=== PATIENT | female | born 1940 | race Caucasian/White ===

== ENCOUNTER → 2019-08-30 | Outpatient (CLI) | payer MEDICARE ==
--- NOTE | 2019-08-30 17:57 | US ---
EXAMINATION TYPE: US venous doppler duplex LE LT DATE OF EXAM: 08/30/2019 5:47 PM COMPARISON: NONE CLINICAL HISTORY: R609 Edema, unspecified, [id number] Pain in left lower leg. Left lower extremity pain a nd swelling since 08/05/2019. No hx of DVT. Patient does not take blood thinners. SIDE PERFORMED: Left TECHNIQUE: The lower extremity deep venous system is examined utilizing real time linear array sonog ethel with graded compression, doppler sonography and color-flow sonography. VESSELS IMAGED: Common Femoral Vein Deep Femoral Vein Greater Saphenous Vein * Femoral Vein Popliteal Vein Small Saphenous Vein * Proximal Calf Veins (* superficial vessels) Left Leg: EIV not visualized. No evidence of DVT in veins imaged at this time from prox calf veins t o CFV/GSV. IMPRESSION: 1. Limited exam as the external iliac vein was not visualized. The remaining deep venous structures v isualized demonstrate no diagnostic evidence of DVT.
== END | disposition home or self-care (01) ==
LOC: RADUSMAIN 17:16
PROVIDERS: ATTEND Physician Assistant Medical
DX: R22.42 Localized swelling, mass and lump, left lower limb (principal)

== ENCOUNTER → 2019-11-08 | Outpatient (CLI) | payer MEDICARE ==
--- NOTE | 2019-11-08 11:27 | BD ---
EXAMINATION TYPE: Axial Bone Density DATE OF EXAM: 11/08/2019 COMPARISON: Prior DEXA bone scan 2011. CLINICAL HISTORY: Nuclear Medicine Study in the last 2 weeks: NO Barium Study in the last week: NO : NO Height: 5 FT 4IN Weight: 210 FRAX RISK QUESTIONS: Alcohol (3 or more units per day): NO Family History (Parent hip fracture): NO Glucocorticoids (More than 3mos): NO (Ex: prednisone, prednisolone, methylprednisolone, dexamethasone, and hydrocortisone). History of Fracture in Adulthood: NO Secondary Osteoporosis: 1. Type 1 Diabetes: NO 2. Hyperthyroidism: NO 3. Menopause before 45: NO 4. Malnutrition: NO 5. Chronic liver disease: NO Rheumatoid Arthritis: NO Current Tobacco Use: NO RISK FACTORS HISTORY OF: Active: YES Postmenopausal woman: PART HYST AGE 41 SYMPTOMS OF MENOPAUSE AROUND 51 Take estrogen and/or progesterone medications: TOOK PREMARIN 50-65 MEDICATIONS: Thyroid Medications: YES Which medication: SYNTHROID How Lon YEARS Additional Medications: ATENOLOL, ZESTRIL, TRICOR, DETROL, SYNTHROID, Additional History: EXAM MEASUREMENTS: Bone mineral densitometry was performed using the [employer] System. Bone mineral density as measured about the Lumbar spine is: ----- L1-L4(G/cm2): 1.539 T Score Values are as follows: ----- L2: 3.8 ----- L3: 3.0 ----- L4: 3.4 ----- L1-L4: 3.0 Bone mineral density has: INCREASED 9.9% since study of: 2011 Bone mineral density about the R hip (g/cm2): 1.039 Bone mineral density about the L hip (g/cm2): 0.942 T Score values are as follows: -----R Neck: 0.0 -----L Neck: -0.7 -----R Total: 0.2 -----L Total: 0.4 Bone mineral density has: INCREASED 6.6 % since study of: 2011 IMPRESSION: Normal (Values between +1 and -1 indicate normal bone mass) range remains present. Consider repeatin g this study in 5 years or sooner if there is some new clinical indication. NOTE: T-SCORE=SD OF THE YOUNG ADULT MEAN.
== END | disposition home or self-care (01) ==
LOC: RADBDWWP 08:53
PROVIDERS: ATTEND Family Medicine
DX: M85.80 Other specified disorders of bone density and structure, unspecified site (principal)
CPT/HCPCS: 77080

== ENCOUNTER 2020-10-20 14:04 | Emergency (ER) | payer MEDICARE ==
[2020-10-20 15:16] VITALS: TEMP 98
--- NOTE | 2020-10-20 15:49 | ED ---
General Adult HPI - General Chief complaint: Shortness of Breath Stated complaint: SOB Time Seen by Provider: 10/20/20 15:30 Source: patient, RN notes reviewed Mode of arrival: ambulatory Limitations: no limitations - History of Present Illness Initial comments: Patient is a pleasant 80-year-old female presenting to the emergency Department with complaints of difficulty in breathing. Symptoms have worsened over the past couple months. Patient does have history of asthma. Patient is coughing with productive green sputum. No fever. Symptoms do worsen somewhat with exertion. No leg pain or leg swelling. No chest pain. - Related Data Home Medications Medication Instructions Recorded Confirmed Albuterol Nebulized [Ventolin 2.5 mg INHALATION RT-BID 10/20/20 10/20/20 Nebulized] Atenolol [Tenormin] 50 mg PO BID 10/20/20 10/20/20 Divalproex Sodium [Depakote] 500 mg PO BID 10/20/20 10/20/20 Fenofibrate,Micronized 134 mg PO DAILY 10/20/20 10/20/20 [Fenofibrate] Levothyroxine Sodium [Synthroid] 50 mcg PO DAILY 10/20/20 10/20/20 Omeprazole 20 mg PO DAILY 10/20/20 10/20/20 Tolterodine ER [Detrol LA] 4 mg PO DAILY 10/20/20 10/20/20 hydrALAZINE HCL [Apresoline] 50 mg PO TID 10/20/20 10/20/20 lisinopriL [Zestril] 20 mg PO DAILY 10/20/20 10/20/20 Previous Rx's Medication Instructions Recorded Azithromycin [Zithromax Z-pack (6 250 mg PO DIRECTED #6 tab 10/20/20 tabs)] Allergies Allergy/AdvReac Type Severity Reaction Status Date / Time Latex, Natural Rubber Allergy Rash/Hives Verified 10/20/20 16:51 Review of Systems ROS Statement: Those systems with pertinent positive or pertinent negative responses have been documented in the HPI. ROS Other: All systems not noted in ROS Statement are negative. Constitutional: Denies: fever Eyes: Denies: eye pain ENT: Denies: ear pain Respiratory: Reports: cough, dyspnea Cardiovascular: Denies: chest pain Endocrine: Reports: fatigue Gastrointestinal: Denies: abdominal pain Genitourinary: Denies: dysuria Musculoskeletal: Denies: back pain Skin: Denies: rash Neurological: Denies: weakness Past Medical History Past Medical History: GERD/Reflux, Hyperlipidemia, Hypertension, Thyroid Disorder History of Any Multi-Drug Resistant Organisms: None Reported Past Surgical History: Hysterectomy Past Psychological History: Anxiety, Depression Smoking Status: Never smoker Past Alcohol Use History: None Reported Past Drug Use History: None Reported General Exam Limitations: no limitations General appearance: alert, in no apparent distress Head exam: Present: normocephalic Eye exam: Present: normal appearance Respiratory exam: Present: wheezes Cardiovascular Exam: Present: regular rate, normal rhythm GI/Abdominal exam: Present: soft. Absent: tenderness Extremities exam: Present: normal inspection. Absent: pedal edema, calf tenderness Neurological exam: Present: alert Psychiatric exam: Present: normal affect, normal mood Skin exam: Present: normal color Course Vital Signs 10/20/20 10/20/20 15:11 15:33 Temperature 98.0 F Pulse Rate 72 75 Respiratory 24 20 Rate Blood Pressure 149/70 164/73 O2 Sat by Pulse 90 L 93 L Oximetry EKG Findings - EKG Comments: EKG Findings:: Sinus rhythm with a rate of 75. First 3 AV block GA of 218. QRS 150. QT 462. QTC 513. Right axis. Right bundle branch block. Lateral T wave inversion. Inferior T wave inversion. Medical Decision Making - Medical Decision Making Patient reevaluated and resting comfortably in bed. Patient feeling better. Pulse ox 97%. Lungs with minimal expiratory wheeze. Patient and family updated on results. Patient comfortable with discharge home. Patient and family states she does not do well with steroids would like to hold steroids at this time. - Lab Data Result diagrams: 10/20/20 15:55 10/20/20 15:55 Lab Results 10/20/20 10/20/20 10/20/20 Range/Units 15:55 15:55 15:55 WBC 9.5 (3.8-10.6) k/uL RBC 4.82 (3.80-5.40) m/uL Hgb 13.3 (11.4-16.0) gm/dL Hct 40.4 (34.0-46.0) % MCV 83.9 (80.0-100.0) fL MCH 27.6 (25.0-35.0) pg MCHC 32.9 (31.0-37.0) g/dL RDW 14.4 (11.5-15.5) % Plt Count 268 (150-450) k/uL MPV 6.7 Neutrophils % 69 % Lymphocytes % 22 % Monocytes % 5 % Eosinophils % 3 % Basophils % 1 % Neutrophils # 6.6 (1.3-7.7) k/uL Lymphocytes # 2.1 (1.0-4.8) k/uL Monocytes # 0.5 (0-1.0) k/uL Eosinophils # 0.3 (0-0.7) k/uL Basophils # 0.1 (0-0.2) k/uL PT 10.5 (9.0-12.0) sec INR 1.0 (<1.2) APTT 23.3 (22.0-30.0) sec D-Dimer 0.29 (<0.60) mg/L FEU Sodium 134 L (137-145) mmol/L Potassium 4.2 (3.5-5.1) mmol/L Chloride 102 (98-107) mmol/L Carbon Dioxide 24 (22-30) mmol/L Anion Gap 8 mmol/L BUN 21 H (7-17) mg/dL Creatinine 0.62 (0.52-1.04) mg/dL Est GFR (CKD-EPI)AfAm >90 (>60 ml/min/1.73 sqM) Est GFR (CKD-EPI)NonAf 87 (>60 ml/min/1.73 sqM) Glucose 112 H (74-99) mg/dL Plasma Lactic Acid [place] (0.7-2.0) mmol/L Calcium 9.5 (8.4-10.2) mg/dL Total Bilirubin 0.3 (0.2-1.3) mg/dL AST 24 (14-36) U/L ALT 14 (4-34) U/L Alkaline Phosphatase 52 (38-126) U/L Troponin I (0.000-0.034) ng/mL NT-Pro-B Natriuret Pep pg/mL Total Protein 6.6 (6.3-8.2) g/dL Albumin 4.0 (3.5-5.0) g/dL Coronavirus (PCR) (Not Detectd) 06/04/21 06/04/21 06/04/21 Range/Units 15:55 15:55 15:55 WBC (3.8-10.6) k/uL RBC (3.80-5.40) m/uL Hgb (11.4-16.0) gm/dL Hct (34.0-46.0) % MCV (80.0-100.0) fL MCH (25.0-35.0) pg MCHC (31.0-37.0) g/dL RDW (11.5-15.5) % Plt Count (150-450) k/uL MPV Neutrophils % % Lymphocytes % % Monocytes % % Eosinophils % % Basophils % % Neutrophils # (1.3-7.7) k/uL Lymphocytes # (1.0-4.8) k/uL Monocytes # (0-1.0) k/uL Eosinophils # (0-0.7) k/uL Basophils # (0-0.2) k/uL PT (9.0-12.0) sec INR (<1.2) APTT (22.0-30.0) sec D-Dimer (<0.60) mg/L FEU Sodium (137-145) mmol/L Potassium (3.5-5.1) mmol/L Chloride (98-107) mmol/L Carbon Dioxide (22-30) mmol/L Anion Gap mmol/L BUN (7-17) mg/dL Creatinine (0.52-1.04) mg/dL Est GFR (CKD-EPI)AfAm (>60 ml/min/1.73 sqM) Est GFR (CKD-EPI)NonAf (>60 ml/min/1.73 sqM) Glucose (74-99) mg/dL Plasma Lactic Acid [place] 0.9 (0.7-2.0) mmol/L Calcium (8.4-10.2) mg/dL Total Bilirubin (0.2-1.3) mg/dL AST (14-36) U/L ALT (4-34) U/L Alkaline Phosphatase (38-126) U/L Troponin I <0.012 (0.000-0.034) ng/mL NT-Pro-B Natriuret Pep 377 pg/mL Total Protein (6.3-8.2) g/dL Albumin (3.5-5.0) g/dL Coronavirus (PCR) (Not Detectd) 10/20/20 Range/Units 15:55 WBC (3.8-10.6) k/uL RBC (3.80-5.40) m/uL Hgb (11.4-16.0) gm/dL Hct (34.0-46.0) % MCV (80.0-100.0) fL MCH (25.0-35.0) pg MCHC (31.0-37.0) g/dL RDW (11.5-15.5) % Plt Count (150-450) k/uL MPV Neutrophils % % Lymphocytes % % Monocytes % % Eosinophils % % Basophils % % Neutrophils # (1.3-7.7) k/uL Lymphocytes # (1.0-4.8) k/uL Monocytes # (0-1.0) k/uL Eosinophils # (0-0.7) k/uL Basophils # (0-0.2) k/uL PT (9.0-12.0) sec INR (<1.2) APTT (22.0-30.0) sec D-Dimer (<0.60) mg/L FEU Sodium (137-145) mmol/L Potassium (3.5-5.1) mmol/L Chloride (98-107) mmol/L Carbon Dioxide (22-30) mmol/L Anion Gap mmol/L BUN (7-17) mg/dL Creatinine (0.52-1.04) mg/dL Est GFR (CKD-EPI)AfAm (>60 ml/min/1.73 sqM) Est GFR (CKD-EPI)NonAf (>60 ml/min/1.73 sqM) Glucose (74-99) mg/dL Plasma Lactic Acid [place] (0.7-2.0) mmol/L Calcium (8.4-10.2) mg/dL Total Bilirubin (0.2-1.3) mg/dL AST (14-36) U/L ALT (4-34) U/L Alkaline Phosphatase (38-126) U/L Troponin I (0.000-0.034) ng/mL NT-Pro-B Natriuret Pep pg/mL Total Protein (6.3-8.2) g/dL Albumin (3.5-5.0) g/dL Coronavirus (PCR) Not Detected (Not Detectd) - Radiology Data Radiology results: image reviewed (x-ray shows no acute) Disposition Clinical Impression: Bronchospasm Disposition: HOME SELF-CARE Condition: Stable Instructions (If sedation given, give patient instructions): Bronchospasm (ED), Acute Bronchitis (ED) Additional Instructions: Continue nebulizer. Prescription for antibiotics has been sent to pharmacy. Return for difficulty in breathing, pain, fevers, worsening symptoms or other concerns. Prescriptions: Azithromycin [Zithromax Z-pack (6 tabs)] 250 mg PO DIRECTED #6 tab Is patient prescribed a controlled substance at d/c from ED?: No Referrals: Bennett Saxena DO [Primary Care Provider] - 1-2 days Cindy Dash MD [STAFF PHYSICIAN] - 1-2 days Time of Disposition: 17:29
[2020-10-20 16:17] LABS: Basophils # (A) 0.1 k/uL (0-0.2); Basophils % (A) 1 %; Eosinophils # (A) 0.3 k/uL (0-0.7); Eosinophils % (A) 3 %; HCT 40.4 % (34.0-46.0); HGB 13.3 gm/dL (11.4-16.0); Lymphocytes # (A) 2.1 k/uL (1.0-4.8); Lymphocytes % (A) 22 %; MCH 27.6 pg (25.0-35.0); MCHC 32.9 g/dL (31.0-37.0); MCV 83.9 fL (80.0-100.0); Mean Platelet Volume 6.7; Monocytes # (A) 0.5 k/uL (0-1.0); Monocytes % (A) 5 %; Neutrophils # (A) 6.6 k/uL (1.3-7.7); Neutrophils % (A) 69 %; Platelet Count 268 k/uL (150-450); RBC 4.82 m/uL (3.80-5.40); RDW 14.4 % (11.5-15.5); WBC 9.5 k/uL (3.8-10.6)
[2020-10-20 16:24] LABS: ALT 14 U/L (4-34); AST 24 U/L (14-36); African American GFR (CKD) >90 (>60 ml/min/1.73 sqM); Alkaline Phosphatase 52 U/L (38-126); Anion Gap 8 mmol/L; Blood Urea Nitrogen 21 mg/dL (7-17); Calcium 9.5 mg/dL (8.4-10.2); Carbon Dioxide 24 mmol/L (22-30); Chloride 102 mmol/L (98-107); Glucose 112 mg/dL (74-99); Non-African American GFR(CKD) 87 (>60 ml/min/1.73 sqM); Potassium 4.2 mmol/L (3.5-5.1); Sodium 134 mmol/L (137-145); Total Bilirubin 0.3 mg/dL (0.2-1.3); Total Protein 6.6 g/dL (6.3-8.2)
[2020-10-20 16:30] LABS: D-Dimer 0.29 mg/L FEU (<0.60); Partial Thromboplastin Time 23.3 sec (22.0-30.0); Prothrombin Time 10.5 sec (9.0-12.0)
--- NOTE | 2020-10-20 16:49 | XR ---
EXAMINATION TYPE: XR chest 2V DATE OF EXAM: 10/20/2020 COMPARISON: NONE HISTORY: Difficulty breathing TECHNIQUE: 2 views FINDINGS: There is no heart failure nor confluent pneumonic infiltrate. Heart appears enlarged. Costo phrenic angles are clear. There are no hilar masses. IMPRESSION: Cardiomegaly. No acute lung disease. No heart failure.
[2020-10-20 17:39] VITALS: BP 159/79; PULSE 86; RESP 16
== END 2020-10-20 17:38 | disposition home or self-care (01) ==
LOC: EC 14:04
DX: J98.01 Acute bronchospasm (principal); E78.5 Hyperlipidemia, unspecified; I10 Essential (primary) hypertension; E07.9 Disorder of thyroid, unspecified; K21.9 Gastro-esophageal reflux disease without esophagitis
CPT/HCPCS: 36415; 71046; 80053; 83605; 83880; 84484; 85025; 85379; 85610; 85730; 87635; 93005; 99284

== ENCOUNTER → 2020-10-20 | Outpatient (CLI) | payer MEDICARE ==
--- NOTE | 2020-10-20 18:57 | ECHOF ---
Referral Reason:R011 murmur MEASUREMENTS -------- HEIGHT: 162.6 cm WEIGHT: 98.0 kg BP: RVIDd: 2.9 cm (< 3.3) IVSd: 1.2 cm (0.6 - 1.1) LVIDd: 4.8 cm (3.9 - 5.3) LVPWd: 1.3 cm (0.6 - 1.1) IVSs: 1.5 cm LVIDs: 3.4 cm LVPWs: 1.5 cm LA Diam: 3.5 cm (2.7 - 3.8) Ao Diam: 3.0 cm (2.0 - 3.7) AV Cusp: 1.9 cm (1.5 - 2.6) MV EXCURSION: 15.965 mm (> 18.000) MV EF SLOPE: 47 mm/s (70 - 150) EPSS: 0.8 cm MV E Zan: 0.58 m/s MV DecT: 166 ms MV A Zan: 0.57 m/s MV E/A Ratio: 1.02 RAP: 5.00 mmHg RVSP: 24.18 mmHg FINDINGS -------- This was a technically adequate study. The left ventricular size is normal. There is mild concentric left ventricular hypertrophy. Overa ll left ventricular systolic function is low-normal with, an EF between 50 - 55 %. The right ventricle is normal in size. The left atrial size is normal. The right atrial size is normal. There is mild aortic valve sclerosis. There is no evidence of aortic regurgitation. The mitral valve leaflets are mildly thickened. Mild mitral regurgitation is present. The tricuspid valve appears structurally normal. Mild tricuspid regurgitation present. Right vent ricular systolic pressure is normal at < 35 mmHg. The pulmonic valve was not well visualized. The aortic root size is normal. Echo free space represents a pericardial fat pad. CONCLUSIONS -------- 1. There is mild concentric left ventricular hypertrophy. 2. Overall left ventricular systolic function is low-normal with, an EF between 50 - 55 %. 3. The left atrial size is normal. 4. There is mild aortic valve sclerosis. 5. The mitral valve leaflets are mildly thickened. 6. Mild mitral regurgitation is present. 7. Mild tricuspid regurgitation present. 8. Echo free space represents a pericardial fat pad. [employer] HAR[employer]STER: Kaylee Miller RDCS
== END | disposition home or self-care (01) ==
LOC: RADECHMAIN 13:19
PROVIDERS: ATTEND Family Medicine
DX: I08.1 Rheumatic disorders of both mitral and tricuspid valves (principal)
CPT/HCPCS: 93306

== ENCOUNTER 2020-10-23 11:35 | Inpatient (IN) | payer MEDICARE ==
[2020-10-23] MEDS ORDERED: dexAMETHasone 4 MG TAB PO STA (13:06)
--- NOTE | 2020-10-23 13:11 | ED ---
General Adult HPI - General Chief complaint: Shortness of Breath Stated complaint: Sob/low o2 Time Seen by Provider: 10/23/20 12:56 Source: patient Mode of arrival: wheelchair Limitations: physical limitation - History of Present Illness Initial comments: Dictation was produced using [employer] dictation software. please excuse any grammatical, word or spelling errors. Chief Complaint: 80-year-old female presents to the emergency department for cough, shortness of breath and wheezing History of Present Illness: Patient is a 80-year-old female. Her story begins 3 days ago. She was getting an echocardiogram performed. She was told that she was hypoxic. She is told to come to the emergency department. 3 days ago patient was seen in the emergency department by Dr. Worthington. She was evaluated and discharged with shortness of breath secondary to bronchospastic disease. She had normal labs that day and also normal x-ray. Patient refused steroid administration at that time. Patient has been at home trying to recover. She states that her shortness of breath seemingly is getting worse. She has been using her 's breathing machine with no significant improvement. Patient has been having coughing with green sputum. Denies any constitutional symptoms. The ROS documented in this emergency department record has been reviewed and confirmed by me. Those systems with pertinent positive or negative responses have been documented in the HPI. All other systems are other negative and/or noncontributory. PHYSICAL EXAM: General Impression: Alert and oriented x3, not in acute distress HEENT: Normocephalic atraumatic, extra-ocular movements intact, pupils equal and reactive to light bilaterally, mucous membranes moist. Cardiovascular: Heart regular rate and rhythm Chest: Able to complete full sentences, diffuse wheezing to the bilateral lung bases Abdomen: abdomen soft, non-tender, non-distended, no organomegaly Musculoskeletal: Pulses present and equal in all extremities, no peripheral edema Motor: no focal deficits noted Neurological: CN II-XII grossly intact, no focal motor or sensory deficits noted Skin: Intact with no visualized rashes Psych: Normal affect and mood ED course: 80-year-old female presents with chief complaint of dyspnea, cough vital signs upon arrival are within acceptable limits. Laboratory evaluation obtained. CBC unremarkable. Metabolic panel is negative. 4 virus panel shows positive coronavirus. Patient given steroids. Patient be admitted for hypoxic respiratory failure secondary to COVID-19. Patient agreeable with plan. Patient be admitted to [facility] hospitalist group. EKG interpretation: Ventricular rate 61, sinus rhythm, right bundle branch block, WI interval 232, QRS 150, QTc 487. No WI prolongation, no QTC prolongation, no ST or T-wave changes noted. EKG compared to 10/20/2020 showing no changes. Overall, this EKG is unremarkable - Related Data Home Medications Medication Instructions Recorded Confirmed Albuterol Nebulized [Ventolin 2.5 mg INHALATION RT-BID 10/20/20 10/20/20 Nebulized] Atenolol [Tenormin] 50 mg PO BID 10/20/20 10/20/20 Divalproex Sodium [Depakote] 500 mg PO BID 10/20/20 10/20/20 Fenofibrate,Micronized 134 mg PO DAILY 10/20/20 10/20/20 [Fenofibrate] Levothyroxine Sodium [Synthroid] 50 mcg PO DAILY 10/20/20 10/20/20 Omeprazole 20 mg PO DAILY 10/20/20 10/20/20 Tolterodine ER [Detrol LA] 4 mg PO DAILY 10/20/20 10/20/20 hydrALAZINE HCL [Apresoline] 50 mg PO TID 10/20/20 10/20/20 lisinopriL [Zestril] 20 mg PO DAILY 10/20/20 10/20/20 Previous Rx's Medication Instructions Recorded Azithromycin [Zithromax Z-pack (6 250 mg PO DIRECTED #6 tab 10/20/20 tabs)] Allergies Allergy/AdvReac Type Severity Reaction Status Date / Time Latex, Natural Rubber Allergy Rash/Hives Verified 10/23/20 11:48 Review of Systems ROS Statement: Those systems with pertinent positive or pertinent negative responses have been documented in the HPI. ROS Other: All systems not noted in ROS Statement are negative. Past Medical History Past Medical History: COPD, GERD/Reflux, Hyperlipidemia, Hypertension, Thyroid Disorder History of Any Multi-Drug Resistant Organisms: None Reported Past Surgical History: Hysterectomy Past Psychological History: Anxiety, Depression Smoking Status: Never smoker Past Alcohol Use History: None Reported Past Drug Use History: None Reported General Exam Limitations: physical limitation Course Vital Signs 10/23/20 10/23/20 10/23/20 11:44 13:48 14:00 Temperature 97.8 F Pulse Rate 69 Respiratory 18 18 18 Rate Blood Pressure 144/68 O2 Sat by Pulse 95 Oximetry 10/23/20 15:10 Temperature Pulse Rate Respiratory 18 Rate Blood Pressure O2 Sat by Pulse Oximetry Medical Decision Making - Lab Data Result diagrams: 10/23/20 13:47 10/23/20 13:47 Lab Results 10/23/20 10/23/20 10/23/20 Range/Units 13:47 13:47 13:47 WBC 7.9 (3.8-10.6) k/uL RBC 4.65 (3.80-5.40) m/uL Hgb 13.2 (11.4-16.0) gm/dL Hct 39.1 (34.0-46.0) % MCV 84.1 (80.0-100.0) fL MCH 28.3 (25.0-35.0) pg MCHC 33.7 (31.0-37.0) g/dL RDW 13.9 (11.5-15.5) % Plt Count 272 (150-450) k/uL MPV 6.8 Neutrophils % 61 % Lymphocytes % 29 % Monocytes % 5 % Eosinophils % 3 % Basophils % 1 % Neutrophils # 4.8 (1.3-7.7) k/uL Lymphocytes # 2.3 (1.0-4.8) k/uL Monocytes # 0.4 (0-1.0) k/uL Eosinophils # 0.2 (0-0.7) k/uL Basophils # 0.0 (0-0.2) k/uL Sodium 138 (137-145) mmol/L Potassium 4.2 (3.5-5.1) mmol/L Chloride 103 (98-107) mmol/L Carbon Dioxide 26 (22-30) mmol/L Anion Gap 9 mmol/L BUN 20 H (7-17) mg/dL Creatinine 0.63 (0.52-1.04) mg/dL Est GFR (CKD-EPI)AfAm >90 (>60 ml/min/1.73 sqM) Est GFR (CKD-EPI)NonAf 86 (>60 ml/min/1.73 sqM) Glucose 90 (74-99) mg/dL Calcium 9.5 (8.4-10.2) mg/dL Influenza Type A (PCR) Not Detected (Not Detectd) Influenza Type B (PCR) Not Detected (Not Detectd) RSV (PCR) Not Detected (Not Detectd) SARS-CoV-2 (PCR) Detected A (Not Detectd) Disposition Clinical Impression: COVID-19 Disposition: ADMITTED IP TO THIS HOSP Condition: Fair Referrals: Bennett Saxena DO [Primary Care Provider] - 1-2 days
[2020-10-23 14:11] LABS: Basophils % (A) 1 %; Eosinophils # (A) 0.2 k/uL (0-0.7); Eosinophils % (A) 3 %; HCT 39.1 % (34.0-46.0); HGB 13.2 gm/dL (11.4-16.0); Lymphocytes # (A) 2.3 k/uL (1.0-4.8); Lymphocytes % (A) 29 %; MCH 28.3 pg (25.0-35.0); MCHC 33.7 g/dL (31.0-37.0); MCV 84.1 fL (80.0-100.0); Mean Platelet Volume 6.8; Monocytes # (A) 0.4 k/uL (0-1.0); Monocytes % (A) 5 %; Neutrophils # (A) 4.8 k/uL (1.3-7.7); Neutrophils % (A) 61 %; Platelet Count 272 k/uL (150-450); RBC 4.65 m/uL (3.80-5.40); RDW 13.9 % (11.5-15.5); WBC 7.9 k/uL (3.8-10.6)
--- NOTE | 2020-10-23 14:14 | XR ---
EXAMINATION TYPE: XR chest 2V DATE OF EXAM: 10/23/2020 COMPARISON: Chest x-ray 3 oh. HISTORY: Cough. TECHNIQUE: Frontal and lateral views of the chest are obtained. FINDINGS: There is some chronic parenchymal change bilaterally without suspicious new focal air spac e opacity, pleural effusion, or pneumothorax seen. The cardiac silhouette size remains enlarged. T he osseous structures are intact. IMPRESSION: Cardiomegaly without acute pulmonary process.
[2020-10-23 14:18] LABS: African American GFR (CKD) >90 (>60 ml/min/1.73 sqM); Anion Gap 9 mmol/L; Blood Urea Nitrogen 20 mg/dL (7-17); Calcium 9.5 mg/dL (8.4-10.2); Carbon Dioxide 26 mmol/L (22-30); Chloride 103 mmol/L (98-107); Glucose 90 mg/dL (74-99); Non-African American GFR(CKD) 86 (>60 ml/min/1.73 sqM); Potassium 4.2 mmol/L (3.5-5.1); Sodium 138 mmol/L (137-145)
[2020-10-23] MEDS ORDERED: AZITHROMYCIN 500 MG in SODIUM CHLORIDE 0.9% 250 ML IVPB STA (15:11)
[2020-10-23] MEDS ORDERED: cefTRIAXone IN SWFI 1,000 MG/10 ML SYRINGE IVP STA (15:11)
[2020-10-23] MEDS ORDERED: NALOXONE 0.4 MG/ML 1 ML VIAL IV PRN (15:25)
[2020-10-23] MEDS ORDERED: ALBUTEROL NEBULIZED 2.5 MG/3 ML INHALATION SCH (20:00)
[2020-10-23] MEDS ORDERED: IPRATROPIUM-ALBUTEROL 3 ML NEB INHALATION PRN (20:17)
[2020-10-23] MEDS: ZINC SULFATE 220 MG CAP PO SCH (20:49)
[2020-10-23] MEDS: ENOXAPARIN 40 MG/0.4 ML SYRINGE SQ SCH (20:49)
[2020-10-23] MEDS: CHOLECALCIFEROL 25 MCG (1000 IU) TABLET PO SCH (20:50)
[2020-10-23] MEDS: atenoloL 50 MG TAB PO SCH (20:50)
[2020-10-23] MEDS: ASCORBIC ACID 500 MG TAB PO SCH (20:50)
[2020-10-23] MEDS: DIVALPROEX 500 MG TABLET.DR PO SCH (20:50)
[2020-10-23] MEDS: hydrALAZINE HCL 50 MG TAB PO SCH (20:51)
[2020-10-23 21:49] LABS: ALT 14 U/L (4-34); AST 24 U/L (14-36); African American GFR (CKD) >90 (>60 ml/min/1.73 sqM); Albumin 3.9 g/dL (3.5-5.0); Albumin/Globulin Ratio 1.6; Alkaline Phosphatase 48 U/L (38-126); Anion Gap 12 mmol/L; Blood Urea Nitrogen 19 mg/dL (7-17); C Reactive Protein 3.5 mg/dL (<1.0); Calcium 9.2 mg/dL (8.4-10.2); Carbon Dioxide 23 mmol/L (22-30); Chloride 100 mmol/L (98-107); Globulin 2.5 g/dL; Glucose 253 mg/dL (74-99); LDH 374 U/L (313-618); Non-African American GFR(CKD) 86 (>60 ml/min/1.73 sqM); Potassium 4.4 mmol/L (3.5-5.1); Sodium 135 mmol/L (137-145); Total Bilirubin 0.2 mg/dL (0.2-1.3); Total Protein 6.4 g/dL (6.3-8.2)
--- NOTE | 2020-10-23 21:53 | HP ---
HISTORY AND PHYSICAL DATE OF SERVICE: 10/23/2020. CHIEF COMPLAINT: Shortness of breath. HISTORY OF PRESENT ILLNESS: This 80-year-old woman with a past medical history of multiple medical problems, COPD, GERD, hypertension, hyperlipidemia, hypothyroidism, history of anxiety, depression, being followed by Dr. Saxena in the outpatient setting complaining of shortness of breath over the past several weeks on and off. The shortness of breath worsened. About 3 days ago, patient came to emergency room and was evaluated but subsequently patient came back again and Covid is positive. Patient admitted to the hospital for further evaluation and treatment. The patient apparently completed Covid 19 vaccine Pfizer shots on June and July. There is no history of contact with Covid 19. There is no history of fever, rigors or chills. No history of headache, loss of consciousness or seizures. Inflammatory markers are not available at this time. The patient also has been extensively evaluated for cardiac also shortness of breath the last year by Dr. Zelaya's office apparently. PAST MEDICAL HISTORY: COPD, GERD, hypertension, hyperlipidemia, hypothyroidism, history of anxiety/depression. MEDICATIONS: Zestril, Detrol, omeprazole, Z-Diego, Apresoline, Synthroid, fenofibrate, Depakote, Tenormin. ALLERGIES: LATEX. FAMILY HISTORY: No history of heart disease or strokes in the family. SOCIAL HISTORY: No history of smoking. No history of alcohol. REVIEW OF SYSTEMS: ENT: No diminished hearing. No diminished vision. CARDIOVASCULAR system as mentioned earlier. RESPIRATION: As mentioned earlier. GI: No nausea or vomiting. : No dysuria. Nervous system: No numbness, weakness. ALLERGY/IMMUNOLOGY: No asthma or hayfever. MUSCULOSKELETAL: As mentioned earlier. HEMATOLOGY/ONCOLOGY: No history of anemia. ENDOCRINE: No history of diabetes or hypothyroidism. CONSTITUTIONAL: As mentioned earlier. DERMATOLOGY: Negative. RHEUMATOLOGY: Negative. PSYCHIATRIC: As mentioned earlier. PHYSICAL EXAMINATION: The patient is alert and oriented times three. Pulse 73, blood pressure 153/77, respiration 18, temperature 97.8, pulse ox 96% on room air. HEENT: Conjunctivae normal. NECK: No JVD. CARDIOVASCULAR: S1, S2 muffled. RESPIRATORY SYSTEM: Breath sounds diminished at the bases. A few scattered rhonchi and crackles. ABDOMEN: Soft, nontender. LEGS: Legs no edema. No swelling. NERVOUS SYSTEM: Higher functions as mentioned earlier. Moves all four extremities. No focal motor or sensory deficits. LYMPHATICS: No lymph nodes palpable in the neck, axillae or groin. SKIN: No ulcers, rashes or bleeding. JOINTS: No active deforming arthropathy. ASSESSMENT: 1. Possible chronic obstructive pulmonary disease, bronchial asthma, acute exacerbation with acute purulent tracheobronchitis. 2. Acute COVID-19 infection. 3. Hypertension. 4. Gastroesophageal reflux disease. 5. Chronic obstructive pulmonary disease. 6. Hyperlipidemia. 7. History of hypothyroidism. 8. History of anxiety/depression. 9. Obesity with body mass of 37.1. 10.FULL CODE. RECOMMENDATIONS AND DISCUSSION: In this 80-year-old woman who presented with multiple complex medical issues, we will monitor the patient closely, continue the current medications, management and symptomatic treatment. We will initiate broad-spectrum IV antibiotic empirically and also recommend bronchodilators. Also recommend Lovenox and other medications for Covid 19. Inflammatory markers will be checked and Dr. Buckley will be consulted. Prognosis guarded because of multiple complex medical conditions. Further recommendations to follow. I would also recommend dexamethasone also. Monitor blood sugars closely. Prognosis guarded. Further recommendations to follow. MMODL / IJN: [id number] / [id number]
[2020-10-24 02:49] LABS: Appearance,Urine Clear (Clear); Bilirubin,Urine Negative (Negative); Blood,Urine Negative (Negative); Color,Urine Yellow; Glucose,Urine (UA) 3+ (Negative); Ketones,Urine Trace (Negative); Leukocyte Esterase,Urine Small (Negative); Mucus,Urine Rare /hpf; Nitrite,Urine Negative (Negative); Protein,Urine Negative (Negative); RBC,Urine <1 /hpf (0-5); Specific Gravity,Urine 1.016 (1.001-1.035); Squamous Epithelial Cell,Urine <1 /hpf (0-4); Urobilinogen,Urine <2.0 mg/dL (<2.0); WBC,Urine 15 /hpf (0-5)
[2020-10-24] MEDS: guaiFENesin-Coden 100-10MG/5ML 10 ML CUP PO PRN ×2 (03:20→12:40)
[2020-10-24] MEDS ORDERED: ALBUTEROL HFA INHALER INHALATION PRN (07:44)
[2020-10-24] MEDS: ALBUTEROL HFA INHALER INHALATION SCH ×4 (07:47→21:38)
[2020-10-24] MEDS ORDERED: IPRATROPIUM-ALBUTEROL 3 ML NEB INHALATION SCH (08:00)
[2020-10-24] MEDS ORDERED: TIOTROPIUM 2.5 MCG INHALER INHALATION SCH (08:00)
[2020-10-24] MEDS: OXYBUTYNIN 10 MG TAB.ER.24 PO SCH (08:01)
[2020-10-24] MEDS: CHOLECALCIFEROL 25 MCG (1000 IU) TABLET PO SCH (08:01)
[2020-10-24] MEDS: ENOXAPARIN 40 MG/0.4 ML SYRINGE SQ SCH (08:01)
[2020-10-24] MEDS: lisinopriL 20 MG TAB PO SCH (08:02)
[2020-10-24] MEDS: ASCORBIC ACID 500 MG TAB PO SCH (08:02)
[2020-10-24] MEDS: FENOFIBRATE 160 MG TAB PO SCH (08:02)
[2020-10-24] MEDS: dexAMETHasone 2 MG TAB PO SCH (08:02)
[2020-10-24] MEDS: PANTOPRAZOLE 40 MG TABLET PO SCH (08:02)
[2020-10-24] MEDS: hydrALAZINE HCL 50 MG TAB PO SCH ×3 (08:02→16:42)
[2020-10-24] MEDS: ZINC SULFATE 220 MG CAP PO SCH (08:02)
[2020-10-24] MEDS: LEVOTHYROXINE 50 MCG TAB PO SCH (08:02)
[2020-10-24] MEDS: atenoloL 50 MG TAB PO SCH ×2 (10:00→16:42)
[2020-10-24] MEDS ORDERED: hydrALAZINE HCL 50 MG TAB PO SCH (10:00)
[2020-10-24] MEDS ORDERED: atenoloL 50 MG TAB PO SCH (10:00)
--- NOTE | 2020-10-24 10:02 | P.CNPUL ---
History of Present Illness Consult date: 10/24/20 Requesting physician: America Mandujano Reason for consult: dyspnea, cough, hypoxemia, pneumonia, abnormal CXR/CT Chief complaint: Cough and shortness of breath History of present illness: Pulmonary consult dated 10/24/2020. 80-year-old female who initially was seen in the emergency department late last week. At that time, she did test negative for coronavirus. She apparently was thought to have it anyway, and was given a prescription for a Z-Diego, and steroids, although she refuses steroids. At that time, her complaints included shortness of breath and cough, low saturations. She returned to the emergency department on October 23. She was again evaluated and found to have low saturations, quite short of breath, with cough and green phlegm production. Her symptoms actually had progressed and gotten worse. She did test positive on the second admission for coronavirus. She has a history of COPD, GERD, hyperlipidemia, hypertension, and hypothyroidism. She is a lifelong nonsmoker. Lab data includes a normal CBC, a d-dimer which is 0.38, and a sodium of 135, potassium 4.4, chlorides 100, CO2 23, anion gap 12, UN 19, creatinine 0.63. Chest x-ray was not too impressive but did show cardiomegaly and some chronic parenchymal changes. Review of Systems REVIEW OF SYSTEMS: CONSTITUTIONAL: [Negative.] NEUROLOGIC: [ Negative.] HEENT: [ Negative.] CARDIAC: [Negative.] PULMONARY: Cough, with green phlegm production, shortness of breath. GI: [Negative.] : [Negative.] RHEUMATOLOGIC: [ Negative.] IMMUNOLOGIC: [ Negative.] ENDOCRINE: [Negative. ] DERMATOLOGIC: [Negative.] Past Medical History Past Medical History: COPD, GERD/Reflux, Hyperlipidemia, Hypertension, Thyroid Disorder History of Any Multi-Drug Resistant Organisms: None Reported Past Surgical History: Hysterectomy Past Psychological History: Anxiety, Depression Smoking Status: Never smoker Past Alcohol Use History: None Reported Past Drug Use History: None Reported Medications and Allergies Home Medications Medication Instructions Recorded Confirmed Type Albuterol Nebulized [Ventolin 2.5 mg INHALATION RT-BID 10/20/20 10/23/20 History Nebulized] Atenolol [Tenormin] 50 mg PO BID@1000,1800 10/20/20 10/23/20 History Divalproex Sodium [Depakote] 1,000 mg PO HS@1800 10/20/20 10/23/20 History Fenofibrate,Micronized 134 mg PO DAILY@1000 10/20/20 10/23/20 History [Fenofibrate] Levothyroxine Sodium [Synthroid] 50 mcg PO DAILY@0800 10/20/20 10/23/20 History Omeprazole 20 mg PO DAILY@0800 10/20/20 10/23/20 History Tolterodine ER [Detrol LA] 4 mg PO DAILY@0800 10/20/20 10/23/20 History hydrALAZINE HCL [Apresoline] 50 mg PO TID@1000,1300,1800 10/20/20 10/23/20 History lisinopriL [Zestril] 20 mg PO DAILY@1000 10/20/20 10/23/20 History Azithromycin [Zithromax Z-pack (6 See Taper PO DIRECTED 10/23/20 10/23/20 History tabs)] Allergies Allergy/AdvReac Type Severity Reaction Status Date / Time Latex, Natural Rubber Allergy Rash/Hives Verified 10/23/20 16:24 Physical Exam Osteopathic Statement: *. No significant issues noted on an osteopathic structural exam other than those noted in the History and Physical/Consult. Vitals: Vital Signs Temp Pulse Pulse Resp BP BP Pulse Ox 10/24/20 08:00 16 10/24/20 06:28 98.4 F 71 18 125/62 96 10/24/20 02:07 97.8 F 74 18 122/64 93 L 10/23/20 20:50 98.3 F 78 17 91 L 10/23/20 20:24 70 18 10/23/20 20:19 68 20 10/23/20 18:21 97.8 F 73 18 153/77 96 10/23/20 18:00 70 18 96 10/23/20 17:00 18 96 10/23/20 16:00 73 18 153/77 96 10/23/20 15:10 18 10/23/20 14:00 18 10/23/20 13:48 18 10/23/20 11:44 97.8 F 69 18 144/68 95 Intake and Output 10/23/20 10/24/20 10/24/20 22:59 06:59 14:59 Intake Total 240 Balance 240 Intake: Oral 240 Other: Voiding Method Toilet Incontinent # Voids 2 Weight 97.976 kg No acute distress, oriented 3. No audible wheezing, or use of accessory muscles. HEENT examination is grossly unremarkable. Neck supple. Full range of motion. No adenopathy thyromegaly or neck vein distention. Cardiovascular examination reveals regular rhythm rate. S1-S2 normal. No S3 or S4. No discernible murmur noted. Heart sounds are distant. Heart rate 71 bpm. Lungs reveal mild scattered rhonchi. No wheezes or crackles. Breath sounds are equal bilaterally. Abdomen soft bowel sounds are heard. No masses or tenderness. Extremities are intact. No cyanosis clubbing or edema. Skin is without rash or lesion. Neurologic examination is brief but nonfocal. Results - Laboratory Findings CBC and BMP: 10/23/20 13:47 10/23/20 20:57 PT/INR, D-dimer D-Dimer 0.38 mg/L FEU (<0.60) 10/23/20 20:57 Abnormal lab findings: Abnormal Labs 10/23/20 10/23/20 10/23/20 13:47 13:47 20:57 Sodium 135 L BUN 20 H 19 H Glucose 253 H C-Reactive Protein 3.5 H Urine Glucose (UA) Urine Ketones Ur Leukocyte Esterase Urine WBC Urine Mucus SARS-CoV-2 (PCR) Detected A 10/24/20 02:20 Sodium BUN Glucose C-Reactive Protein Urine Glucose (UA) 3+ H Urine Ketones Trace H Ur Leukocyte Esterase Small H Urine WBC 15 H Urine Mucus Rare H SARS-CoV-2 (PCR) - Diagnostic Findings Chest x-ray: image reviewed Assessment and Plan Assessment: Mild/moderate hypoxemic respiratory failure secondary to COVID 19 infection/pneumonia. Questionable history of COPD although the patient's a lifelong nontobacco user. History of gastroesophageal reflux disease. History of hyperlipidemia. History of hypertension. History of hypothyroidism. History of anxiety/depression. Plan: Plan dated 10/24/2020. The patient will get a vitamin cocktail vitamin C, vitamin D3, and zinc. She, we recommend Lovenox and Decadron. The patient has been sick for some time, and is not a candidate for REM. She is not sick enough to receive TOCI. Additional recommendations and suggestions are forthcoming. Hopefully, the patient will be able to be discharged in the near future. No additional recommendations are made. Time with Patient: Greater than 30
[2020-10-24 11:06] LABS: Basophils # (A) 0.02 X 10*3/uL (0.00-0.10); Basophils % (A) 0.3 %; Eosinophils # (A) 0 X 10*3/uL (0.04-0.35); Eosinophils % (A) 0 %; HCT 38.5 % (37.2-46.3); HGB 12.4 g/dL (12.0-15.0); Lymphocytes # (A) 1.26 X 10*3/uL (0.90-5.00); Lymphocytes % (A) 18.2 %; MCH 27.7 pg (27.0-32.0); MCHC 32.2 g/dL (32.0-37.0); MCV 86.1 fL (80.0-97.0); Mean Platelet Volume 9.8 fL (9.5-12.2); Monocytes # (A) 0.19 X 10*3/uL (0.20-1.00); Monocytes % (A) 2.7 %; Neutrophils # (A) 5.39 X 10*3/uL (1.80-7.70); Neutrophils % (A) 78.1 %; Platelet Count 280 X 10*3/uL (140-440); RBC 4.47 X 10*6/uL (4.10-5.20); RDW 13.5 % (11.5-14.5); WBC 6.91 X 10*3/uL (4.50-10.00)
[2020-10-24 13:13] LABS: African American GFR (CKD) 96.2 (60.0-200.0); Anion Gap 11.6 mmol/L (4.00-12.00); BUN/Creat Ratio 31.43 Ratio (12.00-20.00); Calcium 9.2 mg/dL (8.7-10.3); Carbon Dioxide 23.4 mmol/L (21.6-31.8); Potassium 4.7 mmol/L (3.5-5.5)
[2020-10-24] MEDS: DIVALPROEX 500 MG TABLET.DR PO SCH (14:55)
[2020-10-24] MEDS ORDERED: DIVALPROEX 500 MG TABLET.DR PO SCH (18:00)
--- NOTE | 2020-10-24 19:04 | PN ---
PROGRESS NOTE DATE OF SERVICE: 10/24/2020 This 80-year-old woman was admitted with shortness of breath, had possible chronic obstructive pulmonary disease and bronchial asthma, acute exacerbation. The patient also had COVID-19 positive. The D-dimer was normal and the inflammatory markers also minimally elevated. CRP is only 3.5. The procalcitonin is normal. The patient had some abnormal urine. No chest pain. No palpitations. Cultures are pending. PHYSICAL EXAMINATION: Alert and oriented x3. Pulse 73. Blood pressure 130/74, respiration 19, temperature 97.8, pulse ox 94% on 2 L. HEENT: Conjunctivae normal. NECK: No JVD. CARDIOVASCULAR: S1, S2 muffled. RESPIRATORY SYSTEM: Breath sounds diminished at the bases. A few rhonchi. No crackles. ABDOMEN: Soft, nontender. No mass palpable. LEGS: No edema. No swelling. NERVOUS SYSTEM: Higher functions as mentioned earlier. Moves all four extremities. No focal deficits. LYMPHATICS: No lymph nodes palpable in the neck, axillae or groin. SKIN: No ulcer, rash or bleeding. JOINTS: No active deforming arthropathy. LABS: CBC noted. ASSESSMENT: 1. Possible chronic obstructive pulmonary disease bronchial asthma, acute exacerbation, acute purulent tracheobronchitis. 2. Acute COVID-19 infection. 3. Elevated CRP. 4. Hypertension. 5. Gastroesophageal reflux disease. 6. Chronic obstructive pulmonary disease history. 7. Hyperlipidemia. 8. History of hypothyroidism. 9. History of anxiety, depression. 10.Obesity with body mass of 37.1. 11.FULL CODE. RECOMMENDATIONS AND DISCUSSION: Recommend to continue current medications, symptomatic treatment. Otherwise, at this time, I recommend continue with steroids. Continue the rest of medications. Empiric antibiotics. Closely follow. Guarded prognosis. Further recommendations to follow. Continue with the usual medications of Covid 19 also. MMODL / IJN: [id number] / MTDD
[2020-10-24] MEDS: SYMBICORT 160-4.5 MCG INHALER INHALATION SCH (21:39)
[2020-10-25] MEDS: OXYBUTYNIN 10 MG TAB.ER.24 PO SCH (08:07)
[2020-10-25] MEDS: dexAMETHasone 2 MG TAB PO SCH (08:07)
[2020-10-25] MEDS: ASCORBIC ACID 500 MG TAB PO SCH (08:07)
[2020-10-25] MEDS: CHOLECALCIFEROL 25 MCG (1000 IU) TABLET PO SCH (08:07)
[2020-10-25] MEDS: LEVOTHYROXINE 50 MCG TAB PO SCH (08:07)
[2020-10-25] MEDS: PANTOPRAZOLE 40 MG TABLET PO SCH (08:07)
[2020-10-25] MEDS: ENOXAPARIN 40 MG/0.4 ML SYRINGE SQ SCH (08:08)
[2020-10-25] MEDS: ZINC SULFATE 220 MG CAP PO SCH (08:08)
[2020-10-25] MEDS: guaiFENesin-Coden 100-10MG/5ML 10 ML CUP PO PRN (08:17)
[2020-10-25] MEDS: SYMBICORT 160-4.5 MCG INHALER INHALATION SCH (09:52)
[2020-10-25] MEDS: ALBUTEROL HFA INHALER INHALATION SCH ×3 (09:52→17:13)
[2020-10-25] MEDS: atenoloL 50 MG TAB PO SCH (11:21)
[2020-10-25] MEDS: FENOFIBRATE 160 MG TAB PO SCH (11:21)
[2020-10-25] MEDS: hydrALAZINE HCL 50 MG TAB PO SCH ×2 (11:21→14:25)
[2020-10-25] MEDS: lisinopriL 20 MG TAB PO SCH (11:22)
--- NOTE | 2020-10-25 11:32 | P.PN ---
Subjective Progress Note Date: 10/25/20 Principal diagnosis: Shortness of breath 80-year-old female who initially was seen in the emergency department late last week. At that time, she did test negative for coronavirus. She apparently was thought to have it anyway, and was given a prescription for a Z-Diego, and stero ids, although she refuses steroids. At that time, her complaints included shortness of breath and cough, low saturations. She returned to the emergency department on October 23. She was again evaluated and found to have low saturations, quite short of breath, with cough and green phlegm production. Her symptoms actually had progressed and gotten worse. She did test positive on the second admission for coronavirus. She has a history of COPD, GERD, hyperlipidemia, hypertension, and hypothyroidism. She is a lifelong nonsmoker. Lab data includes a normal CBC, a d-dimer which is 0.38, and a sodium of 135, potassium 4.4, chlorides 100, CO2 23, anion gap 12, UN 19, creatinine 0.63. Chest x-ray was not too impressive but did show cardiomegaly and some chronic parenchymal changes. On 10/25/2020 patient seen in follow-up on medical surgical floor, she sits in the chair, in no acute distress, on 2 L of oxygen pulse ox of 97%, breathing comfortably, sounding better on physical exam, less wheezing, less dyspneic. Occasional cough. No fever or chills, vitals have been stable. Patient remains on Decadron 6 migraine daily, on Symbicort and Ventolin, and prophylactic dose of Lovenox, she is on Robitussin-AC cough syrup. Labs have been reviewed. Pro- calcitonin level was negative at 0.06, d-dimer was 0.38 Objective - Vital Signs Vital signs: Vital Signs Temp 98.2 F 10/25/20 07:39 Pulse 66 10/25/20 07:39 Resp 18 10/25/20 07:39 BP 154/71 10/25/20 07:39 Pulse Ox 95 10/25/20 10:08 Intake & Output 10/24/20 10/25/20 10/25/20 18:59 06:59 18:59 Intake Total 940 Balance 940 Intake: Intake, IV Titration 100 Amount cefTRIAXone 1 gm In 100 Sodium Chloride 0.9% 50 ml @ 100 mls/hr IVPB Q24H [facility] Rx#:[id number] Oral 840 Other: Voiding Method Incontinent # Voids 3 2 # Bowel Movements 1 - Exam GENERAL EXAM: Alert, very pleasant, 80-year-old white female, on 2 L of oxygen and a pulse ox of 97% comfortable in no apparent distress. HEAD: Normocephalic/atraumatic. EYES: Normal reaction of pupils, equal size. Conjunctiva pink, sclera white. NOSE: Clear with pink turbinates. THROAT: No erythema or exudates. NECK: No masses, no JVD, no thyroid enlargement, no adenopathy. CHEST: No chest wall deformity. Symmetrical expansion. LUNGS: Equal air entry with no crackles CVS: Regular rate and rhythm, normal S1 and S2, no gallops, no murmurs, no rubs ABDOMEN: Soft, nontender. No hepatosplenomegaly, normal bowel sounds, no guarding or rigidity. EXTREMITIES: No clubbing, no edema, no cyanosis, 2+ pulses and upper and lower extremities. MUSCULOSKELETAL: Muscle strength and tone normal. SPINE: No scoliosis or deformity SKIN: No rashes CENTRAL NERVOUS SYSTEM: Alert and oriented -3. No focal deficits, tone is normal in all 4 extremities. PSYCHIATRIC: Alert and oriented -3. Appropriate affect. Intact judgment and insight. - Labs CBC & Chem 7: 10/24/20 07:32 10/24/20 07:32 Labs: Abnormal Lab Results - Last 24 Hours (Table) 10/24/20 Range/Units 07:32 BUN/Creatinine Ratio 31.43 H (12.00-20.00) Ratio Glucose 149 H (70-110) mg/dL Microbiology - Last 24 Hours (Table) 10/24/20 19:45 Urine Culture - Preliminary Urine,Voided Assessment and Plan Plan: Assessment: #1. Mild/moderate hypoxic respiratory failure second to COVID-19 infection/pneumonia #2. Questionable history of COPD, patient is a lifelong nontobacco user #3. History of GERD/reflux #4. Possible history of asthma #5. History of hypertension #6. Hyperlipidemia #7. Anxiety/depression #8. Hypothyroidism Plan: We will obtain oxygen assessment No worsening dyspnea or hypoxia Continue Decadron for 8 more days Patient states her nebulizer machine is broken at home Consult discharge planning to replace patient's nebulizer machine Decadron 6 mg daily for 8 more days at home after discharge Outpatient follow-up with Dr. Buckley in 2 weeks Stable for discharge home today I performed a history & physical examination of the patient and discussed their management with my nurse practitioner, Pratima Pena. I reviewed the nurse practitioner's note and agree with the documented findings and plan of care. Lung sounds are positive for diminished breath sounds. The findings and the impression was discussed with the patient. I attest to the documentation by the nurse practitioner. Time with Patient: Less than 30
[2020-10-25 14:57] VITALS: BP 115/62; PULSE 70; RESP 16; TEMP 98
--- NOTE | 2020-11-04 17:20 | P.DS ---
Providers Date of admission: 10/23/20 15:25 Expected date of discharge: 10/25/20 Attending physician: America Mandujano Consults: 10/23/20 15:17 Consult Physician Routine Consulting Provider: Arya Buckley Consult Reason/Comments: hypoxic respiratory failure Do you want consulting provider notified?: Yes Primary care physician: Bennett Saxena [facility] Course: Final diagnosis Possible chronic obstructive pulmonary disease bronchial asthma, acute exacerbation, acute purulent tracheobronchitis Acute Covid 19 infection Elevated CRP Hypertension Hyperlipidemia GERD COPD history HIstory of hypothyroidism History of anxiety, depression Obesity with a BMI of 37.1 Full code Discharge disposition Patient is being discharged in a stable condition with guarded prognosis to home. Patient will follow-up with Dr. Saxena in the outpatient setting upon discharge. Patient is to also follow up with pulmonary Dr. Buckley as scheduled. Total time taken is greater than 35 minutes. Hospital course This is a 80 year old female who was recently admitted with shortness of breath with possible COPD and bronchial asthma, acute exacerbation and was being closely monitored. Patient was also found to be Covid 19 positive. Patient had abnormal urine and was started on antibiotic therapy and will continue with Ceftin 500mg twice daily for 5 days to complete the course. Patient will continue with duoneb treatments along with dexamethasone 6mg daily for 8 days and vitamin and zinc supplements. Patient to follow up with pulmonary outpatient as scheduled. Currently no reports of chest pain, shortness of breath, or palpitations. Patient is afebrile. No reports of nausea or vomiting and patient is tolerating diet. Patient will be discharged to home today. On exam vital signs are stable. Cardio S1, S2 are muffled. Respiratory system shows diminished breath sounds at the bases with no wheezing or rhonchi noted. Abdomen is soft and nontender. Nervous system shows no focal deficits. Please refer to medication reconciliation sheet for a list of medications. Patient Condition at Discharge: Fair Plan - Discharge Summary Discharge Rx Participant: Yes New Discharge Prescriptions: New guaiFENesin-Coden 100-10MG/5ML [Robitussin AC] 10 ml PO Q6H PRN #100 ml PRN Reason: Cough Albuterol Inhaler [Ventolin Hfa Inhaler] 2 puff INHALATION RT-QID 30 Days #1 puff Albuterol Inhaler [Ventolin Hfa Inhaler] 2 puff INHALATION RT-QID PRN puff PRN Reason: Shortness Of Breath Or Wheezing Ascorbic Acid [Vitamin C] 500 mg PO DAILY 30 Days #30 tab Cefuroxime Axetil [Ceftin] 500 mg PO BID 5 Days #10 tab Fluticasone/Salmeterol [Fluticasone-Salmeterol 232-14] 1 puff INHALATION BID 30 Days #1 device Dexamethasone [Decadron] 6 mg PO DAILY 8 Days #8 tablet Zinc Sulfate [Orazinc] 220 mg PO DAILY 30 Days #30 cap Cholecalciferol [Vitamin D3 (25 Mcg = 1000 Iu)] 25 mcg PO DAILY 30 Days #30 tablet Continue Albuterol Nebulized [Ventolin Nebulized] 2.5 mg INHALATION RT-BID lisinopriL [Zestril] 20 mg PO DAILY@1000 hydrALAZINE HCL [Apresoline] 50 mg PO TID@1000,1300,1800 Levothyroxine Sodium [Synthroid] 50 mcg PO DAILY@0800 Fenofibrate,Micronized [Fenofibrate] 134 mg PO DAILY@1000 Divalproex Sodium [Depakote] 1,000 mg PO HS@1800 Atenolol [Tenormin] 50 mg PO BID@1000,1800 Tolterodine ER [Detrol LA] 4 mg PO DAILY@0800 Omeprazole 20 mg PO DAILY@0800 Discontinued Azithromycin [Zithromax Z-pack (6 tabs)] See Taper PO DIRECTED Discharge Medication List Albuterol Nebulized [Ventolin Nebulized] 2.5 mg INHALATION RT-BID 10/20/20 [History] Atenolol [Tenormin] 50 mg PO BID@1000,1800 10/20/20 [History] Divalproex Sodium [Depakote] 1,000 mg PO HS@1800 10/20/20 [History] Fenofibrate,Micronized [Fenofibrate] 134 mg PO DAILY@1000 10/20/20 [History] Levothyroxine Sodium [Synthroid] 50 mcg PO DAILY@0800 10/20/20 [History] Omeprazole 20 mg PO DAILY@0800 10/20/20 [History] Tolterodine ER [Detrol LA] 4 mg PO DAILY@0800 10/20/20 [History] hydrALAZINE HCL [Apresoline] 50 mg PO TID@1000,1300,1800 10/20/20 [History] lisinopriL [Zestril] 20 mg PO DAILY@1000 10/20/20 [History] Albuterol Inhaler [Ventolin Hfa Inhaler] 2 puff INHALATION RT-QID 30 Days #1 pu ff 10/25/20 [Rx] Albuterol Inhaler [Ventolin Hfa Inhaler] 2 puff INHALATION RT-QID PRN puff 10/25/20 [Rx] Ascorbic Acid [Vitamin C] 500 mg PO DAILY 30 Days #30 tab 10/25/20 [Rx] Cefuroxime Axetil [Ceftin] 500 mg PO BID 5 Days #10 tab 10/25/20 [Rx] Cholecalciferol [Vitamin D3 (25 Mcg = 1000 Iu)] 25 mcg PO DAILY 30 Days #30 tablet 10/25/20 [Rx] Dexamethasone [Decadron] 6 mg PO DAILY 8 Days #8 tablet 10/25/20 [Rx] Fluticasone/Salmeterol [Fluticasone-Salmeterol 232-14] 1 puff INHALATION BID 30 Days #1 device 10/25/20 [Rx] Zinc Sulfate [Orazinc] 220 mg PO DAILY 30 Days #30 cap 10/25/20 [Rx] guaiFENesin-Coden 100-10MG/5ML [Robitussin AC] 10 ml PO Q6H PRN #100 ml 10/25/20 [Rx] Follow up Appointment(s)/Referral(s): [facility] [NON-STAFF] - As Needed (nebulizer) Arya Buckley DO [Doctor of Osteopathic Medicine] - 11/30/20 2:30 pm (November APPOINTMENT CANCELED ) Bennett Saxena DO [Primary Care Provider] - 10/30/20 1:20 pm (VIRTUAL APPOINTMENT: if deangelo does not have a smart phone it will be a telephone encounter office will call patient ) Patient Instructions/Handouts: Coronavirus Disease 2019 (COVID-19) Activity/Diet/Wound Care/Special Instructions: Activity Limited until follow-up Follow-up with primary care provider upon discharge Follow-up pulmonary outpatient in 2 weeks Continue with antibiotics until finished Continue medications as prescribed Continue using incentive spirometer at least 10 times every hour while awake Encourage fluids and rest Monitor for fever and treat with Tylenol as needed Continue current diet Discharge Disposition: HOME SELF-CARE
== END 2020-10-25 16:50 | disposition home or self-care (01) | DRG 177 ==
LOC: EC 11:35 → 4SSUR 15:25
PROVIDERS: ADMIT Hospitalist; ATTEND Hospitalist
DX: U07.1 COVID-19 (principal); J12.82 Pneumonia due to coronavirus disease 2019; J96.01 Acute respiratory failure with hypoxia; J44.0 Chronic obstructive pulmonary disease with (acute) lower respiratory infection; J44.1 Chronic obstructive pulmonary disease with (acute) exacerbation; I11.9 Hypertensive heart disease without heart failure; J20.9 Acute bronchitis, unspecified; E78.5 Hyperlipidemia, unspecified; E03.9 Hypothyroidism, unspecified; K21.9 Gastro-esophageal reflux disease without esophagitis; I45.10 Unspecified right bundle-branch block; E66.9 Obesity, unspecified; Z68.37 Body mass index [BMI] 37.0-37.9, adult; Z79.890 Hormone replacement therapy; Z79.899 Other long term (current) drug therapy; Z90.710 Acquired absence of both cervix and uterus; Z87.42 Personal history of other diseases of the female genital tract; Z86.59 Personal history of other mental and behavioral disorders; Z98.890 Other specified postprocedural states; Z91.040 Latex allergy status
CPT/HCPCS: 36415; 71046; 80048; 80053; 81001; 82728; 83615; 84145; 85025; 85379; 85652; 86140; 87086; 87636; 93005; 94640; 94760; 99285

== ENCOUNTER 2021-10-26 10:43 | Observation (INO) | payer MEDICARE ==
--- NOTE | 2021-10-26 11:26 | ED ---
General Adult HPI - General Chief complaint: Shortness of Breath Stated complaint: SOB Time Seen by Provider: 10/26/21 11:10 Source: patient, RN notes reviewed, old records reviewed Mode of arrival: wheelchair Limitations: no limitations - History of Present Illness Initial comments: This is a pleasant 81-year-old female that presents to the emergency room with complaints of 2 weeks of shortness of breath with exertion. She states it's been progressively getting worse. She states yesterday she took the trash out to the road and became very dyspneic. She has no dyspnea at rest, denies any chest pain, no nausea, vomiting, diarrhea or fevers. She has been going to many events and is concerned about coronavirus. She states that she did have similar symptoms when she had coronavirus last year. She states that she did see Dr. Zelaya with cardiology last year and had a stress test and echo that were normal. -: week(s) (2) Severity scale (1-10): 0 Associated Symptoms: shortness of breath Treatments Prior to Arrival: none - Related Data Home Medications Medication Instructions Recorded Confirmed Atenolol [Tenormin] 50 mg PO BID 10/20/20 10/26/21 Divalproex Sodium [Depakote] 1,000 mg PO HS 10/20/20 10/26/21 Fenofibrate,Micronized 134 mg PO DAILY 10/20/20 10/26/21 [Fenofibrate] Levothyroxine Sodium [Synthroid] 50 mcg PO DAILY 10/20/20 10/26/21 Omeprazole 20 mg PO DAILY 10/20/20 10/26/21 Tolterodine ER [Detrol LA] 4 mg PO DAILY 10/20/20 10/26/21 hydrALAZINE HCL [Apresoline] 50 mg PO TID 10/20/20 10/26/21 lisinopriL [Zestril] 20 mg PO DAILY 10/20/20 10/26/21 Escitalopram [Lexapro] 10 mg PO DAILY 10/26/21 10/26/21 Fluticasone Propionate [Flovent 2 puff INHALATION RT-BID 10/26/21 10/26/21 Hfa 220 mcg] Loratadine [Claritin] 10 mg PO DAILY PRN 10/26/21 10/26/21 Naproxen Sodium [Aleve] 220 mg PO Q12HR PRN 10/26/21 10/26/21 Allergies Allergy/AdvReac Type Severity Reaction Status Date / Time Latex, Natural Rubber Allergy Rash/Hives Verified 10/26/21 13:33 Review of Systems ROS Statement: Those systems with pertinent positive or pertinent negative responses have been documented in the HPI. ROS Other: All systems not noted in ROS Statement are negative. Past Medical History Past Medical History: COPD, GERD/Reflux, Hyperlipidemia, Hypertension, Thyroid Disorder History of Any Multi-Drug Resistant Organisms: None Reported Past Surgical History: Hysterectomy Past Psychological History: Anxiety, Depression Smoking Status: Never smoker Past Alcohol Use History: None Reported Past Drug Use History: None Reported General Exam Limitations: no limitations General appearance: alert, in no apparent distress Head exam: Present: atraumatic, normocephalic Eye exam: Present: normal appearance, EOMI. Absent: scleral icterus, conjunctival injection, periorbital swelling ENT exam: Present: normal oropharynx, mucous membranes moist Neck exam: Present: full ROM. Absent: tenderness, meningismus Respiratory exam: Present: normal lung sounds bilaterally, rales. Absent: respiratory distress, wheezes, rhonchi, stridor, chest wall tenderness, accessory muscle use, decreased breath sounds Cardiovascular Exam: Present: regular rate, normal rhythm GI/Abdominal exam: Present: soft. Absent: distended, tenderness Extremities exam: Present: normal capillary refill. Absent: tenderness, pedal edema, calf tenderness Back exam: Present: normal inspection, full ROM. Absent: tenderness, CVA tenderness (R), CVA tenderness (L), rash noted Neurological exam: Present: alert, oriented X3 Psychiatric exam: Present: normal affect, normal mood Skin exam: Present: warm, dry, normal color. Absent: cyanosis, diaphoretic, petechiae, pallor Course Vital Signs 10/26/21 10/26/21 10/26/21 10:57 12:05 12:17 Temperature 98.1 F Pulse Rate 66 76 60 Respiratory 16 18 Rate Blood Pressure 145/64 144/67 O2 Sat by Pulse 93 L 97 Oximetry 10/26/21 10/26/21 12:28 13:23 Temperature Pulse Rate 60 62 Respiratory 18 Rate Blood Pressure 164/80 O2 Sat by Pulse 96 Oximetry EKG Findings - EKG Results: EKG: sinus rhythm (Ventricular rate 64, PA interval 0.206, QRS 0.160, QTC 0.480) Medical Decision Making - Medical Decision Making Chest x-ray shows COPD with interstitial pneumonitis versus venous congestion. BNP is 3200, troponin is elevated 0.046. EKG shows no ST elevation with no significant change from old. Patient denies any chest pain, states shortness of breath is only with exertion however she does appear dyspneic with conversation. Pulse ox upon arrival was 93%. Dyspnea improved after DuoNeb treatment and steroids. Coronavirus is negative. Patient will be admitted for elevated troponin and CHF. Case discussed with Dr. Guadarrama, patient will be admitted to the hospital to trend troponins with cardiology consult. She was started on heparin for troponin elevation. Patient is agreeable to this plan. - Lab Data Result diagrams: 10/26/21 11:35 10/26/21 11:35 Lab Results 10/26/21 10/26/21 10/26/21 Range/Units 11:35 11:35 11:35 WBC 7.3 (3.8-10.6) k/uL RBC 3.97 (3.80-5.40) m/uL Hgb 10.9 L (11.4-16.0) gm/dL Hct 33.5 L (34.0-46.0) % MCV 84.4 (80.0-100.0) fL MCH 27.3 (25.0-35.0) pg MCHC 32.4 (31.0-37.0) g/dL RDW 16.3 H (11.5-15.5) % Plt Count 318 (150-450) k/uL MPV 7.3 Neutrophils % 70 % Lymphocytes % 22 % Monocytes % 5 % Eosinophils % 1 % Basophils % 1 % Neutrophils # 5.1 (1.3-7.7) k/uL Lymphocytes # 1.6 (1.0-4.8) k/uL Monocytes # 0.4 (0-1.0) k/uL Eosinophils # 0.1 (0-0.7) k/uL Basophils # 0.0 (0-0.2) k/uL Hypochromasia Slight Anisocytosis Slight PT 11.1 (9.0-12.0) sec INR 1.0 (<1.2) APTT 21.9 L (22.0-30.0) sec Sodium (137-145) mmol/L Potassium (3.5-5.1) mmol/L Chloride (98-107) mmol/L Carbon Dioxide (22-30) mmol/L Anion Gap mmol/L BUN (7-17) mg/dL Creatinine (0.52-1.04) mg/dL Est GFR (CKD-EPI)AfAm (>60 ml/min/1.73 sqM) Est GFR (CKD-EPI)NonAf (>60 ml/min/1.73 sqM) Glucose (74-99) mg/dL Calcium (8.4-10.2) mg/dL Magnesium (1.6-2.3) mg/dL Total Bilirubin (0.2-1.3) mg/dL AST (14-36) U/L ALT (4-34) U/L Alkaline Phosphatase (38-126) U/L Troponin I (0.000-0.034) ng/mL NT-Pro-B Natriuret Pep pg/mL Total Protein (6.3-8.2) g/dL Albumin (3.5-5.0) g/dL Urine Color Yellow Urine Appearance Clear (Clear) Urine pH 6.5 (5.0-8.0) Ur Specific [place] 1.024 (1.001-1.035) Urine Protein 1+ H (Negative) Urine Glucose (UA) Negative (Negative) Urine Ketones Negative (Negative) Urine Blood Negative (Negative) Urine Nitrite Negative (Negative) Urine Bilirubin Negative (Negative) Urine Urobilinogen <2.0 (<2.0) mg/dL Ur Leukocyte Esterase Moderate H (Negative) Urine RBC 3 (0-5) /hpf Urine WBC 3 (0-5) /hpf Ur Squamous Epith Cells 6 H (0-4) /hpf Hyaline Casts 5 H (0-2) /lpf Urine Mucus Occasional H (None) /hpf Coronavirus (PCR) (Not Detectd) 10/26/21 10/26/21 10/26/21 Range/Units 11:35 11:35 11:35 WBC (3.8-10.6) k/uL RBC (3.80-5.40) m/uL Hgb (11.4-16.0) gm/dL Hct (34.0-46.0) % MCV (80.0-100.0) fL MCH (25.0-35.0) pg MCHC (31.0-37.0) g/dL RDW (11.5-15.5) % Plt Count (150-450) k/uL MPV Neutrophils % % Lymphocytes % % Monocytes % % Eosinophils % % Basophils % % Neutrophils # (1.3-7.7) k/uL Lymphocytes # (1.0-4.8) k/uL Monocytes # (0-1.0) k/uL Eosinophils # (0-0.7) k/uL Basophils # (0-0.2) k/uL Hypochromasia Anisocytosis PT (9.0-12.0) sec INR (<1.2) APTT (22.0-30.0) sec Sodium 135 L (137-145) mmol/L Potassium 4.9 (3.5-5.1) mmol/L Chloride 105 (98-107) mmol/L Carbon Dioxide 23 (22-30) mmol/L Anion Gap 7 mmol/L BUN 36 H (7-17) mg/dL Creatinine 0.81 (0.52-1.04) mg/dL Est GFR (CKD-EPI)AfAm 80 (>60 ml/min/1.73 sqM) Est GFR (CKD-EPI)NonAf 70 (>60 ml/min/1.73 sqM) Glucose 146 H (74-99) mg/dL Calcium 9.1 (8.4-10.2) mg/dL Magnesium 1.7 (1.6-2.3) mg/dL Total Bilirubin 0.7 (0.2-1.3) mg/dL AST 53 H (14-36) U/L ALT 31 (4-34) U/L Alkaline Phosphatase 38 (38-126) U/L Troponin I 0.046 H* (0.000-0.034) ng/mL NT-Pro-B Natriuret Pep 3200 pg/mL Total Protein 6.3 (6.3-8.2) g/dL Albumin 3.6 (3.5-5.0) g/dL Urine Color Urine Appearance (Clear) Urine pH (5.0-8.0) Ur Specific [place] (1.001-1.035) Urine Protein (Negative) Urine Glucose (UA) (Negative) Urine Ketones (Negative) Urine Blood (Negative) Urine Nitrite (Negative) Urine Bilirubin (Negative) Urine Urobilinogen (<2.0) mg/dL Ur Leukocyte Esterase (Negative) Urine RBC (0-5) /hpf Urine WBC (0-5) /hpf Ur Squamous Epith Cells (0-4) /hpf Hyaline Casts (0-2) /lpf Urine Mucus (None) /hpf Coronavirus (PCR) (Not Detectd) 10/26/21 Range/Units 11:35 WBC (3.8-10.6) k/uL RBC (3.80-5.40) m/uL Hgb (11.4-16.0) gm/dL Hct (34.0-46.0) % MCV (80.0-100.0) fL MCH (25.0-35.0) pg MCHC (31.0-37.0) g/dL RDW (11.5-15.5) % Plt Count (150-450) k/uL MPV Neutrophils % % Lymphocytes % % Monocytes % % Eosinophils % % Basophils % % Neutrophils # (1.3-7.7) k/uL Lymphocytes # (1.0-4.8) k/uL Monocytes # (0-1.0) k/uL Eosinophils # (0-0.7) k/uL Basophils # (0-0.2) k/uL Hypochromasia Anisocytosis PT (9.0-12.0) sec INR (<1.2) APTT (22.0-30.0) sec Sodium (137-145) mmol/L Potassium (3.5-5.1) mmol/L Chloride (98-107) mmol/L Carbon Dioxide (22-30) mmol/L Anion Gap mmol/L BUN (7-17) mg/dL Creatinine (0.52-1.04) mg/dL Est GFR (CKD-EPI)AfAm (>60 ml/min/1.73 sqM) Est GFR (CKD-EPI)NonAf (>60 ml/min/1.73 sqM) Glucose (74-99) mg/dL Calcium (8.4-10.2) mg/dL Magnesium (1.6-2.3) mg/dL Total Bilirubin (0.2-1.3) mg/dL AST (14-36) U/L ALT (4-34) U/L Alkaline Phosphatase (38-126) U/L Troponin I (0.000-0.034) ng/mL NT-Pro-B Natriuret Pep pg/mL Total Protein (6.3-8.2) g/dL Albumin (3.5-5.0) g/dL Urine Color Urine Appearance (Clear) Urine pH (5.0-8.0) Ur Specific [place] (1.001-1.035) Urine Protein (Negative) Urine Glucose (UA) (Negative) Urine Ketones (Negative) Urine Blood (Negative) Urine Nitrite (Negative) Urine Bilirubin (Negative) Urine Urobilinogen (<2.0) mg/dL Ur Leukocyte Esterase (Negative) Urine RBC (0-5) /hpf Urine WBC (0-5) /hpf Ur Squamous Epith Cells (0-4) /hpf Hyaline Casts (0-2) /lpf Urine Mucus (None) /hpf Coronavirus (PCR) Not Detected (Not Detectd) Disposition Clinical Impression: Elevated troponin, CHF (congestive heart failure), Shortness of breath on exertion Disposition: ADMITTED IP TO THIS [facility] Condition: Good Decision Date: 10/26/21 Decision Time: 13:26
[2021-10-26 11:56] LABS: Anisocytosis Slight; Basophils % (A) 1 %; Eosinophils # (A) 0.1 k/uL (0-0.7); Eosinophils % (A) 1 %; HCT 33.5 % (34.0-46.0); HGB 10.9 gm/dL (11.4-16.0); Hypochromasia Slight; Lymphocytes # (A) 1.6 k/uL (1.0-4.8); Lymphocytes % (A) 22 %; MCH 27.3 pg (25.0-35.0); MCHC 32.4 g/dL (31.0-37.0); MCV 84.4 fL (80.0-100.0); Mean Platelet Volume 7.3; Monocytes # (A) 0.4 k/uL (0-1.0); Monocytes % (A) 5 %; Neutrophils # (A) 5.1 k/uL (1.3-7.7); Neutrophils % (A) 70 %; Platelet Count 318 k/uL (150-450); RBC 3.97 m/uL (3.80-5.40); RDW 16.3 % (11.5-15.5); WBC 7.3 k/uL (3.8-10.6)
--- NOTE | 2021-10-26 12:03 | XR ---
EXAMINATION TYPE: XR chest 2V DATE OF EXAM: 10/26/2021 COMPARISON: 10/23/2020 TECHNIQUE: PA and lateral views submitted. HISTORY: Shortness of breath FINDINGS: Heart is enlarged there is a diffuse interstitial pattern. No pneumothorax. Biapical pleural thickeni ng. Hypertrophic and degenerative changes spine. Small bilateral pleural effusions. IMPRESSION: 1. COPD correlate for interstitial pneumonitis versus venous congestion. Findings mildly progressed f rom prior exam.
[2021-10-26 12:06] LABS: Appearance,Urine Clear (Clear); Bilirubin,Urine Negative (Negative); Blood,Urine Negative (Negative); Color,Urine Yellow; Glucose,Urine (UA) Negative (Negative); Hyaline Casts,Urine 5 /lpf (0-2); Ketones,Urine Negative (Negative); Leukocyte Esterase,Urine Moderate (Negative); Mucus,Urine Occasional /hpf; Nitrite,Urine Negative (Negative); PH, Urine 6.5 (5.0-8.0); Protein,Urine 1+ (Negative); RBC,Urine 3 /hpf (0-5); Specific Gravity,Urine 1.024 (1.001-1.035); Squamous Epithelial Cell,Urine 6 /hpf (0-4); Urobilinogen,Urine <2.0 mg/dL (<2.0); WBC,Urine 3 /hpf (0-5)
[2021-10-26 12:07] LABS: Prothrombin Time 11.1 sec (9.0-12.0)
[2021-10-26] MEDS ORDERED: DEXAMETHASONE SOD PHOSPHATE 10 MG/ML 1 ML VIAL IVP STA (12:07)
[2021-10-26] MEDS ORDERED: IPRATROPIUM-ALBUTEROL 3 ML NEB INHALATION STA (12:07)
[2021-10-26 12:20] LABS: Partial Thromboplastin Time 21.9 sec (22.0-30.0)
[2021-10-26 12:31] LABS: Albumin 3.6 g/dL (3.5-5.0); Calcium 9.1 mg/dL (8.4-10.2); Total Bilirubin 0.7 mg/dL (0.2-1.3); Total Protein 6.3 g/dL (6.3-8.2)
[2021-10-26 12:33] LABS: Magnesium 1.7 mg/dL (1.6-2.3); Potassium 4.9 mmol/L (3.5-5.1)
[2021-10-26] MEDS ORDERED: ASPIRIN 81 MG PO STA (12:57)
[2021-10-26] MEDS ORDERED: HEPARIN SODIUM 1,000 UN/ML (10ML VL) IV ONE (13:04)
[2021-10-26] MEDS ORDERED: HEPARIN SODIUM 1,000 UN/ML (10ML VL) IV PRN (13:04)
[2021-10-26] MEDS ORDERED: FUROSEMIDE 10 MG/ML 2 ML VIAL IV ONE (13:05)
[2021-10-26] MEDS ORDERED: ACETAMINOPHEN TAB 325 MG TAB PO PRN (13:13)
[2021-10-26] MEDS ORDERED: NALOXONE 0.4 MG/ML 1 ML VIAL IV PRN (13:13)
[2021-10-26] MEDS: HEPARIN SOD,PORK IN 0.45% NACL 25,000 UNIT in 0.45% NACL 1 250ML.BAG IV SCH (13:25)
[2021-10-26] MEDS: hydrALAZINE HCL 50 MG TAB PO SCH ×2 (15:57→20:19)
--- NOTE | 2021-10-26 16:00 | P.HPIM ---
History of Present Illness H&P Date: 10/26/21 History of Presenting Illness: Patient is a very pleasant 81-year-old female with a past medical history of hypertension, hyperlipidemia, hypothyroidism and reports of COVID infection 1 year ago resulting in chronic obstructive lung disease requiring inhalers daily. Patient states since this infection she has had some difficulties with breathing and has been taking Flovent inhaler twice daily. She states that she came to the emergency department today because her breathing just seems to have worsened. Patient reports progressively worsening shortness of breath 2-3 week s. Patient presented to the emergency department with progressively worsening shortness of breath 2-3 weeks. Patient states despite this shortness of breath she has been feeling actually quite well otherwise with the exception of having increased stress in her life secondary to her son-in-law recently being diagnosed with stage IV cancer. Patient denies having any recent fevers, chills, diaphoresis, chest pain or palpitations, nausea, vomiting, abdominal pain, back pain, neck pain, or experiencing any numbness/tingling/weakness/swelling in her extremities. She underwent full evaluation in the emergency department. X-ray revealing COPD with small bilateral pleural effusions consistent with interstitial pneumonitis versus venous congestion. ProBNP elevated 3200. Initial troponin less than 0.012 and repeat troponin elevated at 0.046. EKG revealing sinus mechanism at 64 bpm with right bundle branch block and T-wave inversion in inferior leads II, III, and aVF along with anterior leads V3 and V4 and lastly lateral leads V5 and V6. With the exception of new T-wave inversion in lead II , this EKG is unchanged from previous EKG completed 11/22/20. Patient given Lasix 40 mg IVP 1 dose and started on heparin infusion. She was admitted under our services for NSTEMI and CHF exacerbation with consultation to cardiology. Review of systems: Pertinent positives and negatives as discussed in HPI, a complete review of systems was performed and all other systems are negative. Physical exam: Vital signs reviewed and stable. General: Nontoxic, no distress and appears stated age. Derm: Skin warm and dry, normal coloration for ethnicity. Head: Atraumatic, normocephalic and symmetric. Eyes: EOMs intact, no lid lag, and anicteric sclera Mouth: no lip lesions, mucus membranes moist Cardiovascular: regular rate and rhythm with normal S1S2, no murmur, positive posterior tibial pulses bilaterally, and cap refill < 2 seconds. Scant lower extremity edema. Lungs: Respirations even, regular, and unlabored on room air. Lungs bibasilar crackles. No rhonchi, rales, or wheezing. No accessory muscle usage. Abdominal: soft, nontender to palpation, no guarding, no appreciable orga nomegaly Ext: ROM intact. No gross muscle atrophy, scant lower extremity edema, no contractures Neuro: Speech clear, face symmetrical and CN II-XII grossly intact with no noted focal neuro deficits Psych: Alert and oriented to person, place, time, and situation. Appropriate and pleasant affect. Assessment and Plan of Care: NSTEMI CHF exacerbation of unknown type, pending echo results Exertional dyspnea likely secondary to above -Cardiology consult, appreciate further recommendations -Continue heparin infusion per ACS protocol -Telemetry monitoring -Trend troponins -Cardiac diet, NPO at midnight -Aspirin, atorvastatin, and atenolol -Lipid profile with a.m. labs. -Echocardiogram -Lasix 40 mg IVP daily -I's and O's -Daily weights Hypertension Hypertensive urgency with blood pressure 185/81 -Monitor vital signs and Continue daily medication regimen with atenolol, hydralazine and lisinopril. Hyperlipidemia -Continue daily medication regimen with fenofibrate, add atorvastatin. -Lipid profile with a.m. labs Hypothyroidism -Continue daily medication regimen with levothyroxine. Depression and anxiety -Continue daily medication regimen with Lexapro COPD status post infection with Covid 19 virus -Provide patient with oxygen supplementation as needed to maintain SpO2 equal to or greater than 92%. -Continue Flovent 2 puffs twice daily. -DuoNeb as needed for shortness of breath and/or wheezing. The patient is admitted with an anticipated greater than 2 midnight stay for evaluation of NSTEMI and CHF exacerbation CODE STATUS: Full code DVT prophylaxis: Heparin Discussed with: Patient Anticipated discharge date: Clinical course to determine Anticipated discharge place: Home A total of 45 minutes was spent on the care of this complex patient more than 50% of the time was spent in counseling and care coordination. I reviewed the documentation as provided by the KATHI above, who is the original author of this note. I agree with the documented assessment and plan, with the following changes: none Past Medical History Past Medical History: COPD, GERD/Reflux, Hyperlipidemia, Hypertension, Thyroid Disorder History of Any Multi-Drug Resistant Organisms: None Reported Past Surgical History: Hysterectomy Past Psychological History: Anxiety, Depression Smoking Status: Never smoker Past Alcohol Use History: None Reported Past Drug Use History: None Reported Medications and Allergies Home Medications Medication Instructions Recorded Confirmed Type Atenolol [Tenormin] 50 mg PO BID 10/20/20 10/26/21 History Divalproex Sodium [Depakote] 1,000 mg PO HS 10/20/20 10/26/21 History Fenofibrate,Micronized 134 mg PO DAILY 10/20/20 10/26/21 History [Fenofibrate] Levothyroxine Sodium [Synthroid] 50 mcg PO DAILY 10/20/20 10/26/21 History Omeprazole 20 mg PO DAILY 10/20/20 10/26/21 History Tolterodine ER [Detrol LA] 4 mg PO DAILY 10/20/20 10/26/21 History hydrALAZINE HCL [Apresoline] 50 mg PO TID 10/20/20 10/26/21 History lisinopriL [Zestril] 20 mg PO DAILY 10/20/20 10/26/21 History Escitalopram [Lexapro] 10 mg PO DAILY 10/26/21 10/26/21 History Fluticasone Propionate [Flovent 2 puff INHALATION RT-BID 10/26/21 10/26/21 History Hfa 220 mcg] Loratadine [Claritin] 10 mg PO DAILY PRN 10/26/21 10/26/21 History Naproxen Sodium [Aleve] 220 mg PO Q12HR PRN 10/26/21 10/26/21 History Allergies Allergy/AdvReac Type Severity Reaction Status Date / Time Latex, Natural Rubber Allergy Rash/Hives Verified 10/26/21 13:33 Physical Exam Osteopathic Statement: *. No significant issues noted on an osteopathic structural exam other than those noted in the History and Physical/Consult. Vitals: Vital Signs Temp Pulse Resp BP Pulse Ox 10/26/21 13:23 62 18 164/80 96 10/26/21 12:28 60 10/26/21 12:17 60 10/26/21 12:05 76 18 144/67 97 10/26/21 10:57 98.1 F 66 16 145/64 93 L Intake and Output 10/26/21 10/26/21 10/26/21 06:59 14:59 22:59 Other: Weight 95.708 kg Results CBC & Chem 7: 10/26/21 11:35 10/26/21 11:35 Labs: Abnormal Lab Results - Last 24 Hours (Table) 10/26/21 10/26/21 10/26/21 Range/Units 11:35 11:35 11:35 Hgb 10.9 L (11.4-16.0) gm/dL Hct 33.5 L (34.0-46.0) % RDW 16.3 H (11.5-15.5) % APTT 21.9 L (22.0-30.0) sec Sodium (137-145) mmol/L BUN (7-17) mg/dL Glucose (74-99) mg/dL AST (14-36) U/L Troponin I (0.000-0.034) ng/mL Urine Protein 1+ H (Negative) Ur Leukocyte Esterase Moderate H (Negative) Ur Squamous Epith Cells 6 H (0-4) /hpf Hyaline Casts 5 H (0-2) /lpf Urine Mucus Occasional H (None) /hpf 10/26/21 10/26/21 Range/Units 11:35 11:35 Hgb (11.4-16.0) gm/dL Hct (34.0-46.0) % RDW (11.5-15.5) % APTT (22.0-30.0) sec Sodium 135 L (137-145) mmol/L BUN 36 H (7-17) mg/dL Glucose 146 H (74-99) mg/dL AST 53 H (14-36) U/L Troponin I 0.046 H* (0.000-0.034) ng/mL Urine Protein (Negative) Ur Leukocyte Esterase (Negative) Ur Squamous Epith Cells (0-4) /hpf Hyaline Casts (0-2) /lpf Urine Mucus (None) /hpf
[2021-10-26 18:18] LABS: Glucose,Whole Blood 256 mg/dL (75-99)
[2021-10-26] MEDS: atenoloL 50 MG TAB PO SCH (20:19)
[2021-10-26] MEDS: DIVALPROEX 500 MG TABLET.DR PO SCH (20:19)
[2021-10-26] MEDS: ATORVASTATIN 40 MG TAB PO SCH (20:19)
[2021-10-26] MEDS: IPRATROPIUM-ALBUTEROL 3 ML NEB INHALATION PRN (20:32)
[2021-10-26] MEDS: FLUTICASONE 110 MCG INHALER INHALATION SCH (20:32)
[2021-10-26 21:01] LABS: Glucose,Whole Blood 183 mg/dL (75-99)
[2021-10-27 04:02] LABS: Basophils % (A) 0 %; Eosinophils % (A) 0 %; HCT 35.5 % (34.0-46.0); HGB 10.7 gm/dL (11.4-16.0); Hypochromasia Slight; Lymphocytes # (A) 1.7 k/uL (1.0-4.8); Lymphocytes % (A) 18 %; MCH 25.7 pg (25.0-35.0); MCHC 30.2 g/dL (31.0-37.0); Mean Platelet Volume 7.3; Monocytes # (A) 0.5 k/uL (0-1.0); Monocytes % (A) 5 %; Neutrophils # (A) 6.9 k/uL (1.3-7.7); Neutrophils % (A) 76 %; Platelet Count 323 k/uL (150-450); RBC 4.18 m/uL (3.80-5.40); RDW 15.8 % (11.5-15.5); WBC 9.1 k/uL (3.8-10.6)
[2021-10-27 04:28] LABS: INR 1.1 (<1.2); Partial Thromboplastin Time 64.1 sec (22.0-30.0); Prothrombin Time 11.8 sec (9.0-12.0)
[2021-10-27] MEDS: LEVOTHYROXINE 50 MCG TAB PO SCH (06:01)
[2021-10-27] MEDS: PANTOPRAZOLE 40 MG TABLET PO SCH (06:01)
[2021-10-27 06:25] LABS: ALT 27 U/L (4-34); AST 25 U/L (14-36); African American GFR (CKD) 81 (>60 ml/min/1.73 sqM); Albumin 3.8 g/dL (3.5-5.0); Alkaline Phosphatase 50 U/L (38-126); Anion Gap 10 mmol/L; Blood Urea Nitrogen 32 mg/dL (7-17); Carbon Dioxide 23 mmol/L (22-30); Chloride 103 mmol/L (98-107); Glucose 125 mg/dL (74-99); Magnesium 1.8 mg/dL (1.6-2.3); Non-African American GFR(CKD) 71 (>60 ml/min/1.73 sqM); Potassium 4.3 mmol/L (3.5-5.1); Sodium 136 mmol/L (137-145); Total Bilirubin 0.4 mg/dL (0.2-1.3); Total Protein 6.4 g/dL (6.3-8.2)
--- NOTE | 2021-10-27 07:55 | P.PN ---
Subjective Progress Note Date: 10/27/21 Hospital course: Patient is a very pleasant 81-year-old female with a past medical history of hypertension, hyperlipidemia, hypothyroidism and reports of COVID infection 1 year ago resulting in chronic obstructive lung disease requiring inhalers daily. Patient states since this infection she has had some difficulties with breathing and has been taking Flovent inhaler twice daily. She states that she came to the emergency department today because her breathing just seems to have worsened. Patient reports progressively worsening shortness of breath 2-3 w eeks. Patient presented to the emergency department with progressively worsening shortness of breath 2-3 weeks. Patient stated despite this shortness of breath she has been feeling actually quite well otherwise with the exception of having increased stress in her life secondary to her son-in-law recently being diagnosed with stage IV cancer. Patient denied having any recent fevers, chills, diaphoresis, chest pain or palpitations, nausea, vomiting, abdominal pain, back pain, neck pain, or experiencing any numbness/tingling/weakness/swelling in her extremities. She underwent full evaluation in the emergency department. X-ray revealing COPD with small bilateral pleural effusions consistent with interstitial pneumonitis versus venous congestion. ProBNP elevated 3200. Troponin elevated at 0.046. EKG revealing sinus mechanism at 64 bpm with right bundle branch block and T-wave inversion in inferior leads II, III, and aVF along with anterior leads V3 and V4 and lastly lateral leads V5 and V6. With the exception of new T-wave inversion in lead II , this EKG is unchanged from previous EKG completed 11/22/20. Vital signs upon arrival to the emergency department were within normal limits with temp 98.1F blood pressure of 145/64, heart rate 66, respiratory rate 16, SpO2 of 93% on room air. Patient given Lasix 40 mg IVP 1 dose and started on heparin infusion. She was admitted under our services for elevated troponin and CHF exacerbation with consultation to cardiology. Troponins trended throughout the night and downtrending from 0.046 to 0.040 and lastly 0.032. Patient's blo od pressure fluctuating throughout the night and she did have some elevated pressures noted including pressure of 185/81 yesterday afternoon and elevated pressure of 178/76 this morning. Physical exam: Patient was seen and fully evaluated at bedside this morning. Patient reports she is feeling great this morning, continues to deny any headache, lighthea dedness, dizziness, chest pain, palpitations, nausea, vomiting, diaphoresis, or experiencing any numbness/tingling/weakness in her extremities. She denies having any complaints at rest but does continue to report exertional shortness of breath. Discussed case with cardiology. Acute coronary event has been ruled out. Patient being started on valsartan as she had episodes of elevated pressures yesterday afternoon, throughout the night and this morning. Echocardiogram has been completed and currently awaiting results. Vital signs reviewed and stable. General: Nontoxic, no distress and appears stated age. Derm: Skin warm and dry, normal coloration for ethnicity. Head: Atraumatic, normocephalic and symmetric. Eyes: EOMs intact, no lid lag, and anicteric sclera Mouth: no lip lesions, mucus membranes moist Cardiovascular: regular rate and rhythm with normal S1S2, no murmur, positive posterior tibial pulses bilaterally, and cap refill < 2 seconds. Scant lower extremity edema. Lungs: Respirations even, regular, and unlabored on room air. Lungs bibasilar crackles. No rhonchi, rales, or wheezing. No accessory muscle usage. Abdominal: soft, nontender to palpation, no guarding, no appreciable organomegaly Ext: ROM intact. No gross muscle atrophy, scant lower extremity edema, no contractures Neuro: Speech clear, face symmetrical and CN II-XII grossly intact with no noted focal neuro deficits Psych: Alert and oriented to person, place, time, and situation. Appropriate and pleasant affect. Assessment and Plan of Care: Elevated troponin, acute coronary event was ruled out by cardiology. CHF exacerbation of unknown type, pending echo results Hypertension Hypertensive urgency with blood pressure 185/81 Hyperlipidemia Exertional dyspnea likely secondary to above -Cardiology following, started patient on valsartan secondary to elevated pressures -Telemetry monitoring -Troponins trended throughout the night and downtrending from 0.046 to 0.040 and lastly 0.032. -Cardiac diet -Aspirin, atorvastatin, fenofibrate, hydralazine and atenolol -Lipid profile unremarkable. -Echocardiogram pending results -Lasix 40 mg IVP daily -I's and O's -Daily weights Hypothyroidism -Continue daily medication regimen with levothyroxine. Depression and anxiety -Continue daily medication regimen with Lexapro COPD status post infection with Covid 19 virus -Provide patient with oxygen supplementation as needed to maintain SpO2 equal to or greater than 92%. -Continue Flovent 2 puffs twice daily. -DuoNeb as needed for shortness of breath and/or wheezing. CODE STATUS: Full code DVT prophylaxis: Heparin Discussed with: Patient, patient's daughter, RN, and cardiology Anticipated discharge date: Clinical course to determine Anticipated discharge place: Home A total of 35 minutes was spent on the care of this complex patient more than 50% of the time was spent in counseling and care coordination. I reviewed the documentation as provided by the KATHI above, who is the original author of this note. I agree with the documented assessment and plan, with the following changes: None Objective - Vital Signs Vital signs: Vital Signs Temp 97.6 F 10/27/21 03:05 Pulse 61 10/27/21 03:05 Resp 18 10/27/21 03:05 BP 175/70 10/27/21 03:05 Pulse Ox 93 L 10/27/21 03:05 FiO2 Intake & Output 10/26/21 10/27/21 10/27/21 18:59 06:59 18:59 Intake Total 167.147 Balance 167.147 Weight 95.708 kg Intake: Intake, IV Titration 167.147 Amount Heparin Sod,Pork in 0.45% 167.147 NaCl 25,000 unit In 0.45 % NaCl 1 250ml.bag @ 10. 45 UNITS/KG/HR 10.001 mls /hr IV .Q24H [facility] Rx#: [id number] - Labs CBC & Chem 7: 10/27/21 03:34 10/27/21 03:34 Labs: Abnormal Lab Results - Last 24 Hours (Table) 10/26/21 10/26/21 10/26/21 Range/Units 11:35 11:35 11:35 Hgb 10.9 L (11.4-16.0) gm/dL Hct 33.5 L (34.0-46.0) % MCHC (31.0-37.0) g/dL RDW 16.3 H (11.5-15.5) % APTT 21.9 L (22.0-30.0) sec Sodium (137-145) mmol/L BUN (7-17) mg/dL Glucose (74-99) mg/dL POC Glucose (mg/dL) (75-99) mg/dL AST (14-36) U/L Troponin I (0.000-0.034) ng/mL Urine Protein 1+ H (Negative) Ur Leukocyte Esterase Moderate H (Negative) Ur Squamous Epith Cells 6 H (0-4) /hpf Hyaline Casts 5 H (0-2) /lpf Urine Mucus Occasional H (None) /hpf 10/26/21 10/26/21 10/26/21 Range/Units 11:35 11:35 16:04 Hgb (11.4-16.0) gm/dL Hct (34.0-46.0) % MCHC (31.0-37.0) g/dL RDW (11.5-15.5) % APTT (22.0-30.0) sec Sodium 135 L (137-145) mmol/L BUN 36 H (7-17) mg/dL Glucose 146 H (74-99) mg/dL POC Glucose (mg/dL) (75-99) mg/dL AST 53 H (14-36) U/L Troponin I 0.046 H* 0.040 H* (0.000-0.034) ng/mL Urine Protein (Negative) Ur Leukocyte Esterase (Negative) Ur Squamous Epith Cells (0-4) /hpf Hyaline Casts (0-2) /lpf Urine Mucus (None) /hpf 10/26/21 10/26/21 10/26/21 Range/Units 18:11 18:40 21:00 Hgb (11.4-16.0) gm/dL Hct (34.0-46.0) % MCHC (31.0-37.0) g/dL RDW (11.5-15.5) % APTT 36.4 H (22.0-30.0) sec Sodium (137-145) mmol/L BUN (7-17) mg/dL Glucose (74-99) mg/dL POC Glucose (mg/dL) 256 H 183 H (75-99) mg/dL AST (14-36) U/L Troponin I (0.000-0.034) ng/mL Urine Protein (Negative) Ur Leukocyte Esterase (Negative) Ur Squamous Epith Cells (0-4) /hpf Hyaline Casts (0-2) /lpf Urine Mucus (None) /hpf 0610/27/21 10/27/21 Range/Units 03:34 03:34 03:34 Hgb 10.7 L (11.4-16.0) gm/dL Hct (34.0-46.0) % MCHC 30.2 L (31.0-37.0) g/dL RDW 15.8 H (11.5-15.5) % APTT 64.1 H (22.0-30.0) sec Sodium 136 L (137-145) mmol/L BUN 32 H (7-17) mg/dL Glucose 125 H (74-99) mg/dL POC Glucose (mg/dL) (75-99) mg/dL AST (14-36) U/L Troponin I (0.000-0.034) ng/mL Urine Protein (Negative) Ur Leukocyte Esterase (Negative) Ur Squamous Epith Cells (0-4) /hpf Hyaline Casts (0-2) /lpf Urine Mucus (None) /hpf
[2021-10-27] MEDS: IPRATROPIUM-ALBUTEROL 3 ML NEB INHALATION PRN ×2 (08:27→11:41)
[2021-10-27] MEDS: FLUTICASONE 110 MCG INHALER INHALATION SCH ×2 (08:27→19:37)
[2021-10-27] MEDS ORDERED: lisinopriL 20 MG TAB PO SCH (09:00)
[2021-10-27] MEDS: FUROSEMIDE 10 MG/ML 4 ML VIAL IV SCH (09:08)
[2021-10-27] MEDS: atenoloL 50 MG TAB PO SCH ×2 (09:08→20:25)
[2021-10-27] MEDS: FENOFIBRATE 160 MG TAB PO SCH (09:08)
[2021-10-27] MEDS: ASPIRIN 81 MG PO SCH (09:08)
[2021-10-27] MEDS: ESCITALOPRAM 10 MG TAB PO SCH (09:08)
[2021-10-27] MEDS: hydrALAZINE HCL 50 MG TAB PO SCH ×3 (09:08→20:25)
[2021-10-27] MEDS: VALSARTAN 160 MG TAB PO SCH (09:12)
[2021-10-27 09:49] LABS: Chol/HDL Ratio 2.01 Ratio
--- NOTE | 2021-10-27 10:56 | CA ---
Transthoracic Echo Report Name: Nancy Archer Age: 81 Gender: F : 1940 Exam Date: 10/26/2021 13:42 Exam Location: [facility] Ht (in): 64 Wt (lb): 211 Ordering Physician: Joselo Blanco Attending/Referring Phys: Public Health Clinical Nurse Specialist Kaylee Miller, GREGORY Procedure CPT: Indications: Elevated troponin, dyspnea with exertion, CHF Cardiac Hx: Technical Quality: Technically difficult study Contrast 1: Lumason Total Dose (mL): 3 Contrast 2: Total Dose (mL): MEASUREMENTS (Male / Female) Normal Values 2D ECHO LV Diastolic Diameter PLAX 5.1 cm 4.2 - 5.9 / 3.9 - 5.3 cm LV Systolic Diameter PLAX 4.7 cm IVS Diastolic Thickness 1.3 cm 0.6 - 1.0 / 0.6 - 0.9 cm LVPW Diastolic Thickness 1.3 cm 0.6 - 1.0 / 0.6 - 0.9 cm LV Relative Wall Thickness 0.5 RV Internal Dim ED PLAX 2.7 cm M-MODE Aortic Root Diameter MM 3.4 cm LA Systolic Diameter MM 3.2 cm LA Ao Ratio MM 0.9 MV E Point Septal Separation 0.8 cm AV Cusp Separation MM 2.1 cm DOPPLER MV Area PHT 5.3 cm??? Mitral E Point Velocity 74.6 cm/s Mitral A Point Velocity 102.0 cm/s Mitral E to A Ratio 0.7 MV Deceleration Time 144.0 ms MV E' Velocity 8.6 cm/s Mitral E to MV E' Ratio 8.7 FINDINGS Left Ventricle Left ventricular ejection fraction is estimated at 45-50%. Inferior Hypokinesis Right Ventricle Normal right ventricular size and function. Right Atrium Normal right atrial size. Left Atrium Normal left atrial size. Mitral Valve Mitral valve thickened. Mild mitral regurgitation. Aortic Valve Trileaflet aortic valve. Aortic valve sclerosis. Tricuspid Valve Structurally normal tricuspid valve. Pulmonic Valve Structurally normal pulmonic valve. Pericardium Echo free space anterior to the right ventricle likely represents a fat pad. Aorta Normal size aortic root and proximal ascending aorta. CONCLUSIONS Low normal LV systolic function with inferior wall hypokinesis Previewed by: Dr. Alok Quinonez MD (Electronically Signed) Final Date: 27 October 2021 10:55
[2021-10-27 11:58] LABS: Glucose,Whole Blood 199 mg/dL (75-99)
--- NOTE | 2021-10-27 12:25 | P.CRDCN ---
History of Present Illness Consult date: 10/27/21 Consult reason: hypertension History of present illness: This is Abdulaziz Mendez NP, I'm dictating on behalf of Dr. Quinonez's H&P and A&P The patient was interviewed and examined. HPI: Patient is a pleasant 81-year-old female who initially presents to hospital with complaints of shortness of breath with exertion. Patient states that she's been caring for a friend, who as needed home health. She states that while doing this, her blood pressures have been up and down, fluctuating very high to normal. The patient states that over the last week and a half she's had shortness of breath with exertion, even up to the point of just taking her garbage out, she reports being short of breath. She presented to the hospital for evaluation. She was found to have a nominal troponin elevation, but a normal BNP. Patient does have a history of COPD, GERD, hiatal cholesterol, high blood pressure, and thyroid disorder. Her initial EKG showed no ST elevation, with no changes compared to other EKGs. ROS: [No fever, chills, or rigors] [no cough, phlegm, or expectoration] [no nausea, vomiting, or diarrhea] [no hematuria, dysuria] [no musculoskelatal complaints] [no strokes or seizures] [no skin lesions] EXAMINATION: GENERAL: Well-appearing, well-nourished and in no acute distress. NECK: Supple without JVD or thyromegaly. LUNGS: Breath sounds clear to auscultation bilaterally. Respiration equal and unlabored. No wheezes, rales or rhonchi. HEART: Regular rate and rhythm without murmurs, rubs or gallops. S1 and S2 heard. EXTREMITIES: Normal range of motion, no edema. No clubbing or cyanosis. Peripheral pulses intact and strong. REVIEW OF LABS, ECG & MEDICAL DATA: LABS: White count 9.1, hemoglobin 10.7, sodium 136, potassium 4.3, B1 32, creatinine 0.0, calcium 9.0, magnesium 1.8, serial troponin 3-0.046, 0.040, 0.032, BNP 3200, triglycerides 111, cholesterol 84., LDL 20, HDL 41.8 EKG: Normal sinus rhythm, ST changes noted to be old IMAGING: Chest x-ray dated 10/26/2021, COPD correlate for interstitial pneumonitis versus venous congestion. Findings mildly progressed from prior exam. Echocardiogram dated 10/26/2021 shows low-normal LV systolic function with inferior wall hypokinesis VITALS: Temp 97 0, pulse 70, blood pressure 170/76, O2 saturation 94% on room air IMPRESSION/PLAN: 1. Hypertension-discontinue lisinopril. Start valsartan 320 mg daily. Blood pressure fluctuations are likely due to steroids, as well as stress. 2. Elevated troponin-secondary to uncontrolled hypertension. Flattened downtrending troponins, along with EKG findings do not demonstrate acute WA. May resume diet. 3. Hyperlipidemia-continue medications as ordered. 4. COPD-likely the reason for her shortness of breath on exertion. Internal medicine to manage. Thank you for the consult and allowing us to participate in the care of this patient. Past Medical History Past Medical History: COPD, GERD/Reflux, Hyperlipidemia, Hypertension, Thyroid Disorder History of Any Multi-Drug Resistant Organisms: None Reported Past Surgical History: Hysterectomy Past Anesthesia/Blood Transfusion Reactions: No Reported Reaction Past Psychological History: Anxiety, Depression Smoking Status: Never smoker Past Alcohol Use History: None Reported Past Drug Use History: None Reported - Past Family History Mother Family Medical History: GERD/Reflux Father Additional Family Medical History / Comment(s): brain anyrism Medications and Allergies Home Medications Medication Instructions Recorded Confirmed Type Atenolol [Tenormin] 50 mg PO BID 10/20/20 10/26/21 History Divalproex Sodium [Depakote] 1,000 mg PO HS 10/20/20 10/26/21 History Fenofibrate,Micronized 134 mg PO DAILY 10/20/20 10/26/21 History [Fenofibrate] Levothyroxine Sodium [Synthroid] 50 mcg PO DAILY 10/20/20 10/26/21 History Omeprazole 20 mg PO DAILY 10/20/20 10/26/21 History Tolterodine ER [Detrol LA] 4 mg PO DAILY 10/20/20 10/26/21 History hydrALAZINE HCL [Apresoline] 50 mg PO TID 10/20/20 10/26/21 History lisinopriL [Zestril] 20 mg PO DAILY 10/20/20 10/26/21 History Escitalopram [Lexapro] 10 mg PO DAILY 10/26/21 10/26/21 History Fluticasone Propionate [Flovent 2 puff INHALATION RT-BID 10/26/21 10/26/21 History Hfa 220 mcg] Loratadine [Claritin] 10 mg PO DAILY PRN 10/26/21 10/26/21 History Naproxen Sodium [Aleve] 220 mg PO Q12HR PRN 10/26/21 10/26/21 History Allergies Allergy/AdvReac Type Severity Reaction Status Date / Time Latex, Natural Rubber Allergy Rash/Hives Verified 10/26/21 13:33 Physical Exam Vitals: Vital Signs Temp Pulse Pulse Resp BP BP Pulse Ox 10/27/21 08:46 60 10/27/21 08:29 60 96 10/27/21 03:05 97.6 F 61 18 175/70 93 L 10/26/21 23:00 58 L 18 155/75 95 10/26/21 20:44 64 10/26/21 20:37 94 L 10/26/21 20:32 59 L 10/26/21 20:15 98.2 F 59 L 18 170/77 92 L 10/26/21 18:56 98.4 F 70 16 130/74 93 L 10/26/21 18:07 98.4 F 70 16 130/70 93 L 10/26/21 15:37 98.1 F 10/26/21 15:00 60 18 185/81 94 L 10/26/21 13:23 62 18 164/80 96 10/26/21 12:28 60 10/26/21 12:17 60 10/26/21 12:05 76 18 144/67 97 10/26/21 10:57 98.1 F 66 16 145/64 93 L Intake and Output 10/26/21 10/27/21 10/27/21 22:59 06:59 14:59 Intake Total 68.84 98.307 Balance 68.84 98.307 Intake: Intake, IV Titration 68.84 98.307 Amount Heparin Sod,Pork in 0.45% 68.84 98.307 NaCl 25,000 unit In 0.45 % NaCl 1 250ml.bag @ 10. 45 UNITS/KG/HR 10.001 mls /hr IV .Q24H [facility] Rx#: [id number] Other: Weight 95.708 kg Results 10/27/21 03:34 10/27/21 03:34 Cardiac Enzymes 10/26/21 10/26/21 10/26/21 Range/Units 11:35 11:35 16:04 AST 53 H (14-36) U/L Troponin I 0.046 H* 0.040 H* (0.000-0.034) ng/mL 10/26/21 10/27/21 Range/Units 18:35 03:34 AST 25 (14-36) U/L Troponin I 0.032 (0.000-0.034) ng/mL Coagulation 10/26/21 10/26/21 10/27/21 Range/Units 11:35 18:40 03:34 PT 11.1 11.8 (9.0-12.0) sec APTT 21.9 L 36.4 H 64.1 H (22.0-30.0) sec CBC 10/26/21 10/27/21 Range/Units 11:35 03:34 WBC 7.3 9.1 (3.8-10.6) k/uL RBC 3.97 4.18 (3.80-5.40) m/uL Hgb 10.9 L 10.7 L (11.4-16.0) gm/dL Hct 33.5 L 35.5 (34.0-46.0) % Plt Count 318 323 (150-450) k/uL Comprehensive Metabolic Panel 10/26/21 10/27/21 Range/Units 11:35 03:34 Sodium 135 L 136 L (137-145) mmol/L Potassium 4.9 4.3 (3.5-5.1) mmol/L Chloride 105 103 (98-107) mmol/L Carbon Dioxide 23 23 (22-30) mmol/L BUN 36 H 32 H (7-17) mg/dL Creatinine 0.81 0.80 (0.52-1.04) mg/dL Glucose 146 H 125 H (74-99) mg/dL Calcium 9.1 9.0 (8.4-10.2) mg/dL AST 53 H 25 (14-36) U/L ALT 31 27 (4-34) U/L Alkaline Phosphatase 38 50 (38-126) U/L Total Protein 6.3 6.4 (6.3-8.2) g/dL Albumin 3.6 3.8 (3.5-5.0) g/dL Current Medications Generic Name Dose Route Start Last Admin Trade Name Freq PRN Reason Stop Dose Admin Acetaminophen 650 mg 10/26/21 13:13 Acetaminophen Tab 325 Mg Tab PO Q6HR PRN Mild Pain or Fever > 100.5 Albuterol/Ipratropium 3 ml 10/26/21 15:56 10/27/21 08:27 Ipratropium-Albuterol 3 Ml Neb INHALATION 3 ml RT-Q2H PRN Administration Shortness Of Breath Or Wheezing Aspirin 81 mg 10/27/21 09:00 Aspirin 81 Mg PO DAILY [facility] Atenolol 50 mg 10/26/21 21:00 10/26/21 20:19 Atenolol 50 Mg Tab PO 50 mg BID [facility] Administration Atorvastatin Calcium 40 mg 10/26/21 21:00 10/26/21 20:19 Atorvastatin 40 Mg Tab PO 40 mg HS [facility] Administration Divalproex Sodium 1,000 mg 10/26/21 21:00 10/26/21 20:19 Divalproex 500 Mg Tablet.Dr PO 1,000 mg HS [facility] Administration Escitalopram Oxalate 10 mg 10/27/21 09:00 Escitalopram 10 Mg Tab PO DAILY [facility] Fenofibrate 160 mg 10/27/21 09:00 Fenofibrate 160 Mg Tab PO DAILY [facility] Fluticasone Propionate 2 puff 10/26/21 20:00 10/27/21 08:27 Fluticasone 110 Mcg Inhaler INHALATION 2 puff RT-BID [facility] Administration Furosemide 40 mg 10/27/21 09:00 Furosemide 10 Mg/Ml 4 Ml Vial IV DAILY [facility] Heparin Sodium (Porcine) 0 unit 10/26/21 13:04 10/26/21 20:17 Heparin Sodium 1,000 Un/Ml (10ml Vl) IV 2,300 unit PER PROTOCOL PRN Administration Low PTT Protocol Hydralazine HCl 50 mg 10/26/21 16:00 10/26/21 20:19 Hydralazine Hcl 50 Mg Tab PO 50 mg TID [facility] Administration Heparin Sodium/Sodium Chloride 250 mls @ 10.001 mls/hr 10/26/21 13:15 10/27/21 04:33 25,000 unit/ Sodium Chloride IV 12.45 units/kg/hr .Q24H [facility] 11.916 mls/hr Titration Protocol 10.45 UNITS/KG/HR Levothyroxine Sodium 50 mcg 10/27/21 06:30 10/27/21 06:01 Levothyroxine 50 Mcg Tab PO 50 mcg DAILY@0630 [facility] Administration Naloxone HCl 0.2 mg 10/26/21 13:13 Naloxone 0.4 Mg/Ml 1 Ml Vial IV Q2M PRN Opioid Reversal Pantoprazole Sodium 40 mg 10/27/21 07:30 10/27/21 06:01 Pantoprazole 40 Mg Tablet PO 40 mg [id number] [facility] Administration Valsartan 320 mg 10/27/21 09:00 Valsartan 160 Mg Tab PO DAILY [facility] Intake and Output 10/26/21 10/27/21 10/27/21 22:59 06:59 14:59 Intake Total 68.84 98.307 Balance 68.84 98.307 Intake: Intake, IV Titration 68.84 98.307 Amount Heparin Sod,Pork in 0.45% 68.84 98.307 NaCl 25,000 unit In 0.45 % NaCl 1 250ml.bag @ 10. 45 UNITS/KG/HR 10.001 mls /hr IV .Q24H [facility] Rx#: [id number] Other: Weight 95.708 kg 10/27/21 03:34 10/27/21 03:34
[2021-10-27 16:33] LABS: Glucose,Whole Blood 131 mg/dL (75-99)
[2021-10-27] MEDS: HEPARIN SOD,PORK IN 0.45% NACL 25,000 UNIT in 0.45% NACL 1 250ML.BAG IV SCH (18:44)
[2021-10-27] MEDS: ATORVASTATIN 40 MG TAB PO SCH (20:25)
[2021-10-27] MEDS: DIVALPROEX 500 MG TABLET.DR PO SCH (20:25)
[2021-10-27 20:29] LABS: Glucose,Whole Blood 151 mg/dL (75-99)
[2021-10-28 05:57] LABS: Glucose,Whole Blood 120 mg/dL (75-99)
[2021-10-28] MEDS: PANTOPRAZOLE 40 MG TABLET PO SCH (06:12)
[2021-10-28] MEDS: LEVOTHYROXINE 50 MCG TAB PO SCH (06:12)
[2021-10-28] MEDS: FLUTICASONE 110 MCG INHALER INHALATION SCH (09:43)
[2021-10-28] MEDS: IPRATROPIUM-ALBUTEROL 3 ML NEB INHALATION PRN (09:43)
[2021-10-28 10:10] VITALS: RESP 16
[2021-10-28] MEDS: ASPIRIN 81 MG PO SCH (10:12)
[2021-10-28] MEDS: atenoloL 50 MG TAB PO SCH (10:12)
[2021-10-28] MEDS: ESCITALOPRAM 10 MG TAB PO SCH (10:12)
[2021-10-28] MEDS: VALSARTAN 160 MG TAB PO SCH (10:13)
[2021-10-28] MEDS: hydrALAZINE HCL 50 MG TAB PO SCH ×2 (10:13→17:09)
[2021-10-28] MEDS: FENOFIBRATE 160 MG TAB PO SCH (10:15)
[2021-10-28] MEDS: FUROSEMIDE 10 MG/ML 4 ML VIAL IV SCH (10:49)
--- NOTE | 2021-10-28 11:06 | P.PN ---
Subjective Progress Note Date: 10/28/21 The patient is a 81-year-old female who follows in the office with Dr. Zelaya. She had presented with increased shortness of breath and uncontrolled hypertension. Her medications were adjusted yesterday. The patient states she's been feeling much better overnight. She slept comfortably and has been voiding well. She states she is breathing well currently sitting up in the recliner chair. No chest pain or chest pressure. No dizziness or lightheadedness. She states her edema has resolved GENERAL: Well-appearing, well-nourished and in no acute distress. NECK: Supple without JVD or thyromegaly. LUNGS: Breath sounds clear to auscultation bilaterally. Respiration equal and unlabored. No wheezes, rales or rhonchi. HEART: Regular rate and rhythm without murmurs, rubs or gallops. S1 and S2 heard. EXTREMITIES: Normal range of motion, no edema. No clubbing or cyanosis. Peripheral pulses intact and strong. VITALS: Blood pressure 116/60, pulse 64, respiratory rate 18, SpO2 91% on room air TELEMETRY: Sinus mechanism overnight IMPRESSION: Hypertension, improved Elevated troponin, likely secondary to uncontrolled hypertension, not indicative of acute coronary syndrome Dyslipidemia COPD PLAN: Switch to PO lasix D/C heparin drip Ambulate around the unit to assess for exertional symptoms If the patient remains asymptomatic, she may be discharged from the cardiac standpoint later today I am dictating on behalf of Dr Alok Quinonez's history/physical and assessment/plan. Objective - Vital Signs Vital signs: Vital Signs Temp 97.8 F 10/27/21 20:25 Pulse 64 10/28/21 04:35 Resp 18 10/28/21 04:35 BP 116/60 10/28/21 04:35 Pulse Ox 91 L 10/28/21 04:35 FiO2 Intake & Output 10/27/21 10/28/21 10/28/21 18:59 06:59 18:59 Intake Total 82.853 77.454 240 Balance 82.853 77.454 240 Intake: Intake, IV Titration 82.853 77.454 Amount Heparin Sod,Pork in 0.45% 82.853 77.454 NaCl 25,000 unit In 0.45 % NaCl 1 250ml.bag @ 10. 45 UNITS/KG/HR 10.001 mls /hr IV .Q24H [facility] Rx#: [id number] Oral 240 - Labs CBC & Chem 7: 10/27/21 03:34 10/27/21 03:34 Labs: Abnormal Lab Results - Last 24 Hours (Table) 10/27/21 10/27/21 10/27/21 Range/Units 10:40 11:54 16:31 APTT 42.2 H (22.0-30.0) sec POC Glucose (mg/dL) 199 H 131 H (75-99) mg/dL 10/27/21 10/28/21 10/28/21 Range/Units 20:09 00:23 05:53 APTT 39.2 H (22.0-30.0) sec POC Glucose (mg/dL) 151 H 120 H (75-99) mg/dL 10/28/21 Range/Units 07:08 APTT 73.2 H (22.0-30.0) sec POC Glucose (mg/dL) (75-99) mg/dL
[2021-10-28 11:58] LABS: Glucose,Whole Blood 138 mg/dL (75-99)
[2021-10-28 12:15] LABS: Calcium 8.7 mg/dL (8.4-10.2); Potassium 4.2 mmol/L (3.5-5.1)
--- NOTE | 2021-10-28 15:22 | P.DS ---
Providers Date of admission: 10/26/21 13:13 Expected date of discharge: 10/28/21 Attending physician: Saroj Carey MD Consults: 10/26/21 13:13 Consult Physician Routine Consulting Provider: Fab Finnegan Consult Reason/Comments: elevated trop, dyspnea with exertion Do you want consulting provider notified?: Yes, Notify in am Primary care physician: Bennett Saxena Hospital Course: Discharge Diagnosis: Elevated troponin, acute coronary event was ruled out. Acute systolic heart failure exacerbation, underwent IV diuresis and discharged home on oral Lasix 40 mg. Hypertension Hypertensive urgency with blood pressure 185/81, valsartan was added to daily medication regimen of atenolol and hydralazine. Hyperlipidemia, continue daily medication management with fenofibrate Exertional dyspnea secondary to above Hypothyroidism. Continue daily medication regimen with levothyroxine. Depression and anxiety, Continue daily medication regimen with Lexapro COPD status post infection with Covid 19 virus, Continue Flovent 2 puffs twice daily. Hospital Course: Patient is a very pleasant 81-year-old female with a past medical history of hypertension, hyperlipidemia, hypothyroidism and reports of COVID infection 1 year ago resulting in chronic obstructive lung disease requiring inhalers daily. Patient states since this infection she has had some difficulties with breathing and has been taking Flovent inhaler twice daily. She states that she came to the emergency department today because her breathing just seems to have worsened. Patient reports progressively worsening shortness of breath 2-3 weeks. Patient presented to the emergency department with progressively wor sening shortness of breath 2-3 weeks. Patient stated despite this shortness of breath she has been feeling actually quite well otherwise with the exception of having increased stress in her life secondary to her son-in-law recently being diagnosed with stage IV cancer. Patient denied having any recent fevers, chills, diaphoresis, chest pain or palpitations, nausea, vomiting, abdominal pain, back pain, neck pain, or experiencing any numbness/tingling/weakness/swelling in her extremities. She underwent full evaluation in the emergency department. X-ray revealing COPD with small bilateral pleural effusions consistent with interstitial pneumonitis versus venous congestion. ProBNP elevated 3200. Troponin elevated at 0.046. EKG revealing sinus mechanism at 64 bpm with right bundle branch block and T-wave inversion in inferior leads II, III, and aVF along with anterior leads V3 and V4 and lastly lateral leads V5 and V6. With the exception of new T-wave inversion in lead II , this EKG is unchanged from previous EKG completed 11/22/20. Vital signs upon arrival to the emergency department were within normal limits with temp 98.1F blood pressure of 145/64, heart rate 66, respiratory rate 16, SpO2 of 93% on room air. Patient given Lasix 40 mg IVP 1 dose and started on heparin infusion. She was admitted under our services for elevated troponin and CHF exacerbation with consultation to cardiology. Troponins trended throughout the night and downtrending from 0.046 to 0.040 and lastly 0.032. Lipid profile was unremarkable. Patient's blood pressure fluctuating and she did have some elevated pressures as high as 185/81 Patient was started on valsartan and again monitored throughout the night. Blood pressure significantly improved with morning blood pressure of 116/60, heart rate 64, respiratory rate 18, and SpO2 91% on room air. Echocardiogram revealing a mildly impaired EF of 45-50% with inferior hypokinesis, mild mitral regurgitation and aortic valve sclerosis. Ambulatory pulse ox was completed and patient reportedly maintain SpO2 of 93% throughout ambulation and reports resolution of exertional dyspnea and continues to deny having any chest pain, palpitations, dizziness, or lightheadedness. Patient is medically stable at this time and is stable for discharge home. Patient being discharged home with prescriptions for valsartan and Lasix. Patient to follow up outpatient with her PCP and cardiology. Physical exam: Vital signs reviewed and stable. General: Nontoxic, no distress and appears stated age. Derm: Skin warm and dry, normal coloration for ethnicity. Head: Atraumatic, normocephalic and symmetric. Eyes: EOMs intact, no lid lag, and anicteric sclera Mouth: no lip lesions, mucus membranes moist Cardiovascular: regular rate and rhythm with normal S1S2, no murmur, positive posterior tibial pulses bilaterally, and cap refill < 2 seconds. Scant lower extremity edema. Lungs: Respirations even, regular, and unlabored on room air. Lungs bibasilar crackles. No rhonchi, rales, or wheezing. No accessory muscle usage. Abdominal: soft, nontender to palpation, no guarding, no appreciable organomega ly Ext: ROM intact. No gross muscle atrophy, no lower extremity edema, no contractures Neuro: Speech clear, face symmetrical and CN II-XII grossly intact with no noted focal neuro deficits Psych: Alert and oriented to person, place, time, and situation. Appropriate and pleasant affect. A total of 33 minutes of time were spent preparing this complex discharge summary. Pt was discharged on 10/28/21 at 3:15 PM. I reviewed the documentation as provided by the KATHI above, who is the original author of this note. I agree with the documented assessment and plan, with the following changes: none Patient Condition at Discharge: Stable Plan - Discharge Summary Discharge Rx Participant: No New Discharge Prescriptions: New Valsartan [Diovan] 320 mg PO DAILY 30 Days #60 tab Furosemide [Lasix] 40 mg PO DAILY 30 Days #30 tab Continue hydrALAZINE HCL [Apresoline] 50 mg PO TID Levothyroxine Sodium [Synthroid] 50 mcg PO DAILY Fenofibrate,Micronized [Fenofibrate] 134 mg PO DAILY Divalproex Sodium [Depakote] 1,000 mg PO HS Atenolol [Tenormin] 50 mg PO BID Loratadine [Claritin] 10 mg PO DAILY PRN PRN Reason: Allergy Symptoms Tolterodine ER [Detrol LA] 4 mg PO DAILY Omeprazole 20 mg PO DAILY Naproxen Sodium [Aleve] 220 mg PO Q12HR PRN PRN Reason: Pain Or Fever > 100.5 Fluticasone Propionate [Flovent Hfa 220 mcg] 2 puff INHALATION RT-BID Escitalopram [Lexapro] 10 mg PO DAILY Discontinued lisinopriL [Zestril] 20 mg PO DAILY Discharge Medication List Atenolol [Tenormin] 50 mg PO BID 10/20/20 [History] Divalproex Sodium [Depakote] 1,000 mg PO HS 10/20/20 [History] Fenofibrate,Micronized [Fenofibrate] 134 mg PO DAILY 10/20/20 [History] Levothyroxine Sodium [Synthroid] 50 mcg PO DAILY 10/20/20 [History] Omeprazole 20 mg PO DAILY 10/20/20 [History] Tolterodine ER [Detrol LA] 4 mg PO DAILY 10/20/20 [History] hydrALAZINE HCL [Apresoline] 50 mg PO TID 10/20/20 [History] Escitalopram [Lexapro] 10 mg PO DAILY 10/26/21 [History] Fluticasone Propionate [Flovent Hfa 220 mcg] 2 puff INHALATION RT-BID 10/26/21 [History] Loratadine [Claritin] 10 mg PO DAILY PRN 10/26/21 [History] Naproxen Sodium [Aleve] 220 mg PO Q12HR PRN 10/26/21 [History] Furosemide [Lasix] 40 mg PO DAILY 30 Days #30 tab 10/28/21 [Rx] Valsartan [Diovan] 320 mg PO DAILY 30 Days #60 tab 10/28/21 [Rx] Follow up Appointment(s)/Referral(s): Alok Quinonez MD [STAFF PHYSICIAN] - 1 Week (Office is closed. Please call Friday to schedule follow up. ) Bennett Saxena DO [Primary Care Provider] - 1-2 days (Office is closed. Please call Friday to schedule follow up. ) Patient Instructions/Handouts: Heart Failure (ER) Activity/Diet/Wound Care/Special Instructions: Activity: As tolerated. Take breaks as needed. Diet: Heart healthy and carb consistent diet. Avoid salts, or foods with hidden salts such as canned or boxed foods and frozen dinners. Extra salt makes your heart work harder and traps the fluid in your body for longer. Special Instructions: Weigh yourself every morning after you urinate. If you gain 3 pounds overnight or more than 5 pounds in one week, call your primary physician and wire mesh filter fabricator for guidance on your medications or they may want to see you in their office. K eep a daily log of your weights and be sure to bring with you at follow up visits with your PCP and wire mesh filter fabricator. Take all of your medications as directed, especially your water pills. NEVER skip a dose. And remember to keep all of your doctor's appointments and follow- up as needed. Elevate your legs when you are not up moving around to help with circulation and prevent swelling. Compression stockings are also a great way to improve lower extremity circulation and prevent/improve lower extremity edema. Call your primary care provider and wire mesh filter fabricator if you notice any extra swelling in your legs, ankles, feet or abdomen, if you have a new dry cough, if your shortness of breath worsens with activity or at rest, or if you feel more fatigued. Thank you for allowing us to participate in your care, it was truly a pleasure having you for our patient!!! Discharge Disposition: HOME SELF-CARE
[2021-10-28 16:16] LABS: Glucose,Whole Blood 144 mg/dL (75-99)
[2021-10-28 16:53] VITALS: BP 150/69; PULSE 61; TEMP 98.1
[2021-10-29] MEDS ORDERED: FUROSEMIDE 40 MG TAB PO SCH (09:00)
== END 2021-10-28 18:26 | disposition home or self-care (01) ==
LOC: EC 10:43 → 3SCARD 13:13
PROVIDERS: ADMIT Internal Medicine; ATTEND Internal Medicine
DX: I11.0 Hypertensive heart disease with heart failure (principal); I50.23 Acute on chronic systolic (congestive) heart failure; I16.0 Hypertensive urgency; J44.9 Chronic obstructive pulmonary disease, unspecified; K21.9 Gastro-esophageal reflux disease without esophagitis; E78.5 Hyperlipidemia, unspecified; F41.9 Anxiety disorder, unspecified; F32.A Depression, unspecified; E03.9 Hypothyroidism, unspecified; I45.10 Unspecified right bundle-branch block; I08.0 Rheumatic disorders of both mitral and aortic valves; Z20.822 Contact with and (suspected) exposure to COVID-19; Z86.16 Personal history of COVID-19; Z71.9 Counseling, unspecified; Z79.899 Other long term (current) drug therapy; Z79.890 Hormone replacement therapy; Z79.51 Long term (current) use of inhaled steroids; Z91.040 Latex allergy status; Z90.710 Acquired absence of both cervix and uterus; Z83.79 Family history of other diseases of the digestive system; Z82.49 Family history of ischemic heart disease and other diseases of the circulatory system
CPT/HCPCS: 96376 ×3; 96366 ×3; 96365; 96375; 99285; 36415; 94640 ×6; 94760; 93005; 83880; 80061; 80053 ×2; 80048; 83735 ×2; 84484; 85025 ×2; 85610 ×2; 85730 ×3; 81001; 87635; 71046; G0378 ×3; C8929; J1100; J1940 ×2; J1644 ×3; Q9950; 93306

== ENCOUNTER 2023-03-08 15:09 | Inpatient (IN) | payer MEDICARE ==
--- NOTE | 2023-03-08 16:20 | ED ---
General Adult HPI - General Chief complaint: Weakness Stated complaint: Weakness,stroke like symptom Time Seen by Provider: 03/08/23 15:25 Source: patient, RN notes reviewed Mode of arrival: ambulatory Limitations: no limitations - History of Present Illness Initial comments: 82-year-old female presents to the emergency department for an episode of poss ible syncope. She states this occurred around 2:30PM. This episode was witnessed by her daughter. She states that she got diaphoretic. Her daughter states that she was staring for 30 seconds and was not responding to her at that time. Her daughter states that after this she was slow to respond but came back to her baseline shortly after. She states she has never had an episode like this before. Patient reports that she has been feeling weak, congested, and frequently coughing. She was started on a Z-Diego by her primary care provider about a week ago which she finished the course of. She did note any improvement after this. She denies recent fever, chest pain, palpitations. She uses 2 L of oxygen at home. Patient also reports right-sided abdominal pain 2 days ago aggravating or alleviating factors. She states that she has been having regular bowel movements daily. - Related Data Home Medications Medication Instructions Recorded Confirmed Divalproex Sodium [Depakote] 1,000 mg PO HS 10/20/20 03/08/23 Fenofibrate,Micronized 134 mg PO DAILY 10/20/20 03/08/23 [Fenofibrate] Levothyroxine Sodium [Synthroid] 50 mcg PO DAILY 10/20/20 03/08/23 Omeprazole 20 mg PO DAILY 10/20/20 03/08/23 Tolterodine ER [Detrol LA] 4 mg PO DAILY 10/20/20 03/08/23 Escitalopram [Lexapro] 10 mg PO DAILY 10/26/21 03/08/23 Fluticasone Propionate [Flovent 2 puff INHALATION RT-BID 10/26/21 03/08/23 Hfa 220 mcg] Loratadine [Claritin] 10 mg PO DAILY 10/26/21 03/08/23 Empagliflozin [Jardiance] 10 mg PO DAILY 03/08/23 03/08/23 Ergocalciferol [Vitamin D2 (1250 1,250 mcg PO SA 03/08/23 03/08/23 Mcg = 01732 Iu)] Ferrous Sulfate [Feosol] 325 mg PO DAILY 03/08/23 03/08/23 Promethazine HCl/Codeine 5 ml PO HS 03/08/23 03/08/23 [Phenergan with Codeine Syrup] carvediloL [Coreg] 3.125 mg PO BID@0900,1800 03/08/23 03/08/23 Previous Rx's Medication Instructions Recorded Furosemide [Lasix] 40 mg PO DAILY 30 Days #30 tab 10/28/21 Valsartan [Diovan] 320 mg PO DAILY 30 Days #60 tab 10/28/21 Allergies Allergy/AdvReac Type Severity Reaction Status Date / Time Latex, Natural Rubber Allergy Rash/Hives Verified 03/08/23 20:37 Review of Systems ROS Statement: Those systems with pertinent positive or pertinent negative responses have been documented in the HPI. ROS Other: All systems not noted in ROS Statement are negative. Past Medical History Past Medical History: COPD, GERD/Reflux, Hyperlipidemia, Hypertension, Thyroid Disorder History of Any Multi-Drug Resistant Organisms: None Reported Past Surgical History: Hysterectomy Past Anesthesia/Blood Transfusion Reactions: No Reported Reaction Past Psychological History: Anxiety, Depression Smoking Status: Never smoker Past Alcohol Use History: None Reported Past Drug Use History: None Reported - Past Family History Mother Family Medical History: GERD/Reflux Father Additional Family Medical History / Comment(s): brain anyrism General Exam Limitations: no limitations General appearance: alert, in no apparent distress Head exam: Present: atraumatic, normocephalic, normal inspection Eye exam: Present: normal appearance, PERRL, EOMI. Absent: scleral icterus, conjunctival injection, nystagmus, periorbital swelling ENT exam: Present: normal exam, normal oropharynx, mucous membranes moist Neck exam: Present: normal inspection. Absent: tenderness, meningismus, lymphadenopathy Respiratory exam: Present: wheezes, decreased breath sounds. Absent: respiratory distress, rales, rhonchi, stridor Cardiovascular Exam: Present: regular rate, normal rhythm, normal heart sounds. Absent: systolic murmur, diastolic murmur, rubs, gallop, clicks GI/Abdominal exam: Present: tenderness, normal bowel sounds. Absent: guarding, rebound, rigid Extremities exam: Present: normal inspection, full ROM, normal capillary refill. Absent: tenderness, pedal edema, joint swelling, calf tenderness Back exam: Present: normal inspection Neurological exam: Present: alert, oriented X3, CN II-XII intact Expanded Patient oriented to: Present: person, place, time Speech: Present: fluid speech Cranial nerves: EOM's Intact: Normal, Gag Reflex: Normal, Facial Sensation: Normal Cerebellar function: Finger to Nose: Normal, Heel to Kelly: Normal Sensory exam: Upper Extremity Light Touch: Normal, Lower Extremity Light Touch: Normal Motor strength exam: RUE: 5, LUE: 5, RLE: 5, LLE: 5 Eye Response: (4) open spontaneously Motor Response: (6) obeys commands Verbal Response: (5) oriented [place] Total: 15 Psychiatric exam: Present: normal affect, normal mood Skin exam: Present: warm, dry, intact, normal color. Absent: rash Course Vital Signs 03/08/23 15:14 Temperature 98 F Pulse Rate 76 Respiratory 18 Rate Blood Pressure 102/55 O2 Sat by Pulse 96 Oximetry Medical Decision Making - Medical Decision Making Was pt. sent in by a medical professional or institution ([facility], [employer], urgent care, hospital, or longterm...) When possible be specific @ -No Did you speak to anyone other than the patient for history (EMS, parent, family, police, friend...)? What history was obtained from this source @ -daughter provided some of the history for this patient Did you review nursing and triage notes (agree or disagree)? Why? @ -I reviewed and agree with nursing and triage notes Were old charts reviewed (outside hosp., previous admission, EMS record, old EKG, old radiological studies, urgent care reports/EKG's, longterm records)? Report findings @ -No old charts were reviewed Differential Diagnosis (chest pain, altered mental status, abdominal pain women, abdominal pain men, vaginal bleeding, weakness, fever, dyspnea, syncope, headac he, dizziness, GI bleed, back pain, seizure, CVA, palpatations, mental health, musculoskeletal)? @ -Differential Abdominal Pain Women: Appendicitis, Cholecystitis, diverticulosis, ischemic bowel, pancreatitis, hepatitis, UTI, gastroenteritis, AAA, incarcerated hernia, bowel obstruction, constipation, inflammatory bowel, hepatitis, peptic ulcer disease, splenic infarction, perforated viscus, vulvitis, ovarian torsion, PID, kidney stone, placenta abruption, this is not meant to be an all-inclusive list Differential Syncope: Valvular disease, hypertrophic cardiomyopathy, pulmonary embolism, tamponade, tachycardia, bradycardia, PR, hypovolemia, hemorrhage, dissection, anemia, intracranial hemorrhage, seizure, hypoglycemia, carbon monoxide poisoning, this is not meant to be an all-inclusive list. EKG interpreted by me (3pts min.). @ -EKG at 1546 shows sinus rhythm with first-degree AV block, right bundle- branch block rate 87, GA 234, QRS 149, QTQTc [id number] this EKG was compared to her prior and is comparable X-rays interpreted by me (1pt min.). @ -Chest x-ray shows no acute process CT interpreted by me (1pt min.). @ -CT brain obtained which showed no evidence of acute process CTA chest showed no evidence for PE CT abdomen and pelvis showed Irregular wall thickening of the ascending colon resulting in fecal ball in the cecum measuring 8.9 cm with fat stranding changes around the cecum, findings concerning for malignancy with obstruction and poss ibly resulting in stercoral colitis U/S interpreted by me (1pt. min.). @ -None done What testing was considered but not performed or refused? (CT, X-rays, U/S, labs)? Why? @ -None What meds were considered but not given or refused? Why? @ -None Did you discuss the management of the patient with other professionals (professionals i.e. , PA, [employer], lab, RT, psych nurse, social psychologist, wage conciliator, teacher, housing management officer, employment case manager)? Give summary @ -Case discussed with surgery, Dr. Gutierrez who recommends admission and bowel regimen. He is going to come consult on the patient Case discussed with Dr. Valera who is accepting of the admission Was smoking cessation discussed for >3mins.? @ -No Was critical care preformed (if so, how long)? @ -No Were there social determinants of health that impacted care today? How? (Homelessness, low income, unemployed, alcoholism, drug addiction, transportation, low edu. Level, literacy, decrease access to med. care, group home, rehab)? @ -No Was there de-escalation of care discussed even if they declined (Discuss DNR or withdrawal of care, Hospice)? DNR status @ -No What co-morbidities impacted this encounter? (DM, HTN, Smoking, COPD, CAD, Cancer, CVA, ARF, Chemo, Hep., AIDS, mental health diagnosis, sleep apnea, morbid obesity)? @ -None Was patient admitted / discharged? Hospital course, mention meds given and route, prescriptions, significant lab abnormalities, going to OR and other pertinent info. @ -admitted. Patient presented to the emergency department for chief complaint of weakness and possible syncopal episode today. Patient was back at baseline at time of arrival to the ED. laboratory studies obtained Showed WBC 13.5; hemoglobin 9.8, hematocrit 32.3; d-dimer 1.06; CMP showed Na 134, K 5.3, creatinine 0.92, GFR 59, lactic acid 2.2 reflex lactic acid 1.2; troponin 0.013, BNP 714; UA shows leukocyte esterase, 59 WBC. chest x-ray obtained which shows no evidence of acute process. CT brain was obtained which showed no acute process. CTA chest showed no evidence for PE,Cardiomegaly with pulmonary vascular congestion. CT abdomen and pelvis that showed irregular wall thickening of the ascending colon resulting in fecal ball in the cecum measuring 8.9 cm without stranding changes around the cecum. This was discussed with surgery on-call Dr. Gutierrez who recommended bowel regimen and he would consult on the patient. Case discussed with Dr. Valera who is accepting of the admission. Patient stable at time of admission. Case discussed with Dr. Miles Undiagnosed new problem with uncertain prognosis? @ -No Drug Therapy requiring intensive monitoring for toxicity (Heparin, Nitro, Insulin, Cardizem)? @ -No Were any procedures done? @ -No Diagnosis/symptom? @ -bowel wall thickening, stercoral colitis, syncope Acute, or Chronic, or Acute on Chronic? @ -acute Uncomplicated (without systemic symptoms) or Complicated (systemic symptoms)? @ -uncomplicated Side effects of treatment? @ -No Exacerbation, Progression, or Severe Exacerbation? @ -No Poses a threat to life or bodily function? How? (Chest pain, [place], PR, pneumonia, PE, COPD, DKA, ARF, appy, cholecystitis, CVA, Diverticulitis, Homicidal, Suicidal, threat to staff... and all critical care pts) @ -No - Lab Data Result diagrams: 03/08/23 15:59 03/08/23 15:59 Lab Results 03/08/23 03/08/23 03/08/23 Range/Units 15:59 15:59 15:59 WBC 13.5 H (3.8-10.6) k/uL RBC 4.16 (3.80-5.40) m/uL Hgb 9.8 L (11.4-16.0) gm/dL Hct 32.3 L (34.0-46.0) % MCV 77.7 L (80.0-100.0) fL MCH 23.6 L (25.0-35.0) pg MCHC 30.4 L (31.0-37.0) g/dL RDW 15.0 (11.5-15.5) % Plt Count 541 H (150-450) k/uL MPV 7.7 Neutrophils % 77 % Lymphocytes % 14 % Monocytes % 6 % Eosinophils % 1 % Basophils % 0 % Neutrophils # 10.5 H (1.3-7.7) k/uL Lymphocytes # 1.9 (1.0-4.8) k/uL Monocytes # 0.9 (0-1.0) k/uL Eosinophils # 0.1 (0-0.7) k/uL Basophils # 0.0 (0-0.2) k/uL Hypochromasia Marked Poikilocytosis Slight PT 11.1 (10.0-12.5) sec INR 1.0 (<1.2) APTT 22.6 (22.0-30.0) sec D-Dimer (<0.60) mg/L FEU Sodium (137-145) mmol/L Potassium (3.5-5.1) mmol/L Chloride (98-107) mmol/L Carbon Dioxide (22-30) mmol/L Anion Gap mmol/L BUN (7-17) mg/dL Creatinine (0.52-1.04) mg/dL Est GFR (CKD-EPI)AfAm (>60 ml/min/1.73 sqM) Est GFR (CKD-EPI)NonAf (>60 ml/min/1.73 sqM) Glucose (74-99) mg/dL Lactic Ac Sepsis Rflx Plasma Lactic Acid [place] (0.7-2.0) mmol/L Calcium (8.4-10.2) mg/dL Magnesium (1.6-2.3) mg/dL Total Bilirubin (0.2-1.3) mg/dL AST (14-36) U/L ALT (4-34) U/L Alkaline Phosphatase (38-126) U/L Troponin I (0.000-0.034) ng/mL NT-Pro-B Natriuret Pep pg/mL Total Protein (6.3-8.2) g/dL Albumin (3.5-5.0) g/dL Urine Color Yellow Urine Appearance Cloudy H (Clear) Urine pH 5.5 (5.0-8.0) Ur Specific [place] 1.017 (1.001-1.035) Urine Protein 1+ H (Negative) Urine Glucose (UA) 4+ H (Negative) Urine Ketones Negative (Negative) Urine Blood Negative (Negative) Urine Nitrite Negative (Negative) Urine Bilirubin Negative (Negative) Urine Urobilinogen <2.0 (<2.0) mg/dL Ur Leukocyte Esterase Moderate H (Negative) Urine RBC 2 (0-5) /hpf Urine WBC 59 H (0-5) /hpf Ur Squamous Epith Cells 8 H (0-4) /hpf Urine Bacteria Moderate H (None) /hpf Hyaline Casts 4 H (0-2) /lpf Urine Mucus Few H (None) /hpf 03/08/23 03/08/23 03/08/23 Range/Units 15:59 15:59 15:59 WBC (3.8-10.6) k/uL RBC (3.80-5.40) m/uL Hgb (11.4-16.0) gm/dL Hct (34.0-46.0) % MCV (80.0-100.0) fL MCH (25.0-35.0) pg MCHC (31.0-37.0) g/dL RDW (11.5-15.5) % Plt Count (150-450) k/uL MPV Neutrophils % % Lymphocytes % % Monocytes % % Eosinophils % % Basophils % % Neutrophils # (1.3-7.7) k/uL Lymphocytes # (1.0-4.8) k/uL Monocytes # (0-1.0) k/uL Eosinophils # (0-0.7) k/uL Basophils # (0-0.2) k/uL Hypochromasia Poikilocytosis PT (10.0-12.5) sec INR (<1.2) APTT (22.0-30.0) sec D-Dimer (<0.60) mg/L FEU Sodium 134 L (137-145) mmol/L Potassium 5.3 H (3.5-5.1) mmol/L Chloride 95 L (98-107) mmol/L Carbon Dioxide 27 (22-30) mmol/L Anion Gap 12 mmol/L BUN 33 H (7-17) mg/dL Creatinine 0.92 (0.52-1.04) mg/dL Est GFR (CKD-EPI)AfAm 68 (>60 ml/min/1.73 sqM) Est GFR (CKD-EPI)NonAf 59 (>60 ml/min/1.73 sqM) Glucose 185 H (74-99) mg/dL Lactic Ac Sepsis Rflx Plasma Lactic Acid [place] 2.2 H* (0.7-2.0) mmol/L Calcium 8.9 (8.4-10.2) mg/dL Magnesium 2.1 (1.6-2.3) mg/dL Total Bilirubin 0.4 (0.2-1.3) mg/dL AST 27 (14-36) U/L ALT 13 (4-34) U/L Alkaline Phosphatase 53 (38-126) U/L Troponin I 0.013 (0.000-0.034) ng/mL NT-Pro-B Natriuret Pep 714 pg/mL Total Protein 7.0 (6.3-8.2) g/dL Albumin 3.6 (3.5-5.0) g/dL Urine Color Urine Appearance (Clear) Urine pH (5.0-8.0) Ur Specific [place] (1.001-1.035) Urine Protein (Negative) Urine Glucose (UA) (Negative) Urine Ketones (Negative) Urine Blood (Negative) Urine Nitrite (Negative) Urine Bilirubin (Negative) Urine Urobilinogen (<2.0) mg/dL Ur Leukocyte Esterase (Negative) Urine RBC (0-5) /hpf Urine WBC (0-5) /hpf Ur Squamous Epith Cells (0-4) /hpf Urine Bacteria (None) /hpf Hyaline Casts (0-2) /lpf Urine Mucus (None) /hpf 03/08/23 03/08/23 Range/Units 15:59 16:57 WBC (3.8-10.6) k/uL RBC (3.80-5.40) m/uL Hgb (11.4-16.0) gm/dL Hct (34.0-46.0) % MCV (80.0-100.0) fL MCH (25.0-35.0) pg MCHC (31.0-37.0) g/dL RDW (11.5-15.5) % Plt Count (150-450) k/uL MPV Neutrophils % % Lymphocytes % % Monocytes % % Eosinophils % % Basophils % % Neutrophils # (1.3-7.7) k/uL Lymphocytes # (1.0-4.8) k/uL Monocytes # (0-1.0) k/uL Eosinophils # (0-0.7) k/uL Basophils # (0-0.2) k/uL Hypochromasia Poikilocytosis PT (10.0-12.5) sec INR (<1.2) APTT (22.0-30.0) sec D-Dimer 1.06 H (<0.60) mg/L FEU Sodium (137-145) mmol/L Potassium (3.5-5.1) mmol/L Chloride (98-107) mmol/L Carbon Dioxide (22-30) mmol/L Anion Gap mmol/L BUN (7-17) mg/dL Creatinine (0.52-1.04) mg/dL Est GFR (CKD-EPI)AfAm (>60 ml/min/1.73 sqM) Est GFR (CKD-EPI)NonAf (>60 ml/min/1.73 sqM) Glucose (74-99) mg/dL Lactic Ac Sepsis Rflx Y Plasma Lactic Acid [place] (0.7-2.0) mmol/L Calcium (8.4-10.2) mg/dL Magnesium (1.6-2.3) mg/dL Total Bilirubin (0.2-1.3) mg/dL AST (14-36) U/L ALT (4-34) U/L Alkaline Phosphatase (38-126) U/L Troponin I (0.000-0.034) ng/mL NT-Pro-B Natriuret Pep pg/mL Total Protein (6.3-8.2) g/dL Albumin (3.5-5.0) g/dL Urine Color Urine Appearance (Clear) Urine pH (5.0-8.0) Ur Specific [place] (1.001-1.035) Urine Protein (Negative) Urine Glucose (UA) (Negative) Urine Ketones (Negative) Urine Blood (Negative) Urine Nitrite (Negative) Urine Bilirubin (Negative) Urine Urobilinogen (<2.0) mg/dL Ur Leukocyte Esterase (Negative) Urine RBC (0-5) /hpf Urine WBC (0-5) /hpf Ur Squamous Epith Cells (0-4) /hpf Urine Bacteria (None) /hpf Hyaline Casts (0-2) /lpf Urine Mucus (None) /hpf Disposition Clinical Impression: Stercoral colitis, Abdominal pain, UTI (urinary tract infection) Disposition: ADMITTED IP TO THIS HOSP Condition: Stable Is patient prescribed a controlled substance at d/c from ED?: No
[2023-03-08] MEDS ORDERED: SODIUM CHLORIDE 0.9% 500 ML 500 ML IV STA ×2 (16:35→18:30)
[2023-03-08 16:50] LABS: Appearance,Urine Cloudy (Clear); Bacteria,Urine Moderate /hpf; Bilirubin,Urine Negative (Negative); Blood,Urine Negative (Negative); Color,Urine Yellow; Glucose,Urine (UA) 4+ (Negative); Hyaline Casts,Urine 4 /lpf (0-2); Ketones,Urine Negative (Negative); Leukocyte Esterase,Urine Moderate (Negative); Mucus,Urine Few /hpf; Nitrite,Urine Negative (Negative); PH, Urine 5.5 (5.0-8.0); Protein,Urine 1+ (Negative); RBC,Urine 2 /hpf (0-5); Specific Gravity,Urine 1.017 (1.001-1.035); Squamous Epithelial Cell,Urine 8 /hpf (0-4); Urobilinogen,Urine <2.0 mg/dL (<2.0); WBC,Urine 59 /hpf (0-5)
[2023-03-08 16:53] LABS: Basophils % (A) 0 %; Eosinophils # (A) 0.1 k/uL (0-0.7); Eosinophils % (A) 1 %; HCT 32.3 % (34.0-46.0); HGB 9.8 gm/dL (11.4-16.0); Hypochromasia Marked; Lymphocytes # (A) 1.9 k/uL (1.0-4.8); Lymphocytes % (A) 14 %; MCH 23.6 pg (25.0-35.0); MCHC 30.4 g/dL (31.0-37.0); MCV 77.7 fL (80.0-100.0); Mean Platelet Volume 7.7; Monocytes # (A) 0.9 k/uL (0-1.0); Monocytes % (A) 6 %; Neutrophils # (A) 10.5 k/uL (1.3-7.7); Neutrophils % (A) 77 %; Platelet Count 541 k/uL (150-450); Poikilocytosis Slight; RBC 4.16 m/uL (3.80-5.40); WBC 13.5 k/uL (3.8-10.6)
[2023-03-08 16:58] LABS: Partial Thromboplastin Time 22.6 sec (22.0-30.0); Prothrombin Time 11.1 sec (10.0-12.5)
[2023-03-08 17:00] LABS: ALT 13 U/L (4-34); AST 27 U/L (14-36); African American GFR (CKD) 68 (>60 ml/min/1.73 sqM); Albumin 3.6 g/dL (3.5-5.0); Alkaline Phosphatase 53 U/L (38-126); Anion Gap 12 mmol/L; Blood Urea Nitrogen 33 mg/dL (7-17); Calcium 8.9 mg/dL (8.4-10.2); Carbon Dioxide 27 mmol/L (22-30); Chloride 95 mmol/L (98-107); Glucose 185 mg/dL (74-99); Magnesium 2.1 mg/dL (1.6-2.3); Non-African American GFR(CKD) 59 (>60 ml/min/1.73 sqM); Potassium 5.3 mmol/L (3.5-5.1); Sodium 134 mmol/L (137-145); Total Bilirubin 0.4 mg/dL (0.2-1.3)
[2023-03-08 17:06] LABS: NT-Pro-B-Type Natriuretic Pept 714 pg/mL
--- NOTE | 2023-03-08 17:21 | CT ---
EXAMINATION TYPE: CT brain wo con DATE OF EXAM: 03/08/2023 COMPARISON: None HISTORY: Weakness CT DLP: 1159.5 mGycm Automated exposure control for dose reduction was used. FINDINGS: The ventricles, basal cisterns and sulci over convexities within normal limits for the patient's age and there is no mass effect or shift of midline structures. No abnormal density is seen throughout the brain parenchyma and there is no acute intra or extra-axia l hemorrhage. Posterior fossa is grossly normal. The intraorbital contents are normal and symmetric. Visualized paranasal sinuses and mastoid air cells are well aerated. IMPRESSION: NO ACUTE BLEED OR MASS EFFECT.
--- NOTE | 2023-03-08 17:31 | XR ---
EXAMINATION TYPE: XR chest 2V DATE OF EXAM: 03/08/2023 COMPARISON: 09/24/2022 HISTORY: Weakness TECHNIQUE: Frontal and lateral views of the chest are obtained. FINDINGS: There is no focal air space opacity, pleural effusion, or pneumothorax seen. The cardiac silhouette size is within normal limits. The osseous structures are intact. IMPRESSION: No acute cardiopulmonary process.
--- NOTE | 2023-03-08 18:16 | CT ---
EXAMINATION TYPE: CT chest angio for PE CT DLP: 1842.7 mGycm, Automated exposure control for dose reduction was used. DATE OF EXAM: 03/08/2023 6:05 PM COMPARISON: 09/09/2011. CLINICAL INDICATION:Female, 82 years old with history of elevated ddimer; PE TECHNIQUE/CONTRAST: CTA scan of the thorax is performed with IV Contrast, patient injected with 100 ml mL of Isovue 370, MIP images are created and reviewed these are created on a separate workstation.. FINDINGS: Pulmonary Artery: There is no evidence for a filling defect within the pulmonary vasculature to sugge st acute pulmonary embolism. The pulmonary artery is at the upper limits normal measuring 3.2 cm. Lungs/Pleura: Intralobular septal thickening. Patchy ground glass opacities felt to represent pulmona ry vascular congestion. No evidence of focal consolidation, pleural effusion or pneumothorax. Airway: Large airways are patent. Heart: The heart is enlarged for size. Vasculature: No evidence of aortic aneurysm. Mediastinum: No gross evidence of adenopathy. Musculoskeletal: No acute osseous abnormalities Soft Tissues: Unremarkable. Lower neck: No significant findings. Upper Abdomen: No significant findings. IMPRESSION: 1. No evidence of pulmonary embolism. 2. Cardiomegaly with pulmonary vascular congestion correlate with serum BNP.
--- NOTE | 2023-03-08 18:20 | CT ---
EXAMINATION TYPE: CT abdomen pelvis w con CT DLP: 1842.7 mGycm, Automated exposure control for dose reduction was used. DATE OF EXAM: 03/08/2023 6:03 PM COMPARISON: None. CLINICAL INDICATION:Female, 82 years old with history of abd pain, syncope; PE TECHNIQUE: Axial CT of the abdomen and pelvis. Sagittal and coronal reformats were created on a [employer] workstation. Contrast used:100 ml mL of Isovue 370 with IV Contrast, (none if empty) Oral contrast used: without Oral Contrast (none if empty) FINDINGS: LIVER: Unremarkable GALLBLADDER AND BILE DUCTS: Unremarkable. PANCREAS: Unremarkable. SPLEEN: Unremarkable. ADRENAL GLANDS: Unremarkable. KIDNEYS AND URETERS: No evidence of hydronephrosis or renal calculus. The ureters are unremarkable. Peripelvic renal cysts on the left. PELVIS BLADDER: Unremarkable REPRODUCTIVE: Unremarkable. ABDOMEN & PELVIS STOMACH AND BOWEL: No evidence of bowel obstruction. Irregular wall thickening of the ascending colon measuring up to 11 mm resulting in large fecal ball in the cecum measuring up to 8.9 cm with fat str anding changes. No evidence for lymphadenopathy at this time in the mesentery. PERITONEUM/RETROPERITONEUM: No evidence of pneumoperitoneum or free fluid. VASCULATURE: Mild atherosclerotic calcifications are present throughout the abdominal aorta and its b ranches. No evidence of aortic aneurysm. MUSCULOSKELETAL: No acute osseous abnormalities LYMPH NODES: No gross evidence for lymphadenopathy. SOFT TISSUE/ABDOMINAL WALL: Unremarkable IMPRESSION: Irregular wall thickening of the ascending colon resulting in fecal ball in the cecum measuring up to 8.9 cm with fat stranding changes around the cecum. Findings concerning for malignancy with obstruct ion and possibly resulting in stercoral colitis. Surgical consultation is recommended.
[2023-03-08] MEDS ORDERED: AMPICILLIN-SULBACTAM 3 GM in SODIUM CHLORIDE 0.9% 100 ML IVPB STA (18:30)
[2023-03-08] MEDS ORDERED: SODIUM CHLORIDE 0.9% 1,000 ML IV STA (18:30)
[2023-03-08] MEDS ORDERED: SENNOSIDES-DOCUSATE SODIUM 1 EACH TAB PO STA (19:31)
[2023-03-08] MEDS ORDERED: polyethylene glycoL 3350 17 GM POWD.PACK PO STA (19:31)
[2023-03-08] MEDS ORDERED: GLYCERIN ADULT SUPPOSITORY 1 EACH RECTAL STA (19:31)
[2023-03-08] MEDS ORDERED: ACETAMINOPHEN TAB 325 MG TAB PO PRN (20:11)
[2023-03-08] MEDS ORDERED: MORPHINE SULFATE 2 MG/ML SYRINGE IV PRN (20:11)
[2023-03-08] MEDS ORDERED: NALOXONE 0.4 MG/ML 1 ML VIAL IV PRN (20:11)
[2023-03-08] MEDS ORDERED: IBUPROFEN 400 MG TAB PO PRN (20:11)
[2023-03-09] MEDS ORDERED: bisacodyL 5 MG TABLET.DR PO PRN (00:37)
--- NOTE | 2023-03-09 00:41 | P.HPIM ---
History of Present Illness H&P Date: 03/08/23 Patient is a 82-year-old female with an extensive PMH including COPD with chronic hypoxic respiratory failure on 2 L is a cannula oxygen, chronic systolic CHF with EF 45-50%, iron deficiency anemia, hypertension, hyperlipidemia, hypothyroidism, and depression with anxiety who presents to the emergency room with complaints of right-sided abdominal discomfort, diarrhea, vomiting, and episode of unresponsiveness. Patient reports she has been experiencing intermittent right lower quadrant and flank abdominal discomfort over the past several weeks occurring sparingly, usually lasting only for a few minutes to hours at a time and resolving spontaneously. Reports that the pain became acutely worse overnight where it was 8 out of 10 on maximal intensity with associated 2 episodes of nonbloody nonbilious emesis earlier today and an episode of loose bowel movement without blood or melena. The patient also had an episode of diaphoresis at around noon today with a few minutes of decreased responsiveness as per the daughter witnessed the episode. Patient doesn't recall the episode and denied experiencing urinary incontinence, bowel incontinence, tongue biting, or abnormal shaking movements. Patient denies unintentional weight loss. She also denied experiencing falls at the time. In the emergency room a CT abdomen and pelvis revealed findings concerning for ascending colon malignancy with fecal ball in the cecum with resulting colitis. Chest CTA revealed cardiomegaly with pulmonary venous congestion. CT brain was unremarkable. EKG revealed sinus rhythm with first-degree AV block at 87 bpm with a right bundle branch block as reviewed by me. Laboratory evaluation was remarkable for leukocytosis of 13.5, hemoglobin 9.8 (down from 10.9 from 11/07), MCV 77.7 (down from 85 on 11/07), d-dimer 1.06, potassium 5.3, BUN 33, creatinine 0.92, lactic acid 2.2, troponin 0.013, proBNP 714, and UA somewhat consistent with UTI. ED documentation reviewed and case discussed with ED provider. Review of systems: Pertinent positives and negatives as discussed in HPI, a complete review of systems was performed and all other systems are negative. Physical examination: Vital signs reviewed General: non toxic, no distress, appears at stated age, obese Derm: no unusual rashes/lesions, warm Head: atraumatic, normocephalic, symmetric Eyes: EOMI, no lid lag, anicteric sclera, pupils equal round reactive to light ENT: Nose and ears atraumatic Neck: No cervical lymphadenopathy, trachea midline, supple Mouth: no lip lesion, mucus membranes moist Cardiovascular: S1S2 reg, no murmur, positive dorsalis pedis pulse bilateral, no edema Lungs: CTA bilateral, no rhonchi, no rales, no accessory muscle use Abdominal: soft, diffuse right-sided abdominal tenderness with mild guarding noted, no guarding Ext: muscle strength 5 out of 5 in all 4 extremities grossly, no gross muscle atrophy, no contractures, Neuro: CN II-XI grossly intact, no gross focal neuro deficits Psych: Alert, oriented, appropriate affect Assessment: Stercoral colitis in setting of ascending colon suspected malignancy and obstruction Episode of unresponsiveness, suspected ongoing infection, low suspicion for seizure versus syncope Microcytic anemia, acute vs chronic, likely due to ongoing malignancy Lactic acidosis Chronic conditions: COPD with chronic hypoxic respiratory failure on 2 L is a cannula oxygen, chronic systolic CHF with EF 45-50%, hypertension, hyperlipidemia, hypothyroidism, and depression Imaging: In the emergency room a CT abdomen and pelvis revealed findings concerning for ascending colon malignancy with fecal ball in the cecum with resulting colitis. Chest CTA revealed cardiomegaly with pulmonary venous congestion. CT brain was unremarkable. EKG revealed sinus rhythm with first-degree AV block at 87 bpm with a right bundle branch block as reviewed by me. Data Review: Laboratory evaluation was remarkable for leukocytosis of 13.5, hemoglobin 9.8 (down from 10.9 from 11/07), MCV 77.7 (down from 85 on 11/07), d-dimer 1.06, potassium 5.3, BUN 33, creatinine 0.92, lactic acid 2.2, troponin 0.013, proBNP 714, and UA somewhat consistent with UTI. Plan: General surgery consulted Continue patient NPO for now S/p enema, miralax, docusate, and Unasyn 3 gm in the ED C/w Flagyl PO for now C/w bowel regiment Judicious use of IVFs in setting of CHF history. IVFs 50 mL/hr NS Monitor lactic acid levels for resolution DVT prophylaxis: IPCDs The patient is admitted with an anticipated greater than 2 midnight stay for evaluation of stercoral colitis CODE STATUS: Full Code Discussed with: Patient Anticipated discharge place: Home Past Medical History Past Medical History: COPD, GERD/Reflux, Hyperlipidemia, Hypertension, Thyroid Disorder History of Any Multi-Drug Resistant Organisms: None Reported Past Surgical History: Hysterectomy Past Anesthesia/Blood Transfusion Reactions: No Reported Reaction Past Psychological History: Anxiety, Depression Smoking Status: Never smoker Past Alcohol Use History: None Reported Past Drug Use History: None Reported - Past Family History Mother Family Medical History: GERD/Reflux Father Additional Family Medical History / Comment(s): brain anyrism Medications and Allergies Home Medications Medication Instructions Recorded Confirmed Type Divalproex Sodium [Depakote] 1,000 mg PO HS 10/20/20 03/08/23 History Fenofibrate,Micronized 134 mg PO DAILY 10/20/20 03/08/23 History [Fenofibrate] Levothyroxine Sodium [Synthroid] 50 mcg PO DAILY 10/20/20 03/08/23 History Omeprazole 20 mg PO DAILY 10/20/20 03/08/23 History Tolterodine ER [Detrol LA] 4 mg PO DAILY 10/20/20 03/08/23 History Escitalopram [Lexapro] 10 mg PO DAILY 10/26/21 03/08/23 History Fluticasone Propionate [Flovent 2 puff INHALATION RT-BID 10/26/21 03/08/23 History Hfa 220 mcg] Loratadine [Claritin] 10 mg PO DAILY 10/26/21 03/08/23 History Furosemide [Lasix] 40 mg PO DAILY 30 Days #30 tab 10/28/21 03/08/23 Rx Valsartan [Diovan] 320 mg PO DAILY 30 Days #60 tab 10/28/21 03/08/23 Rx Empagliflozin [Jardiance] 10 mg PO DAILY 03/08/23 03/08/23 History Ergocalciferol [Vitamin D2 (1250 1,250 mcg PO SA 03/08/23 03/08/23 History Mcg = 58613 Iu)] Ferrous Sulfate [Feosol] 325 mg PO DAILY 03/08/23 03/08/23 History Promethazine HCl/Codeine 5 ml PO HS 03/08/23 03/08/23 History [Phenergan with Codeine Syrup] carvediloL [Coreg] 3.125 mg PO BID@0900,1800 03/08/23 03/08/23 History Allergies Allergy/AdvReac Type Severity Reaction Status Date / Time Latex, Natural Rubber Allergy Rash/Hives Verified 03/08/23 20:37 Physical Exam Vitals: Vital Signs Temp Pulse Pulse Resp BP Pulse Ox 03/09/23 00:29 99.0 F 86 18 94 L 03/08/23 15:14 98 F 76 18 102/55 96 Intake and Output 03/08/23 03/08/23 03/09/23 14:59 22:59 06:59 Other: Weight 95.708 kg Results CBC & Chem 7: 03/08/23 15:59 03/08/23 15:59 Labs: Abnormal Lab Results - Last 24 Hours (Table) 03/08/23 03/08/23 03/08/23 Range/Units 15:59 15:59 15:59 WBC 13.5 H (3.8-10.6) k/uL Hgb 9.8 L (11.4-16.0) gm/dL Hct 32.3 L (34.0-46.0) % MCV 77.7 L (80.0-100.0) fL MCH 23.6 L (25.0-35.0) pg MCHC 30.4 L (31.0-37.0) g/dL Plt Count 541 H (150-450) k/uL Neutrophils # 10.5 H (1.3-7.7) k/uL D-Dimer (<0.60) mg/L FEU Sodium 134 L (137-145) mmol/L Potassium 5.3 H (3.5-5.1) mmol/L Chloride 95 L (98-107) mmol/L BUN 33 H (7-17) mg/dL Glucose 185 H (74-99) mg/dL Plasma Lactic Acid [place] (0.7-2.0) mmol/L Urine Appearance Cloudy H (Clear) Urine Protein 1+ H (Negative) Urine Glucose (UA) 4+ H (Negative) Ur Leukocyte Esterase Moderate H (Negative) Urine WBC 59 H (0-5) /hpf Ur Squamous Epith Cells 8 H (0-4) /hpf Urine Bacteria Moderate H (None) /hpf Hyaline Casts 4 H (0-2) /lpf Urine Mucus Few H (None) /hpf 03/08/23 03/08/23 Range/Units 15:59 15:59 WBC (3.8-10.6) k/uL Hgb (11.4-16.0) gm/dL Hct (34.0-46.0) % MCV (80.0-100.0) fL MCH (25.0-35.0) pg MCHC (31.0-37.0) g/dL Plt Count (150-450) k/uL Neutrophils # (1.3-7.7) k/uL D-Dimer 1.06 H (<0.60) mg/L FEU Sodium (137-145) mmol/L Potassium (3.5-5.1) mmol/L Chloride (98-107) mmol/L BUN (7-17) mg/dL Glucose (74-99) mg/dL Plasma Lactic Acid [place] 2.2 H* (0.7-2.0) mmol/L Urine Appearance (Clear) Urine Protein (Negative) Urine Glucose (UA) (Negative) Ur Leukocyte Esterase (Negative) Urine WBC (0-5) /hpf Ur Squamous Epith Cells (0-4) /hpf Urine Bacteria (None) /hpf Hyaline Casts (0-2) /lpf Urine Mucus (None) /hpf Thrombosis Risk Factor Assmnt - Choose All That Apply Any of the Below Risk Factors Present?: Yes Each Risk Factor Represents 3 Points: Age 75 years or older Thrombosis Risk Factor Assessment Total Risk Factor Score: 3 Thrombosis Risk Factor Assessment Level: Moderate Risk
[2023-03-09] MEDS: DIVALPROEX 500 MG TABLET.DR PO SCH ×2 (00:56→20:48)
[2023-03-09] MEDS: LEVOTHYROXINE 50 MCG TAB PO SCH (05:29)
[2023-03-09 07:08] LABS: HCT 28.6 % (34.0-46.0); HGB 8.7 gm/dL (11.4-16.0); Hypochromasia Marked; MCH 23.5 pg (25.0-35.0); MCHC 30.3 g/dL (31.0-37.0); MCV 77.6 fL (80.0-100.0); Platelet Count 485 k/uL (150-450); RBC 3.68 m/uL (3.80-5.40); RDW 14.9 % (11.5-15.5); WBC 11.1 k/uL (3.8-10.6)
[2023-03-09 07:12] LABS: ALT 10 U/L (4-34); AST 18 U/L (14-36); African American GFR (CKD) 74 (>60 ml/min/1.73 sqM); Albumin 3.1 g/dL (3.5-5.0); Alkaline Phosphatase 46 U/L (38-126); Anion Gap 10 mmol/L; Blood Urea Nitrogen 29 mg/dL (7-17); Calcium 8.5 mg/dL (8.4-10.2); Carbon Dioxide 27 mmol/L (22-30); Chloride 101 mmol/L (98-107); Glucose 137 mg/dL (74-99); Non-African American GFR(CKD) 65 (>60 ml/min/1.73 sqM); Potassium 4.7 mmol/L (3.5-5.1); Sodium 138 mmol/L (137-145); Total Bilirubin 0.4 mg/dL (0.2-1.3); Total Protein 6.1 g/dL (6.3-8.2)
[2023-03-09] MEDS ORDERED: PANTOPRAZOLE 40 MG TABLET PO SCH (07:30)
[2023-03-09] MEDS: FLUTICASONE 110 MCG INHALER INHALATION SCH ×2 (08:25→20:14)
[2023-03-09] MEDS ORDERED: LORATADINE 10 MG TAB PO SCH (09:00)
[2023-03-09] MEDS ORDERED: FUROSEMIDE 40 MG TAB PO SCH (09:00)
[2023-03-09] MEDS: ESCITALOPRAM 10 MG TAB PO SCH (09:03)
[2023-03-09] MEDS: carvediloL 3.125 MG TAB PO SCH ×2 (09:03→20:48)
[2023-03-09 11:07] LABS: Appearance,Urine Clear (Clear); Bilirubin,Urine Negative (Negative); Blood,Urine Negative (Negative); Color,Urine Colorless; Glucose,Urine (UA) 3+ (Negative); Ketones,Urine Negative (Negative); Leukocyte Esterase,Urine Small (Negative); Nitrite,Urine Negative (Negative); Protein,Urine Negative (Negative); RBC,Urine 1 /hpf (0-5); Specific Gravity,Urine 1.006 (1.001-1.035); Squamous Epithelial Cell,Urine <1 /hpf (0-4); Urobilinogen,Urine <2.0 mg/dL (<2.0); WBC,Urine 16 /hpf (0-5)
--- NOTE | 2023-03-09 12:42 | P.GSCN ---
History of Present Illness Consult date: 03/09/23 Reason for Consult: Colonic obstruction History of present illness: 82-year-old female presents to the hospital with right-sided abdominal pain. Patient with history of COPD on 2 L of oxygen at home. We will last 2 weeks has had intermittent pain right mid abdomen. Some uncontrolled loose stools over the last few weeks. Patient had a CAT scan performed showing probable mass mid ascending colon leading to cecal distention. Subtle inflammatory changes around the cecum. White blood cell count elevated. Lactic acid initially elevated. Still having pain now. Nauseated. No previous colonoscopy. No rectal bleeding. Review of Systems The patient denies any acute changes in vision or hearing, no dysphagia or odynophagia, no chest pain or shortness of breath, no dysuria or hematuria, no headache, no runny nose, no rectal bleeding or melena, no unexplained weight loss Past Medical History Past Medical History: COPD, GERD/Reflux, Hyperlipidemia, Hypertension, Thyroid Disorder History of Any Multi-Drug Resistant Organisms: None Reported Past Surgical History: Hysterectomy Past Anesthesia/Blood Transfusion Reactions: No Reported Reaction Past Psychological History: Anxiety, Depression Smoking Status: Never smoker Past Alcohol Use History: None Reported Past Drug Use History: None Reported - Past Family History Mother Family Medical History: GERD/Reflux Father Additional Family Medical History / Comment(s): brain anyrism Medications and Allergies Home Medications Medication Instructions Recorded Confirmed Type Divalproex Sodium [Depakote] 1,000 mg PO HS 10/20/20 03/08/23 History Fenofibrate,Micronized 134 mg PO DAILY 10/20/20 03/08/23 History [Fenofibrate] Levothyroxine Sodium [Synthroid] 50 mcg PO DAILY 10/20/20 03/08/23 History Omeprazole 20 mg PO DAILY 10/20/20 03/08/23 History Tolterodine ER [Detrol LA] 4 mg PO DAILY 10/20/20 03/08/23 History Escitalopram [Lexapro] 10 mg PO DAILY 10/26/21 03/08/23 History Fluticasone Propionate [Flovent 2 puff INHALATION RT-BID 10/26/21 03/08/23 History Hfa 220 mcg] Loratadine [Claritin] 10 mg PO DAILY 10/26/21 03/08/23 History Furosemide [Lasix] 40 mg PO DAILY 30 Days #30 tab 10/28/21 03/08/23 Rx Valsartan [Diovan] 320 mg PO DAILY 30 Days #60 tab 10/28/21 03/08/23 Rx Empagliflozin [Jardiance] 10 mg PO DAILY 03/08/23 03/08/23 History Ergocalciferol [Vitamin D2 (1250 1,250 mcg PO SA 03/08/23 03/08/23 History Mcg = 93840 Iu)] Ferrous Sulfate [Feosol] 325 mg PO DAILY 03/08/23 03/08/23 History Promethazine HCl/Codeine 5 ml PO HS 03/08/23 03/08/23 History [Phenergan with Codeine Syrup] carvediloL [Coreg] 3.125 mg PO BID@0900,1800 03/08/23 03/08/23 History Allergies Allergy/AdvReac Type Severity Reaction Status Date / Time Latex, Natural Rubber Allergy Rash/Hives Verified 03/08/23 20:37 Surgical - Exam Vital Signs Temp Pulse Resp BP Pulse Ox 98 F 76 18 102/55 96 03/08/23 15:14 03/08/23 15:14 03/08/23 15:14 03/08/23 15:14 03/08/23 15:14 Physical exam: General: Well-developed, well-nourished HEENT: Normocephalic, sclerae nonicteric Abdomen: Distended, right-sided tenderness Extremities: No edema Neuro: Alert and oriented Results - Labs 03/09/23 06:05 03/09/23 06:05 Abnormal Lab Results - Last 24 Hours (Table) 03/08/23 03/08/23 03/08/23 Range/Units 15:59 15:59 15:59 WBC 13.5 H (3.8-10.6) k/uL RBC (3.80-5.40) m/uL Hgb 9.8 L (11.4-16.0) gm/dL Hct 32.3 L (34.0-46.0) % MCV 77.7 L (80.0-100.0) fL MCH 23.6 L (25.0-35.0) pg MCHC 30.4 L (31.0-37.0) g/dL Plt Count 541 H (150-450) k/uL Neutrophils # 10.5 H (1.3-7.7) k/uL D-Dimer (<0.60) mg/L FEU Sodium 134 L (137-145) mmol/L Potassium 5.3 H (3.5-5.1) mmol/L Chloride 95 L (98-107) mmol/L BUN 33 H (7-17) mg/dL Glucose 185 H (74-99) mg/dL Plasma Lactic Acid [place] (0.7-2.0) mmol/L Total Protein (6.3-8.2) g/dL Albumin (3.5-5.0) g/dL Urine Appearance Cloudy H (Clear) Urine Protein 1+ H (Negative) Urine Glucose (UA) 4+ H (Negative) Ur Leukocyte Esterase Moderate H (Negative) Urine WBC 59 H (0-5) /hpf Ur Squamous Epith Cells 8 H (0-4) /hpf Urine Bacteria Moderate H (None) /hpf Hyaline Casts 4 H (0-2) /lpf Urine Mucus Few H (None) /hpf 03/08/23 03/08/23 03/09/23 Range/Units 15:59 15:59 06:05 WBC 11.1 H (3.8-10.6) k/uL RBC 3.68 L (3.80-5.40) m/uL Hgb 8.7 L (11.4-16.0) gm/dL Hct 28.6 L (34.0-46.0) % MCV 77.6 L (80.0-100.0) fL MCH 23.5 L (25.0-35.0) pg MCHC 30.3 L (31.0-37.0) g/dL Plt Count 485 H (150-450) k/uL Neutrophils # (1.3-7.7) k/uL D-Dimer 1.06 H (<0.60) mg/L FEU Sodium (137-145) mmol/L Potassium (3.5-5.1) mmol/L Chloride (98-107) mmol/L BUN (7-17) mg/dL Glucose (74-99) mg/dL Plasma Lactic Acid [place] 2.2 H* (0.7-2.0) mmol/L Total Protein (6.3-8.2) g/dL Albumin (3.5-5.0) g/dL Urine Appearance (Clear) Urine Protein (Negative) Urine Glucose (UA) (Negative) Ur Leukocyte Esterase (Negative) Urine WBC (0-5) /hpf Ur Squamous Epith Cells (0-4) /hpf Urine Bacteria (None) /hpf Hyaline Casts (0-2) /lpf Urine Mucus (None) /hpf 03/09/23 Range/Units 06:05 WBC (3.8-10.6) k/uL RBC (3.80-5.40) m/uL Hgb (11.4-16.0) gm/dL Hct (34.0-46.0) % MCV (80.0-100.0) fL MCH (25.0-35.0) pg MCHC (31.0-37.0) g/dL Plt Count (150-450) k/uL Neutrophils # (1.3-7.7) k/uL D-Dimer (<0.60) mg/L FEU Sodium (137-145) mmol/L Potassium (3.5-5.1) mmol/L Chloride (98-107) mmol/L BUN 29 H (7-17) mg/dL Glucose 137 H (74-99) mg/dL Plasma Lactic Acid [place] (0.7-2.0) mmol/L Total Protein 6.1 L (6.3-8.2) g/dL Albumin 3.1 L (3.5-5.0) g/dL Urine Appearance (Clear) Urine Protein (Negative) Urine Glucose (UA) (Negative) Ur Leukocyte Esterase (Negative) Urine WBC (0-5) /hpf Ur Squamous Epith Cells (0-4) /hpf Urine Bacteria (None) /hpf Hyaline Casts (0-2) /lpf Urine Mucus (None) /hpf Diabetes panel 03/08/23 03/09/23 Range/Units 15:59 06:05 Sodium 134 L 138 (137-145) mmol/L Potassium 5.3 H 4.7 (3.5-5.1) mmol/L Chloride 95 L 101 (98-107) mmol/L Carbon Dioxide 27 27 (22-30) mmol/L BUN 33 H 29 H (7-17) mg/dL Creatinine 0.92 0.86 (0.52-1.04) mg/dL Glucose 185 H 137 H (74-99) mg/dL Calcium 8.9 8.5 (8.4-10.2) mg/dL AST 27 18 (14-36) U/L ALT 13 10 (4-34) U/L Alkaline Phosphatase 53 46 (38-126) U/L Total Protein 7.0 6.1 L (6.3-8.2) g/dL Albumin 3.6 3.1 L (3.5-5.0) g/dL Calcium panel 03/08/23 03/09/23 Range/Units 15:59 06:05 Calcium 8.9 8.5 (8.4-10.2) mg/dL Albumin 3.6 3.1 L (3.5-5.0) g/dL Pituitary panel 03/08/23 03/09/23 Range/Units 15:59 06:05 Sodium 134 L 138 (137-145) mmol/L Potassium 5.3 H 4.7 (3.5-5.1) mmol/L Chloride 95 L 101 (98-107) mmol/L Carbon Dioxide 27 27 (22-30) mmol/L BUN 33 H 29 H (7-17) mg/dL Creatinine 0.92 0.86 (0.52-1.04) mg/dL Glucose 185 H 137 H (74-99) mg/dL Calcium 8.9 8.5 (8.4-10.2) mg/dL Adrenal panel 03/08/23 03/09/23 Range/Units 15:59 06:05 Sodium 134 L 138 (137-145) mmol/L Potassium 5.3 H 4.7 (3.5-5.1) mmol/L Chloride 95 L 101 (98-107) mmol/L Carbon Dioxide 27 27 (22-30) mmol/L BUN 33 H 29 H (7-17) mg/dL Creatinine 0.92 0.86 (0.52-1.04) mg/dL Glucose 185 H 137 H (74-99) mg/dL Calcium 8.9 8.5 (8.4-10.2) mg/dL Total Bilirubin 0.4 0.4 (0.2-1.3) mg/dL AST 27 18 (14-36) U/L ALT 13 10 (4-34) U/L Alkaline Phosphatase 53 46 (38-126) U/L Total Protein 7.0 6.1 L (6.3-8.2) g/dL Albumin 3.6 3.1 L (3.5-5.0) g/dL Assessment and Plan (1) Colon obstruction Narrative/Plan: A-year-old female with suspected mass ascending colon causing colonic obstruction with cecal distention area options reviewed. Concerned that if we wait for additional diagnostic studies that the cecal distention will worsen and possibly lead to perforation. Patient, family and I are in agreement that we will proceed with a exploratory laparotomy, right colectomy at this time. Risks of bleeding, infection, leak, abscess, bladder bowel and ureteral injury, abscess, hernia, possible need for ostomy, respiratory and cardiac compl ications. Patient understands and wishes to proceed. Current Visit: Yes Status: Acute Code(s): K56.609 - UNSP INTESTNL OBST, UNSP TO PARTIAL VERSUS COMPLETE OBST SNOMED Code(s): 16450293
[2023-03-09 13:26] LABS: Glucose,Whole Blood 153 mg/dL (70-110)
[2023-03-09] MEDS ORDERED: LACTATED RINGERS 1,000 ML IV ONE ×2 (13:30→15:06)
[2023-03-09] MEDS ORDERED: ONDANSETRON 4 MG/2 ML VIAL IVP ONE ×2 (13:30→16:56)
[2023-03-09] MEDS ORDERED: DEXAMETHASONE SOD PHOSPHATE 4 MG/ML 1 ML VIAL IVP ONE (13:30)
[2023-03-09 13:37] LABS: % Iron Saturation 3.49 (12.00-45.00); Ferritin 24.7 ng/mL (10.0-291.0)
[2023-03-09] MEDS ORDERED: MIDAZOLAM 2 MG/2 ML VIAL IVP ONE (13:43)
--- NOTE | 2023-03-09 13:58 | P.ANPRN ---
Procedure Note - Anesthesia - Nerve Block Performed Bilateral Rectus Abdominis Single Time Out Performed: Yes (1342) Date of Procedure: 03/09/23 Procedure Start Time: 13:43 Procedure Stop Time: 13:48 Location of Patient: Phase I Indication: Acute Post-Operative Pain, Requested by Surgeon Specifically requested for management of pain by DrJr: Cassius Laneg Sedation Type: Sedate with meaningful contact maintained Preparation: Sterile Prep Position: Supine Catheter: None Needle Types: Pajunk Needle Gauge: 21 (x2) Ultrasound used to visualize needle placement: Yes Ultrasound used to observe medication spread: Yes Injectate: 0.5% Ropivacaine (see comment for volume) (15cc + 10cc nacl pf) Blood Aspirated: No Pain Paresthesia on Injection Noted: No Resistance on Injection: Normal Image Stored and Saved: Yes Events: Uneventful and Well Tolerated
[2023-03-09] MEDS ORDERED: HEPARIN SODIUM,PORCINE 5,000 UNIT/ML 1 ML VIAL SQ ONE (14:13)
[2023-03-09] MEDS ORDERED: metroNIDAZOLE-NS PMX 500 MG in SALINE 1 100ML.BAG IVPB STA (14:14)
[2023-03-09] MEDS ORDERED: PROPOFOL 10 MG/ML 20 ML VIAL IV ONE (14:30)
[2023-03-09] MEDS ORDERED: ROCURONIUM 10 MG/ML (5 ML VIAL) IV ONE (14:30)
[2023-03-09] MEDS ORDERED: fentaNYL (PF) 50 MCG/ML 2 ML AMP ONE (14:30)
[2023-03-09] MEDS ORDERED: SODIUM CHLORIDE 0.9% (PF) 10 ML VIAL ONE (14:30)
[2023-03-09] MEDS ORDERED: MIDAZOLAM 2 MG/2 ML VIAL ONE (14:30)
[2023-03-09] MEDS ORDERED: ROPIVACAINE 5 MG/ML 30 ML VIAL ONE (14:30)
[2023-03-09] MEDS ORDERED: SUCCINYLCHOLINE CHLORIDE 200 MG/10 ML VIAL IV ONE (14:30)
--- NOTE | 2023-03-09 16:33 | P.OP ---
Date of Procedure: 03/09/23 Procedure(s) Performed: PREOPERATIVE DIAGNOSIS: Obstructing mass right colon POSTOPERATIVE DIAGNOSIS: Same PROCEDURE: Exploratory laparotomy with right colectomy SURGEON: Anisa EBL: 50 mL ANESTHESIA: General COMPLICATIONS: None OPERATIVE PROCEDURE: Placement placed in the operating table in the supine posit ion. The patient was placed under general anesthesia. Abdomen was then prepped and draped sterilely. Midline incision made using the scalpel. Dissection through the subcutaneous tissues and fascia took place using electrocautery. Entrance into the peritoneal cavity occurred. The patient had adhesions between the omentum and the abdominal wall that were lysed using cautery. Bookwalter retractor was utilized. Patient's cecum was significantly distended. There was an odor in the peritoneal cavity suggesting some translocation. No visible perforation was noted. The remainder of the peritoneal surfaces and liver were free of any evidence of metastatic disease. The mass in the distal ascending colon measured about 6 cm in diameter. The cecum and terminal ileum were mobilized by incising the peritoneum. The white line of Toldt was incised as well. The mesentery of the cecum and ascending colon was brought medially. The duodenum was carefully preserved and no cautery was used adjacent to the duodenum. The ileum was divided using a linear 75 stapler. The transverse colon was then divided using a linear 75 stapler. Mesentery of the transverse colon and ascending colon cecum and terminal ileum was then divided using a combination of 0 silk ties and the LigaSure device. Specimen was passed off at that point. The area was irrigated. No bleeding was seen. The antimesenteric portion of the staple line of both the ileum and transverse colon was excised using electrocautery. The linear 75 stapler was fired along the antimesenteric border creating a [id number] anastomosis antiperistaltic. The defect was then closed using a TX 60 device. The TX 60 stapler line was imbricated using interrupted 3-0 GI silk sutures. A 3-0 GI silk crotch stitch was also placed. Again irrigation took place with no evidence of bleeding. No additional abnormalities in the bowel both small bowel and colon were identified. The midline fascia was then reapproximated using 3 separate double-stranded looped PDS sutures. The subcutaneous tissues were closed using 3-0 Vicryl sutures. The skin was closed using kathy. Sterile dressings were applied. At the end of this procedure the sponge needle and ensure counts were correct. DISPOSITION: Stable to recovery room
[2023-03-09 16:43] LABS: Glucose,Whole Blood 194 mg/dL (70-110)
[2023-03-09] MEDS ORDERED: ALBUTEROL NEBULIZED 2.5 MG/3 ML INHALATION ONE (16:43)
[2023-03-09] MEDS ORDERED: DEXTROSE 50% SYRINGE 50 ML IVP PRN ×2 (16:43)
[2023-03-09] MEDS ORDERED: PROCHLORPERAZINE INJ 10 MG/2 ML VIAL IVP PRN (16:46)
[2023-03-09] MEDS ORDERED: IPRATROPIUM-ALBUTEROL 3 ML NEB INHALATION PRN (16:53)
[2023-03-09] MEDS ORDERED: LABETALOL SYRINGE 5 MG/ML (4 ML SYR) IVP ONE (16:56)
[2023-03-09] MEDS ORDERED: VALSARTAN 160 MG TAB PO SCH (17:00)
--- NOTE | 2023-03-09 17:01 | P.PN ---
Subjective Progress Note Date: 03/09/23 Hospital course: Patient is a very pleasant 82-year-old female with an extensive past medical history including COPD with chronic hypoxic respiratory failure on 2 L is a cannula oxygen, chronic systolic CHF with EF 45-50%, iron deficiency anemia, hypertension, hyperlipidemia, hypothyroidism, and depression with anxiety. She presented to the emergency department on 03/08/23 with complaints of right-sided abdominal discomfort, diarrhea, vomiting, and an episode of unresponsiveness/ syncope. Upon arrival to our facility, patient underwent full evaluation. Labs completed and reviewed. CBC showing leukocytosis of 13.5, microcytic anemia with hemoglobin 9.8, and thrombocytosis with platelet count of 541. BMP revealing hyponatremia with sodium 134, hyperkalemia with potassium of 5.3, hypochloremia with chloride of 95, slightly elevated anion gap of 12, and BUN of 33. Initial lactate was 2.2 with repeat lactate of 1.2. Troponin 0.013 with proBNP 714, and urinalysis with a contaminated specimen. D-dimer is slightly elevated at 1.06. CTA negative for PE. CT abdomen and pelvis with contrast revealed irregular wall thickening at the site of the ascending colon resulting in fecal ball in the cecum measuring up to 8.9 cm with fat stranding changes around the cecum findings concerning for malignancy with obstruction and possibly resulting in stercoral colitis. EKG was completed showing normal sinus rhythm at 87 bpm with a right bundle branch block with inferior lateral T-wave inversion with inverted T waves in leads 2, 3, aVF, and V2 through V6. Patient was admitted under our services with consultation to general surgery. Physical exam: Patient seen and fully evaluated at bedside. She was visiting with her 2 daughters. She continues to have significant pain to right upper and right lower quadrant but reports nausea and vomiting has been controlled. Vital signs reviewed and stable. General: Nontoxic, no distress and appears stated age. Derm: Skin warm and dry, normal coloration for ethnicity. Head: Atraumatic, normocephalic and symmetric. Eyes: EOMs intact, no lid lag, and anicteric sclera Mouth: no lip lesions, mucus membranes moist Cardiovascular: regular rate and rhythm with normal S1S2, no murmur, positive posterior tibial pulses bilaterally, and cap refill < 2 seconds. Lungs: Respirations even, regular, and unlabored on room air. Lungs CTA bilaterally, no rhonchi, no rales, no wheezing, and no accessory muscle usage. Abdominal: soft, tendernss to RUQ and RLQ upon palpation, no guarding, no appreciable organomegaly Ext: ROM intact. No gross muscle atrophy, no edema, no contractures Neuro: Speech clear, face symmetrical and CN II-XII grossly intact with no noted focal neuro deficits Psych: Alert and oriented to person, place, time, and situation. Appropriate and pleasant affect. 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 Lange of patient and discuss plan of care. -Strict NPO -Discussed with nursing, no further enemas, laxatives, or stool softeners to be administered until further orders are given by general surgery team. -Continue with IV antibiotic: Flagyl 500 mg every 8 hours and Rocephin 1 g daily. -Continue gentle IV fluid hydration -Hold daily Lasix -Place patient on glycemic protocol with glucose checks every 6 hours while maintaining nothing by mouth status. -Continuous symptomatic care and pain management with Compazine 10 mg IVP every 6 hours as needed for nausea/vomiting and morphine 4 mg IVP every 4 hours as needed for pain. -GI prophylaxis with Protonix 40 mg IVP daily. Lactic acidosis, resolved after IV fluid hydration. Elevated d-dimer, CTA negative for PE. COPD with chronic hypoxic respiratory failure on 2 L is a cannula oxygen, Continue baseline oxygen supplementation and may titrate as needed to maintain SpO2 equal to or greater than 90%. Patient to also continue Flovent 2 puffs twice daily and is being placed on scheduled DuoNeb's 4 times daily and as needed for wheezing/shortness of breath. Incentive spirometry, encourage use 10-15 times hourly while awake. HFrEF EF 45-50% Hypertension Hyperlipidemia -Patient to continue daily medication regimen with Coreg 3.125 mg twice daily, valsartan 160 mg daily, and fenofibrate 134 mg daily. Hypothyroidism Patient to continue the levothyroxine 50 g daily. Depression Patient to continue Depakote 1000 mg nightly, Lexapro 10 mg daily, DVT prophylaxis: SCDs Discussed with: Patient, general surgeon and RN along with patient's family at bedside Anticipated discharge date: Clinical course to determine Anticipated discharge place: Clinical course to determine Patient was seen independently by Nurse Pracitioner. This document was prepared using [employer] dictation software. Please allow for errors in funds transfer clerk, while rare they do occur. Reinaldo Kumar CREAM BU[employer]ER rendered care for this patient independently, reviewed the findings and plan as documented in the note above. I did not physically speak with or examine the patient on this date. Objective - Vital Signs Vital signs: Vital Signs Temp 96.8 F L 03/09/23 07:35 Pulse 75 03/09/23 07:35 Resp 18 03/09/23 07:35 BP 134/67 03/09/23 07:35 Pulse Ox 97 03/09/23 08:28 FiO2 Intake & Output 03/08/23 03/09/23 03/09/23 18:59 06:59 18:59 Weight 95.708 kg 95.708 kg Other: # Voids 1 # Bowel Movements 1 - Labs CBC & Chem 7: 03/09/23 06:05 03/09/23 06:05 Labs: Abnormal Lab Results - Last 24 Hours (Table) 03/08/23 03/08/23 03/08/23 Range/Units 15:59 15:59 15:59 WBC 13.5 H (3.8-10.6) k/uL RBC (3.80-5.40) m/uL Hgb 9.8 L (11.4-16.0) gm/dL Hct 32.3 L (34.0-46.0) % MCV 77.7 L (80.0-100.0) fL MCH 23.6 L (25.0-35.0) pg MCHC 30.4 L (31.0-37.0) g/dL Plt Count 541 H (150-450) k/uL Neutrophils # 10.5 H (1.3-7.7) k/uL D-Dimer (<0.60) mg/L FEU Sodium 134 L (137-145) mmol/L Potassium 5.3 H (3.5-5.1) mmol/L Chloride 95 L (98-107) mmol/L BUN 33 H (7-17) mg/dL Glucose 185 H (74-99) mg/dL Plasma Lactic Acid [place] (0.7-2.0) mmol/L Total Protein (6.3-8.2) g/dL Albumin (3.5-5.0) g/dL Urine Appearance Cloudy H (Clear) Urine Protein 1+ H (Negative) Urine Glucose (UA) 4+ H (Negative) Ur Leukocyte Esterase Moderate H (Negative) Urine WBC 59 H (0-5) /hpf Ur Squamous Epith Cells 8 H (0-4) /hpf Urine Bacteria Moderate H (None) /hpf Hyaline Casts 4 H (0-2) /lpf Urine Mucus Few H (None) /hpf 03/08/23 03/08/23 03/09/23 Range/Units 15:59 15:59 06:05 WBC 11.1 H (3.8-10.6) k/uL RBC 3.68 L (3.80-5.40) m/uL Hgb 8.7 L (11.4-16.0) gm/dL Hct 28.6 L (34.0-46.0) % MCV 77.6 L (80.0-100.0) fL MCH 23.5 L (25.0-35.0) pg MCHC 30.3 L (31.0-37.0) g/dL Plt Count 485 H (150-450) k/uL Neutrophils # (1.3-7.7) k/uL D-Dimer 1.06 H (<0.60) mg/L FEU Sodium (137-145) mmol/L Potassium (3.5-5.1) mmol/L Chloride (98-107) mmol/L BUN (7-17) mg/dL Glucose (74-99) mg/dL Plasma Lactic Acid [place] 2.2 H* (0.7-2.0) mmol/L Total Protein (6.3-8.2) g/dL Albumin (3.5-5.0) g/dL Urine Appearance (Clear) Urine Protein (Negative) Urine Glucose (UA) (Negative) Ur Leukocyte Esterase (Negative) Urine WBC (0-5) /hpf Ur Squamous Epith Cells (0-4) /hpf Urine Bacteria (None) /hpf Hyaline Casts (0-2) /lpf Urine Mucus (None) /hpf 03/09/23 Range/Units 06:05 WBC (3.8-10.6) k/uL RBC (3.80-5.40) m/uL Hgb (11.4-16.0) gm/dL Hct (34.0-46.0) % MCV (80.0-100.0) fL MCH (25.0-35.0) pg MCHC (31.0-37.0) g/dL Plt Count (150-450) k/uL Neutrophils # (1.3-7.7) k/uL D-Dimer (<0.60) mg/L FEU Sodium (137-145) mmol/L Potassium (3.5-5.1) mmol/L Chloride (98-107) mmol/L BUN 29 H (7-17) mg/dL Glucose 137 H (74-99) mg/dL Plasma Lactic Acid [place] (0.7-2.0) mmol/L Total Protein 6.1 L (6.3-8.2) g/dL Albumin 3.1 L (3.5-5.0) g/dL Urine Appearance (Clear) Urine Protein (Negative) Urine Glucose (UA) (Negative) Ur Leukocyte Esterase (Negative) Urine WBC (0-5) /hpf Ur Squamous Epith Cells (0-4) /hpf Urine Bacteria (None) /hpf Hyaline Casts (0-2) /lpf Urine Mucus (None) /hpf
[2023-03-09] MEDS: MORPHINE SULFATE 4 MG/ML SYRINGE IV PRN ×2 (17:46→21:52)
[2023-03-09] MEDS: ACETAMINOPHEN IV (For NPO) 1,000 MG in EMPTY BAG 1 BAG IVPB SCH (18:48)
[2023-03-09] MEDS: IPRATROPIUM-ALBUTEROL 3 ML NEB INHALATION SCH (20:14)
[2023-03-09] MEDS: metroNIDAZOLE-NS PMX 500 MG in SALINE 1 100ML.BAG IVPB SCH (22:52)
[2023-03-09] MEDS: HYDROmorphone 1 MG/ML 1 ML SYRINGE IVP PRN (22:59)
[2023-03-10] MEDS: ACETAMINOPHEN IV (For NPO) 1,000 MG in EMPTY BAG 1 BAG IVPB SCH ×3 (00:05→12:50)
[2023-03-10 01:30] LABS: Glucose,Whole Blood 164 mg/dL (70-110)
[2023-03-10] MEDS: LEVOTHYROXINE 50 MCG TAB PO SCH (05:23)
--- NOTE | 2023-03-10 05:48 | P.CNPUL ---
History of Present Illness Consult date: 03/10/23 Requesting physician: Cassius Lange Reason for consult: asthma Chief complaint: Abdominal pain accompanied with nausea and vomiting History of present illness: I am seeing this patient in consultation today 03/10/2023 on the general medical floor after she was admitted 2 days ago for severe abdominal pain, was found to have an obstructing colonic mass, and is status postoperative day #1 following an exploratory laparotomy and right hemicolectomy. Patient is a 82-year-old white female past medical history significant for moderate persistent bronchial asthma, chronic hypoxemic respiratory failure, hypertension, hyperlipidemia, congestive heart failure, GERD, hypothyroidism. She is a lifelong nonsmoker. She does follow in the pulmonary office with Dr. Buckley for management of her moderate chronic bronchial asthma. Patient normally manages her asthma with a combination of Flovent and when necessary albuterol nebulizations/Ventolin HFA. Patient presented to emergency room back on February, after she was witnessed to have a near syncopal event by her daughter earlier that day. She also had been experiencing severe abdominal pain that started on Friday and has progressively worsened. Patient did have some accompanying nausea and vomiting. Denies hematemesis or bloody bowel movements. Admits some constipation. Denies significant weight loss. She states that she's never had a colonoscopy. Abdominal and pelvis CT with contrast showed irregular wall thickening of as cending colon resulting in a fecal ball in the cecum measuring up to 8.9 cm with fat stranding changes around the cecum. Findings concerning for malignancy with obstruction and possibly resulting in stecoral colitis. Patient is status postoperative day #1 following a exploratory laparotomy and right hemicolectomy. She is recovering on the general medical floor. Patient is currently sitting up in bed, on 2 L/m nasal cannula, in no acute distress. There is a midline abdominal incision that appears approximated. Patient's diet has been advanced to clears. Incentive spirometer is at bedside, and patient achieves around thousand. We were consulted for dyspnea. Patient does have chronic shortness of breath, that she states began after she contracted Covid 19 pneumonia approximately 2 years ago. She states she has been oxygen dependent on 2 L/min nasal cannula since. Denies any acute cough, chest pain, hemoptysis. Chest x- ray arrival showed no acute cardiopulmonary process. Follow-up chest CTA showed no evidence of pulmonary embolism. There is cardiomegaly with mild pulmonary vascular congestion. NT proBNP was only 714. On auscultation, the patient does have scattered expiratory wheezes. Patient's home medications for asthma have been restarted including Flovent and when necessary DuoNeb's. Most recent CBC from yesterday shows a WBC count 11.1, hemoglobin 8.7, hematocrit 28.6, platelets 485. Most recent BMP from yesterday shows sodium 138, potassium 4.7, chloride 101, serum bicarb 27, BUN 29, creatinine 0.6, glucose 137. LFTs not elevated. Troponin non-elevated. Initial urinalysis felt to be contaminated. Repeat not particularly concerning. Patient is currently empirically covered on a combination of Rocephin and Flagyl for possible abdominal sepsis. Afebrile. Appears hemodynamically stable. Review of Systems REVIEW OF SYSTEMS: CONSTITUTIONAL: Denies any recent significant weight loss or weight gain. EYES: Denies change in vision. EARS, NOSE, MOUTH, THROAT: Denies headaches, denies sore throat. CARDIOVASCULAR: Denies chest pain, palpitations or syncopal episodes. RESPIRATORY: Denies cough, congestion or hemoptysis. Admits chronic shortness of breath GASTROINTESTINAL: Admits incisional abdominal pain. Nausea and vomiting have subsided. Denies any hematemesis. Denies any bloody bowel movements. States that she is passing gas. GENITOURINARY: Denies hematuria, denies infections. MUSKULOSKELETAL: Denies pain, denies swelling. INTEGUMENTARY: Denies rash, denies eczema. NEUROLOGICAL: Denies recent memory loss, no recent seizure activity. PSYCHIATRIC: Denies anxiety, denies depression. HEMATOLOGIC/LYMPHATIC: Denies anemia, denies enlarged lymph node Past Medical History Past Medical History: COPD, GERD/Reflux, Hyperlipidemia, Hypertension, Thyroid Disorder History of Any Multi-Drug Resistant Organisms: None Reported Past Surgical History: Hysterectomy Past Anesthesia/Blood Transfusion Reactions: No Reported Reaction Past Psychological History: Anxiety, Depression Smoking Status: Never smoker Past Alcohol Use History: None Reported Past Drug Use History: None Reported - Past Family History Mother Family Medical History: GERD/Reflux Father Additional Family Medical History / Comment(s): brain anyrism Medications and Allergies Home Medications Medication Instructions Recorded Confirmed Type Divalproex Sodium [Depakote] 1,000 mg PO HS 10/20/20 03/08/23 History Fenofibrate,Micronized 134 mg PO DAILY 10/20/20 03/08/23 History [Fenofibrate] Levothyroxine Sodium [Synthroid] 50 mcg PO DAILY 10/20/20 03/08/23 History Omeprazole 20 mg PO DAILY 10/20/20 03/08/23 History Tolterodine ER [Detrol LA] 4 mg PO DAILY 10/20/20 03/08/23 History Escitalopram [Lexapro] 10 mg PO DAILY 10/26/21 03/08/23 History Fluticasone Propionate [Flovent 2 puff INHALATION RT-BID 10/26/21 03/08/23 History Hfa 220 mcg] Loratadine [Claritin] 10 mg PO DAILY 10/26/21 03/08/23 History Furosemide [Lasix] 40 mg PO DAILY 30 Days #30 tab 10/28/21 03/08/23 Rx Valsartan [Diovan] 320 mg PO DAILY 30 Days #60 tab 10/28/21 03/08/23 Rx Empagliflozin [Jardiance] 10 mg PO DAILY 03/08/23 03/08/23 History Ergocalciferol [Vitamin D2 (1250 1,250 mcg PO SA 03/08/23 03/08/23 History Mcg = 79693 Iu)] Ferrous Sulfate [Feosol] 325 mg PO DAILY 03/08/23 03/08/23 History Promethazine HCl/Codeine 5 ml PO HS 03/08/23 03/08/23 History [Phenergan with Codeine Syrup] carvediloL [Coreg] 3.125 mg PO BID@0900,1800 03/08/23 03/08/23 History Allergies Allergy/AdvReac Type Severity Reaction Status Date / Time Latex, Natural Rubber Allergy Rash/Hives Verified 03/08/23 20:37 Physical Exam Vitals: Vital Signs Temp Pulse Pulse Resp BP Pulse Ox 03/10/23 01:29 97.4 F L 73 16 92/57 96 03/09/23 21:31 66 15 03/09/23 20:52 80 130/77 95 03/09/23 20:37 85 127/74 96 03/09/23 20:27 82 03/09/23 20:22 77 130/66 97 03/09/23 20:16 80 03/09/23 20:07 74 122/72 97 03/09/23 19:52 75 132/64 96 03/09/23 19:37 85 135/63 95 03/09/23 19:22 82 147/76 95 03/09/23 19:07 80 152/83 97 03/09/23 18:52 76 150/76 96 03/09/23 18:37 76 144/77 95 03/09/23 18:22 75 130/78 95 03/09/23 18:07 71 151/78 95 03/09/23 17:52 74 155/79 94 L 03/09/23 17:37 69 173/80 93 L 03/09/23 17:02 66 15 167/72 98 03/09/23 16:47 66 18 166/74 96 03/09/23 16:32 72 16 184/75 92 L 03/09/23 13:50 97.7 F 75 16 114/58 96 03/09/23 13:30 78 16 127/58 97 03/09/23 08:28 97 03/09/23 07:35 96.8 F L 75 18 134/67 96 Intake and Output 03/09/23 03/09/23 03/10/23 14:59 22:59 06:59 Intake Total 900 800 Output Total 1050 300 Balance -150 800 -300 Intake: IV 900 800 Output: Urine 1000 300 Estimated Blood Loss 50 Other: # Bowel Movements 1 GENERAL EXAM: Alert, 82-year-old white female appearing stated age, comfortable in no apparent distress. HEAD: Normocephalic and atraumatic EYES: Normal reaction of pupils, equal size. NOSE: Clear with pink turbinates. THROAT: No erythema or exudates. NECK: No masses, no JVD. CHEST: No chest wall deformity. LUNGS: Equal air entry with bibasilar inspiratory crackles and scattered expiratory wheezes. No rhonchi or focal dullness. On 2 L per minute nasal cannula. No conversational dyspnea or accessory muscle use.. CVS: S1 and S2 normal with no audible murmur, regular rhythm. No extra heart sounds ABDOMEN: Midline abdominal incision appears approximated. Incisional dressing is clean, dry, intact. Abdominal binder is in place. no hepatosplenomegaly, active bowel sounds, no guarding or rigidity. SPINE: No scoliosis or deformity SKIN: No rashes CENTRAL NERVOUS SYSTEM: No focal deficits, tone is normal in all 4 extremities. EXTREMITIES: There is no peripheral edema, clubbing, or cyanosis. Peripheral pulses are intact. Results - Laboratory Findings CBC and BMP: 03/10/23 05:52 03/10/23 05:52 PT/INR, D-dimer PT 11.1 sec (10.0-12.5) 03/08/23 15:59 INR 1.0 (<1.2) 03/08/23 15:59 D-Dimer 1.06 mg/L FEU (<0.60) H 03/08/23 15:59 Abnormal lab findings: Abnormal Labs 03/08/23 03/08/23 03/08/23 15:59 15:59 15:59 WBC 13.5 H RBC Hgb 9.8 L Hct 32.3 L MCV 77.7 L MCH 23.6 L MCHC 30.4 L Plt Count 541 H Neutrophils # 10.5 H D-Dimer Sodium 134 L Potassium 5.3 H Chloride 95 L BUN 33 H Glucose 185 H POC Glucose (mg/dL) Plasma Lactic Acid [place] Iron % Saturation Total Protein Albumin Urine Appearance Cloudy H Urine Protein 1+ H Urine Glucose (UA) 4+ H Ur Leukocyte Esterase Moderate H Urine WBC 59 H Urine WBC Clumps Ur Squamous Epith Cells 8 H Urine Bacteria Moderate H Hyaline Casts 4 H Urine Mucus Few H 03/08/23 03/08/23 03/09/23 15:59 15:59 06:05 WBC 11.1 H RBC 3.68 L Hgb 8.7 L Hct 28.6 L MCV 77.6 L MCH 23.5 L MCHC 30.3 L Plt Count 485 H Neutrophils # D-Dimer 1.06 H Sodium Potassium Chloride BUN Glucose POC Glucose (mg/dL) Plasma Lactic Acid [place] 2.2 H* Iron % Saturation Total Protein Albumin Urine Appearance Urine Protein Urine Glucose (UA) Ur Leukocyte Esterase Urine WBC Urine WBC Clumps Ur Squamous Epith Cells Urine Bacteria Hyaline Casts Urine Mucus 03/09/23 03/09/23 03/09/23 06:05 06:05 13:00 WBC RBC Hgb Hct MCV MCH MCHC Plt Count Neutrophils # D-Dimer Sodium Potassium Chloride BUN 29 H Glucose 137 H POC Glucose (mg/dL) Plasma Lactic Acid [place] Iron 16 L % Saturation 3.49 L Total Protein 6.1 L Albumin 3.1 L Urine Appearance Urine Protein Urine Glucose (UA) 3+ H Ur Leukocyte Esterase Small H Urine WBC 16 H Urine WBC Clumps Rare H Ur Squamous Epith Cells Urine Bacteria Hyaline Casts Urine Mucus 03/09/23 03/09/23 03/10/23 13:24 16:42 01:28 WBC RBC Hgb Hct MCV MCH MCHC Plt Count Neutrophils # D-Dimer Sodium Potassium Chloride BUN Glucose POC Glucose (mg/dL) 153 H 194 H 164 H Plasma Lactic Acid [place] Iron % Saturation Total Protein Albumin Urine Appearance Urine Protein Urine Glucose (UA) Ur Leukocyte Esterase Urine WBC Urine WBC Clumps Ur Squamous Epith Cells Urine Bacteria Hyaline Casts Urine Mucus - Diagnostic Findings Chest x-ray: image reviewed CT scan - chest: image reviewed Assessment and Plan Assessment: Obstructive colonic mass and sterocoral colitis status postoperative day #1 following a exploratory laparotomy with right hemicolectomy. Acute on chronic hypoxemic respiratory failure, currently on 2 L/m nasal cannula, secondary to suspected acute exacerbation of moderate persistent bronc hial asthma and above. Near syncope Microcytic hypochromic anemia Leukocytosis Benign essential hypertension Hyperlipidemia History of systolic CHF Hypothyroidism GERD, without esophagitis Obesity, with a BMI of 36.2 kg/m Never smoker Plan: Medications medications, labs, imaging reviewed Continue supplemental oxygen Encourage incentive spirometry Start patient on Symbicort inhaler, DuoNeb's, and IV Solu-Medrol Patient is receiving empiric antibiotics in the form of Rocephin and Flagyl for possible abdominal sepsis. We will continue to follow I have personally seen and examined the patient, performed the documentation and the assessment and plan as written. Number of minutes spent on the visit:20 Visit joint evaluation that done with the nurse practitioner. The patient is currently postop day #1 following a right hemicolectomy. The patient a large colonic mass, obstructive that was resected surgically. The patient was having some shortness of breath. An currently the patient is calm and comfortable. I reviewed the CAT scan of the chest that shows some limited groundglass changes bilaterally. No evidence of any acute pneumonia with aspiration. The patient is also being treated with a combination of bronchodilators and steroids and the patient was having some increased dyspnea and chest tightness and wheeze. The patient is also encountered and acute kidney injury which probably is related to hypotension and the use of contrast and postop ATN. The patient is able to produce adequate amount of urine output. The patient remains on accommodation of Rocephin and Flagyl. Awake and alert. Using the incentive spirometer. Tolerating some clear liquid diet. Overall condition stable. We'll continue to follow. This evaluation was done in more than 30 minutes. Time with Patient: Greater than 30
[2023-03-10 06:12] LABS: Glucose,Whole Blood 143 mg/dL (70-110)
[2023-03-10] MEDS ORDERED: FERROUS SULFATE 325 MG TAB PO SCH (09:00)
[2023-03-10 09:01] LABS: ALT 8 U/L (8-44); AST 16 U/L (13-35); Albumin 3.1 d/dL (3.8-4.9); Albumin/Globulin Ratio 1.24 Ratio (1.60-3.17); Alkaline Phosphatase 38 U/L (41-126); Blood Urea Nitrogen 26.4 mg/dL (9.0-27.0); Carbon Dioxide 25.6 mmol/L (21.6-31.8); Chloride 100 mmol/L (96-109); Globulin 2.5 d/dL (1.6-3.3); Glucose 134 mg/dL (70-110); HCT 28.9 % (37.2-46.3); HGB 8.3 d/dL (12.0-15.0); MCH 22.9 pg (27.0-32.0); MCHC 28.7 d/dL (32.0-37.0); MCV 79.8 FL (80.0-97.0); Magnesium 2.3 mg/dL (1.5-2.4); Mean Platelet Volume 9.2 FL (9.5-12.2); NRBC Per 100 WBC 0 X 10*3/uL (0.00-0.01); Platelet Count 480 X 10*3/uL (140-440); Potassium 4.8 mmol/L (3.5-5.5); RBC 3.62 X 10*6/uL (4.10-5.20); RDW 14.9 % (11.5-14.5); Sodium 137 mmol/L (135-145); Total Bilirubin <0.2 mg/dL (0.3-1.2); Total Protein 5.6 d/dL (6.2-8.2)
[2023-03-10] MEDS: IPRATROPIUM-ALBUTEROL 3 ML NEB INHALATION SCH ×4 (09:10→21:20)
[2023-03-10] MEDS: SYMBICORT 160-4.5 MCG INHALER INHALATION SCH ×2 (09:10→21:20)
[2023-03-10] MEDS: metroNIDAZOLE-NS PMX 500 MG in SALINE 1 100ML.BAG IVPB SCH ×3 (09:23→23:16)
[2023-03-10] MEDS: FENOFIBRATE 160 MG TAB PO SCH (09:23)
[2023-03-10] MEDS: carvediloL 3.125 MG TAB PO SCH ×2 (09:25→22:18)
[2023-03-10] MEDS: methylPREDNISolone SOD SUCCI 40 MG/ML 1 ML VIAL IV SCH ×2 (09:31→17:46)
[2023-03-10] MEDS: PANTOPRAZOLE 40 MG/10 ML VIAL IVP SCH (09:31)
[2023-03-10] MEDS: HYDROmorphone 1 MG/ML 1 ML SYRINGE IVP PRN ×5 (09:31→22:55)
--- NOTE | 2023-03-10 11:05 | P.PN ---
Subjective Progress Note Date: 03/10/23 CHIEF COMPLAINT: Obstructing mass of the right colon HISTORY OF PRESENT ILLNESS: Patient is postop day #1 status post exploratory laparotomy with right colectomy. Patient reports her pain is controlled. She denies any nausea or vomiting. No bowel function. Afebrile. WBC 11.1 up to 14.2 Hgb 8.3 platelets 480 Cr 1.5 PHYSICAL EXAM: VITAL SIGNS: Reviewed. GENERAL: Well-developed in no acute distress. ABDOMEN: Soft. Nondistended. Mild tenderness at incision site. Incision dressing with a few very small areas of saturation NEUROLOGIC: Alert and oriented. Cranial nerves II through XII grossly intact. ASSESSMENT: 1. Obstructing mass of the right colon status post exploratory laparotomy with right colectomy PLAN: -Continue clear liquid diet -Agree with continuing IV fluids -Continue pain management -Continue antibiotics -Tucker catheter to be removed today -Encouraged patient to use incentive spirometer -Encouraged patient to increase activity level -DVT prophylaxis subcu heparin Physician Electrical Instrument Repairer note has been reviewed by physician. Signing provider agrees with the documented findings, assessment, and plan of care. I have personally seen and examined the patient, reviewed the SECURITIES COMPLIANCE EXAMINER /PAs history, exam and MDM and agree with the assessment and plan as written. Based on total v isit time, I have performed more than 50% of the visit. As above: Patient doing well today. Tucker catheter was removed. She is in the chair. Continue clear liquids. Ambulate as tolerated. Continue analgesics. Objective - Vital Signs Vital signs: Vital Signs Temp 98.9 F 03/10/23 07:31 Pulse 69 03/10/23 09:29 Resp 17 03/10/23 07:31 BP 100/51 03/10/23 09:29 Pulse Ox 94 L 03/10/23 09:10 FiO2 Intake & Output 03/09/23 03/10/23 03/10/23 18:59 06:59 18:59 Intake Total 1700 Output Total 1050 300 Balance 650 -300 Intake: IV 1700 Output: Urine 1000 300 Estimated Blood Loss 50 Other: # Bowel Movements 1 - Labs CBC & Chem 7: 03/10/23 05:52 03/10/23 05:52 Labs: Abnormal Lab Results - Last 24 Hours (Table) 03/09/23 03/09/23 03/09/23 Range/Units 06:05 13:00 13:24 WBC (4.50-10.00) X 10*3/uL RBC (4.10-5.20) X 10*6/uL Hgb (12.0-15.0) d/dL Hct (37.2-46.3) % MCV (80.0-97.0) FL MCH (27.0-32.0) pg MCHC (32.0-37.0) d/dL RDW (11.5-14.5) % Plt Count (140-440) X 10*3/uL MPV (9.5-12.2) FL Est GFR (CKD-EPI) (>=60) Glucose (70-110) mg/dL POC Glucose (mg/dL) 153 H (70-110) mg/dL Calcium (8.7-10.3) mg/dL Iron 16 L (50-170) UG/DL % Saturation 3.49 L (12.00-45.00) Total Bilirubin (0.3-1.2) mg/dL Alkaline Phosphatase (41-126) U/L Total Protein (6.2-8.2) d/dL Albumin (3.8-4.9) d/dL Albumin/Globulin Ratio (1.60-3.17) Ratio Urine Glucose (UA) 3+ H (Negative) Ur Leukocyte Esterase Small H (Negative) Urine WBC 16 H (0-5) /hpf Urine WBC Clumps Rare H (None) /hpf 03/09/23 03/10/23 03/10/23 Range/Units 16:42 01:28 05:52 WBC 14.20 H (4.50-10.00) X 10*3/uL RBC 3.62 L (4.10-5.20) X 10*6/uL Hgb 8.3 L (12.0-15.0) d/dL Hct 28.9 L (37.2-46.3) % MCV 79.8 L (80.0-97.0) FL MCH 22.9 L (27.0-32.0) pg MCHC 28.7 L (32.0-37.0) d/dL RDW 14.9 H (11.5-14.5) % Plt Count 480 H (140-440) X 10*3/uL MPV 9.2 L (9.5-12.2) FL Est GFR (CKD-EPI) (>=60) Glucose (70-110) mg/dL POC Glucose (mg/dL) 194 H 164 H (70-110) mg/dL Calcium (8.7-10.3) mg/dL Iron (50-170) UG/DL % Saturation (12.00-45.00) Total Bilirubin (0.3-1.2) mg/dL Alkaline Phosphatase (41-126) U/L Total Protein (6.2-8.2) d/dL Albumin (3.8-4.9) d/dL Albumin/Globulin Ratio (1.60-3.17) Ratio Urine Glucose (UA) (Negative) Ur Leukocyte Esterase (Negative) Urine WBC (0-5) /hpf Urine WBC Clumps (None) /hpf 03/10/23 03/10/23 Range/Units 05:52 06:12 WBC (4.50-10.00) X 10*3/uL RBC (4.10-5.20) X 10*6/uL Hgb (12.0-15.0) d/dL Hct (37.2-46.3) % MCV (80.0-97.0) FL MCH (27.0-32.0) pg MCHC (32.0-37.0) d/dL RDW (11.5-14.5) % Plt Count (140-440) X 10*3/uL MPV (9.5-12.2) FL Est GFR (CKD-EPI) 35 L (>=60) Glucose 134 H (70-110) mg/dL POC Glucose (mg/dL) 143 H (70-110) mg/dL Calcium 8.0 L (8.7-10.3) mg/dL Iron (50-170) UG/DL % Saturation (12.00-45.00) Total Bilirubin <0.2 L (0.3-1.2) mg/dL Alkaline Phosphatase 38 L (41-126) U/L Total Protein 5.6 L (6.2-8.2) d/dL Albumin 3.1 L (3.8-4.9) d/dL Albumin/Globulin Ratio 1.24 L (1.60-3.17) Ratio Urine Glucose (UA) (Negative) Ur Leukocyte Esterase (Negative) Urine WBC (0-5) /hpf Urine WBC Clumps (None) /hpf
[2023-03-10 11:29] LABS: Glucose,Whole Blood 192 mg/dL (70-110)
[2023-03-10] MEDS ORDERED: LACTATED RINGERS 1,000 ML IV SCH (11:30)
[2023-03-10] MEDS: ESCITALOPRAM 10 MG TAB PO SCH (11:53)
[2023-03-10] MEDS: LACTATED RINGERS 1,000 ML IV SCH (12:42)
[2023-03-10] MEDS: HEPARIN SODIUM,PORCINE 5,000 UNIT/ML 1 ML VIAL SQ SCH ×2 (13:51→22:34)
--- NOTE | 2023-03-10 16:41 | P.PN ---
Subjective Progress Note Date: 03/10/23 (delayed charting seen at 1115) Patient is an 82-year-old female with COPD complicated by chronic hypoxic respiratory failure on 2 L nasal cannula, chronic systolic congestive heart failure with ejection fraction 45-50%, hypertension, dyslipidemia, and multiple other comorbid conditions who presented to the ER with complaints of right-sided abdominal discomfort. The ER she underwent an extensive evaluation. She underwent a CT of the chest which was negative for pulmonary embolism and a CT abdomen and pelvis which showed irregular wall thickening at the site of the ascending colon resulting in a fecal ball of the cecum measuring 8.9 cm with fat stranding changes concerning for malignancy. Patient was admitted for further monitoring. Consult was placed Dr. Buckley and Dr. Lange. Patient subsequently underwent a right-sided colectomy due to obstructing mass on 03/09/23. Patient seen and examined at bedside. She states she is feeling much better than she did prior to surgery. Her breathing is improved and she is having much less abdominal discomfort. 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 -Surgery note reviewed: Continue with clear liquids, continue with antibiotics, remove Tucker catheter. -Continue with Rocephin 1 g every 24 hours and Flagyl 500 mg every 8 hours -Continue with Protonix 40 mg IV push daily -IV iron 125 mg daily 3, patient has failed oral outpatient iron Systolic congestive heart failure with ejection fraction 45-50% Hypertension Dyslipidemia -Valsartan discontinued -Coreg 3.125 mg twice daily parameters added to hold for systolic blood pressure less than 95 Acute on chronic hypoxic respiratory failure due to acute exacerbation of moderate persistent bronchial asthma -Placed discussed with Dr. Beard. -Continue with Solu-Medrol 40 mg IV every 8 hours anticipate changing to oral in a.m. -DuoNeb's 0.5/2.54 times daily scheduled and every 2 hours as needed -Symbicort 160/4.5 g 2 puffs twice daily Lactic acidosis, resolved Imaging: None new today Per Hospital course: Chest X-ray: No acute process CT head: No acute bleed or mass effect CT of the chest: No evidence of pulmonary embolism, cardiomegaly with pulmonary vascular congestion CT abdomen and pelvis: Irregular wall thickening in the ascending colon resulting in fecal ball in the cecum measuring up to 8.9 cm with fat stranding changes around the cecum concerning for malignancy with obstruction. Data Review: Patient with low blood pressures this morning. Labs reviewed include CBC which was remarkable for white blood cell count 14, hemoglobin 8.3, platelets 480, BMP which is markable for creatinine of 1.5 DVT prophylaxis: Heparin Anticipated discharge date: Pending Clinical Course Anticipated discharge place: Pending Clinical Course This dictation was prepared using [employer] voice recognition software. Though every attempt is made to correct errors during dictation some may still exist. Objective - Vital Signs Vital signs: Vital Signs Temp 97.9 F 03/10/23 14:00 Pulse 64 03/10/23 14:00 Resp 16 03/10/23 14:00 BP 88/50 03/10/23 14:00 Pulse Ox 91 L 03/10/23 14:00 FiO2 Intake & Output 03/09/23 03/10/23 03/10/23 18:59 06:59 18:59 Intake Total 1700 Output Total 1050 300 Balance 650 -300 Intake: IV 1700 Output: Urine 1000 300 Estimated Blood Loss 50 Other: Voiding Method Indwelling Catheter # Bowel Movements 1 - Labs CBC & Chem 7: 03/10/23 05:52 03/10/23 05:52 Labs: Abnormal Lab Results - Last 24 Hours (Table) 03/09/23 03/10/23 03/10/23 Range/Units 16:42 01:28 05:52 WBC 14.20 H (4.50-10.00) X 10*3/uL RBC 3.62 L (4.10-5.20) X 10*6/uL Hgb 8.3 L (12.0-15.0) d/dL Hct 28.9 L (37.2-46.3) % MCV 79.8 L (80.0-97.0) FL MCH 22.9 L (27.0-32.0) pg MCHC 28.7 L (32.0-37.0) d/dL RDW 14.9 H (11.5-14.5) % Plt Count 480 H (140-440) X 10*3/uL MPV 9.2 L (9.5-12.2) FL Est GFR (CKD-EPI) (>=60) Glucose (70-110) mg/dL POC Glucose (mg/dL) 194 H 164 H (70-110) mg/dL Calcium (8.7-10.3) mg/dL Total Bilirubin (0.3-1.2) mg/dL Alkaline Phosphatase (41-126) U/L Total Protein (6.2-8.2) d/dL Albumin (3.8-4.9) d/dL Albumin/Globulin Ratio (1.60-3.17) Ratio 03/10/23 03/10/23 03/10/23 Range/Units 05:52 06:12 11:28 WBC (4.50-10.00) X 10*3/uL RBC (4.10-5.20) X 10*6/uL Hgb (12.0-15.0) d/dL Hct (37.2-46.3) % MCV (80.0-97.0) FL MCH (27.0-32.0) pg MCHC (32.0-37.0) d/dL RDW (11.5-14.5) % Plt Count (140-440) X 10*3/uL MPV (9.5-12.2) FL Est GFR (CKD-EPI) 35 L (>=60) Glucose 134 H (70-110) mg/dL POC Glucose (mg/dL) 143 H 192 H (70-110) mg/dL Calcium 8.0 L (8.7-10.3) mg/dL Total Bilirubin <0.2 L (0.3-1.2) mg/dL Alkaline Phosphatase 38 L (41-126) U/L Total Protein 5.6 L (6.2-8.2) d/dL Albumin 3.1 L (3.8-4.9) d/dL Albumin/Globulin Ratio 1.24 L (1.60-3.17) Ratio
[2023-03-10 16:57] LABS: Glucose,Whole Blood 258 mg/dL (70-110)
[2023-03-10] MEDS ORDERED: KETOROLAC 15 MG/ML 1 ML VIAL IVP SCH (18:00)
[2023-03-10] MEDS: SODIUM FERRIC GLUCONAT-SUCROSE 125 MG in SODIUM CHLORIDE 0.9% 100 ML IVPB SCH (18:25)
[2023-03-10] MEDS ORDERED: HEPARIN SODIUM,PORCINE 5,000 UNIT/ML 1 ML VIAL SQ SCH (21:00)
[2023-03-10] MEDS: DIVALPROEX 500 MG TABLET.DR PO SCH (22:33)
[2023-03-11 00:15] LABS: Glucose,Whole Blood 247 mg/dL (70-110)
[2023-03-11] MEDS: HYDROmorphone 1 MG/ML 1 ML SYRINGE IVP PRN ×5 (02:45→22:38)
[2023-03-11 06:10] LABS: Glucose,Whole Blood 165 mg/dL (70-110)
[2023-03-11] MEDS: LEVOTHYROXINE 50 MCG TAB PO SCH (07:10)
[2023-03-11] MEDS: IPRATROPIUM-ALBUTEROL 3 ML NEB INHALATION SCH ×4 (08:19→20:23)
[2023-03-11] MEDS: SYMBICORT 160-4.5 MCG INHALER INHALATION SCH ×2 (08:19→20:23)
[2023-03-11] MEDS: LACTATED RINGERS 1,000 ML IV SCH ×2 (08:46→18:42)
[2023-03-11] MEDS: HEPARIN SODIUM,PORCINE 5,000 UNIT/ML 1 ML VIAL SQ SCH ×2 (10:25→22:17)
[2023-03-11] MEDS: metroNIDAZOLE-NS PMX 500 MG in SALINE 1 100ML.BAG IVPB SCH ×3 (10:26→23:51)
[2023-03-11] MEDS: PANTOPRAZOLE 40 MG/10 ML VIAL IVP SCH (10:26)
[2023-03-11] MEDS: ESCITALOPRAM 10 MG TAB PO SCH (10:27)
[2023-03-11] MEDS: FENOFIBRATE 160 MG TAB PO SCH (10:28)
[2023-03-11] MEDS: carvediloL 3.125 MG TAB PO SCH ×2 (10:29→22:17)
[2023-03-11 10:51] LABS: HCT 26.5 % (37.2-46.3); HGB 7.7 d/dL (12.0-15.0); MCH 23.1 pg (27.0-32.0); MCHC 29.1 d/dL (32.0-37.0); MCV 79.6 FL (80.0-97.0); Mean Platelet Volume 9.2 FL (9.5-12.2); NRBC Per 100 WBC 0 X 10*3/uL (0.00-0.01); Platelet Count 491 X 10*3/uL (140-440); RBC 3.33 X 10*6/uL (4.10-5.20); RDW 15.1 % (11.5-14.5)
[2023-03-11 11:05] LABS: BUN/Creat Ratio 21.94 Ratio (12.00-20.00); Blood Urea Nitrogen 37.3 mg/dL (9.0-27.0); Calcium 8.5 mg/dL (8.7-10.3); Carbon Dioxide 23.8 mmol/L (21.6-31.8); Chloride 98 mmol/L (96-109); Glucose 140 mg/dL (70-110); Potassium 4.3 mmol/L (3.5-5.5); Sodium 135 mmol/L (135-145)
[2023-03-11 11:22] LABS: Glucose,Whole Blood 212 mg/dL (70-110)
[2023-03-11] MEDS: SODIUM FERRIC GLUCONAT-SUCROSE 125 MG in SODIUM CHLORIDE 0.9% 100 ML IVPB SCH (11:31)
--- NOTE | 2023-03-11 13:16 | US ---
EXAMINATION TYPE: US renals and bladder DATE OF EXAM: 03/11/2023 COMPARISON: NONE CLINICAL INDICATION: Female, 82 years old with history of gisela; Gisela, no symptoms, known left renal pel vis cyst seen on CT EXAM MEASUREMENTS: Right Kidney: 10.1 x 5.0 x 6.1 cm Left Kidney: 11.4 x 4.9 x 6.3 cm Right Kidney: No hydronephrosis or masses seen Left Kidney: 2.9 x 1.3 x 1.6cm renal pelvis cyst Bladder: wnl There is no evidence for hydronephrosis at this point in time. No nephrolithiasis is seen. No solid masses are identified. The urinary bladder is anechoic. Bilateral ureteral jets are seen. IMPRESSION: Parapelvic cyst left kidney.
--- NOTE | 2023-03-11 13:23 | P.PN ---
Subjective Progress Note Date: 03/11/23 I am seeing this patient in consultation today 03/10/2023 on the general medical floor after she was admitted 2 days ago for severe abdominal pain, was found to have an obstructing colonic mass, and is status postoperative day #1 following an exploratory laparotomy and right hemicolectomy. Patient is a 82-year-old white female past medical history significant for moderate persistent bronchial asthma, chronic hypoxemic respiratory failure, hypertension, hyperlipidemia, congestive heart failure, GERD, hypothyroidism. She is a lifelong nonsmoker. She does follow in the pulmonary office with Dr. Buckley for management of her moderate chronic bronchial asthma. Patient normally manages her asthma with a combination of Flovent and when necessary albuterol nebulizations/Ventolin HFA. Patient presented to emergency room back on February, after she was witnessed to have a near syncopal event by her daughter earlier that day. She also had been experiencing severe abdominal pain that started on Friday and has progressively worsened. Patient did have some accompanying nausea and vomiting. Denies hematemesis or bloody bowel movements. Admits some constipation. Denies significant weight loss. She states that she's never had a colonoscopy. Abdominal and pelvis CT with contrast showed irregular wall thickening of ascending colon resulting in a fecal ball in the cecum measuring up to 8.9 cm with fat stranding changes around the cecum. Findings concerning for malignancy with obstruction and possibly resulting in stecoral colitis. Patient is status postoperative day #1 following a exploratory laparotomy and right hemicolectomy. She is recovering on the general medical floor. Patient is currently sitting up in bed, on 2 L/m nasal cannula, in no acute distress. There is a midline abdominal incision that appears approximated. Patient's diet has been advanced to clears. Incentive spirometer is at bedside, and patient achieves around thousand. We were consulted for dyspnea. Patient does have chronic shortness of breath, that she states began after she contracted Covid 19 pneumonia approximately 2 years ago. She states she has been oxygen dependent on 2 L/min nasal cannula since. Denies any acute cough, chest pain, hemoptysis. Chest x- ray arrival showed no acute cardiopulmonary process. Follow-up chest CTA showed no evidence of pulmonary embolism. There is cardiomegaly with mild pulmonary vascular congestion. NT proBNP was only 714. On auscultation, the patient does have scattered expiratory wheezes. Patient's home medications for asthma have been restarted including Flovent and when necessary DuoNeb's. Most recent CBC from yesterday shows a WBC count 11.1, hemoglobin 8.7, hematocrit 28.6, platelets 485. Most recent BMP from yesterday shows sodium 138, potassium 4.7, chloride 101, serum bicarb 27, BUN 29, creatinine 0.6, glucose 137. LFTs not elevated. Troponin non-elevated. Initial urinalysis felt to be contaminated. Repeat not particularly concerning. Patient is currently empirically covered on a combination of Rocephin and Flagyl for possible abdominal sepsis. Afebrile. Appears hemodynamically stable. On today's evaluation of 03/11/2020, the patient remains on oxygen at 2-3 L. No respiratory difficulties. No cough or sputum production. No shortness of breath. She has not passed a bowel movement yet. She has not been passing f latness. Surgical wound is dry clean and intact and the patient has some limited bowel sounds. The patient otherwise, comfortable. She was having some increase restlessness and agitation yesterday and this was attributed to the systemic steroids as the patient was receiving IV Solu-Medrol. The medication was discontinued. No delirium. No change in mental status. No agitation. No confusion. Review blood work today shows a creatinine of 1.7 which is slightly higher compared to yesterday. BUN is at 37. Sodium level is at 135. The hemoglobin is stable at 7.7 with a white cell count of 11.8. No signs of any GI bleeding at this point in time. No other complaints otherwise for now. GI surgeries on the case. The patient is using the incentive spirometer. Objective - Vital Signs Vital signs: Vital Signs Temp 97.4 F L 03/11/23 09:55 Pulse 78 03/11/23 08:58 Resp 18 03/11/23 08:58 BP 97/57 03/11/23 08:58 Pulse Ox 93 L 03/11/23 08:58 FiO2 Intake & Output 03/10/23 03/11/23 03/11/23 18:59 06:59 18:59 Output Total 275 Balance -275 Output: Urine 275 Other: Voiding Method Indwelling Catheter Indwelling Catheter Toilet # Voids 2 - Exam GENERAL EXAM: Alert, 82-year-old white female appearing stated age, comfortable in no apparent distress. The patient is currently on 3 L of oxygen by nasal cannula HEAD: Normocephalic and atraumatic EYES: Normal reaction of pupils, equal size. NOSE: Clear with pink turbinates. THROAT: No erythema or exudates. NECK: No masses, no JVD. CHEST: No chest wall deformity. LUNGS: Equal air entry with bibasilar inspiratory crackles and scattered expiratory wheezes. No rhonchi or focal dullness. On 3 L per minute nasal cannula. No conversational dyspnea or accessory muscle use.. CVS: S1 and S2 normal with no audible murmur, regular rhythm. No extra heart sounds ABDOMEN: Midline abdominal incision appears approximated. Incisional dressing is clean, dry, intact. Abdominal binder is in place. no hepatosplenomegaly, active bowel sounds, no guarding or rigidity. SPINE: No scoliosis or deformity SKIN: No rashes CENTRAL NERVOUS SYSTEM: No focal deficits, tone is normal in all 4 extremities. EXTREMITIES: There is no peripheral edema, clubbing, or cyanosis. Peripheral pulses are intact. - Labs CBC & Chem 7: 03/11/23 06:56 03/11/23 06:56 Labs: Abnormal Lab Results - Last 24 Hours (Table) 03/10/23 03/10/23 03/11/23 Range/Units 11:28 16:56 00:12 WBC (4.50-10.00) X 10*3/uL RBC (4.10-5.20) X 10*6/uL Hgb (12.0-15.0) d/dL Hct (37.2-46.3) % MCV (80.0-97.0) FL MCH (27.0-32.0) pg MCHC (32.0-37.0) d/dL RDW (11.5-14.5) % Plt Count (140-440) X 10*3/uL MPV (9.5-12.2) FL POC Glucose (mg/dL) 192 H 258 H 247 H (70-110) mg/dL 03/11/23 03/11/23 Range/Units 06:08 06:56 WBC 11.80 H (4.50-10.00) X 10*3/uL RBC 3.33 L (4.10-5.20) X 10*6/uL Hgb 7.7 L (12.0-15.0) d/dL Hct 26.5 L (37.2-46.3) % MCV 79.6 L (80.0-97.0) FL MCH 23.1 L (27.0-32.0) pg MCHC 29.1 L (32.0-37.0) d/dL RDW 15.1 H (11.5-14.5) % Plt Count 491 H (140-440) X 10*3/uL MPV 9.2 L (9.5-12.2) FL POC Glucose (mg/dL) 165 H (70-110) mg/dL Assessment and Plan Assessment: Obstructive colonic mass and sterocoral colitis status postoperative day # 2 following a exploratory laparotomy with right hemicolectomy. Acute on chronic hypoxemic respiratory failure, currently on 3 L/m nasal cannula, secondary to suspected acute exacerbation of moderate persistent bronchial asthma and above. Acute kidney injury related to use of contrast, hypotension and surgery. This is a ATN. Near syncope Microcytic hypochromic anemia, hemoglobin stable at 7.7 Leukocytosis, improving Benign essential hypertension Hyperlipidemia History of systolic CHF Hypothyroidism GERD, without esophagitis Obesity, with a BMI of 36.2 kg/m Never smoker Anemia, multifactorial in the hemoglobin is currently at 7.7. No evidence of any GI bleed. An , surgery Plan: Discontinue the IV Solu-Medrol due to steroid-induced restlessness and agitation and the medium Supplemented oxygen and titrate oxygen flow to maintain saturation above 90% Continue Symbicort inhaler, DuoNeb's, and IV Solu-Medrol Patient is receiving empiric antibiotics in the form of Rocephin and Flagyl for possible abdominal sepsis. I reviewed the CAT scan of the chest that shows some limited groundglass changes bilaterally. No evidence of any acute pneumonia with aspiration. The patient is also being treated with a combination of bronchodilators and steroids and the patient was having some increased dyspnea and chest tightness and wheeze. The patient is also encountered and acute kidney injury which probably is related to hypotension and the use of contrast and postop ATN. The patient is able to produce adequate amount of urine output. The patient remains on accommodation of Rocephin and Flagyl. Awake and alert. Using the incentive spirometer. Tolerating some clear liquid diet. Overall condition stable. We'll continue to follow.
[2023-03-11] MEDS ORDERED: SODIUM CHLORIDE 0.9% 500 ML 500 ML IV ONE (13:30)
--- NOTE | 2023-03-11 13:31 | P.PN ---
Subjective Progress Note Date: 03/11/23 CHIEF COMPLAINT: Obstructing mass of the right colon HISTORY OF PRESENT ILLNESS: Patient is postop day #2 status post exploratory laparotomy with right colectomy. Patient feels dry and thirsty. Urine output on the lower side and is dark. She denies any nausea or vomiting. No bowel activity noted. She is sitting up at bedside chair. Pain is controlled. Afebrile. BP 87/50. HR 69 WBC is down from 14-11.8 Hgb 7.7 creatinine up 1.7 PHYSICAL EXAM: VITAL SIGNS: Reviewed. GENERAL: Well-developed in no acute distress. ABDOMEN: Soft. Nondistended. Mild tenderness at incision site. Incision dres sing with saturation noted at the distal aspect NEUROLOGIC: Alert and oriented. Cranial nerves II through XII grossly intact. ASSESSMENT: 1. Obstructing mass of the right colon status post exploratory laparotomy with right colectomy PLAN: -Continue clear liquid diet -Increase IV fluids to 100 ml/hr -Ordering 500ml fluid bolus for hypotension and JESENIA -Check EKG -Continue pain management -Continue antibiotics -Encouraged patient to use incentive spirometer -Encouraged patient to increase activity level -Consult physical therapy -Repeat labs in AM -DVT prophylaxis subcu heparin Physician Payable Representative note has been reviewed by physician. Signing provider agrees with the documented findings, assessment, and plan of care. I have personally seen and examined the patient, reviewed the TOOL SHARPENER /PAs history, exam and MDM and agree with the assessment and plan as written. Based on total visit time, I have performed more than 50% of the visit. As above: Patient doing better at this time. She has been ambulating in the hallways. She had 2 bowel movements. No nausea or vomiting. Will advance diet. Monitor labs. Objective - Vital Signs Vital signs: Vital Signs Temp 97.4 F L 03/11/23 09:55 Pulse 69 03/11/23 12:52 Resp 15 03/11/23 12:52 BP 87/50 03/11/23 13:13 Pulse Ox 95 03/11/23 12:52 FiO2 Intake & Output 03/10/23 03/11/23 03/11/23 18:59 06:59 18:59 Output Total 275 200 Balance -275 -200 Output: Urine 275 200 Other: Voiding Method Indwelling Catheter Indwelling Catheter Toilet # Voids 2 # Bowel Movements 1 - Labs CBC & Chem 7: 10/24/23 06:56 03/11/23 06:56 Labs: Abnormal Lab Results - Last 24 Hours (Table) 03/10/23 03/11/23 03/11/23 Range/Units 16:56 00:12 06:08 WBC (4.50-10.00) X 10*3/uL RBC (4.10-5.20) X 10*6/uL Hgb (12.0-15.0) d/dL Hct (37.2-46.3) % MCV (80.0-97.0) FL MCH (27.0-32.0) pg MCHC (32.0-37.0) d/dL RDW (11.5-14.5) % Plt Count (140-440) X 10*3/uL MPV (9.5-12.2) FL Anion Gap (4.00-12.00) mmol/L BUN (9.0-27.0) mg/dL Creatinine (0.6-1.5) mg/dL Est GFR (CKD-EPI) (>=60) BUN/Creatinine Ratio (12.00-20.00) Ratio Glucose (70-110) mg/dL POC Glucose (mg/dL) 258 H 247 H 165 H (70-110) mg/dL Calcium (8.7-10.3) mg/dL 03/11/23 03/11/23 03/11/23 Range/Units 06:56 06:56 11:21 WBC 11.80 H (4.50-10.00) X 10*3/uL RBC 3.33 L (4.10-5.20) X 10*6/uL Hgb 7.7 L (12.0-15.0) d/dL Hct 26.5 L (37.2-46.3) % MCV 79.6 L (80.0-97.0) FL MCH 23.1 L (27.0-32.0) pg MCHC 29.1 L (32.0-37.0) d/dL RDW 15.1 H (11.5-14.5) % Plt Count 491 H (140-440) X 10*3/uL MPV 9.2 L (9.5-12.2) FL Anion Gap 13.20 H (4.00-12.00) mmol/L BUN 37.3 H (9.0-27.0) mg/dL Creatinine 1.7 H (0.6-1.5) mg/dL Est GFR (CKD-EPI) 30 L (>=60) BUN/Creatinine Ratio 21.94 H (12.00-20.00) Ratio Glucose 140 H (70-110) mg/dL POC Glucose (mg/dL) 212 H (70-110) mg/dL Calcium 8.5 L (8.7-10.3) mg/dL
[2023-03-11 16:20] LABS: Glucose,Whole Blood 182 mg/dL (70-110)
--- NOTE | 2023-03-11 16:22 | P.PN ---
Subjective Progress Note Date: 03/11/23 (delayed charting seen at 1245) Patient is an 82-year-old female with COPD complicated by chronic hypoxic respiratory failure on 2 L nasal cannula, chronic systolic congestive heart failure with ejection fraction 45-50%, hypertension, dyslipidemia, and multiple other comorbid conditions who presented to the ER with complaints of right-sided abdominal discomfort. The ER she underwent an extensive evaluation. She underwent a CT of the chest which was negative for pulmonary embolism and a CT abdomen and pelvis which showed irregular wall thickening at the site of the ascending colon resulting in a fecal ball of the cecum measuring 8.9 cm with fat stranding changes concerning for malignancy. Patient was admitted for further monitoring. Consult was placed Dr. Buckley and Dr. Lange. Patient subsequently underwent a right-sided colectomy due to obstructing mass on 03/09/23. She d eveloped some post-op JESENIA and hypotnesion. Patient seen and examined at bedside. She has no complaints at this time. She has mild pain. She does state she has been urinating less often than normal. She denies any nausea or vomiting. She reports that she passed a small amount of liquid stool. Daughter present at bedside and she would like it to note that the patient has an adverse reaction to steroids of psychosis. 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 We will continue to check postvoid residuals -Check renal ultrasound -Agree with surgery increasing lactated Ringer's 200 mL/h -Repeat BMP in a.m. -Surgical note reviewed: Continue clear liquid diet, increase IV fluids, 500 mL bolus -Continue with Rocephin 1 g every 24 hours and Flagyl 500 mg every 8 hours -Continue with Protonix 40 mg IV push daily -IV iron 125 mg daily 3, patient has failed oral outpatient iron D # 2 Systolic congestive heart failure with ejection fraction 45-50% Hypertension Dyslipidemia -Coreg 3.125 mg twice daily parameters added to hold for systolic blood pressure less than 95 Hyperglycemia - Jardiance on hold - Levemir 10 units at night, SSI, follow BS, Check A1C Itching - suspect side effect of dilaudid - benadryl 12.5 mg PO 4 times a day when necessary itching Acute on chronic hypoxic respiratory failure due to acute exacerbation of moderate persistent bronchial asthma -Pulmonary note reviewed: Continue with current inhaler regiment avoid IV steroids secondary to steroid-induced restlessness and agitation-Continue with Solu-Medrol 40 mg IV every 8 hours anticipate changing to oral in a.m. -DuoNeb's 0.5/2.54 times daily scheduled and every 2 hours as needed -Symbicort 160/4.5 g 2 puffs twice daily Lactic acidosis, resolved Imaging: None new for today Per Hospital course: Chest X-ray: No acute process CT head: No acute bleed or mass effect CT of the chest: No evidence of pulmonary embolism, cardiomegaly with pulmonary vascular congestion CT abdomen and pelvis: Irregular wall thickening in the ascending colon resulting in fecal ball in the cecum measuring up to 8.9 cm with fat stranding changes around the cecum concerning for malignancy with obstruction. Data Review: Vitals reviewed patient afebrile for the last 24 hours Labs reviewed include CBC, basic metabolic profile, and blood glucoses which were remarkable for white blood cell count 11.8, hemoglobin 7.3, platelets 491, creatinine 1.7, a.m. fasting blood sugar 140, midline blood sugar 247 DVT prophylaxis: Heparin Anticipated discharge date: Pending Clinical Course Anticipated discharge place: Pending Clinical Course This dictation was prepared using [employer] voice recognition software. Though every attempt is made to correct errors during dictation some may still exist. Objective - Vital Signs Vital signs: Vital Signs Temp 97.4 F L 03/11/23 09:55 Pulse 84 03/11/23 15:51 Resp 15 03/11/23 12:52 BP 92/58 03/11/23 13:22 Pulse Ox 95 10/24/23 12:52 FiO2 Intake & Output 03/10/23 03/11/23 03/11/23 18:59 06:59 18:59 Output Total 275 200 Balance -275 -200 Output: Urine 275 200 Other: Voiding Method Indwelling Catheter Indwelling Catheter Toilet # Voids 2 # Bowel Movements 1 - Labs CBC & Chem 7: 03/11/23 06:56 03/11/23 06:56 Labs: Abnormal Lab Results - Last 24 Hours (Table) 03/10/23 03/11/23 03/11/23 Range/Units 16:56 00:12 06:08 WBC (4.50-10.00) X 10*3/uL RBC (4.10-5.20) X 10*6/uL Hgb (12.0-15.0) d/dL Hct (37.2-46.3) % MCV (80.0-97.0) FL MCH (27.0-32.0) pg MCHC (32.0-37.0) d/dL RDW (11.5-14.5) % Plt Count (140-440) X 10*3/uL MPV (9.5-12.2) FL Anion Gap (4.00-12.00) mmol/L BUN (9.0-27.0) mg/dL Creatinine (0.6-1.5) mg/dL Est GFR (CKD-EPI) (>=60) BUN/Creatinine Ratio (12.00-20.00) Ratio Glucose (70-110) mg/dL POC Glucose (mg/dL) 258 H 247 H 165 H (70-110) mg/dL Calcium (8.7-10.3) mg/dL 03/11/23 03/11/23 03/11/23 Range/Units 06:56 06:56 11:21 WBC 11.80 H (4.50-10.00) X 10*3/uL RBC 3.33 L (4.10-5.20) X 10*6/uL Hgb 7.7 L (12.0-15.0) d/dL Hct 26.5 L (37.2-46.3) % MCV 79.6 L (80.0-97.0) FL MCH 23.1 L (27.0-32.0) pg MCHC 29.1 L (32.0-37.0) d/dL RDW 15.1 H (11.5-14.5) % Plt Count 491 H (140-440) X 10*3/uL MPV 9.2 L (9.5-12.2) FL Anion Gap 13.20 H (4.00-12.00) mmol/L BUN 37.3 H (9.0-27.0) mg/dL Creatinine 1.7 H (0.6-1.5) mg/dL Est GFR (CKD-EPI) 30 L (>=60) BUN/Creatinine Ratio 21.94 H (12.00-20.00) Ratio Glucose 140 H (70-110) mg/dL POC Glucose (mg/dL) 212 H (70-110) mg/dL Calcium 8.5 L (8.7-10.3) mg/dL
[2023-03-11 16:47] LABS: HCT 26.8 % (34.0-46.0); Hypochromasia Marked; MCH 24.1 pg (25.0-35.0); MCV 80.2 fL (80.0-100.0); Mean Platelet Volume 8.3; RBC 3.34 m/uL (3.80-5.40); RDW 15.2 % (11.5-15.5); WBC 12.7 k/uL (3.8-10.6)
[2023-03-11 17:35] LABS: Platelet Count 436 k/uL (150-450)
[2023-03-11] MEDS: INSULIN ASPART (NovoLOG) 100 UNIT/ML VIAL SQ SCH ×2 (17:42→22:18)
[2023-03-11 21:00] LABS: Glucose,Whole Blood 166 mg/dL (70-110)
[2023-03-11] MEDS ORDERED: INSULIN DETEMIR (LEVEMIR) 100 UNIT/ML SYR SQ SCH (21:00)
[2023-03-11] MEDS: DIVALPROEX 500 MG TABLET.DR PO SCH (22:17)
[2023-03-11] MEDS: diphenhydrAMINE ELIXIR 25 MG/10 ML CUP PO PRN (22:39)
[2023-03-12] MEDS: HYDROmorphone 1 MG/ML 1 ML SYRINGE IVP PRN ×4 (03:03→23:38)
[2023-03-12 06:35] LABS: Glucose,Whole Blood 101 mg/dL (70-110)
[2023-03-12] MEDS: INSULIN ASPART (NovoLOG) 100 UNIT/ML VIAL SQ SCH ×4 (06:46→21:31)
[2023-03-12] MEDS: LEVOTHYROXINE 50 MCG TAB PO SCH (06:58)
[2023-03-12] MEDS: LACTATED RINGERS 1,000 ML IV SCH (07:00)
[2023-03-12 07:03] LABS: HCT 26.7 % (34.0-46.0); HGB 8.2 gm/dL (11.4-16.0); Hypochromasia Marked; MCHC 30.7 g/dL (31.0-37.0); MCV 78.2 fL (80.0-100.0); Mean Platelet Volume 6.9; Microcytosis Slight; Platelet Count 489 k/uL (150-450); RBC 3.41 m/uL (3.80-5.40); RDW 15.3 % (11.5-15.5); WBC 9.2 k/uL (3.8-10.6)
[2023-03-12 07:19] LABS: ALT 18 U/L (4-34); AST 39 U/L (14-36); African American GFR (CKD) 45 (>60 ml/min/1.73 sqM); Albumin 2.9 g/dL (3.5-5.0); Alkaline Phosphatase 43 U/L (38-126); Anion Gap 10 mmol/L; Blood Urea Nitrogen 35 mg/dL (7-17); Calcium 8.2 mg/dL (8.4-10.2); Carbon Dioxide 22 mmol/L (22-30); Chloride 99 mmol/L (98-107); Globulin 2.9 g/dL; Glucose 84 mg/dL (74-99); Non-African American GFR(CKD) 39 (>60 ml/min/1.73 sqM); Potassium 4.3 mmol/L (3.5-5.1); Sodium 131 mmol/L (137-145); Total Bilirubin 0.3 mg/dL (0.2-1.3); Total Protein 5.8 g/dL (6.3-8.2)
[2023-03-12] MEDS: IPRATROPIUM-ALBUTEROL 3 ML NEB INHALATION SCH ×2 (08:04→11:36)
[2023-03-12] MEDS: SYMBICORT 160-4.5 MCG INHALER INHALATION SCH ×2 (08:04→20:38)
[2023-03-12] MEDS: PANTOPRAZOLE 40 MG/10 ML VIAL IVP SCH (08:39)
[2023-03-12] MEDS: diphenhydrAMINE ELIXIR 25 MG/10 ML CUP PO PRN ×2 (08:40→16:09)
[2023-03-12] MEDS: HEPARIN SODIUM,PORCINE 5,000 UNIT/ML 1 ML VIAL SQ SCH ×2 (08:40→21:31)
[2023-03-12] MEDS: carvediloL 3.125 MG TAB PO SCH ×2 (08:41→21:30)
[2023-03-12] MEDS: metroNIDAZOLE-NS PMX 500 MG in SALINE 1 100ML.BAG IVPB SCH ×2 (08:42→17:19)
[2023-03-12] MEDS: FENOFIBRATE 160 MG TAB PO SCH (08:42)
[2023-03-12] MEDS: ESCITALOPRAM 10 MG TAB PO SCH (08:42)
[2023-03-12] MEDS: SODIUM FERRIC GLUCONAT-SUCROSE 125 MG in SODIUM CHLORIDE 0.9% 100 ML IVPB SCH (11:24)
[2023-03-12] MEDS ORDERED: IPRATROPIUM-ALBUTEROL 3 ML NEB INHALATION PRN (11:45)
[2023-03-12 11:47] LABS: Glucose,Whole Blood 125 mg/dL (70-110)
--- NOTE | 2023-03-12 13:40 | P.PN ---
Subjective Progress Note Date: 03/12/23 CHIEF COMPLAINT: Obstructing mass of the right colon HISTORY OF PRESENT ILLNESS: Patient is postop day #3 status post exploratory laparotomy with right colectomy. Patient reports that she's feeling better today. Her pain is controlled. She is having flatus and bowel movements. Denies any nausea or vomiting. Tolerated a full liquid diet. Patient reports her urine is not as dark. Hypotension improved after fluid bolus. Afebrile. WBC has normalized from 12.79.2 Hgb 8.2 platelets 49 sodium is 131 potassium 4.3 creatinine is down from 1.7-1.29 PHYSICAL EXAM: VITAL SIGNS: Reviewed. GENERAL: Well-developed in no acute distress. ABDOMEN: Soft. Nondistended. Mild tenderness at incision site. Incisional dressing with saturation noted distally. Dressing pulled back. No drainage noted from the incision. Minimal blood oozing at the top of the incision. NEUROLOGIC: Alert and oriented. Cranial nerves II through XII grossly intact. ASSESSMENT: 1. Obstructing mass of the right colon status post exploratory laparotomy with right colectomy 2. Acute kidney injury PLAN: -Advance diet low fiber -Continue IV fluids -Continue pain management -Continue antibiotics -Patient can shower. Cover incision with ABD. -Encouraged patient to use incentive spirometer -Encouraged patient to increase activity level -Consult physical therapy -Repeat labs in AM -DVT prophylaxis subcu heparin Physician [employer] note has been reviewed by physician. Signing provider agrees with the documented findings, assessment, and plan of care. Objective - Vital Signs Vital signs: Vital Signs Temp 97.6 F 03/12/23 07:06 Pulse 90 03/12/23 08:19 Resp 18 03/12/23 07:06 BP 115/52 03/12/23 07:06 Pulse Ox 97 03/12/23 08:07 FiO2 Intake & Output 03/11/23 03/12/23 03/12/23 18:59 06:59 18:59 Output Total 450 250 250 Balance -450 -250 -250 Output: Urine 450 250 250 Other: Voiding Method Toilet # Voids 3 6 1 # Bowel Movements 1 - Labs CBC & Chem 7: 03/12/23 06:29 03/12/23 06:29 Labs: Abnormal Lab Results - Last 24 Hours (Table) 03/11/23 03/11/23 03/11/23 Range/Units 06:56 06:56 11:21 WBC 11.80 H (4.50-10.00) X 10*3/uL RBC 3.33 L (4.10-5.20) X 10*6/uL Hgb 7.7 L (12.0-15.0) d/dL Hct 26.5 L (37.2-46.3) % MCV 79.6 L (80.0-97.0) FL MCH 23.1 L (27.0-32.0) pg MCHC 29.1 L (32.0-37.0) d/dL RDW 15.1 H (11.5-14.5) % Plt Count 491 H (140-440) X 10*3/uL MPV 9.2 L (9.5-12.2) FL Sodium (137-145) mmol/L Anion Gap 13.20 H (4.00-12.00) mmol/L BUN 37.3 H (9.0-27.0) mg/dL Creatinine 1.7 H (0.6-1.5) mg/dL Est GFR (CKD-EPI) 30 L (>=60) BUN/Creatinine Ratio 21.94 H (12.00-20.00) Ratio Glucose 140 H (70-110) mg/dL POC Glucose (mg/dL) 212 H (70-110) mg/dL Calcium 8.5 L (8.7-10.3) mg/dL AST (14-36) U/L Total Protein (6.3-8.2) g/dL Albumin (3.5-5.0) g/dL 03/11/23 03/11/23 03/11/23 Range/Units 16:19 16:21 20:59 WBC 12.7 H (4.50-10.00) X 10*3/uL RBC 3.34 L (4.10-5.20) X 10*6/uL Hgb 8.0 L (12.0-15.0) d/dL Hct 26.8 L (37.2-46.3) % MCV (80.0-97.0) FL MCH 24.1 L (27.0-32.0) pg MCHC 30.0 L (32.0-37.0) d/dL RDW (11.5-14.5) % Plt Count (140-440) X 10*3/uL MPV (9.5-12.2) FL Sodium (137-145) mmol/L Anion Gap (4.00-12.00) mmol/L BUN (9.0-27.0) mg/dL Creatinine (0.6-1.5) mg/dL Est GFR (CKD-EPI) (>=60) BUN/Creatinine Ratio (12.00-20.00) Ratio Glucose (70-110) mg/dL POC Glucose (mg/dL) 182 H 166 H (70-110) mg/dL Calcium (8.7-10.3) mg/dL AST (14-36) U/L Total Protein (6.3-8.2) g/dL Albumin (3.5-5.0) g/dL 03/12/23 03/12/23 Range/Units 06:29 06:29 WBC (4.50-10.00) X 10*3/uL RBC 3.41 L (4.10-5.20) X 10*6/uL Hgb 8.2 L (12.0-15.0) d/dL Hct 26.7 L (37.2-46.3) % MCV 78.2 L (80.0-97.0) FL MCH 24.0 L (27.0-32.0) pg MCHC 30.7 L (32.0-37.0) d/dL RDW (11.5-14.5) % Plt Count 489 H (140-440) X 10*3/uL MPV (9.5-12.2) FL Sodium 131 L (137-145) mmol/L Anion Gap (4.00-12.00) mmol/L BUN 35 H (9.0-27.0) mg/dL Creatinine 1.29 H (0.6-1.5) mg/dL Est GFR (CKD-EPI) (>=60) BUN/Creatinine Ratio (12.00-20.00) Ratio Glucose (70-110) mg/dL POC Glucose (mg/dL) (70-110) mg/dL Calcium 8.2 L (8.7-10.3) mg/dL AST 39 H (14-36) U/L Total Protein 5.8 L (6.3-8.2) g/dL Albumin 2.9 L (3.5-5.0) g/dL
--- NOTE | 2023-03-12 14:49 | P.PN ---
Subjective Progress Note Date: 03/12/23 I am seeing this patient in consultation today 03/10/2023 on the general medical floor after she was admitted 2 days ago for severe abdominal pain, was found to have an obstructing colonic mass, and is status postoperative day #1 following an exploratory laparotomy and right hemicolectomy. Patient is a 82-year-old white female past medical history significant for moderate persistent bronchial asthma, chronic hypoxemic respiratory failure, hypertension, hyperlipidemia, congestive heart failure, GERD, hypothyroidism. She is a lifelong nonsmoker. She does follow in the pulmonary office with Dr. Buckley for management of her moderate chronic bronchial asthma. Patient normally manages her asthma with a combination of Flovent and when necessary albuterol nebulizations/Ventolin HFA. Patient presented to emergency room back on February, after she was witnessed to have a near syncopal event by her daughter earlier that day. She also had been experiencing severe abdominal pain that started on Friday and has progressively worsened. Patient did have some accompanying nausea and vomiting. Denies hematemesis or bloody bowel movements. Admits some constipation. Denies significant weight loss. She states that she's never had a colonoscopy. Abdominal and pelvis CT with contrast showed irregular wall thickening of ascending colon resulting in a fecal ball in the cecum measuring up to 8.9 cm with fat stranding changes around the cecum. Findings concerning for malignancy with obstruction and possibly resulting in stecoral colitis. Patient is status postoperative day #1 following a exploratory laparotomy and right hemicolectomy. She is recovering on the general medical floor. Patient is currently sitting up in bed, on 2 L/m nasal cannula, in no acute distress. There is a midline abdominal incision that appears approximated. Patient's diet has been advanced to clears. Incentive spirometer is at bedside, and patient achieves around thousand. We were consulted for dyspnea. Patient does have chronic shortness of breath, that she states began after she contracted Covid 19 pneumonia approximately 2 years ago. She states she has been oxygen dependent on 2 L/min nasal cannula since. Denies any acute cough, chest pain, hemoptysis. Chest x- ray arrival showed no acute cardiopulmonary process. Follow-up chest CTA showed no evidence of pulmonary embolism. There is cardiomegaly with mild pulmonary vascular congestion. NT proBNP was only 714. On auscultation, the patient does have scattered expiratory wheezes. Patient's home medications for asthma have been restarted including Flovent and when necessary DuoNeb's. Most recent CBC from yesterday shows a WBC count 11.1, hemoglobin 8.7, hematocrit 28.6, platelets 485. Most recent BMP from yesterday shows sodium 138, potassium 4.7, chloride 101, serum bicarb 27, BUN 29, creatinine 0.6, glucose 137. LFTs not elevated. Troponin non-elevated. Initial urinalysis felt to be contaminated. Repeat not particularly concerning. Patient is currently empirically covered on a combination of Rocephin and Flagyl for possible abdominal sepsis. Afebrile. Appears hemodynamically stable. On today's evaluation of 03/11/2020, the patient remains on oxygen at 2-3 L. No respiratory difficulties. No cough or sputum production. No shortness of breath. She has not passed a bowel movement yet. She has not been passing f latness. Surgical wound is dry clean and intact and the patient has some limited bowel sounds. The patient otherwise, comfortable. She was having some increase restlessness and agitation yesterday and this was attributed to the systemic steroids as the patient was receiving IV Solu-Medrol. The medication was discontinued. No delirium. No change in mental status. No agitation. No confusion. Review blood work today shows a creatinine of 1.7 which is slightly higher compared to yesterday. BUN is at 37. Sodium level is at 135. The hemoglobin is stable at 7.7 with a white cell count of 11.8. No signs of any GI bleeding at this point in time. No other complaints otherwise for now. GI surgeries on the case. The patient is using the incentive spirometer. Today's evaluation of 03/12/2023, the patient is being seen for a follow-up. Patient is doing well up in no specific complaints. Abdominal wound is clean. The patient is totally. Tolerating diet. No respiratory distress. Kidney function continues to improve and the creatinine is down to 1.3. Producing adequate amount of urine output. She remains on lactated Ringer at the rate of 50 mL an hour. She remains on IV Rocephin and Flagyl. The patient is also getting a white cell count of 9.2, hemoglobin 8.2, platelets of 489, the BUN is at 35 with a creatinine of 1.29 and a sodium level is at 131 with a potassium le ector of 4.3. She remains on oxygen at 3 L per minute nasal cannula with a pulse of 96%. She is using the incentive spirometer. Objective - Vital Signs Vital signs: Vital Signs Temp 97.6 F 03/12/23 07:06 Pulse 90 03/12/23 08:19 Resp 18 03/12/23 07:06 BP 115/52 03/12/23 07:06 Pulse Ox 97 03/12/23 08:07 FiO2 Intake & Output 03/11/23 03/12/23 03/12/23 18:59 06:59 18:59 Output Total 450 250 250 Balance -450 -250 -250 Output: Urine 450 250 250 Other: Voiding Method Toilet # Voids 3 6 1 # Bowel Movements 1 - Exam GENERAL EXAM: Alert, 82-year-old white female appearing stated age, comfortable in no apparent distress. The patient is currently on 3 L of oxygen by nasal cannula HEAD: Normocephalic and atraumatic EYES: Normal reaction of pupils, equal size. NOSE: Clear with pink turbinates. THROAT: No erythema or exudates. NECK: No masses, no JVD. CHEST: No chest wall deformity. LUNGS: Equal air entry with bibasilar inspiratory crackles and scattered expiratory wheezes. No rhonchi or focal dullness. On 3 L per minute nasal cannula. No conversational dyspnea or accessory muscle use.. CVS: S1 and S2 normal with no audible murmur, regular rhythm. No extra heart sounds ABDOMEN: Midline abdominal incision appears approximated. Incisional dressing is clean, dry, intact. Abdominal binder is in place. no hepatosplenomegaly, active bowel sounds, no guarding or rigidity. SPINE: No scoliosis or deformity SKIN: No rashes CENTRAL NERVOUS SYSTEM: No focal deficits, tone is normal in all 4 extremities. EXTREMITIES: There is no peripheral edema, clubbing, or cyanosis. Peripheral pulses are intact. - Labs CBC & Chem 7: 03/12/23 06:29 03/12/23 06:29 Labs: Abnormal Lab Results - Last 24 Hours (Table) 03/11/23 03/11/23 03/11/23 Range/Units 16:19 16:21 20:59 WBC 12.7 H (3.8-10.6) k/uL RBC 3.34 L (3.80-5.40) m/uL Hgb 8.0 L (11.4-16.0) gm/dL Hct 26.8 L (34.0-46.0) % MCV (80.0-100.0) fL MCH 24.1 L (25.0-35.0) pg MCHC 30.0 L (31.0-37.0) g/dL Plt Count (150-450) k/uL Sodium (137-145) mmol/L BUN (7-17) mg/dL Creatinine (0.52-1.04) mg/dL POC Glucose (mg/dL) 182 H 166 H (70-110) mg/dL Hemoglobin A1c (<=6.0) % Calcium (8.4-10.2) mg/dL AST (14-36) U/L Total Protein (6.3-8.2) g/dL Albumin (3.5-5.0) g/dL 03/12/23 03/12/23 03/12/23 Range/Units 06:29 06:29 06:29 WBC (3.8-10.6) k/uL RBC 3.41 L (3.80-5.40) m/uL Hgb 8.2 L (11.4-16.0) gm/dL Hct 26.7 L (34.0-46.0) % MCV 78.2 L (80.0-100.0) fL MCH 24.0 L (25.0-35.0) pg MCHC 30.7 L (31.0-37.0) g/dL Plt Count 489 H (150-450) k/uL Sodium 131 L (137-145) mmol/L BUN 35 H (7-17) mg/dL Creatinine 1.29 H (0.52-1.04) mg/dL POC Glucose (mg/dL) (70-110) mg/dL Hemoglobin A1c 8.6 H (<=6.0) % Calcium 8.2 L (8.4-10.2) mg/dL AST 39 H (14-36) U/L Total Protein 5.8 L (6.3-8.2) g/dL Albumin 2.9 L (3.5-5.0) g/dL Assessment and Plan Assessment: Obstructive colonic mass and sterocoral colitis status postoperative day # 3 following a exploratory laparotomy with right hemicolectomy. The patient is stooling. The patient is tolerating diet. Abdominal wound is clean. Acute on chronic hypoxemic respiratory failure, currently on 3 L/m nasal cannula, secondary to suspected acute exacerbation of moderate persistent bronchial asthma and above. Acute kidney injury related to use of contrast, hypotension and surgery. This is a ATN. The renal function continues to improve the patient's creatinine is down to 1.29 Near syncope Microcytic hypochromic anemia, hemoglobin stable at 8.2 Leukocytosis, improving Benign essential hypertension Hyperlipidemia History of systolic CHF Hypothyroidism GERD, without esophagitis Obesity, with a BMI of 36.2 kg/m Never smoker Anemia, multifactorial in the hemoglobin is currently at 7.7. No evidence of any GI bleed. An , surgery Plan: No agitation or delirium Supplemented oxygen and titrate oxygen flow to maintain saturation above 90%, wean down FiO2 currently on 3 L Continue Symbicort inhaler, DuoNeb's, and no need for steroids Patient is receiving empiric antibiotics in the form of Rocephin and Flagyl for possible abdominal sepsis. Renal function continues to improve Continue IV fluids We'll continue to follow make further recommendations based on her progress.
[2023-03-12 16:28] LABS: Glucose,Whole Blood 134 mg/dL (70-110)
--- NOTE | 2023-03-12 17:26 | P.PN ---
Subjective Progress Note Date: 03/12/23 (delayed charting seen at 0900) Patient is an 82-year-old female with COPD complicated by chronic hypoxic respiratory failure on 2 L nasal cannula, chronic systolic congestive heart failure with ejection fraction 45-50%, hypertension, dyslipidemia, and multiple other comorbid conditions who presented to the ER with complaints of right-sided abdominal discomfort. The ER she underwent an extensive evaluation. She underwent a CT of the chest which was negative for pulmonary embolism and a CT abdomen and pelvis which showed irregular wall thickening at the site of the ascending colon resulting in a fecal ball of the cecum measuring 8.9 cm with fat stranding changes concerning for malignancy. Patient was admitted for further monitoring. Consult was placed Dr. Buckley and Dr. Lange. Patient subsequently underwent a right-sided colectomy due to obstructing mass on 03/09/23. She d eveloped some post-op JESENIA and hypotnesion which improved with medication adjustment and IVF. Patient seen and examined at bedside. She continues to be passiing stool. It is mostly liquid. Urinating is easier, pain is well controlled. She has been walking to the bathroom without assistance. 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 -Continue with Rocephin 1 g every 24 hours and Flagyl 500 mg every 8 hours -Continue with Protonix 40 mg IV push daily -IV iron 125 mg daily 3, patient has failed oral outpatient iron D # 2 - D/C IVF with improvement in renal function Systolic congestive heart failure with ejection fraction 45-50% Hypertension Dyslipidemia -Coreg 3.125 mg twice daily parameters to hold for systolic blood pressure less than 95 Hyperglycemia - Jardiance on hold -D/C Levemir - SSI, follow BS, A1C 8.6 Itching - suspect side effect of dilaudid - benadryl 12.5 mg PO 4 times a day when necessary itching Acute on chronic hypoxic respiratory failure due to acute exacerbation of moderate persistent bronchial asthma - Pulm note reviewed: down titrate O2, -DuoNeb's 0.5/2.54 times daily scheduled and every 2 hours as needed -Symbicort 160/4.5 g 2 puffs twice daily Lactic acidosis, resolved Leukocytosis, resolved Imaging: Renal US: paraplevic cyst left kidney Per Hospital course: Chest X-ray: No acute process CT head: No acute bleed or mass effect CT of the chest: No evidence of pulmonary embolism, cardiomegaly with pulmonary vascular congestion CT abdomen and pelvis: Irregular wall thickening in the ascending colon resulting in fecal ball in the cecum measuring up to 8.9 cm with fat stranding changes around the cecum concerning for malignancy with obstruction. Data Review: Labs reviewed are CBC and BMP remarkable for HgB 8.2, plt 489, Na 131, A1C 8.6, sodium 131, BUN 35, Cr 1.29. DVT prophylaxis: Heparin Anticipated discharge date: Pending Clinical Course Anticipated discharge place: Pending Clinical Course This dictation was prepared using [employer] voice recognition software. Though every attempt is made to correct errors during dictation some may still exist. Objective - Vital Signs Vital signs: Vital Signs Temp 98.4 F 03/12/23 14:00 Pulse 74 03/12/23 14:00 Resp 16 03/12/23 14:00 BP 97/58 03/12/23 14:00 Pulse Ox 96 03/12/23 14:00 FiO2 Intake & Output 03/11/23 03/12/23 03/12/23 18:59 06:59 18:59 Output Total 450 250 250 Balance -450 -250 -250 Output: Urine 450 250 250 Other: Voiding Method Toilet # Voids 3 6 1 # Bowel Movements 1 - Labs CBC & Chem 7: 03/12/23 06:29 03/12/23 06:29 Labs: Abnormal Lab Results - Last 24 Hours (Table) 03/11/23 03/12/23 03/12/23 Range/Units 20:59 06:29 06:29 RBC 3.41 L (3.80-5.40) m/uL Hgb 8.2 L (11.4-16.0) gm/dL Hct 26.7 L (34.0-46.0) % MCV 78.2 L (80.0-100.0) fL MCH 24.0 L (25.0-35.0) pg MCHC 30.7 L (31.0-37.0) g/dL Plt Count 489 H (150-450) k/uL Sodium (137-145) mmol/L BUN (7-17) mg/dL Creatinine (0.52-1.04) mg/dL POC Glucose (mg/dL) 166 H (70-110) mg/dL Hemoglobin A1c 8.6 H (<=6.0) % Calcium (8.4-10.2) mg/dL AST (14-36) U/L Total Protein (6.3-8.2) g/dL Albumin (3.5-5.0) g/dL 03/12/23 03/12/23 03/12/23 Range/Units 06:29 11:46 16:26 RBC (3.80-5.40) m/uL Hgb (11.4-16.0) gm/dL Hct (34.0-46.0) % MCV (80.0-100.0) fL MCH (25.0-35.0) pg MCHC (31.0-37.0) g/dL Plt Count (150-450) k/uL Sodium 131 L (137-145) mmol/L BUN 35 H (7-17) mg/dL Creatinine 1.29 H (0.52-1.04) mg/dL POC Glucose (mg/dL) 125 H 134 H (70-110) mg/dL Hemoglobin A1c (<=6.0) % Calcium 8.2 L (8.4-10.2) mg/dL AST 39 H (14-36) U/L Total Protein 5.8 L (6.3-8.2) g/dL Albumin 2.9 L (3.5-5.0) g/dL
[2023-03-12 20:09] LABS: Glucose,Whole Blood 219 mg/dL (70-110)
[2023-03-12] MEDS: DIVALPROEX 500 MG TABLET.DR PO SCH (21:31)
[2023-03-13] MEDS: metroNIDAZOLE-NS PMX 500 MG in SALINE 1 100ML.BAG IVPB SCH ×2 (00:25→10:00)
[2023-03-13 06:06] LABS: Glucose,Whole Blood 159 mg/dL (70-110)
[2023-03-13] MEDS: INSULIN ASPART (NovoLOG) 100 UNIT/ML VIAL SQ SCH ×2 (06:38→13:30)
[2023-03-13] MEDS: LEVOTHYROXINE 50 MCG TAB PO SCH (06:38)
[2023-03-13] MEDS: SYMBICORT 160-4.5 MCG INHALER INHALATION SCH (08:08)
[2023-03-13 08:27] VITALS: RESP 17; TEMP 98.3
[2023-03-13] MEDS: HYDROmorphone 1 MG/ML 1 ML SYRINGE IVP PRN (08:53)
[2023-03-13] MEDS: FENOFIBRATE 160 MG TAB PO SCH (09:48)
[2023-03-13] MEDS: carvediloL 3.125 MG TAB PO SCH (09:48)
[2023-03-13] MEDS: ESCITALOPRAM 10 MG TAB PO SCH (09:48)
[2023-03-13] MEDS: HEPARIN SODIUM,PORCINE 5,000 UNIT/ML 1 ML VIAL SQ SCH (09:53)
[2023-03-13] MEDS ORDERED: HYDROcodone/APAP 5-325MG 1 EACH TAB PO PRN (10:39)
[2023-03-13] MEDS: PANTOPRAZOLE 40 MG/10 ML VIAL IVP SCH (10:58)
[2023-03-13 11:07] LABS: Basophils # (A) 0.07 X 10*3/uL (0.00-0.10); Basophils % (A) 0.8 %; Eosinophils # (A) 0.16 X 10*3/uL (0.04-0.35); Eosinophils % (A) 1.9 %; HCT 27.7 % (37.2-46.3); Lymphocytes # (A) 2.32 X 10*3/uL (0.90-5.00); Lymphocytes % (A) 27.6 %; MCH 22.9 pg (27.0-32.0); MCHC 28.9 d/dL (32.0-37.0); MCV 79.1 FL (80.0-97.0); Mean Platelet Volume 9.4 FL (9.5-12.2); Monocytes # (A) 0.81 X 10*3/uL (0.20-1.00); Monocytes % (A) 9.6 %; NRBC Per 100 WBC 0 X 10*3/uL (0.00-0.01); Neutrophils # (A) 4.87 X 10*3/uL (1.80-7.70); Platelet Count 483 X 10*3/uL (140-440); RDW 15.5 % (11.5-14.5); WBC 8.41 X 10*3/uL (4.50-10.00)
[2023-03-13 11:33] LABS: Glucose,Whole Blood 186 mg/dL (70-110)
[2023-03-13 12:04] LABS: BUN/Creat Ratio 27.43 Ratio (12.00-20.00); Blood Urea Nitrogen 19.2 mg/dL (9.0-27.0); Carbon Dioxide 25.6 mmol/L (21.6-31.8); Chloride 103 mmol/L (96-109); Glucose 127 mg/dL (70-110); Potassium 4.7 mmol/L (3.5-5.5); Sodium 138 mmol/L (135-145)
[2023-03-13 13:14] VITALS: BP 114/66; PULSE 81; BMI 36.2
--- NOTE | 2023-03-13 13:29 | P.PN ---
Subjective Progress Note Date: 03/13/23 CHIEF COMPLAINT: Obstructing mass of the right colon HISTORY OF PRESENT ILLNESS: Patient is postop day #4 status post exploratory laparotomy with right colectomy. Patient is having bowel movements. Her pain is controlled. She has been up and ambulating. Denies any difficulty urinating. She is tolerating diet. She is afebrile. WBC 8.41 Hgb 8.0 platelets 483 sodium is 13 potassium 4.7 creatinine normalized at 0.7 PHYSICAL EXAM: VITAL SIGNS: Reviewed. GENERAL: Well-developed in no acute distress. ABDOMEN: Soft. Nondistended. Incision clean dry and intact NEUROLOGIC: Alert and oriented. Cranial nerves II through XII grossly intact. ASSESSMENT: 1. Obstructing mass of the right colon status post exploratory laparotomy with right colectomy 2. Acute kidney injury resolved PLAN: -Patient can be discharged from surgical standpoint -Encouraged patient ambulate -Continue to wear abdominal binder for comfort -Asked rehabilitation caseworker to reassess patient's home care needs and physical therapy. Also patient is requesting a different sized walker for home. -DVT prophylaxis subcu heparin Physician Invoicing Specialist note has been reviewed by physician. Signing provider agrees with the documented findings, assessment, and plan of care. I have personally seen and examined the patient, reviewed the OIL PIPE INSPECTOR HELPER /PAs history, exam and MDM and agree with the assessment and plan as written. Based on total v isit time, I have performed more than 50% of the visit. As above: Patient doing well today. Pathology reviewed with patient and family. She would like to go home. September discharge. Follow-up one week. Objective - Vital Signs Vital signs: Vital Signs Temp 98.3 F 03/13/23 07:11 Pulse 78 03/13/23 07:11 Resp 17 03/13/23 07:11 BP 146/74 03/13/23 07:11 Pulse Ox 95 03/13/23 08:13 FiO2 Intake & Output 03/12/23 03/13/23 03/13/23 18:59 06:59 18:59 Output Total 250 2 Balance -250 -2 Output: Urine 250 Stool 2 Other: Voiding Method Diaper # Voids 5 # Bowel Movements 3 - Labs CBC & Chem 7: 03/13/23 07:27 03/13/23 07:27 Labs: Abnormal Lab Results - Last 24 Hours (Table) 1003/12/23 03/12/23 Range/Units 11:46 16:26 20:07 RBC (4.10-5.20) X 10*6/uL Hgb (12.0-15.0) d/dL Hct (37.2-46.3) % MCV (80.0-97.0) FL MCH (27.0-32.0) pg MCHC (32.0-37.0) d/dL RDW (11.5-14.5) % Plt Count (140-440) X 10*3/uL MPV (9.5-12.2) FL POC Glucose (mg/dL) 125 H 134 H 219 H (70-110) mg/dL 03/13/23 03/13/23 Range/Units 06:05 07:27 RBC 3.50 L (4.10-5.20) X 10*6/uL Hgb 8.0 L (12.0-15.0) d/dL Hct 27.7 L (37.2-46.3) % MCV 79.1 L (80.0-97.0) FL MCH 22.9 L (27.0-32.0) pg MCHC 28.9 L (32.0-37.0) d/dL RDW 15.5 H (11.5-14.5) % Plt Count 483 H (140-440) X 10*3/uL MPV 9.4 L (9.5-12.2) FL POC Glucose (mg/dL) 159 H (70-110) mg/dL
[2023-03-13] MEDS: diphenhydrAMINE ELIXIR 25 MG/10 ML CUP PO PRN (13:39)
--- NOTE | 2023-03-13 14:59 | P.DS ---
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 status post right colectomy 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 Episode of decreased responsiveness likely related to pain Thrombocytosis Severe iron deficiency anemia, Iron saturation 3.49 Acute kidney injury, possible ATN Systolic congestive heart failure with ejection fraction 45-50% Hypertension Dyslipidemia Hyperglycemia Itching Acute on chronic hypoxic respiratory failure due to acute exacerbation of moderate persistent bronchial asthma Lactic acidosis, resolved Leukocytosis, resolved Hospital Course: Patient is an 82-year-old female with COPD complicated by chronic hypoxic respiratory failure on 2 L nasal cannula, chronic systolic congestive heart failure with ejection fraction 45-50%, hypertension, dyslipidemia, and multiple other comorbid conditions who presented to the ER with complaints of right-sided abdominal discomfort. The ER she underwent an extensive evaluation. She underwent a CT of the chest which was negative for pulmonary embolism and a CT abdomen and pelvis which showed irregular wall thickening at the site of the ascending colon resulting in a fecal ball of the cecum measuring 8.9 cm with fat stranding changes concerning for malignancy. Patient was admitted for further monitoring. Consult was placed Dr. Buckley and Dr. Lange. Patient subsequently underwent a right-sided colectomy due to obstructing mass on 03/09/23. She developed some post-op JESENIA and hypotension which improved with medication adjustment and IVF. Her renal functions improved, she was tolerating a diet, and having bowel movemens. She was determiend stable for discahrge. Follow-up: Dr. Lange on 03/19/23, Dr. Saxena on 03/20/23 with [facility] care. Kirkland 5/325 mg q 6 hours prn pain remainder of medications are unchanged. Patient seen and examined at bedside. Pain is well controlled. Having multiple bowel movements. TOlerating her diet Vital signs reviewed and stable. General: nontoxic, no distress, appears at stated age Cardiovascular: S1S2 reg, no murmur, positive posterior tibial pulse bilateral, Lungs: CTA bilateral, no rhonchi, no rales , no accessory muscle use Abdominal: soft, non tender to palpation, no appreciable organomegaly Ext: no gross muscle atrophy, 2+ edema b/l lower extremities, no contractures Neuro: CN II-XI grossly intact, no focal neuro deficits Psych: Alert, oriented, appropriate affect A total of 37 minutes of time were spent preparing this complex discharge summary. Patient was discharged on 03/13/23. This dictation was prepared using [employer] voice recognition software. Though every attempt is made to correct errors during dictation some may still exist. Patient Condition at Discharge: Stable Plan - Discharge Summary Discharge Rx Participant: Yes New Discharge Prescriptions: New HYDROcodone/APAP 5-325MG [Kirkland 5-325] 1 tab PO Q6HR PRN 3 Days #12 tab PRN Reason: Pain Continue Levothyroxine Sodium [Synthroid] 50 mcg PO DAILY Fenofibrate,Micronized [Fenofibrate] 134 mg PO DAILY Divalproex Sodium [Depakote] 1,000 mg PO HS Loratadine [Claritin] 10 mg PO DAILY Valsartan [Diovan] 320 mg PO DAILY 30 Days #60 tab carvediloL [Coreg] 3.125 mg PO BID@0900,1800 Tolterodine ER [Detrol LA] 4 mg PO DAILY Omeprazole 20 mg PO DAILY Fluticasone Propionate [Flovent Hfa 220 mcg] 2 puff INHALATION RT-BID Escitalopram [Lexapro] 10 mg PO DAILY Furosemide [Lasix] 40 mg PO DAILY 30 Days #30 tab Ergocalciferol [Vitamin D2 (1250 Mcg = 84483 Iu)] 1,250 mcg PO SA Empagliflozin [Jardiance] 10 mg PO DAILY Discontinued Ferrous Sulfate [Feosol] 325 mg PO DAILY Promethazine HCl/Codeine [Phenergan with Codeine Syrup] 5 ml PO HS Discharge Medication List Divalproex Sodium [Depakote] 1,000 mg PO HS 10/20/20 [History] Fenofibrate,Micronized [Fenofibrate] 134 mg PO DAILY 10/20/20 [History] Levothyroxine Sodium [Synthroid] 50 mcg PO DAILY 10/20/20 [History] Omeprazole 20 mg PO DAILY 10/20/20 [History] Tolterodine ER [Detrol LA] 4 mg PO DAILY 10/20/20 [History] Escitalopram [Lexapro] 10 mg PO DAILY 10/26/21 [History] Fluticasone Propionate [Flovent Hfa 220 mcg] 2 puff INHALATION RT-BID 10/26/21 [History] Loratadine [Claritin] 10 mg PO DAILY 10/26/21 [History] Furosemide [Lasix] 40 mg PO DAILY 30 Days #30 tab 10/28/21 [Rx] Valsartan [Diovan] 320 mg PO DAILY 30 Days #60 tab 10/28/21 [Rx] Empagliflozin [Jardiance] 10 mg PO DAILY 03/08/23 [History] Ergocalciferol [Vitamin D2 (1250 Mcg = 05912 Iu)] 1,250 mcg PO SA 03/08/23 [History] carvediloL [Coreg] 3.125 mg PO BID@0900,1800 03/08/23 [History] HYDROcodone/APAP 5-325MG [Kirkland 5-325] 1 tab PO Q6HR PRN 3 Days #12 tab 03/13/23 [Rx] Follow up Appointment(s)/Referral(s): Cassius Lange MD [Medical Doctor] - 03/19/23 2:30 pm [facility], [NON-STAFF] - 1-2 Days (Homecare agency will call and schedule first visit. ) Bennett Saxena DO [Primary Care Provider] - 03/20/23 2:20 pm Patient Instructions/Handouts: Laparoscopic Bowel Resection (DC) Activity/Diet/Wound Care/Special Instructions: Activity: As tolerated Diet: Regular Special Instructions: Keep legs elevated Take your water pill Get up and walk a little every hour Thank you for trusting us with your care. We wish you well on your journey to better health. Discharge Disposition: HOME SELF-CARE
--- NOTE | 2023-03-13 19:02 | P.PN ---
Subjective Progress Note Date: 03/13/23 I am seeing this patient in consultation today 03/10/2023 on the general medical floor after she was admitted 2 days ago for severe abdominal pain, was found to have an obstructing colonic mass, and is status postoperative day #1 following an exploratory laparotomy and right hemicolectomy. Patient is a 82-year-old white female past medical history significant for moderate persistent bronchial asthma, chronic hypoxemic respiratory failure, hypertension, hyperlipidemia, congestive heart failure, GERD, hypothyroidism. She is a lifelong nonsmoker. She does follow in the pulmonary office with Dr. Buckley for management of her moderate chronic bronchial asthma. Patient normally manages her asthma with a combination of Flovent and when necessary albuterol nebulizations/Ventolin HFA. Patient presented to emergency room back on February, after she was witnessed to have a near syncopal event by her daughter earlier that day. She also had been experiencing severe abdominal pain that started on Friday and has progressively worsened. Patient did have some accompanying nausea and vomiting. Denies hematemesis or bloody bowel movements. Admits some constipation. Denies significant weight loss. She states that she's never had a colonoscopy. Abdominal and pelvis CT with contrast showed irregular wall thickening of ascending colon resulting in a fecal ball in the cecum measuring up to 8.9 cm with fat stranding changes around the cecum. Findings concerning for malignancy with obstruction and possibly resulting in stecoral colitis. Patient is status postoperative day #1 following a exploratory laparotomy and right hemicolectomy. She is recovering on the general medical floor. Patient is currently sitting up in bed, on 2 L/m nasal cannula, in no acute distress. There is a midline abdominal incision that appears approximated. Patient's diet has been advanced to clears. Incentive spirometer is at bedside, and patient achieves around thousand. We were consulted for dyspnea. Patient does have chronic shortness of breath, that she states began after she contracted Covid 19 pneumonia approximately 2 years ago. She states she has been oxygen dependent on 2 L/min nasal cannula since. Denies any acute cough, chest pain, hemoptysis. Chest x- ray arrival showed no acute cardiopulmonary process. Follow-up chest CTA showed no evidence of pulmonary embolism. There is cardiomegaly with mild pulmonary vascular congestion. NT proBNP was only 714. On auscultation, the patient does have scattered expiratory wheezes. Patient's home medications for asthma have been restarted including Flovent and when necessary DuoNeb's. Most recent CBC from yesterday shows a WBC count 11.1, hemoglobin 8.7, hematocrit 28.6, platelets 485. Most recent BMP from yesterday shows sodium 138, potassium 4.7, chloride 101, serum bicarb 27, BUN 29, creatinine 0.6, glucose 137. LFTs not elevated. Troponin non-elevated. Initial urinalysis felt to be contaminated. Repeat not particularly concerning. Patient is currently empirically covered on a combination of Rocephin and Flagyl for possible abdominal sepsis. Afebrile. Appears hemodynamically stable. On today's evaluation of 03/11/2020, the patient remains on oxygen at 2-3 L. No respiratory difficulties. No cough or sputum production. No shortness of breath. She has not passed a bowel movement yet. She has not been passing f latness. Surgical wound is dry clean and intact and the patient has some limited bowel sounds. The patient otherwise, comfortable. She was having some increase restlessness and agitation yesterday and this was attributed to the systemic steroids as the patient was receiving IV Solu-Medrol. The medication was discontinued. No delirium. No change in mental status. No agitation. No confusion. Review blood work today shows a creatinine of 1.7 which is slightly higher compared to yesterday. BUN is at 37. Sodium level is at 135. The hemoglobin is stable at 7.7 with a white cell count of 11.8. No signs of any GI bleeding at this point in time. No other complaints otherwise for now. GI surgeries on the case. The patient is using the incentive spirometer. Today's evaluation of 03/12/2023, the patient is being seen for a follow-up. Patient is doing well up in no specific complaints. Abdominal wound is clean. The patient is totally. Tolerating diet. No respiratory distress. Kidney function continues to improve and the creatinine is down to 1.3. Producing adequate amount of urine output. She remains on lactated Ringer at the rate of 50 mL an hour. She remains on IV Rocephin and Flagyl. The patient is also getting a white cell count of 9.2, hemoglobin 8.2, platelets of 489, the BUN is at 35 with a creatinine of 1.29 and a sodium level is at 131 with a potassium le ector of 4.3. She remains on oxygen at 3 L per minute nasal cannula with a pulse of 96%. She is using the incentive spirometer. On today's evaluation of 03/13/2023, the patient is doing well. No specific complaints. Tolerating full diet. No nausea or vomiting. No abdominal pain. She is having bowel movements. Renal function has improved. The patient has no significant respiratory difficulties. She remains on oxygen at 2 L/m nasal cannula and the patient has home O2. Final pathology was consistent with invasive moderately differentiated adenocarcinoma with invasion of the pericolic fibroadipose tissue and the margins were negative and the lymph nodes were also negative. The patient has iron deficiency and the patient has received 3 doses of IV iron in the hospital. The patient has systolic heart failure with an ejection fraction of 45-50%. Rest of the comorbidities with hypertension and hyperlipidemia and COPD with chronic hypoxic respiratory failure and morbid obesity. Objective - Vital Signs Vital signs: Vital Signs Temp 98.3 F 03/13/23 07:11 Pulse 78 03/13/23 07:11 Resp 17 03/13/23 07:11 BP 146/74 03/13/23 07:11 Pulse Ox 95 03/13/23 08:13 FiO2 Intake & Output 03/12/23 03/13/23 03/13/23 18:59 06:59 18:59 Output Total 250 2 Balance -250 -2 Output: Urine 250 Stool 2 Other: Voiding Method Diaper # Voids 5 # Bowel Movements 3 - Exam GENERAL EXAM: Alert, 82-year-old white female appearing stated age, comfortable in no apparent distress. The patient is currently on 3 L of oxygen by nasal cannula HEAD: Normocephalic and atraumatic EYES: Normal reaction of pupils, equal size. NOSE: Clear with pink turbinates. THROAT: No erythema or exudates. NECK: No masses, no JVD. CHEST: No chest wall deformity. LUNGS: Equal air entry with bibasilar inspiratory crackles and scattered expir atory wheezes. No rhonchi or focal dullness. On 3 L per minute nasal cannula. No conversational dyspnea or accessory muscle use.. CVS: S1 and S2 normal with no audible murmur, regular rhythm. No extra heart sounds ABDOMEN: Midline abdominal incision appears approximated. Incisional dressing is clean, dry, intact. Abdominal binder is in place. no hepatosplenomegaly, active bowel sounds, no guarding or rigidity. SPINE: No scoliosis or deformity SKIN: No rashes CENTRAL NERVOUS SYSTEM: No focal deficits, tone is normal in all 4 extremities. EXTREMITIES: There is no peripheral edema, clubbing, or cyanosis. Peripheral pulses are intact. - Labs CBC & Chem 7: 03/13/23 07:27 03/13/23 07:27 Labs: Abnormal Lab Results - Last 24 Hours (Table) 03/12/23 03/12/23 03/12/23 Range/Units 11:46 16:26 20:07 POC Glucose (mg/dL) 125 H 134 H 219 H (70-110) mg/dL 03/13/23 Range/Units 06:05 POC Glucose (mg/dL) 159 H (70-110) mg/dL Assessment and Plan Assessment: Obstructive colonic mass and sterocoral colitis status postoperative day # 4 following a exploratory laparotomy with right hemicolectomy. The patient is stooling. The patient is tolerating diet. Abdominal wound is clean. Acute on chronic hypoxemic respiratory failure, currently on 2 L/m nasal cannula, secondary to suspected acute exacerbation of moderate persistent bronchial asthma and above. Acute kidney injury related to use of contrast, hypotension and surgery. This is a ATN. The renal function continues to improve the patient's creatinine is down to 1.29 Near syncope Microcytic hypochromic anemia, and the patient was given IV iron 3 in the hospital. Leukocytosis, improving Benign essential hypertension Hyperlipidemia History of systolic CHF Hypothyroidism GERD, without esophagitis Obesity, with a BMI of 36.2 kg/m Never smoker Plan: Patient is doing extremely well and she is postop day #4 No agitation or delirium Supplemented oxygen and titrate oxygen flow to maintain saturation above 90%, wean down FiO2 currently on 2 Continue Symbicort inhaler, DuoNeb's, and no need for steroids Final pathology was consistent with moderately differentiated adenocarcinoma of the colon with invasion of the fibroadipose tissue and negative lymph nodes Renal function continues to improve Patient is to be discharged today to be followed up by general surgery and sc dical oncology. The patient has home O2. She will go home either on Symbicort her Flovent which is her maintenance inhaler.
--- NOTE | 2023-03-14 14:24 | CDI ---
Documentation Clarification Form Date: 03/14/2023 01:51:31 PM From: Giovanna Gregory Admit Date: 03/08/2023 08:13:00 PM Patient Name: Nancy Archer Visit Number: [id number] Discharge Date: 03/13/2023 03:42:00 PM ATTENTION: The Clinical Documentation Specialists (CDI) and [facility] Coding Staff appreciate your assistance in clarifying documentation. Please respond to the clarification below the line at the bottom and electronically sign. The CDI & [facility] Coding staff will review the response and follow-up if needed. Please note: Queries are made part of the Legal Health Record. If you have any questions, please contact the author of this message via ITS. Dr. Galeana Possible abdominal Sepsis is documented in consult note 03/10 and progress notes 03/11,03/12, 03/13, but is not noted in subsequent documentation or confirmed. Clarification is requested. History/Risk Factors: patient is an 82 year old female who presented with an episode of possible syncope. Has a history of COPD, GERD, HLD, HTN, Hypothyroid, anxiety and depression. Clinical Indicators: Presented with syncope, she was staring and not responding. Has been feeling weak, congested, and coughing. Reports right sided abdominal pain, but has been having regular bowel movements. 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 Underwent a right colectomy. Additional diagnoses are thrombocytosis, JESENIA with ATN, leukocytosis, and lactic acidosis. Lab: WBC: 13.5, Lactic acid 2.2 Treatment: patient was empirically covered on a combination of Rocephin and Flagyl for possible abdominal sepsis, and had a right hemicolectomy. Please clarify if the abdominal Sepsis is: [ ] Sepsis confirmed and present on admit, remains under treatment [ ] Sepsis confirmed and present on admit, resolved [ X ] Sepsis ruled out [ ] Other condition, please specify [ ] Unable to determine MTDD
--- NOTE | 2023-03-14 15:14 | CDI ---
Documentation Clarification Form Date: 03/14/2023 02:47:24 PM From: Magdalene Moreira RN CCDS Phone: [phone] Admit Date: 03/08/2023 08:13:00 PM Patient Name: Nancy Archer Visit Number: [id number] Discharge Date: 03/13/2023 03:42:00 PM ATTENTION: The Clinical Documentation Specialists (CDI) and [facility] Coding Staff appreciate your assistance in clarifying documentation. Please respond to the clarification below the line at the bottom and electronically sign. The CDI & [facility] Coding staff will review the response and follow-up if needed. Please note: Queries are made part of the Legal Health Record. If you have any questions, please contact the author of this message via ITS. Dr. Cassius Lange Post-operative Hypotension is documented in the medicine progress notes dated 03/11 through discharge and patient had exploratory laparotomy with right colectomy, 03/09. Additional clarification is requested regarding the relationship, if any, that exists between the diagnosis and the procedure. Patients Admitting Diagnosis: Obstructing mass right colon Post-Operative Diagnosis: Same Procedure performed: Exploratory Laparotomy with right colectomy History/Risk Factors: 82 year old female presented to the ED with right sided abdominal discomfort. Medical History: Severe iron deficiency anemia, CHF, HTN and chronic respiratory failure. 03/08, H&P Clinical Indicators: HGB: 03/08 9.8; 03/09 8.7; 03/10 8.3; 03/11 7.7; 03/11 8.0 03/10 01:29 B/P 92/47 HR 73 RR 16 SpO2 96% 2L nc 07:31 B/P 94/60 HR 70 RR 17 SpO2 96% 2L nc 14:00 B/P 88/50 HR 64 RR 16 SpO2 91% room air 03/11 12:52 B/P 80/44 HR 69 RR 15 SpO2 95% 3L nc Treatment: 110 Lactat0 Ferric Sodium IVPB Daily; 03/11 0.9 NS 500cc IV Bolus What relationship, if any, exists between the diagnosis of [insert dx] and the procedure: [ ] Hypotension is a complication of surgical procedure [ X] Hypotension is related to patients co-morbid condition(s) of [insert co- morbid dxs] bowel obstruction & not a complication of the procedure [ ] Other please specify ____ [ ] Unable to determine (Template Last Revised: July 2020) MTDD
== END 2023-03-13 15:42 | disposition home or self-care (01) | DRG 329 ==
LOC: EC 15:09 → 4SSUR 20:13
PROVIDERS: ADMIT Internal Medicine; ATTEND Internal Medicine
PROC: 0DTF0ZZ Resection of Right Large Intestine, Open Approach (ICD-10-PCS; principal; 2023-03-09 12:36)
DX: C18.2 Malignant neoplasm of ascending colon (principal); J96.21 Acute and chronic respiratory failure with hypoxia; N17.0 Acute kidney failure with tubular necrosis; N39.0 Urinary tract infection, site not specified; I50.22 Chronic systolic (congestive) heart failure; J45.41 Moderate persistent asthma with (acute) exacerbation; E87.1 Hypo-osmolality and hyponatremia; E87.20 Acidosis, unspecified; D75.839 Thrombocytosis, unspecified; D50.9 Iron deficiency anemia, unspecified; I11.0 Hypertensive heart disease with heart failure; Z68.36 Body mass index [BMI] 36.0-36.9, adult; L29.9 Pruritus, unspecified; T40.2X5A Adverse effect of other opioids, initial encounter; R45.1 Restlessness and agitation; T38.0X5A Adverse effect of glucocorticoids and synthetic analogues, initial encounter; I95.9 Hypotension, unspecified; N99.0 Postprocedural (acute) (chronic) kidney failure; K21.9 Gastro-esophageal reflux disease without esophagitis; J44.89 Other specified chronic obstructive pulmonary disease; E78.5 Hyperlipidemia, unspecified; I44.0 Atrioventricular block, first degree; F41.9 Anxiety disorder, unspecified; F32.A Depression, unspecified; E87.8 Other disorders of electrolyte and fluid balance, not elsewhere classified; E87.5 Hyperkalemia; E66.01 Morbid (severe) obesity due to excess calories; K59.00 Constipation, unspecified; R73.9 Hyperglycemia, unspecified; D63.0 Anemia in neoplastic disease; E03.9 Hypothyroidism, unspecified; Z91.040 Latex allergy status; Z88.8 Allergy status to other drugs, medicaments and biological substances; Z99.81 Dependence on supplemental oxygen; Z87.01 Personal history of pneumonia (recurrent); Z86.16 Personal history of COVID-19; Z79.899 Other long term (current) drug therapy; Z79.890 Hormone replacement therapy; Z79.84 Long term (current) use of oral hypoglycemic drugs; Z79.51 Long term (current) use of inhaled steroids
CPT/HCPCS: 36415; 64488; 70450; 71046; 71275; 74177; 76770; 80048; 80053; 81001; 82728; 83036; 83540; 83550; 83605; 83735; 83880; 84484; 85025; 85027; 85379; 85610; 85730; 86850; 86900; 86901; 88309; 88341; 88342; 93005; 94640; 94760; 96361; 96365; 99285

== ENCOUNTER → 2023-04-22 | Outpatient (CLI) | payer MEDICARE ==
[~2023-04-22] MED LIST: IRON SUCROSE 200 MG in SODIUM CHLORIDE 0.9% 100 ML IVPB NR; SODIUM CHLORIDE 0.9% 500 ML 500 ML in EMPTY BAG 1 BAG IV PRN
[2023-04-22 10:38] VITALS: BP 131/74; PULSE 70; RESP 16; TEMP 97.6
== END ==
LOC: PROCWHC3 10:12
PROVIDERS: ATTEND Family Medicine
DX: D50.8 Other iron deficiency anemias (principal); N17.9 Acute kidney failure, unspecified; D63.1 Anemia in chronic kidney disease
CPT/HCPCS: 96365; J1756

== ENCOUNTER 2023-09-03 10:05 | Emergency (ER) | payer MEDICARE ==
--- NOTE | 2023-09-03 10:32 | ED ---
General Adult HPI - General Source: patient, family, RN notes reviewed, old records reviewed Mode of arrival: ambulatory Limitations: no limitations <Bennett Calderón - Last Filed: 09/03/23 10:31> <Colleen Barclay - Last Filed: 09/03/23 15:21> - General Chief complaint: Back Pain/Injury Stated complaint: Abd Pain Time Seen by Provider: 09/03/23 10:15 - History of Present Illness Initial comments: Quick [id number] female presents emergency department with family for evaluation of left-sided back pain flank pain abdominal discomfort. She had prior surgery and notified Dr. Lange who recommended come to respiratory for evaluation she states she has increased abdominal pain distention and bloating. She states that she had a prior tumor. (Bennett Calderón) 82-year-old female presenting for left-sided flank pain. States about 3 days ago she hit her back on the corner of a table and since then has had severe pain in the left flank that radiates to the abdomen. She had a tumor removed from left-sided colon by Dr. Lange 6 months ago and has no issues since. Spoke with Dr. Chaves today who sent her to the ER. Denies nausea, vomiting, fever (Colleen Barclay) - Related Data Home Medications Medication Instructions Recorded Confirmed Divalproex Sodium [Depakote] 1,000 mg PO HS 10/20/20 09/03/23 Fenofibrate,Micronized 134 mg PO DAILY 10/20/20 09/03/23 [Fenofibrate] Levothyroxine Sodium [Synthroid] 50 mcg PO DAILY 10/20/20 09/03/23 Omeprazole 20 mg PO DAILY 10/20/20 09/03/23 Tolterodine ER [Detrol LA] 4 mg PO DAILY 10/20/20 09/03/23 Escitalopram [Lexapro] 10 mg PO DAILY 10/26/21 09/03/23 Loratadine [Claritin] 10 mg PO DAILY 10/26/21 09/03/23 Empagliflozin [Jardiance] 10 mg PO DAILY 03/08/23 09/03/23 carvediloL [Coreg] 3.125 mg PO BID 03/08/23 09/03/23 Previous Rx's Medication Instructions Recorded Furosemide [Lasix] 40 mg PO DAILY 30 Days #30 tab 10/28/21 Valsartan [Diovan] 320 mg PO DAILY 30 Days #60 tab 10/28/21 Cephalexin [Keflex] 500 mg PO Q12HR 7 Days #14 cap 09/03/23 Allergies Allergy/AdvReac Type Severity Reaction Status Date / Time Latex, Natural Rubber Allergy Intermediate Rash/Hives Verified 09/03/23 14:03 steroids AdvReac Severe Confusion Uncoded 09/03/23 14:03 Review of Systems ROS Other: All systems not noted in ROS Statement are negative. <Bennett Calderón - Last Filed: 09/03/23 10:31> ROS Other: All systems not noted in ROS Statement are negative. <Colleen Barclay - Last Filed: 09/03/23 15:21> ROS Statement: Those systems with pertinent positive or pertinent negative responses have been documented in the HPI. Past Medical History Past Medical History: COPD, GERD/Reflux, Hyperlipidemia, Hypertension, Thyroid Disorder History of Any Multi-Drug Resistant Organisms: None Reported Past Surgical History: Bowel Resection, Hysterectomy Past Anesthesia/Blood Transfusion Reactions: No Reported Reaction Past Psychological History: Anxiety, Depression Smoking Status: Never smoker Past Alcohol Use History: None Reported Past Drug Use History: None Reported - Past Family History Mother Family Medical History: GERD/Reflux Father Additional Family Medical History / Comment(s): brain anyrism <Bennett Calderón - Last Filed: 09/03/23 10:31> General Exam Limitations: no limitations <Bennett Calderón - Last Filed: 09/03/23 10:31> General appearance: alert, in no apparent distress Head exam: Present: atraumatic, normocephalic, normal inspection Respiratory exam: Present: normal lung sounds bilaterally. Absent: respiratory distress, wheezes, rales, rhonchi, stridor Cardiovascular Exam: Present: regular rate, normal rhythm, normal heart sounds. Absent: systolic murmur, diastolic murmur, rubs, gallop, clicks GI/Abdominal exam: Present: soft, tenderness (Positive tenderness in left flank.), normal bowel sounds. Absent: distended, guarding, rebound, rigid Neurological exam: Present: alert, oriented X3, CN II-XII intact Psychiatric exam: Present: normal affect, normal mood Skin exam: Present: warm, dry, intact, normal color. Absent: rash <Colleen Barclay - Last Filed: 09/03/23 15:21> - General Exam Comments Initial Comments: Visual Physical Exam Vital signs reviewed General: Well-appearing, nontoxic, no acute distress. Head: Normocephalic, atraumatic Eyes: PERRLA, EOMI ENT: Airway patent Chest: Nonlabored breathing Skin: No visual rash, normal skin tone Neuro: Alert and oriented 3 Musculoskeletal: No gross abnormalities (Bennett Calderón) Course Vital Signs 09/03/23 09/03/23 09/03/23 10:21 11:23 12:23 Temperature 97.6 F Pulse Rate 64 66 66 Respiratory 18 18 18 Rate Blood Pressure 164/73 136/74 150/72 O2 Sat by Pulse 97 96 96 Oximetry 09/03/23 09/03/23 09/03/23 13:23 14:23 15:00 Temperature Pulse Rate 62 66 68 Respiratory 16 18 18 Rate Blood Pressure 146/79 142/74 O2 Sat by Pulse 95 98 98 Oximetry Medical Decision Making <Bennett Calderón - Last Filed: 09/03/23 10:31> - Lab Data Result diagrams: 09/03/23 10:53 09/03/23 10:53 <Colleen Barclay - Last Filed: 09/03/23 15:21> - Medical Decision Making I completed the quick note portion of this chart signed Bennett Calderón PA-C (Bennett Calderón) - Lab Data Lab Results 09/03/23 09/03/23 09/03/23 Range/Units 10:53 10:53 10:53 WBC 5.8 (3.8-10.6) k/uL RBC 4.42 (3.80-5.40) m/uL Hgb 12.2 (11.4-16.0) gm/dL Hct 37.7 (34.0-46.0) % MCV 85.4 (80.0-100.0) fL MCH 27.6 (25.0-35.0) pg MCHC 32.3 (31.0-37.0) g/dL RDW 15.7 H (11.5-15.5) % Plt Count 319 (150-450) k/uL MPV 8.0 Neutrophils % 55 % Lymphocytes % 33 % Monocytes % 6 % Eosinophils % 4 % Basophils % 1 % Neutrophils # 3.2 (1.3-7.7) k/uL Lymphocytes # 1.9 (1.0-4.8) k/uL Monocytes # 0.3 (0-1.0) k/uL Eosinophils # 0.2 (0-0.7) k/uL Basophils # 0.0 (0-0.2) k/uL PT 11.1 (10.0-12.5) sec INR 1.0 (<1.2) APTT 23.6 (22.0-30.0) sec Sodium 141 (137-145) mmol/L Potassium 4.1 (3.5-5.1) mmol/L Chloride 104 (98-107) mmol/L Carbon Dioxide 30 (22-30) mmol/L Anion Gap 7 mmol/L BUN 28 H (7-17) mg/dL Creatinine 0.81 (0.52-1.04) mg/dL Est GFR (CKD-EPI)AfAm 80 (>60 ml/min/1.73 sqM) Est GFR (CKD-EPI)NonAf 69 (>60 ml/min/1.73 sqM) Glucose 134 H (74-99) mg/dL Plasma Lactic Acid [place] (0.7-2.0) mmol/L Calcium 9.3 (8.4-10.2) mg/dL Total Bilirubin 0.5 (0.2-1.3) mg/dL AST 27 (14-36) U/L ALT 14 (4-34) U/L Alkaline Phosphatase 61 (38-126) U/L Total Protein 7.1 (6.3-8.2) g/dL Albumin 4.1 (3.5-5.0) g/dL Lipase 106 (23-300) U/L Urine Color Urine Appearance (Clear) Urine pH (5.0-8.0) Ur Specific [place] (1.001-1.035) Urine Protein (Negative) Urine Glucose (UA) (Negative) Urine Ketones (Negative) Urine Blood (Negative) Urine Nitrite (Negative) Urine Bilirubin (Negative) Urine Urobilinogen (<2.0) mg/dL Ur Leukocyte Esterase (Negative) Urine RBC (0-5) /hpf Urine WBC (0-5) /hpf Urine Bacteria (None) /hpf Urine Mucus (None) /hpf 09/03/23 09/03/23 Range/Units 10:53 13:40 WBC (3.8-10.6) k/uL RBC (3.80-5.40) m/uL Hgb (11.4-16.0) gm/dL Hct (34.0-46.0) % MCV (80.0-100.0) fL MCH (25.0-35.0) pg MCHC (31.0-37.0) g/dL RDW (11.5-15.5) % Plt Count (150-450) k/uL MPV Neutrophils % % Lymphocytes % % Monocytes % % Eosinophils % % Basophils % % Neutrophils # (1.3-7.7) k/uL Lymphocytes # (1.0-4.8) k/uL Monocytes # (0-1.0) k/uL Eosinophils # (0-0.7) k/uL Basophils # (0-0.2) k/uL PT (10.0-12.5) sec INR (<1.2) APTT (22.0-30.0) sec Sodium (137-145) mmol/L Potassium (3.5-5.1) mmol/L Chloride (98-107) mmol/L Carbon Dioxide (22-30) mmol/L Anion Gap mmol/L BUN (7-17) mg/dL Creatinine (0.52-1.04) mg/dL Est GFR (CKD-EPI)AfAm (>60 ml/min/1.73 sqM) Est GFR (CKD-EPI)NonAf (>60 ml/min/1.73 sqM) Glucose (74-99) mg/dL Plasma Lactic Acid [place] 0.9 (0.7-2.0) mmol/L Calcium (8.4-10.2) mg/dL Total Bilirubin (0.2-1.3) mg/dL AST (14-36) U/L ALT (4-34) U/L Alkaline Phosphatase (38-126) U/L Total Protein (6.3-8.2) g/dL Albumin (3.5-5.0) g/dL Lipase (23-300) U/L Urine Color Colorless Urine Appearance Clear (Clear) Urine pH 6.5 (5.0-8.0) Ur Specific [place] 1.019 (1.001-1.035) Urine Protein Negative (Negative) Urine Glucose (UA) 3+ H (Negative) Urine Ketones Negative (Negative) Urine Blood Negative (Negative) Urine Nitrite Negative (Negative) Urine Bilirubin Negative (Negative) Urine Urobilinogen <2.0 (<2.0) mg/dL Ur Leukocyte Esterase Moderate H (Negative) Urine RBC 2 (0-5) /hpf Urine WBC 23 H (0-5) /hpf Urine Bacteria Rare H (None) /hpf Urine Mucus Rare H (None) /hpf Disposition <Bennett Calderón - Last Filed: 09/03/23 10:31> Is patient prescribed a controlled substance at d/c from ED?: No Time of Disposition: 15:21 <Colleen Barclay - Last Filed: 09/03/23 15:21> Clinical Impression: Urinary tract infection Disposition: HOME SELF-CARE Condition: Stable Instructions (If sedation given, give patient instructions): Urinary Tract Infection in Women (DC) Additional Instructions: Please return to the Emergency Department if symptoms worsen or any other concerns. Prescriptions: Cephalexin [Keflex] 500 mg PO Q12HR 7 Days #14 cap Referrals: Bennett Saxena DO [Primary Care Provider] - 1-2 days
[2023-09-03 10:34] VITALS: TEMP 97.6
[2023-09-03 11:02] LABS: Basophils % (A) 1 %; Eosinophils # (A) 0.2 k/uL (0-0.7); Eosinophils % (A) 4 %; HCT 37.7 % (34.0-46.0); HGB 12.2 gm/dL (11.4-16.0); Lymphocytes # (A) 1.9 k/uL (1.0-4.8); Lymphocytes % (A) 33 %; MCH 27.6 pg (25.0-35.0); MCHC 32.3 g/dL (31.0-37.0); MCV 85.4 fL (80.0-100.0); Monocytes # (A) 0.3 k/uL (0-1.0); Monocytes % (A) 6 %; Neutrophils # (A) 3.2 k/uL (1.3-7.7); Neutrophils % (A) 55 %; Platelet Count 319 k/uL (150-450); RBC 4.42 m/uL (3.80-5.40); RDW 15.7 % (11.5-15.5); WBC 5.8 k/uL (3.8-10.6)
[2023-09-03 11:17] LABS: Partial Thromboplastin Time 23.6 sec (22.0-30.0); Prothrombin Time 11.1 sec (10.0-12.5)
[2023-09-03 11:24] LABS: ALT 14 U/L (4-34); AST 27 U/L (14-36); African American GFR (CKD) 80 (>60 ml/min/1.73 sqM); Albumin 4.1 g/dL (3.5-5.0); Alkaline Phosphatase 61 U/L (38-126); Anion Gap 7 mmol/L; Blood Urea Nitrogen 28 mg/dL (7-17); Calcium 9.3 mg/dL (8.4-10.2); Carbon Dioxide 30 mmol/L (22-30); Chloride 104 mmol/L (98-107); Glucose 134 mg/dL (74-99); Lipase 106 U/L (23-300); Non-African American GFR(CKD) 69 (>60 ml/min/1.73 sqM); Potassium 4.1 mmol/L (3.5-5.1); Sodium 141 mmol/L (137-145); Total Bilirubin 0.5 mg/dL (0.2-1.3); Total Protein 7.1 g/dL (6.3-8.2)
--- NOTE | 2023-09-03 13:09 | CT ---
EXAMINATION TYPE: CT abdomen pelvis w con DATE OF EXAM: 09/03/2023 COMPARISON: 03/08/2023 HISTORY: 82-year-old female Abdominal pain TECHNIQUE: Contiguous axial scanning of the abdomen and pelvis following administration of 100 ml Iso alton 300 IV contrast. Delayed images through the kidneys and coronal/sagittal reconstructions perform ed. CT DLP: 1376.9 mGycm Automated exposure control for dose reduction was used. FINDINGS: Heart borderline enlarged without pericardial effusion. Similar reticular and groundglass change in t he lower lungs. There may be mild underlying interstitial fibrosis. No pleural effusion. No focal liver lesion or biliary ductal dilatation. Portal venous system is patent. Gallbladder, adrenal glands, spleen, and pancreas within normal limits. Kidneys show a few scattered tiny renal cortical cysts measuring up to 1.1 cm and left-sided parapelv ic cyst measuring up to 1.6 cm. Symmetric uptake and excretion of contrast from both kidneys. No dilated small bowel, free fluid, or free air. No mesenteric or retroperitoneal lymphadenopathy. Patient status post partial right hemicolectomy with ileocolonic anastomosis near the hepatic flexure of the colon. There is mild to moderate stool burden. Mildly redundant sigmoid colon. No pericolic i nflammatory change. Bladder is urine distended. Infraumbilical laparotomy scar along the anterior midline. Uterus surgica lly absent. Small bilateral ovaries. Pelvic phlebolith. No abnormal fluid collection in the pelvis or pelvic lymphadenopathy. Bones: Moderate to advanced degenerative disc disease L2-L5 levels. [facility] in the lower thoracic spine. IMPRESSION: 1. INTERVAL PARTIAL RIGHT HEMICOLECTOMY. SCATTERED MILD TO MODERATE STOOL. 2. NO ACUTE INFLAMMATORY PROCESS IDENTIFIED IN THE ABDOMEN OR PELVIS TO EXPLAIN THE PATIENT'S SYMPTOM S.
[2023-09-03] MEDS: MORPHINE SULFATE 2 MG/ML SYRINGE IVP ONE ×2 (14:25→14:49)
[2023-09-03 14:41] LABS: Appearance,Urine Clear (Clear); Bacteria,Urine Rare /hpf; Bilirubin,Urine Negative (Negative); Blood,Urine Negative (Negative); Color,Urine Colorless; Glucose,Urine (UA) 3+ (Negative); Ketones,Urine Negative (Negative); Leukocyte Esterase,Urine Moderate (Negative); Mucus,Urine Rare /hpf; Nitrite,Urine Negative (Negative); PH, Urine 6.5 (5.0-8.0); Protein,Urine Negative (Negative); RBC,Urine 2 /hpf (0-5); Specific Gravity,Urine 1.019 (1.001-1.035); Urobilinogen,Urine <2.0 mg/dL (<2.0); WBC,Urine 23 /hpf (0-5)
[2023-09-03 16:13] VITALS: BP 143/80; PULSE 83; RESP 20
== END 2023-09-03 16:03 | disposition home or self-care (01) ==
LOC: EC 10:05
DX: N39.0 Urinary tract infection, site not specified (principal); Z91.040 Latex allergy status; Z88.8 Allergy status to other drugs, medicaments and biological substances
CPT/HCPCS: 36415; 80053; 83605; 83690; 85025; 85610; 85730; 81001; 74177; 99284; 96374; J2270; Q9967; 87086

== ENCOUNTER 2023-09-23 09:42 | Day surgery (SDC) | payer MEDICARE ==
[2023-09-19 11:09] VITALS: BMI 33.6
[2023-09-23] MEDS: LACTATED RINGERS 1,000 ML IV SCH (10:37)
[2023-09-23] MEDS ORDERED: PROPOFOL 10 MG/ML 20 ML VIAL IV ONE (10:51)
[2023-09-23 10:54] LABS: Glucose,Whole Blood 125 mg/dL (70-110)
--- NOTE | 2023-09-23 10:54 | P.GSHP ---
History of Present Illness H&P Date: 09/23/23 Chief Complaint: Colon cancer 83-year-old female here today for colonoscopy. Patient's doing well at this time. Underwent colon resection last fall for obstructing colon cancer. No bowel complaints currently. Past Medical History Past Medical History: Heart Failure, COPD, Diabetes Mellitus, GERD/Reflux, Hyperlipidemia, Hypertension, Thyroid Disorder History of Any Multi-Drug Resistant Organisms: None Reported Past Surgical History: Appendectomy, Bowel Resection, Hysterectomy Additional Past Surgical History / Comment(s): cataract bilateral Past Anesthesia/Blood Transfusion Reactions: No Reported Reaction Additional Past Anesthesia/Blood Transfusion Reaction / Comment(s): no blood transfusion Smoking Status: Never smoker - Past Family History Mother Family Medical History: GERD/Reflux Father Additional Family Medical History / Comment(s): brain anyrism Medications and Allergies Home Medications Medication Instructions Recorded Confirmed Type Divalproex Sodium [Depakote] 1,000 mg PO HS 10/20/20 09/23/23 History Fenofibrate,Micronized 134 mg PO DAILY 10/20/20 09/23/23 History [Fenofibrate] Levothyroxine Sodium [Synthroid] 50 mcg PO DAILY 10/20/20 09/23/23 History Omeprazole 20 mg PO DAILY 10/20/20 09/23/23 History Tolterodine ER [Detrol LA] 4 mg PO DAILY 10/20/20 09/23/23 History Escitalopram [Lexapro] 20 mg PO DAILY 10/26/21 09/23/23 History Loratadine [Claritin] 10 mg PO DAILY 10/26/21 09/23/23 History Furosemide [Lasix] 40 mg PO DAILY 30 Days #30 tab 10/28/21 09/23/23 Rx Valsartan [Diovan] 320 mg PO DAILY 30 Days #60 tab 10/28/21 09/23/23 Rx Empagliflozin [Jardiance] 10 mg PO DAILY 03/08/23 09/23/23 History carvediloL [Coreg] 3.125 mg PO BID 03/08/23 09/23/23 History Ferrous Sulfate [Feosol] 325 mg PO DAILY 09/19/23 09/23/23 History Allergies Allergy/AdvReac Type Severity Reaction Status Date / Time Latex, Natural Rubber Allergy Intermediate Rash/Hives Verified 09/23/23 10:24 albuterol Allergy Dyspnea Verified 09/23/23 10:24 fluticasone Allergy Dyspnea Verified 09/23/23 10:24 [From Flovent HFA] steroids AdvReac Severe Confusion Uncoded 09/23/23 10:24 Surgical - Exam Vital Signs Temp Pulse Resp BP Pulse Ox 97.8 F 74 18 116/59 92 L 09/23/23 10:40 09/23/23 10:40 09/23/23 10:40 09/23/23 10:40 09/23/23 10:40 Physical exam: General: Well-developed, well-nourished HEENT: Normocephalic, sclerae nonicteric Abdomen: Nontender, nondistended Extremities: No edema Neuro: Alert and oriented Assessment and Plan (1) Colon cancer Narrative/Plan: Will proceed with colonoscopy at this time. Current Visit: Yes Status: Acute Code(s): C18.9 - MALIGNANT NEOPLASM OF COLON, UNSPECIFIED SNOMED Code(s): 241571579
--- NOTE | 2023-09-23 11:08 | P.PCN ---
Date of Procedure: 09/23/23 Procedure(s) Performed: PREOPERATIVE DIAGNOSIS: History of colon cancer POSTOPERATIVE DIAGNOSIS: Transverse colon polyp, sigmoid colon polyp x 2, diverticulosis PROCEDURE: Colonoscopy with snare polypectomy ANESTHESIA: MAC SURGEON: Cassius Lange M.D. SPECIMENS: Polyps ENDOSCOPIC PROCEDURE: The patient was placed on the endoscopy table in the left decubitus position. The Olympus colonoscope was inserted into the anus and passed under direct visualization to the ileocolonic anastomosis. The anastomos is was widely patent. No evidence of recurrence was seen. A small polyp in the transverse colon was seen and removed using the snare with cautery technique. The descending colon appeared normal. In the distal sigmoid colon 2 small polyps were seen and again removed using the snare with cautery technique. The remainder of the sigmoid and rectum was normal. There was mild left-sided diverticulosis. Digital rectal examination was normal. The patient was taken to the recovery room in stable condition per anesthesia guidelines. RECOMMENDATIONS: Await biopsy results. Anticipate repeat colonoscopy 3 years.
[2023-09-23 11:24] VITALS: RESP 16; TEMP 97.8
[2023-09-23 12:09] VITALS: BP 152/75; PULSE 71
== END 2023-09-23 11:59 | disposition home or self-care (01) ==
LOC: ORWHC2ENDO 09:42
PROVIDERS: ATTEND Surgery
DX: Z12.11 Encounter for screening for malignant neoplasm of colon (principal); D12.3 Benign neoplasm of transverse colon; I11.0 Hypertensive heart disease with heart failure; I50.9 Heart failure, unspecified; E78.5 Hyperlipidemia, unspecified; J44.9 Chronic obstructive pulmonary disease, unspecified; K21.9 Gastro-esophageal reflux disease without esophagitis; K57.30 Diverticulosis of large intestine without perforation or abscess without bleeding; E07.9 Disorder of thyroid, unspecified; E11.9 Type 2 diabetes mellitus without complications; Z79.84 Long term (current) use of oral hypoglycemic drugs; Z85.038 Personal history of other malignant neoplasm of large intestine; Z90.49 Acquired absence of other specified parts of digestive tract; Z91.040 Latex allergy status; Z90.710 Acquired absence of both cervix and uterus; Z79.890 Hormone replacement therapy; Z83.79 Family history of other diseases of the digestive system; Z79.899 Other long term (current) drug therapy; Z88.8 Allergy status to other drugs, medicaments and biological substances; Z88.6 Allergy status to analgesic agent; Z86.010 Personal history of colon polyps
CPT/HCPCS: 88305; 45385; J2704

== ENCOUNTER 2024-05-06 12:26 | Observation (INO) | payer MEDICARE ==
[2024-05-06] MEDS: ACETAMINOPHEN TAB 500 MG TAB PO STA (13:20)
[2024-05-06 13:50] LABS: Basophils # (A) 0.1 k/uL (0-0.2); Basophils % (A) 1 %; Eosinophils # (A) 0.1 k/uL (0-0.7); Eosinophils % (A) 1 %; HCT 41.1 % (34.0-46.0); HGB 13.8 gm/dL (11.4-16.0); Lymphocytes # (A) 1.9 k/uL (1.0-4.8); Lymphocytes % (A) 18 %; MCH 28.1 pg (25.0-35.0); MCHC 33.5 g/dL (31.0-37.0); MCV 83.8 fL (80.0-100.0); Mean Platelet Volume 7.4; Monocytes # (A) 0.5 k/uL (0-1.0); Monocytes % (A) 5 %; Neutrophils # (A) 8.2 k/uL (1.3-7.7); Neutrophils % (A) 76 %; Platelet Count 270 k/uL (150-450); RDW 15.1 % (11.5-15.5); WBC 10.9 k/uL (3.8-10.6)
--- NOTE | 2024-05-06 13:56 | CT ---
EXAMINATION TYPE: CT brain cspine wo con, CT facial bones wo con CT DLP: 1227.2 mGycm, Automated exposure control for dose reduction was used. DATE OF EXAM: 05/06/2024 1:44 PM COMPARISON: CT brain 03/08/2023 CLINICAL INDICATION:Female, 83 years old with history of syncope; Fall with LOC, open wound to bridge of nose TECHNIQUE: Brain: Multiple axial CT images of the brain were obtained without IV contrast. Cspine: Axial CT images from the skull base to the inferior aspect of T2 we obtained without intraven ous contrast. Coronal and sagittal reformatted images were also reviewed. Facial bones; axial CT images of the facial bones were obtained without contrast and soft tissue and bone windows. Coronal and sagittal reformatted images were also reviewed. FINDINGS: Brain: Extra-axial spaces: No abnormal extra-axial fluid collections. Ventricular system: Within normal limits Cerebral parenchyma: Cerebral atrophy. No acute intraparenchymal hemorrhage or mass effect. The feldman -white junction is well differentiated. Scattered hypoattenuating areas are seen within the periventr icular white matter. Cerebellum: Unremarkable. Mass effect: No evidence of midline shift. Intracranial vasculature: Atherosclerotic calcifications of the intracranial vessels. Soft tissues: Foci of gas and soft tissue defect involving the midline forehead. Calvarium: No depressed skull fracture. Benign hyperostosis frontalis noted. Paranasal sinuses and mastoid air cells: Clear. Visualized orbits: Bilateral aphakia Cervical spine: Fracture: None. Osseous structures: Multilevel degenerative disc disease changes with endplate spurring and disc spac e narrowing and anterior osteophytosis. Multilevel facet arthropathy. Vertebral alignment: Within normal limits. Spinal canal/Neural Foramina: Disc osteophyte complexes at C6 and C6-C7 with at least mild spinal can al stenosis. Facet joint uncovertebral joint arthropathy scattered throughout the cervical spine with varying degrees of neural foraminal stenosis. Neck soft tissues: Prevertebral soft tissues are within normal limits. Other: The airway is patent. The lung apices are clear. Bilateral carotid bulb calcifications. Facial Bones: Ductal amount increased streak artifact which limits evaluation. Tiny nondisplaced fracture of the le ft nasal bone. Soft tissue defect involving the bridge of the nose with surrounding swelling. Additio nal foci of gas and fat stranding identified within the midline forehead soft tissues. The orbital co ntents are unremarkable. The temporal-mandibular joints appear symmetric with degenerative changes. T he visualized portion of the paranasal sinuses appear clear. IMPRESSION: 1. No acute intracranial process. 2. Nonspecific white matter changes, likely secondary to chronic small vessel ischemic disease. 3. Tiny acute nondisplaced fracture of the left nasal bone. 4. Soft tissue lacerations involving the midline forehead and nasal bridge. 5. No evidence of cervical spine fracture. 6. Mild multilevel degenerative disc disease. [facility], , 05/06/2024 1:54 PM
--- NOTE | 2024-05-06 14:03 | ED ---
General Adult HPI - General Chief complaint: Syncope Stated complaint: Fall/Face Laceration Time Seen by Provider: 05/06/24 12:40 Source: patient, family Mode of arrival: wheelchair Limitations: no limitations - History of Present Illness Initial comments: 83-year-old female with past medical history of hyperlipidemia, hypertension, COPD, congestive heart failure who presents emergency department after syncopal episode. States that at 5:30 AM she ambulated to the kitchen to get something to drink. She then went into the bathroom. She used the toilet and upon standing patient must have passed out because this is the last thing she kya mbers. She woke up on the ground in a pool of blood. Patient had obvious facial injury. She is unsure how long she was on the floor for. She did not notify her family until 10 AM. Patient denies having any chest pain or shortness of breath prior to the episode. She states that she was ambulating without her oxygen however she does this frequently as she only wears her oxygen when needed. She denies having any chest pain. No nausea or vomiting. Patient has a mild headache right now. No visual disturbance. She does have some mild neck pain. no numbness, tingling or weakness in her extremities. She does not take blood thinners. There are no other alleviating, precipitating or modifying factors - Related Data Home Medications Medication Instructions Recorded Confirmed Divalproex Sodium [Depakote] 1,000 mg PO HS 10/20/20 05/06/24 Fenofibrate,Micronized 134 mg PO DAILY 10/20/20 05/06/24 [Fenofibrate] Levothyroxine Sodium [Synthroid] 50 mcg PO DAILY 10/20/20 05/06/24 Omeprazole 20 mg PO DAILY 10/20/20 05/06/24 Tolterodine ER [Detrol LA] 4 mg PO DAILY 10/20/20 05/06/24 Escitalopram [Lexapro] 20 mg PO DAILY 10/26/21 05/06/24 Loratadine [Claritin] 10 mg PO DAILY 10/26/21 05/06/24 carvediloL [Coreg] 3.125 mg PO W/SUPPER 03/08/23 05/06/24 Previous Rx's Medication Instructions Recorded Amoxic-Pot Clav 875-125Mg 1 tab PO Q12HR 10 Days #20 tab 05/08/24 [Augmentin 875-125] Empagliflozin [Jardiance] 25 mg PO DAILY 30 Days #30 tablet 05/08/24 Valsartan [Diovan] 80 mg PO BID@0800,2000 30 Days #60 05/08/24 tab Allergies Allergy/AdvReac Type Severity Reaction Status Date / Time Latex, Natural Rubber Allergy Intermediate Rash/Hives Verified 05/06/24 15:02 albuterol Allergy Dyspnea Verified 05/06/24 15:02 fluticasone Allergy Dyspnea Verified 05/06/24 15:02 [From Flovent HFA] steroids AdvReac Severe Confusion Uncoded 05/06/24 15:02 Review of Systems ROS Statement: Those systems with pertinent positive or pertinent negative responses have been documented in the HPI. ROS Other: All systems not noted in ROS Statement are negative. Past Medical History Past Medical History: COPD, GERD/Reflux, Hyperlipidemia, Hypertension, Thyroid Disorder History of Any Multi-Drug Resistant Organisms: None Reported Past Surgical History: Bowel Resection, Hysterectomy Past Anesthesia/Blood Transfusion Reactions: No Reported Reaction Past Psychological History: Anxiety, Depression Smoking Status: Never smoker - Past Family History Mother Family Medical History: GERD/Reflux Father Additional Family Medical History / Comment(s): brain anyrism General Exam Limitations: no limitations General appearance: alert, in no apparent distress Head exam: Present: normocephalic, other (Laceration to middle forehead which measures approximately 4 cm in total length. Stellate in appearance. There is an additional 2 cm laceration over the nasal bridge which appears down to the nasal bones. This is linear in nature) Eye exam: Present: normal appearance, PERRL, EOMI. Absent: scleral icterus, conjunctival injection, periorbital swelling ENT exam: Present: normal exam, mucous membranes moist Neck exam: Present: normal inspection. Absent: tenderness, meningismus, lymphadenopathy Respiratory exam: Present: normal lung sounds bilaterally. Absent: respiratory distress, wheezes, rales, rhonchi, stridor Cardiovascular Exam: Present: regular rate, normal rhythm, normal heart sounds. Absent: systolic murmur, diastolic murmur, rubs, gallop, clicks GI/Abdominal exam: Present: soft, normal bowel sounds. Absent: distended, tenderness, guarding, rebound, rigid Extremities exam: Present: normal inspection, full ROM, normal capillary refill. Absent: tenderness, pedal edema, joint swelling, calf tenderness Back exam: Present: normal inspection Neurological exam: Present: alert, oriented X3, CN II-XII intact Psychiatric exam: Present: normal affect, normal mood Skin exam: Present: warm, dry, intact, normal color. Absent: rash Course Vital Signs 05/06/24 05/06/24 05/06/24 12:28 12:38 13:31 Temperature 97.5 F L Pulse Rate 69 68 80 Pulse Rate [ Right Supine Pulse Oximetery ] Respiratory 20 18 18 Rate Blood Pressure 165/75 175/74 154/66 Blood Pressure [Left Arm Supine] O2 Sat by Pulse 97 97 96 Oximetry 05/06/24 05/06/24 05/06/24 16:37 20:59 21:14 Temperature 98.2 F Pulse Rate 68 Pulse Rate [ 69 Right Supine Pulse Oximetery ] Respiratory 18 18 18 Rate Blood Pressure 144/70 Blood Pressure 130/67 [Left Arm Supine] O2 Sat by Pulse 97 96 Oximetry Procedures - Laceration Laceration #1 Consent Obtained: verbal consent Indication: laceration Site: face Size (cm): 4 Description: stellate Depth: simple, single layer Anesthetic Used: lidocaine 1% Anesthesia Technique: local infiltration Amount (mls): 5 Pre-repair: wound explored, irrigated extensively, deep structures intact Type of Sutures: nylon Size of Sutures: 6-0 Number of Sutures: 7 Technique: simple, interrupted Patient Tolerated Procedure: well, no complications Laceration #2 Consent Obtained: verbal consent Indication: laceration Site: face Size (cm): 2 Description: linear Depth: simple, single layer Anesthetic Used: lidocaine 1% Anesthesia Technique: local infiltration Amount (mls): 4 Pre-repair: wound explored Type of Sutures: nylon Size of Sutures: 6-0 Number of Sutures: 6 Technique: simple, interrupted Patient Tolerated Procedure: well, no complications Medical Decision Making - Medical Decision Making Was pt. sent in by a medical professional or institution (Dr. PA, SH[employer]ARGES LOADER, urgent care, hospital, or [place] health care facility...) When possible be specific @ -No Did you speak to anyone other than the patient for history (EMS, parent, family, police, friend...)? What history was obtained from this source @ -Spoke with EMS for history Did you review nursing and triage notes (agree or disagree)? Why? @ -I reviewed and agree with nursing and triage notes Were old charts reviewed (outside hosp., previous admission, EMS record, old EKG, old radiological studies, urgent care reports/EKG's, [place] health care facility records)? Report findings @ -No old charts were reviewed Differential Diagnosis (chest pain, altered mental status, abdominal pain women, abdominal pain men, vaginal bleeding, weakness, fever, dyspnea, syncope, headache, dizziness, GI bleed, back pain, seizure, CVA, palpatations, mental health, musculoskeletal)? @ -Differential Syncope: Valvular disease, hypertrophic cardiomyopathy, pulmonary embolism, tamponade, tachycardia, bradycardia, CT, hypovolemia, hemorrhage, dissection, anemia, intracranial hemorrhage, seizure, hypoglycemia, carbon monoxide poisoning, this is not meant to be an all-inclusive list. EKG interpreted by me (3pts min.). @ -Yes and demonstrates sinus rhythm with a rate of 64. DC interval 241. QRS 171. QTc of 502. Right bundle branch block. X-rays interpreted by me (1pt min.). @ -Yes which demonstrates no acute process CT interpreted by me (1pt min.). @ -Yes which demonstrates nasal bone fracture U/S interpreted by me (1pt. min.). @ -None done What testing was considered but not performed or refused? (CT, X-rays, U/S, labs)? Why? @ -None What meds were considered but not given or refused? Why? @ -None Did you discuss the management of the patient with other professionals (professionals i.e. , PA, [employer]ARGES LOADER, lab, RT, psych nurse, social secretary, cloud solutions architect, teacher, plant protection officer, vocational case manager)? Give summary @ -Spoke with Dr. Wallace for admission Was smoking cessation discussed for >3mins.? @ -No Was critical care preformed (if so, how long)? @ -No Were there social determinants of health that impacted care today? How? (Homelessness, low income, unemployed, alcoholism, drug addiction, transportation, low edu. Level, literacy, decrease access to med. care, residential, rehab)? @ -No Was there de-escalation of care discussed even if they declined (Discuss DNR or withdrawal of care, Hospice)? DNR status @ -No What co-morbidities impacted this encounter? (DM, HTN, Smoking, COPD, CAD, C ancer, CVA, ARF, Chemo, Hep., AIDS, mental health diagnosis, sleep apnea, morbid obesity)? @ -None Was patient admitted / discharged? Hospital course, mention meds given and route, prescriptions, significant lab abnormalities, going to OR and other pertinent info. @ -Admitted. Upon arrival patient seen and evaluated in bed 4. Thorough history and physical exam was performed. IV was established. Laboratory studies are conducted. Twelve-lead EKG was performed. CT of the brain cervical spine was performed. Patient's lacerations were repaired. I did recommend admission for which the patient was agreeable. Spoke with Dr. Wallace for the admission Undiagnosed new problem with uncertain prognosis? @ -No Drug Therapy requiring intensive monitoring for toxicity (Heparin, Nitro, Insulin, Cardizem)? @ -No Were any procedures done? @ -No Diagnosis/symptom? @ -acute syncope, blunt facial trauma, facial lacerations, nasal bone fracture Acute, or Chronic, or Acute on Chronic? @ -acute Uncomplicated (without systemic symptoms) or Complicated (systemic symptoms)? @ -complicated Side effects of treatment? @ -No Exacerbation, Progression, or Severe Exacerbation? @ -No Poses a threat to life or bodily function? How? (Chest pain, USA, CT, pneumonia, PE, COPD, DKA, ARF, appy, cholecystitis, CVA, Diverticulitis, Homicidal, Suicidal, threat to staff... and all critical care pts) @ -No - Lab Data Result diagrams: 05/07/24 05:08 05/07/24 05:08 Lab Results 05/06/24 05/06/24 05/06/24 Range/Units 13:27 13:27 13:27 WBC 10.9 H (3.8-10.6) k/uL RBC 4.90 (3.80-5.40) m/uL Hgb 13.8 (11.4-16.0) gm/dL Hct 41.1 (34.0-46.0) % MCV 83.8 (80.0-100.0) fL MCH 28.1 (25.0-35.0) pg MCHC 33.5 (31.0-37.0) g/dL RDW 15.1 (11.5-15.5) % Plt Count 270 (150-450) k/uL MPV 7.4 Neutrophils % 76 % Lymphocytes % 18 % Monocytes % 5 % Eosinophils % 1 % Basophils % 1 % Neutrophils # 8.2 H (1.3-7.7) k/uL Lymphocytes # 1.9 (1.0-4.8) k/uL Monocytes # 0.5 (0-1.0) k/uL Eosinophils # 0.1 (0-0.7) k/uL Basophils # 0.1 (0-0.2) k/uL PT 11.1 (10.0-12.5) sec INR 1.0 (<1.2) APTT 21.6 L (22.0-30.0) sec Sodium 139 (137-145) mmol/L Potassium 4.6 (3.5-5.1) mmol/L Chloride 104 (98-107) mmol/L Carbon Dioxide 27 (22-30) mmol/L Anion Gap 8 mmol/L BUN 35 H (7-17) mg/dL Creatinine 0.77 (0.52-1.04) mg/dL Est GFR (CKD-EPI)AfAm 84 (>60 ml/min/1.73 sqM) Est GFR (CKD-EPI)NonAf 73 (>60 ml/min/1.73 sqM) Glucose 142 H (74-99) mg/dL Calcium 9.8 (8.4-10.2) mg/dL Total Bilirubin 0.6 (0.2-1.3) mg/dL AST 36 (14-36) U/L ALT 24 (4-34) U/L Alkaline Phosphatase 55 (38-126) U/L Troponin I (0.000-0.034) ng/mL Total Protein 7.6 (6.3-8.2) g/dL Albumin 4.7 (3.5-5.0) g/dL Urine Color Urine Appearance (Clear) Urine pH (5.0-8.0) Ur Specific [place] (1.001-1.035) Urine Protein (Negative) Urine Glucose (UA) (Negative) Urine Ketones (Negative) Urine Blood (Negative) Urine Nitrite (Negative) Urine Bilirubin (Negative) Urine Urobilinogen (<2.0) mg/dL Ur Leukocyte Esterase (Negative) Urine RBC (0-5) /hpf Urine WBC (0-5) /hpf Ur Squamous Epith Cells (0-4) /hpf Urine Bacteria (None) /hpf Urine Mucus (None) /hpf 05/06/24 05/06/24 Range/Units 13:27 13:27 WBC (3.8-10.6) k/uL RBC (3.80-5.40) m/uL Hgb (11.4-16.0) gm/dL Hct (34.0-46.0) % MCV (80.0-100.0) fL MCH (25.0-35.0) pg MCHC (31.0-37.0) g/dL RDW (11.5-15.5) % Plt Count (150-450) k/uL MPV Neutrophils % % Lymphocytes % % Monocytes % % Eosinophils % % Basophils % % Neutrophils # (1.3-7.7) k/uL Lymphocytes # (1.0-4.8) k/uL Monocytes # (0-1.0) k/uL Eosinophils # (0-0.7) k/uL Basophils # (0-0.2) k/uL PT (10.0-12.5) sec INR (<1.2) APTT (22.0-30.0) sec Sodium (137-145) mmol/L Potassium (3.5-5.1) mmol/L Chloride (98-107) mmol/L Carbon Dioxide (22-30) mmol/L Anion Gap mmol/L BUN (7-17) mg/dL Creatinine (0.52-1.04) mg/dL Est GFR (CKD-EPI)AfAm (>60 ml/min/1.73 sqM) Est GFR (CKD-EPI)NonAf (>60 ml/min/1.73 sqM) Glucose (74-99) mg/dL Calcium (8.4-10.2) mg/dL Total Bilirubin (0.2-1.3) mg/dL AST (14-36) U/L ALT (4-34) U/L Alkaline Phosphatase (38-126) U/L Troponin I 0.014 (0.000-0.034) ng/mL Total Protein (6.3-8.2) g/dL Albumin (3.5-5.0) g/dL Urine Color Colorless Urine Appearance Cloudy H (Clear) Urine pH 5.5 (5.0-8.0) Ur Specific [place] 1.009 (1.001-1.035) Urine Protein Negative (Negative) Urine Glucose (UA) 4+ H (Negative) Urine Ketones Negative (Negative) Urine Blood Negative (Negative) Urine Nitrite Negative (Negative) Urine Bilirubin Negative (Negative) Urine Urobilinogen <2.0 (<2.0) mg/dL Ur Leukocyte Esterase Small H (Negative) Urine RBC 2 (0-5) /hpf Urine WBC 11 H (0-5) /hpf Ur Squamous Epith Cells 7 H (0-4) /hpf Urine Bacteria Few H (None) /hpf Urine Mucus Rare H (None) /hpf Disposition Clinical Impression: Syncope, Facial trauma, Facial laceration, Fall Disposition: ADMITTED IP TO THIS [facility] Condition: Stable Is patient prescribed a controlled substance at d/c from ED?: No Time of Disposition: 14:40 Decision to Admit Reason: Admit from EC Decision Date: 05/06/24 Decision Time: 14:40
[2024-05-06 14:13] LABS: ALT 24 U/L (4-34); AST 36 U/L (14-36); African American GFR (CKD) 84 (>60 ml/min/1.73 sqM); Albumin 4.7 g/dL (3.5-5.0); Alkaline Phosphatase 55 U/L (38-126); Anion Gap 8 mmol/L; Blood Urea Nitrogen 35 mg/dL (7-17); Calcium 9.8 mg/dL (8.4-10.2); Carbon Dioxide 27 mmol/L (22-30); Chloride 104 mmol/L (98-107); Glucose 142 mg/dL (74-99); Non-African American GFR(CKD) 73 (>60 ml/min/1.73 sqM); Potassium 4.6 mmol/L (3.5-5.1); Sodium 139 mmol/L (137-145); Total Bilirubin 0.6 mg/dL (0.2-1.3); Total Protein 7.6 g/dL (6.3-8.2)
[2024-05-06] MEDS: LIDOCAINE 1% INJ 10MG/ML (20 ML MDV) SQ ONE (14:18)
[2024-05-06 14:24] LABS: Appearance,Urine Cloudy (Clear); Bacteria,Urine Few /hpf; Bilirubin,Urine Negative (Negative); Blood,Urine Negative (Negative); Color,Urine Colorless; Glucose,Urine (UA) 4+ (Negative); Ketones,Urine Negative (Negative); Leukocyte Esterase,Urine Small (Negative); Mucus,Urine Rare /hpf; Nitrite,Urine Negative (Negative); PH, Urine 5.5 (5.0-8.0); Protein,Urine Negative (Negative); RBC,Urine 2 /hpf (0-5); Specific Gravity,Urine 1.009 (1.001-1.035); Squamous Epithelial Cell,Urine 7 /hpf (0-4); Urobilinogen,Urine <2.0 mg/dL (<2.0); WBC,Urine 11 /hpf (0-5)
[2024-05-06 14:26] LABS: Prothrombin Time 11.1 sec (10.0-12.5)
[2024-05-06 14:28] LABS: Partial Thromboplastin Time 21.6 sec (22.0-30.0)
--- NOTE | 2024-05-06 14:29 | XR ---
EXAMINATION TYPE: XR chest 2V DATE OF EXAM: 05/06/2024 1:47 PM COMPARISON: Chest radiographs from 03/08/2023 CLINICAL INDICATION: Female, 83 years old with history of syncope; TECHNIQUE: XR chest 2V Frontal and lateral views of the chest. FINDINGS: Lungs/Pleura: There is no evidence of pleural effusion, focal consolidation, or pneumothorax. Pulmonary vascularity: Unremarkable. Heart/mediastinum: Cardiomediastinal silhouette is unremarkable. Musculoskeletal: No acute osseous pathology. IMPRESSION: No acute cardiopulmonary disease/process. [facility], Workstation: [facility], 05/06/2024 2:27 PM
[2024-05-06] MEDS ORDERED: NALOXONE 0.4 MG/ML 1 ML VIAL IV PRN (14:40)
[2024-05-06] MEDS: AMPICILLIN-SULBACTAM 3 GM in SODIUM CHLORIDE 0.9% 100 ML IVPB SCH (16:15)
[2024-05-06] MEDS: DIPH,PERTUS(ACELL)TETVAC-LF 0.5 ML VIAL IM ONE (16:16)
--- NOTE | 2024-05-06 16:19 | P.HPIM ---
History of Present Illness H&P Date: 05/06/24 History of Presenting Illness: Patient is a very pleasant 83-year-old female who lives at home independently. She has a past medical history of COPD with chronic hypoxic respiratory failure on home oxygen intermittently with 2 L O2, chronic systolic heart failure previously known EF of 45%, hypertension, hyperlipidemia, hypothyroidism, GERD, and anxiety with depression. She presented to the emergency department secondary to reports of syncopal episode and facial trauma. Patient reports she remembers waking up at 530 this morning and walked into the kitchen to get a drink of water she reports she remembers it was 530 because she looked at the clock on the stove prior to walking to the bathroom. Patient reports she went to the bathroom and remembers she was pulling up her pants and that is the last thing she remembered prior to waking up on the bathroom floor in a pool of blood. Patient denies having any dizziness, lightheadedness, chest pain, palpitations, shortness of breath, or experiencing any numbness/tingling/weakness in her extremities. She reports feeling her baseline normal prior to this event. She reports upon awakening she did have a mild headache and pain to her nose. She states she does not know how long she was lying on the ground unconscious and states after awakening she got herself up off the floor and cleaned herself up prior to calling her family. Family at bedside reports that she did not notify them until after 10 AM. Patient states she was ambulating without her oxygen, but does this all of the time as she only uses her oxygen at night and on an as needed basis and again denied experiencing any shortness of breath. Patient denies history of syncopal event or seizure in the past, denies any recent infections or illnesses, and denies any changes in appetite. Patient continues to report only complaint at this time is a mild headache and pain to the bridge of her nose. Upon arrival to our facility, patient underwent evaluation in the emergency department. Vital signs upon arrival show blood pressure 165/75, heart rate 69, respiratory rate 20, temp 97.5 F, and SpO2 of 97% on room air. EKG completed showing sinus mechanism at 64 bpm with a right bundle branch block. Chest x-ray negative for acute cardiopulmonary process. CT head was negative for acute intracranial process revealing nonspecific white matter changes likely secondary to chronic small vessel ischemic disease. CT face revealing a tiny acute nondisplaced fracture of the left nasal bone with soft tissue lacerations involving the midline forehead and nasal bridge. CT cervical spine negative showing no evidence of cervical spine fracture revealing mild multilevel degenerative disc disease. Labs completed and reviewed. CBC showing leukocytosis with WBC count of 10.9 otherwise normal findings. Coagulation profile showing low PTT of 21.6 otherwise normal findings. BMP showing mild prerenal azotemia with BUN of 35 and hyperglycemia with glucose of 142. Liver profile was unremarkable. Troponin was 0.014. Urinalysis contaminated specimen but negative for infection. Depakote level was slightly subtherapeutic at 45.3. Patient admitted under our services with consultation to cardiology. Review of systems: Pertinent positives and negatives as discussed in HPI, a complete review of systems was performed and all other systems are negative. Physical exam: Vital signs reviewed and stable. General: Nontoxic, no distress and appears stated age. Derm: Skin warm and dry, normal coloration for ethnicity. Head: Normocephalic and symmetric. Patient with laceration to mid forehead and bridge of nose, ED physician preparing to repair/suture at this time. Eyes: EOM's intact, no lid lag, and anicteric sclera Mouth: no lip lesions, mucus membranes moist Cardiovascular: regular rate and rhythm with normal S1S2, no murmur, positive posterior tibial pulses bilaterally, and cap refill < 2 seconds. Lungs: Respirations even, regular, and unlabored on room air. Lungs CTA bilaterally, no rhonchi, no rales, no wheezing, and no accessory muscle usage. Abdominal: soft, nontender to palpation, no guarding, no appreciable o rganomegaly Ext: ROM intact. No gross muscle atrophy, no edema, no contractures Neuro: Speech clear, face symmetrical and CN II-XII grossly intact with no noted focal neuro deficits Psych: Alert and oriented to person, place, time, and situation. Appropriate and pleasant affect. Assessment and Plan of Care: Syncopal episode Fall with facial trauma, secondary to above Mildly displaced nasal bone fracture -Cardiology consulted, appreciate recommendations. -Patient to remain on continuous telemetry monitoring. -Neurochecks every 4 hours and fall precautions in place. -Orthostatic vitals to be obtained -Echocardiogram to be completed -Carotid Dopplers completed and pending results -Order placed for Tdap -Patient started on prophylactic antibiotics with Unasyn 3 g every 8 hours secondary to slightly displaced nasal bone fracture and will need follow-up outpatient with ENT after discharge. COPD, not in acute exacerbation Chronic hypoxic respiratory failure home oxygen dependent -Continue oxygenation as needed to maintain SpO2 equal to or greater than 90%. Chronic systolic heart failure, not in acute exacerbation Hypertension Hyperlipidemia -Continue daily medication regimen with carvedilol 3.125 mg daily, valsartan 320 mg daily, furosemide 40 mg daily, and fenofibrate 160 mg daily. Hypothyroidism -Continue daily medication regimen of levothyroxine 50 mcg daily. Mood disorder with anxiety and depression -Depakote level slightly subtherapeutic at 45.3. Patient to continue with Depakote 1000 mg nightly and Lexapro 20 mg daily. Data and imaging reviewed: As stated above in HPI. CODE STATUS: Full code DVT prophylaxis: Lovenox Anticipated discharge date: Pending clinical course Anticipated discharge place: Home Patient was seen independently by Nurse Practitioner. This document was prepared using [employer] dictation software. Please allow for errors in chief airline radio operator while rare they do occur. Reinaldo Kumar NP rendered care for this patient independently, reviewed the findings and plan as documented in the note above and agree with plan. I did not physically speak with or examine the patient on this date. Past Medical History Past Medical History: COPD, GERD/Reflux, Hyperlipidemia, Hypertension, Thyroid Disorder History of Any Multi-Drug Resistant Organisms: None Reported Past Surgical History: Bowel Resection, Hysterectomy Past Anesthesia/Blood Transfusion Reactions: No Reported Reaction Past Psychological History: Anxiety, Depression Smoking Status: Never smoker - Past Family History Mother Family Medical History: GERD/Reflux Father Additional Family Medical History / Comment(s): brain anyrism Medications and Allergies Home Medications Medication Instructions Recorded Confirmed Type Divalproex Sodium [Depakote] 1,000 mg PO HS 10/20/20 05/06/24 History Fenofibrate,Micronized 134 mg PO DAILY 10/20/20 05/06/24 History [Fenofibrate] Levothyroxine Sodium [Synthroid] 50 mcg PO DAILY 10/20/20 05/06/24 History Omeprazole 20 mg PO DAILY 10/20/20 05/06/24 History Tolterodine ER [Detrol LA] 4 mg PO DAILY 10/20/20 05/06/24 History Escitalopram [Lexapro] 20 mg PO DAILY 10/26/21 05/06/24 History Loratadine [Claritin] 10 mg PO DAILY 10/26/21 05/06/24 History Furosemide [Lasix] 40 mg PO DAILY 30 Days #30 tab 10/28/21 05/06/24 Rx carvediloL [Coreg] 3.125 mg PO W/SUPPER 03/08/23 05/06/24 History Empagliflozin [Jardiance] 25 mg PO DAILY 05/06/24 05/06/24 History Valsartan [Diovan] 320 mg PO DAILY 05/06/24 05/06/24 History Allergies Allergy/AdvReac Type Severity Reaction Status Date / Time Latex, Natural Rubber Allergy Intermediate Rash/Hives Verified 05/06/24 15:02 albuterol Allergy Dyspnea Verified 05/06/24 15:02 fluticasone Allergy Dyspnea Verified 05/06/24 15:02 [From Flovent HFA] steroids AdvReac Severe Confusion Uncoded 05/06/24 15:02 Physical Exam Vitals: Vital Signs Temp Pulse Resp BP Pulse Ox 05/06/24 13:31 80 18 154/66 96 05/06/24 12:38 68 18 175/74 97 05/06/24 12:28 97.5 F L 69 20 165/75 97 Intake and Output 05/06/24 05/06/24 05/06/24 06:59 14:59 22:59 Other: Weight 88.904 kg Results CBC & Chem 7: 05/06/24 13:27 05/06/24 13:27 Labs: Abnormal Lab Results - Last 24 Hours (Table) 05/06/24 05/06/24 05/06/24 Range/Units 13:27 13:27 13:27 WBC 10.9 H (3.8-10.6) k/uL Neutrophils # 8.2 H (1.3-7.7) k/uL APTT 21.6 L (22.0-30.0) sec BUN 35 H (7-17) mg/dL Glucose 142 H (74-99) mg/dL Urine Appearance (Clear) Urine Glucose (UA) (Negative) Ur Leukocyte Esterase (Negative) Urine WBC (0-5) /hpf Ur Squamous Epith Cells (0-4) /hpf Urine Bacteria (None) /hpf Urine Mucus (None) /hpf 05/06/24 Range/Units 13:27 WBC (3.8-10.6) k/uL Neutrophils # (1.3-7.7) k/uL APTT (22.0-30.0) sec BUN (7-17) mg/dL Glucose (74-99) mg/dL Urine Appearance Cloudy H (Clear) Urine Glucose (UA) 4+ H (Negative) Ur Leukocyte Esterase Small H (Negative) Urine WBC 11 H (0-5) /hpf Ur Squamous Epith Cells 7 H (0-4) /hpf Urine Bacteria Few H (None) /hpf Urine Mucus Rare H (None) /hpf
--- NOTE | 2024-05-06 16:29 | US ---
EXAMINATION TYPE: US carotid duplex BILAT DATE OF EXAM: 05/06/2024 COMPARISON: NONE CLINICAL INDICATION: Female, 83 years old with history of syncope; Additional History: Pt had a fall this AM TECHNIQUE: Grayscale, color Doppler and spectral Doppler evaluation of the bilateral carotid systems and vertebral arteries. Indirect Doppler criteria was utilized. FINDINGS: EXAM MEASUREMENTS: RIGHT: Peak Systolic Velocity (PSV) cm/sec ----- Right CCA: 83.8 ----- Right ICA: 114 ----- Right ECA: 139 ICA/CCA ratio: 1.4 RIGHT: End Diastole cm/sec ----- Right CCA: 20.0 ----- Right ICA: 31.9 ----- Right ECA: 20.8 LEFT: Peak Systolic Velocity (PSV) cm/sec ----- Left CCA: 81.5 ----- Left ICA: 98.2 ----- Left ECA: 91.8 ICA/CCA ratio: 1.2 LEFT: End Diastole cm/sec ----- Left CCA: 16.1 ----- Left ICA: 24.2 ----- Left ECA: 11.5 VERTEBRALS (direction of flow): Right Vertebral: Antegrade Left Vertebral: Antegrade Rhythm: Normal OBGYN SPECIALIST NOTES: Slightly limited due to pt unable to fully turn head to the right side No significant stenosis, elevated velocities or plaque seen bilaterally Color Doppler imaging shows patency with blood flow throughout the carotid artery. Spectral waveforms are within normal limits. IMPRESSION: Right: Less than 50% stenosis of the carotid bifurcation. Left: Less than 50% stenosis of the carotid bifurcation. Criteria for Assigning % of Stenosis / Diameter reduction (Estimation based on the indirect measurements of the internal carotid artery velocities (ICA PSV). 1. Normal (no stenosis)=ICA PSV < 125 cm/s: ratio < 2.0: ICA EDV<40 cm/s. 2. Less than 50% stenosis=ICA PSV < 125 cm/s: ratio < 2.0: ICA EDV<40 cm/s. 3. 50 to 69% stenosis=ICA PSV of 125 to 230 cm/s: ration 2.0 ? 4.0: ICA EDV 40-100 cm/s. 4. Greater than 70% stenosis to near occlusion= ICA PSV > 230 cm/s: ratio > 4.0: ICA EDV > 100 cm/s. 5. Near occlusion= ICA PSV velocities may be low or undetectable: variable ratio and ICA EDV. 6. Total occlusion=unable to detect flow. [facility], Workstation: [facility], 05/06/2024 4:26 PM
[2024-05-06] MEDS: carvediloL 3.125 MG TAB PO SCH (16:36)
[2024-05-06] MEDS: DIVALPROEX 500 MG TABLET.DR PO SCH (20:45)
[2024-05-06] MEDS: ACETAMINOPHEN TAB 325 MG TAB PO PRN (23:41)
[2024-05-07] MEDS: LEVOTHYROXINE 50 MCG TAB PO SCH (05:42)
--- NOTE | 2024-05-07 08:25 | CA ---
Transthoracic Echo Report Name: Nancy Archer Age: 83 Gender: F : 1940 Exam Date: 05/06/2024 17:28 Exam Location: [facility] Ht (in): 64 Wt (lb): 196 Ordering Physician: Janelle Cunningham DO Attending/Referring Phys: [id number], Marisa Associate Professor Of Violin Danielle Molina, GREGORY Procedure CPT: Indications: Syncope Cardiac Hx: Technical Quality: Technically difficult study Contrast 1: Definity Total Dose (mL): 2 Contrast 2: Total Dose (mL): MEASUREMENTS (Male / Female) Normal Values 2D ECHO LV Diastolic Diameter PLAX 4.5 cm 4.2 - 5.9 / 3.9 - 5.3 cm LV Systolic Diameter PLAX 2.8 cm IVS Diastolic Thickness 1.5 cm 0.6 - 1.0 / 0.6 - 0.9 cm LVPW Diastolic Thickness 1.3 cm 0.6 - 1.0 / 0.6 - 0.9 cm LV Relative Wall Thickness 0.6 RV Internal Dim ED PLAX 2.8 cm LA Systolic Diameter LX 3.6 cm 3.0 - 4.0 / 2.7 - 3.8 cm LA Volume 63.3 cm??? 18 - 58 / 22 - 52 cm??? LA Volume Index 31.0 cm???/m??? 16 - 28 cm???/m??? M-MODE Aortic Root Diameter MM 3.4 cm AV Cusp Separation MM 2.3 cm DOPPLER AV Peak Velocity 180.2 cm/s AV Peak Gradient 13.0 mmHg MV Area PHT 2.7 cm??? Mitral E Point Velocity 82.0 cm/s Mitral A Point Velocity 117.6 cm/s Mitral E to A Ratio 0.7 MV Deceleration Time 277.2 ms TR Peak Velocity 192.2 cm/s TR Peak Gradient 14.8 mmHg Right Ventricular Systolic Press 19.8 mmHg FINDINGS Left Ventricle Left ventricular ejection fraction is estimated at 55-60 %. Moderately increased septal wall thickness. Moderately increased posterior wall thickness. Normal left ventricular wall motion. Right Ventricle Normal right ventricular size and function. Right ventricular systolic pressure within normal limits. Right Atrium Normal right atrial size. No right atrial thrombus or mass seen. Left Atrium Mildly increased left atrial volume. Mildly increased left atrial area. No left atrial thrombus or mass present. Mitral Valve Structurally normal mitral valve. No mitral stenosis, regurgitation or prolapse. Aortic Valve Trileaflet aortic valve. No aortic valve stenosis or regurgitation. Tricuspid Valve Structurally normal tricuspid valve. Trace to mild tricuspid regurgitation. Pulmonic Valve Structurally normal pulmonic valve. Trace pulmonic regurgitation. Pericardium No pericardial or pleural effusion. Aorta Normal size aortic root and proximal ascending aorta. CONCLUSIONS Normal LV systolic function Previewed by: Dr. Suhas Zelaya MD (Electronically Signed) Final Date: 07 May 2024 08:24
[2024-05-07 08:50] LABS: Basophils # (A) 0.05 X 10*3/uL (0.00-0.10); Basophils % (A) 0.6 %; Eosinophils % (A) 1.1 %; HCT 37.9 % (37.2-46.3); Lymphocytes % (A) 32.9 %; MCH 26.6 pg (27.0-32.0); MCHC 31.7 g/dL (32.0-37.0); Mean Platelet Volume 10.2 FL (9.5-12.2); Monocytes # (A) 0.64 X 10*3/uL (0.20-1.00); Monocytes % (A) 7.3 %; NRBC Per 100 WBC 0 X 10*3/uL (0.00-0.01); Neutrophils # (A) 5.06 X 10*3/uL (1.80-7.70); Neutrophils % (A) 57.3 %; Platelet Count 234 X 10*3/uL (140-440); RBC 4.51 X 10*6/uL (4.10-5.20); RDW 15.3 % (11.5-14.5); WBC 8.82 X 10*3/uL (4.50-10.00)
[2024-05-07] MEDS: ESCITALOPRAM 10 MG TAB PO SCH (08:58)
[2024-05-07] MEDS: FUROSEMIDE 40 MG TAB PO SCH (08:58)
[2024-05-07] MEDS: PANTOPRAZOLE 40 MG TABLET PO SCH (08:58)
[2024-05-07] MEDS: FENOFIBRATE 160 MG TAB PO SCH (08:58)
[2024-05-07] MEDS: VALSARTAN 160 MG TAB PO SCH (08:58)
[2024-05-07] MEDS: DAPAGLIFLOZIN PROPANEDIOL 10 MG TABLET PO SCH (08:58)
[2024-05-07] MEDS: LORATADINE 10 MG TAB PO SCH (08:58)
[2024-05-07] MEDS: OXYBUTYNIN 10 MG TAB.ER.24 PO SCH (08:58)
[2024-05-07] MEDS: ENOXAPARIN 40 MG/0.4 ML SYRINGE SQ SCH (08:59)
[2024-05-07 09:13] LABS: BUN/Creat Ratio 31.67 Ratio (12.00-20.00); Blood Urea Nitrogen 28.5 mg/dL (9.0-27.0); Calcium 8.9 mg/dL (8.7-10.3); Carbon Dioxide 27.1 mmol/L (21.6-31.8); Chloride 99 mmol/L (96-109); Glucose 138 mg/dL (70-110); Potassium 4.2 mmol/L (3.5-5.5); Sodium 139 mmol/L (135-145)
--- NOTE | 2024-05-07 10:03 | P.CRDCN ---
History of Present Illness History of present illness: HISTORY OF PRESENT ILLNESS: This is a 83-year-old female with a past medical history significant for hypertension, hyperlipidemia, diabetes, and congestive heart failure. Patient follows in the office with Dr. Quinonez. We have been asked to see the patient in consultation for syncope. Patient examined at the bedside this morning by Dr. Zelaya. Patient states that she was walking to the bathroom when she passed out. Patient denies having any chest pain or pressure. She denies having any shortness of breath. She does report that she lost consciousness. Orthostatic blood pressures obtained with blood pressure supine 138/64, blood pressure sitting 139/72, and blood pressure standing 118/64. DIAGNOSTICS: - EKG reveals sinus mechanism with right bundle branch block. - Chest xray negative for acute process - Laboratory data: WBC 8.82. Hemoglobin 12.0. Platelet count 234. Sodium 139. Potassium 4.2. BUN 28. Creatinine 0.9. Troponin negative x 3. TSH 1.260. - Current home cardiac medications include Lasix 40 mg daily, valsartan 320 mg daily, fenofibrate 134 mg daily, carvedilol 3.125 mg with dinner - Echocardiogram obtained this admission reveals ejection fraction 55 to 60%, trace to mild TR -Patient underwent Lexiscan stress test in December 2021 revealing fixed anterior wall defect secondary to soft tissue attenuation REVIEW OF SYSTEMS: At the time of my exam: CONSTITUTIONAL: Denies fever or chills. HEENT: Denies blurred vision, vision changes, or eye pain. Denies hemoptysis CARDIOVASCULAR: Denies chest pain. Denies orthopnea. Denies PND. Denies palpitations RESPIRATORY: Denies shortness of breath. GASTROINTESTINAL: Denies abdominal pain. Denies nausea or vomiting. HEMATOLOGIC: Denies bleeding disorders. GENITOURINARY: Denies any blood in urine. SKIN: Denies pruitis. Denies rash. PHYSICAL EXAM: VITAL SIGNS: Reviewed. GENERAL: Well-developed in no acute distress. HEENT: Head is normocephalic. Pupils are equal, round. Sclerae anicteric. Mucous membranes of the mouth are moist. Neck supple. No JVD or thyromegaly LUNGS: Respirations even and unlabored. Lungs essentially clear to auscultation bilaterally. HEART: Regular rate and rhythm. S1 and S2 heard. ABDOMEN: Soft. Nondistended. Nontender. EXTREMITIES: Normal range of motion. No clubbing or cyanosis. Peripheral pulses intact. No lower extremity edema NEUROLOGIC: Awake and alert. Oriented x 3. ASSESSMENT: Syncope Chronic heart failure with preserved EF Hypertension Hyperlipidemia Diabetes Known right bundle branch block Chronic hypoxic respiratory failure on home oxygen PLAN: 2D echo obtained and reviewed Continue telemetry monitoring to assess for any arrhythmias Continue to monitor orthostatics Check D-dimer Further recommendations pending patient course Nurse practitioner note has been reviewed by physician. Signing provider agrees with the documented findings, assessment, and plan of care documented by SCALING MACHINE OPERATOR as a scribe. 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, sutures nose and forehead apr 2024 Past Anesthesia/Blood Transfusion Reactions: No Reported Reaction Past Psychological History: Anxiety, Depression Smoking Status: Never smoker Past Alcohol Use History: None Reported Past Drug Use History: None Reported - Past Family History Mother Family Medical History: GERD/Reflux Father Additional Family Medical History / Comment(s): brain aneruysm Medications and Allergies Home Medications Medication Instructions Recorded Confirmed Type Divalproex Sodium [Depakote] 1,000 mg PO HS 10/20/20 05/06/24 History Fenofibrate,Micronized 134 mg PO DAILY 10/20/20 05/06/24 History [Fenofibrate] Levothyroxine Sodium [Synthroid] 50 mcg PO DAILY 10/20/20 05/06/24 History Omeprazole 20 mg PO DAILY 10/20/20 05/06/24 History Tolterodine ER [Detrol LA] 4 mg PO DAILY 10/20/20 05/06/24 History Escitalopram [Lexapro] 20 mg PO DAILY 10/26/21 05/06/24 History Loratadine [Claritin] 10 mg PO DAILY 10/26/21 05/06/24 History Furosemide [Lasix] 40 mg PO DAILY 30 Days #30 tab 10/28/21 05/06/24 Rx carvediloL [Coreg] 3.125 mg PO W/SUPPER 03/08/23 05/06/24 History Empagliflozin [Jardiance] 25 mg PO DAILY 05/06/24 05/06/24 History Valsartan [Diovan] 320 mg PO DAILY 05/06/24 05/06/24 History Allergies Allergy/AdvReac Type Severity Reaction Status Date / Time Latex, Natural Rubber Allergy Intermediate Rash/Hives Verified 05/06/24 15:02 albuterol Allergy Dyspnea Verified 05/06/24 15:02 fluticasone Allergy Dyspnea Verified 05/06/24 15:02 [From Flovent HFA] steroids AdvReac Severe Confusion Uncoded 05/06/24 15:02 Physical Exam Vitals: Vital Signs Temp Pulse Pulse Pulse Pulse Pulse Resp 05/07/24 07:00 97.5 F L 60 66 60 15 05/07/24 01:55 97.8 F 58 L 16 05/06/24 21:30 98 F 77 77 62 16 05/06/24 21:14 18 05/06/24 20:59 98.2 F 69 18 05/06/24 16:37 68 18 05/06/24 13:31 80 18 05/06/24 12:38 68 18 05/06/24 12:28 97.5 F L 69 20 BP BP BP BP BP Pulse Ox 05/07/24 07:00 139/72 118/64 138/64 95 05/07/24 01:55 108/61 95 05/06/24 21:30 146/73 139/67 160/75 95 05/06/24 21:14 05/06/24 20:59 130/67 96 05/06/24 16:37 144/70 97 05/06/24 13:31 154/66 96 05/06/24 12:38 175/74 97 05/06/24 12:28 165/75 97 Intake and Output 05/06/24 05/07/24 05/07/24 22:59 06:59 14:59 Intake Total 120 118 Balance 120 118 Intake: Oral 120 118 Other: Voiding Method Toilet Toilet # Voids 2 Weight 88.904 kg Results 05/07/24 05:08 05/07/24 05:08 Cardiac Enzymes 05/06/24 05/06/24 05/06/24 Range/Units 13:27 13:27 16:17 AST 36 (14-36) U/L Troponin I 0.014 0.013 (0.000-0.034) ng/mL 05/06/24 Range/Units 19:45 AST (14-36) U/L Troponin I <0.012 (0.000-0.034) ng/mL Coagulation 05/06/24 Range/Units 13:27 PT 11.1 (10.0-12.5) sec APTT 21.6 L (22.0-30.0) sec CBC 05/06/24 05/07/24 Range/Units 13:27 05:08 WBC 10.9 H 8.82 (3.8-10.6) k/uL RBC 4.90 4.51 (3.80-5.40) m/uL Hgb 13.8 12.0 (11.4-16.0) gm/dL Hct 41.1 37.9 (34.0-46.0) % Plt Count 270 234 (150-450) k/uL Comprehensive Metabolic Panel 05/06/24 05/07/24 Range/Units 13:27 05:08 Sodium 139 139 (137-145) mmol/L Potassium 4.6 4.2 (3.5-5.1) mmol/L Chloride 104 99 (98-107) mmol/L Carbon Dioxide 27 27.1 (22-30) mmol/L BUN 35 H 28.5 H (7-17) mg/dL Creatinine 0.77 0.9 (0.52-1.04) mg/dL Glucose 142 H 138 H (74-99) mg/dL Calcium 9.8 8.9 (8.4-10.2) mg/dL AST 36 (14-36) U/L ALT 24 (4-34) U/L Alkaline Phosphatase 55 (38-126) U/L Total Protein 7.6 (6.3-8.2) g/dL Albumin 4.7 (3.5-5.0) g/dL Current Medications Generic Name Dose Route Start Last Admin Trade Name Freq PRN Reason Stop Dose Admin Acetaminophen 650 mg 05/06/24 14:40 05/06/24 23:41 Acetaminophen Tab 325 Mg Tab PO 650 mg Q6HR PRN Administration Mild Pain or Fever > 100.5 Carvedilol 3.125 mg 05/06/24 17:30 05/06/24 16:36 Carvedilol 3.125 Mg Tab PO 3.125 mg W/SUPPER [facility] Administration Dapagliflozin 10 mg 05/07/24 09:00 05/07/24 08:58 Dapagliflozin Propanediol 10 Mg Tablet PO 10 mg DAILY [facility] Administration Divalproex Sodium 1,000 mg 05/06/24 21:00 05/06/24 20:45 Divalproex 500 Mg Tablet.Dr PO 1,000 mg HS [facility] Administration Enoxaparin Sodium 40 mg 05/07/24 09:00 05/07/24 08:59 Enoxaparin 40 Mg/0.4 Ml Syringe SQ 40 mg DAILY [facility] Administration Escitalopram Oxalate 20 mg 05/07/24 09:00 05/07/24 08:58 Escitalopram 10 Mg Tab PO 20 mg DAILY [facility] Administration Fenofibrate 160 mg 05/07/24 09:00 05/07/24 08:58 Fenofibrate 160 Mg Tab PO 160 mg DAILY [facility] Administration Furosemide 40 mg 05/07/24 09:00 05/07/24 08:58 Furosemide 40 Mg Tab PO 40 mg DAILY [facility] Administration Ampicillin Sodium/Sulbactam 100 mls @ 200 mls/hr 05/06/24 16:00 05/07/24 08:59 Sodium 3 gm/ Sodium Chloride IVPB 200 mls/hr Q8HR [facility] Administration Levothyroxine Sodium 50 mcg 05/07/24 06:30 05/07/24 05:42 Levothyroxine 50 Mcg Tab PO 50 mcg 0630 [facility] Administration Loratadine 10 mg 05/07/24 09:00 05/07/24 08:58 Loratadine 10 Mg Tab PO 10 mg DAILY [facility] Administration Naloxone HCl 0.2 mg 05/06/24 14:40 Naloxone 0.4 Mg/Ml 1 Ml Vial IV Q2M PRN Opioid Reversal Oxybutynin Chloride 10 mg 05/07/24 09:00 05/07/24 08:58 Oxybutynin 10 Mg Tab.Er.24 PO 10 mg DAILY [facility] Administration Pantoprazole Sodium 40 mg 05/07/24 09:00 05/07/24 08:58 Pantoprazole 40 Mg Tablet PO 40 mg DAILY [facility] Administration Valsartan 320 mg 05/07/24 09:00 05/07/24 08:58 Valsartan 160 Mg Tab PO 320 mg DAILY [facility] Administration Intake and Output 05/06/24 05/07/2424 22:59 06:59 14:59 Intake Total 120 118 Balance 120 118 Intake: Oral 120 118 Other: Voiding Method Toilet Toilet # Voids 2 Weight 88.904 kg 05/07/24 05:08 05/07/24 05:08
--- NOTE | 2024-05-07 14:28 | P.PN ---
Subjective Progress Note Date: 05/07/24 Hospital Course: Patient is a very pleasant 83-year-old female who lives at home independently. She has a past medical history of COPD with chronic hypoxic respiratory failure on home oxygen intermittently with 2 L O2, chronic systolic heart failure previously known EF of 45%, hypertension, hyperlipidemia, hypothyroidism, GERD, and anxiety with depression. She presented to the emergency department secondary to reports of syncopal episode and facial trauma. Patient reports she remembers waking up at 530 this morning and walked into the kitchen to get a dr ink of water she reports she remembers it was 530 because she looked at the clock on the stove prior to walking to the bathroom. Patient reports she went to the bathroom and remembers she was pulling up her pants and that is the last thing she remembered prior to waking up on the bathroom floor in a pool of blood. Patient denies having any dizziness, lightheadedness, chest pain, palpitations, shortness of breath, or experiencing any numbness/tingling/weakness in her extremities. She reports feeling her baseline normal prior to this event. She reports upon awakening she did have a mild head ache and pain to her nose. She states she does not know how long she was lying on the ground unconscious and states after awakening she got herself up off the floor and cleaned herself up prior to calling her family. Family at bedside reports that she did not notify them until after 10 AM. Patient states she was ambulating without her oxygen, but does this all of the time as she only uses her oxygen at night and on an as needed basis and again denied experiencing any shortness of breath. Patient denies history of syncopal event or seizure in the past, denies any recent infections or illnesses, and denies any changes in appetite. Patient continues to report only complaint at this time is a mild headache and pain to the bridge of her nose. Upon arrival to our facility, patient underwent evaluation in the emergency department. Vital signs upon arrival show blood pressure 165/75, heart rate 69, respiratory rate 20, temp 97.5 F, and SpO2 of 97% on room air. EKG completed showing sinus mechanism at 64 bpm with a right bundle branch block. Chest x-ray negative for acute cardiopulmonary process. CT head was negative for acute intracranial process revealing nonspecific white matter changes likely secondary to chronic small vessel ischemic disease. CT face revealing a tiny acute nondisplaced fracture of the left nasal bone with soft tissue lacerations involving the midline fo rehead and nasal bridge. CT cervical spine negative showing no evidence of cervical spine fracture revealing mild multilevel degenerative disc disease. Labs completed and reviewed. CBC showing leukocytosis with WBC count of 10.9 otherwise normal findings. Coagulation profile showing low PTT of 21.6 otherwise normal findings. BMP showing mild prerenal azotemia with BUN of 35 and hyperglycemia with glucose of 142. Liver profile was unremarkable. Troponin was 0.014. Urinalysis contaminated specimen but negative for infection. Depakote level was slightly subtherapeutic at 45.3. Patient a dmitted under our services with consultation to cardiology. Physical exam: Patient seen and fully evaluated at bedside this morning. She reports feeling "great". She reports mild discomfort to nasal bridge but states her headache is resolved and she is otherwise feeling grateful for care. Vital signs reviewed and stable. General: Nontoxic, no distress and appears stated age. Derm: Skin warm and dry, normal coloration for ethnicity. Head: Normocephalic and symmetric. Patient with laceration to mid forehead and bridge of nose, ED physician preparing to repair/suture at this time. Eyes: EOM's intact, no lid lag, and anicteric sclera Mouth: no lip lesions, mucus membranes moist Cardiovascular: regular rate and rhythm with normal S1S2, no murmur, positive posterior tibial pulses bilaterally, and cap refill < 2 seconds. Lungs: Respirations even, regular, and unlabored on room air. Lungs CTA bilaterally, no rhonchi, no rales, no wheezing, and no accessory muscle usage. Abdominal: soft, nontender to palpation, no guarding, no appreciable organomegaly Ext: ROM intact. No gross muscle atrophy, no edema, no contractures Neuro: Speech clear, face symmetrical and CN II-XII grossly intact with no noted focal neuro deficits Psych: Alert and oriented to person, place, time, and situation. Appropriate and pleasant affect. Assessment and Plan of Care: Syncopal episode Fall with facial trauma, secondary to above Mildly displaced nasal bone fracture -Cardiology consulted, decreasing Lasix to 20 mg daily and valsartan to 160 mg daily. -Patient to remain on continuous telemetry monitoring. -Neurochecks every 4 hours and fall precautions in place. -Orthostatic vitals positive for orthostatic hypotension. -Echocardiogram completed showing a preserved EF of 55 to 60% no significant valvular or structural abnormalities reported. -Carotid Dopplers completed and pending results -Continue antibiotics with Unasyn 3 g every 8 hours secondary to slightly dis placed nasal bone fracture and will need follow-up outpatient with ENT after discharge. -Troponins were trended resulting at 0.014, 0.013, and less than 0.012. COPD, not in acute exacerbation Chronic hypoxic respiratory failure home oxygen dependent -Continue oxygenation as needed to maintain SpO2 equal to or greater than 90%. Chronic systolic heart failure, not in acute exacerbation Hypertension Hyperlipidemia -Continue daily medication regimen with carvedilol 3.125 mg daily, valsartan 160 mg daily, furosemide 20 mg daily, and fenofibrate 160 mg daily. Hypothyroidism -Continue daily medication regimen of levothyroxine 50 mcg daily. Mood disorder with anxiety and depression -Depakote level slightly subtherapeutic at 45.3. Patient to continue with Depakote 1000 mg nightly and Lexapro 20 mg daily. Data and imaging reviewed: -Echocardiogram completed showing a preserved EF of 55 to 60% no significant valvular or structural abnormalities reported. Vital signs reviewed. Blood pressure 138/64, heart rate 60, respiratory rate 15, temp 97.5 F, and SpO2 of 95% on room air. Labs reviewed. CBC showing resolution of leukocytosis with WBC count of 8.82. D-dimer was slightly elevated at 0.61 but normal for age correction. BMP showing mild prerenal azotemia with BUN of 28.5 slightly elevated anion gap of 12.90. Blood glucose 138. Troponins were trended resulting at 0.014, 0.013, and less than 0.012. CODE STATUS: Full code DVT prophylaxis: Lovenox Anticipated discharge date: Pending clinical course Anticipated discharge place: Home Patient was seen independently by Nurse Practitioner. This document was prepared using [employer] dictation software. Please allow for errors in flatcar whacker while rare they do occur. Reinaldo Kumar NP rendered care for this patient independently, reviewed the findings and plan as documented in the note above and agree with plan. I did not physically speak with or examine the patient on this date. Objective - Vital Signs Vital signs: Vital Signs Temp 97.5 F L 05/07/24 07:00 Pulse 60 05/07/24 07:00 Resp 15 05/07/24 07:00 BP 138/64 12/20/24 07:00 Pulse Ox 95 05/07/24 07:00 FiO2 Intake & Output 05/06/24 05/07/24 05/07/24 18:59 06:59 18:59 Intake Total 120 118 Balance 120 118 Weight 88.904 kg 88.904 kg Intake: Oral 120 118 Other: Voiding Method Toilet # Voids 2 - Labs CBC & Chem 7: 05/07/24 05:08 05/07/24 05:08 Labs: Abnormal Lab Results - Last 24 Hours (Table) 05/06/24 05/06/24 05/06/24 Range/Units 13:27 13:27 13:27 WBC 10.9 H (3.8-10.6) k/uL MCH (27.0-32.0) pg MCHC (32.0-37.0) g/dL RDW (11.5-14.5) % Immature Gran # (0.00-0.04) X 10*3/uL Neutrophils # 8.2 H (1.3-7.7) k/uL APTT 21.6 L (22.0-30.0) sec Anion Gap (4.00-12.00) mmol/L BUN 35 H (7-17) mg/dL BUN/Creatinine Ratio (12.00-20.00) Ratio Glucose 142 H (74-99) mg/dL Urine Appearance (Clear) Urine Glucose (UA) (Negative) Ur Leukocyte Esterase (Negative) Urine WBC (0-5) /hpf Ur Squamous Epith Cells (0-4) /hpf Urine Bacteria (None) /hpf Urine Mucus (None) /hpf 05/06/24 05/07/24 05/07/24 Range/Units 13:27 05:08 05:08 WBC (3.8-10.6) k/uL MCH 26.6 L (27.0-32.0) pg MCHC 31.7 L (32.0-37.0) g/dL RDW 15.3 H (11.5-14.5) % Immature Gran # 0.07 H (0.00-0.04) X 10*3/uL Neutrophils # (1.3-7.7) k/uL APTT (22.0-30.0) sec Anion Gap 12.90 H (4.00-12.00) mmol/L BUN 28.5 H (7-17) mg/dL BUN/Creatinine Ratio 31.67 H (12.00-20.00) Ratio Glucose 138 H (74-99) mg/dL Urine Appearance Cloudy H (Clear) Urine Glucose (UA) 4+ H (Negative) Ur Leukocyte Esterase Small H (Negative) Urine WBC 11 H (0-5) /hpf Ur Squamous Epith Cells 7 H (0-4) /hpf Urine Bacteria Few H (None) /hpf Urine Mucus Rare H (None) /hpf
[2024-05-08 07:51] VITALS: RESP 17; TEMP 98.1
[2024-05-08] MEDS: FUROSEMIDE 20 MG TAB PO SCH (08:00)
[2024-05-08] MEDS: VALSARTAN 160 MG TAB PO SCH (08:01)
--- NOTE | 2024-05-08 10:32 | P.PN ---
Subjective Progress Note Date: 05/08/24 HISTORY OF PRESENT ILLNESS: This is a 83-year-old female with a past medical history significant for hy pertension, hyperlipidemia, diabetes, and congestive heart failure. Patient follows in the office with Dr. Quinonez. We have been asked to see the patient in consultation for syncope. Patient examined at the bedside this morning by Dr. Zelaya. Patient states that she was walking to the bathroom when she passed out. Patient denies having any chest pain or pressure. She denies having any shortness of breath. She does report that she lost consciousness. Orthostatic blood pressures obtained with blood pressure supine 138/64, blood pressure sitting 139/72, and blood pressure standing 118/64. DIAGNOSTICS: - EKG reveals sinus mechanism with right bundle branch block. - Chest xray negative for acute process - Laboratory data: WBC 8.82. Hemoglobin 12.0. Platelet count 234. Sodium 139. Potassium 4.2. BUN 28. Creatinine 0.9. Troponin negative x 3. TSH 1.260. - Current home cardiac medications include Lasix 40 mg daily, valsartan 320 mg daily, fenofibrate 134 mg daily, carvedilol 3.125 mg with dinner - Echocardiogram obtained this admission reveals ejection fraction 55 to 60%, trace to mild TR -Patient underwent Lexiscan stress test in December 2021 revealing fixed anterior wall defect secondary to soft tissue attenuation Progress note 05/08/2024 Patient seen and examined at bedside this a.m. Patient's orthostatic vital signs were mildly positive. She is on valsartan 160 mg once a day which I feel is too high for her dose for her. I would instead recommend valsartan 80 mg t wice daily. I do not have access to the patient's office notes not sure what her recent medications are however. I also do not feel that she should be on Lasix 20 mg so therefore I will discontinue it. This was started when she had COVID-19 infection 2 or 3 years ago PHYSICAL EXAM: VITAL SIGNS: Reviewed. GENERAL: Well-developed in no acute distress. HEENT: Head is normocephalic. Pupils are equal, round. Sclerae anicteric. Mucous membranes of the mouth are moist. Neck supple. No JVD or thyromegaly LUNGS: Respirations even and unlabored. Lungs essentially clear to auscultation bilaterally. HEART: Regular rate and rhythm. S1 and S2 heard. ABDOMEN: Soft. Nondistended. Nontender. EXTREMITIES: Normal range of motion. No clubbing or cyanosis. Peripheral pulses intact. No lower extremity edema NEUROLOGIC: Awake and alert. Oriented x 3. ASSESSMENT: Syncope Chronic heart failure with preserved EF Hypertension Hyperlipidemia Diabetes Known right bundle branch block Chronic hypoxic respiratory failure on home oxygen PLAN: I reviewed patient's echocardiogram and it appears to have normal LVEF with no significant valvular dysfunction and normal RVSP. Patient's D-dimer was slightl y elevated but with normal RV size function and normal RVSP I am less suspicious for PE. She is not having any shortness of breath or requirement for oxygen. Patient seen and examined at bedside this a.m. Patient's orthostatic vital signs were mildly positive. She is on valsartan 160 mg once a day which I feel is too high for her dose for her. I would instead recommend valsartan 80 mg twice daily. I do not have access to the patient's office notes not sure what her recent medications are however. I also do not feel that she should be on Lasix 20 mg so therefore I will discontinue it. This was started when she had COVID-19 infection 2 or 3 years ago Otherwise patient is cleared to be discharged from cardiac standpoint. I would request primary team to evaluate if patient would benefit from a PT OT evaluation and outpatient rehab I would request primary team to make sure that patient gets a 7-day heart monitor on Friday to be picked up from the office. I have given detail instr uctions to the patient's how to do so. Recommend outpatient follow-up with Dr. Quinonez Objective - Vital Signs Vital signs: Vital Signs Temp 98.1 F 05/08/24 06:45 Pulse 58 L 05/08/24 06:45 Resp 17 05/08/24 06:45 BP 148/73 05/08/24 06:45 Pulse Ox 97 05/08/24 06:45 FiO2 Intake & Output 05/07/24 05/08/24 05/08/24 18:59 06:59 18:59 Intake Total 354 118 Balance 354 118 Intake: Oral 354 118 Other: Voiding Method Toilet Toilet # Voids 6 4 # Bowel Movements 2 - Labs CBC & Chem 7: 05/07/24 05:08 12/20/24 05:08 Labs: Abnormal Lab Results - Last 24 Hours (Table) 05/07/24 Range/Units 10:20 D-Dimer 0.61 H (<0.60) mg/L FEU
[2024-05-08 10:45] VITALS: BP 118/65; PULSE 70
--- NOTE | 2024-05-08 13:04 | P.DS ---
Providers Date of admission: 05/06/24 14:41 Expected date of discharge: 05/08/24 Attending physician: Brian Wallace Consults: 05/06/24 14:40 Consult Physician Urgent Consulting Provider: [facility] Consult Reason/Comments: acute syncope Do you want consulting provider notified?: Yes Primary care physician[facility] Course: Discharge Diagnosis: Syncopal episode. Patient was found to have mildly positive orthostatic hypotension. Cardiology decreased valsartan to 80 mg twice daily and discontinued patient's home Lasix. Initially patient was to be sent home on and a prescription was sent, however patient requires insurance authorization prior to obtaining this medication therefore to resume Jardiance 25 mg daily and cardiology office to send for insurance authorization on outpatient basis. Patient has been cleared by cardiology and is medically stable for discharge at this time. Patient to follow-up with cardiology office on Friday for placement of event monitor. Fall with facial trauma, secondary to above Mildly displaced nasal bone fracture. Patient received Tdap along with IV antibiotic Unasyn. Patient being discharged home on Augmentin 875/125 mg tablets to take every 12 hours x 10 days and/or further recommendations from ENT on follow-up appointment on 05/10/2024. COPD, not in acute exacerbation Chronic hypoxic respiratory failure home oxygen dependent on as needed basis. Continue oxygenation as needed to maintain SpO2 equal to or greater than 90%. Chronic systolic heart failure, not in acute exacerbation. Repeat echocardiogram completed this admission showing a preserved EF of 55 to 60%. Hypertension. Continue daily medication regimen with carvedilol 3.125 mg daily, and valsartan 80 mg twice daily. Hyperlipidemia. Continue daily medication regimen with fenofibrate 160 mg daily. Hypothyroidism. Continue daily medication regimen of levothyroxine 50 mcg daily. Mood disorder with anxiety and depression Depakote level slightly subtherapeutic at 45.3. Patient to continue with Depakote 1000 mg nightly and Lexapro 20 mg daily. Hospital Course: Patient is a very pleasant 83-year-old female who lives at home independently. She has a past medical history of COPD with chronic hypoxic respiratory failure on home oxygen intermittently with 2 L O2, chronic systolic heart failure previously known EF of 45%, hypertension, hyperlipidemia, hypothyroidism, GERD, and anxiety with depression. She presented to the emergency department secondary to reports of syncopal episode and facial trauma. Upon arrival to our facility, patient underwent evaluation in the emergency department. Vital signs upon arrival show blood pressure 165/75, heart rate 69, respiratory rate 20, temp 97.5 F, and SpO2 of 97% on room air. EKG completed showing sinus mechanism at 64 bpm with a right bundle branch block. Chest x-ray negative for acute cardiopulmonary process. CT head was negative for acute intracranial process revealing nonspecific white matter changes likely secondary to chronic small vessel ischemic disease. CT face revealing a tiny acute nondisplaced fracture of the left nasal bone with soft tissue lacerations involving the midline forehead and nasal bridge. CT cervical spine negative showing no evidence of cervical spine fracture revealing mild multilevel degenerative disc disease. Labs completed and reviewed. CBC showing leukocytosis with WBC count of 10.9 otherwise normal findings. Coagulation profile showing low PTT of 21.6 otherwise normal findings. BMP showing mild prerenal azotemia with BUN of 35 and hyperglycemia with glucose of 142. Liver profile was unremarkable. Troponin was 0.014. Urinalysis contaminated specimen but negative for infection. Depakote level was slightly subtherapeutic at 45.3. Patient admitted under our services with consultation to cardiology. Echocardiogram was completed showing a preserved EF of 55 to 60% and no significant valvular or s tructural abnormalities reported. Patient was found to have mildly positive orthostatic hypotension. Cardiology decreased valsartan to 80 mg twice daily and discontinued patient's home Lasix. Initially patient was to be sent home on [facility] and a prescription was sent, however patient requires insurance authorization prior to obtaining this medication therefore to resume Jardiance 25 mg daily and cardiology office to send for insurance authorization on outpatient basis. Patient has been cleared by cardiology and is medically stable for discharge at this time. Patient to follow-up with cardiology office on Friday for placement of event monitor, follow-up with ENT on scheduled appointment on Friday for evaluation of mildly displaced nasal bone fracture and to continue oral antibiotics with Augmentin pending further recommendations from ENT at this appointment, patient to follow-up outpatient with PCP as well. Patient medically optimized and stable for discharge at this time. Physical exam: Vital signs reviewed and stable. General: Nontoxic, no distress and appears stated age. Derm: Skin warm and dry, normal coloration for ethnicity. Head: Normocephalic and symmetric. Patient with laceration to mid forehead and bridge of nose, ED physician preparing to repair/suture at this time. Eyes: EOM's intact, no lid lag, and anicteric sclera Mouth: no lip lesions, mucus membranes moist Cardiovascular: regular rate and rhythm with normal S1S2, no murmur, positive posterior tibial pulses bilaterally, and cap refill < 2 seconds. Lungs: Respirations even, regular, and unlabored on room air. Lungs CTA bilaterally, no rhonchi, no rales, no wheezing, and no accessory muscle usage. Abdominal: soft, nontender to palpation, no guarding, no appreciable organomegaly Ext: ROM intact. No gross muscle atrophy, no edema, no contractures Neuro: Speech clear, face symmetrical and CN II-XII grossly intact with no noted focal neuro deficits Psych: Alert and oriented to person, place, time, and situation. Appropriate and pleasant affect. A total of 41 minutes of time were spent preparing this complex discharge summary. Pt was discharged on 05/08/2024 at 11:16 AM. Patient was seen independently by Nurse Practitioner. This document was prepared using Vator dictation software. Please allow for errors in cylinder steamer while rare they do occur. Reinaldo Kumar NP rendered care for this patient independently, reviewed the findings and plan as documented in the note above. I did not physically speak with or examine the patient on this date. Patient Condition at Discharge: Stable Plan - Discharge Summary Discharge Rx Participant: No New Discharge Prescriptions: New Amoxic-Pot Clav 875-125Mg [Augmentin 875-125] 1 tab PO Q12HR 10 Days #20 tab Empagliflozin [Jardiance] 25 mg PO DAILY 30 Days #30 tablet Valsartan [Diovan] 80 mg PO BID@0800,1999 30 Days #60 tab Continue Levothyroxine Sodium [Synthroid] 50 mcg PO DAILY Fenofibrate,Micronized [Fenofibrate] 134 mg PO DAILY Divalproex Sodium [Depakote] 1,000 mg PO HS Loratadine [Claritin] 10 mg PO DAILY carvediloL [Coreg] 3.125 mg PO W/SUPPER Tolterodine ER [Detrol LA] 4 mg PO DAILY Omeprazole 20 mg PO DAILY Escitalopram [Lexapro] 20 mg PO DAILY Discontinued Furosemide [Lasix] 40 mg PO DAILY 30 Days #30 tab Valsartan [Diovan] 320 mg PO DAILY Empagliflozin [Jardiance] 25 mg PO DAILY Discharge Medication List Divalproex Sodium [Depakote] 1,000 mg PO HS 10/20/20 [History] Fenofibrate,Micronized [Fenofibrate] 134 mg PO DAILY 10/20/20 [History] Levothyroxine Sodium [Synthroid] 50 mcg PO DAILY 10/20/20 [History] Omeprazole 20 mg PO DAILY 10/20/20 [History] Tolterodine ER [Detrol LA] 4 mg PO DAILY 10/20/20 [History] Escitalopram [Lexapro] 20 mg PO DAILY 10/26/21 [History] Loratadine [Claritin] 10 mg PO DAILY 10/26/21 [History] carvediloL [Coreg] 3.125 mg PO W/SUPPER 03/08/23 [History] Amoxic-Pot Clav 875-125Mg [Augmentin 875-125] 1 tab PO Q12HR 10 Days #20 tab 05/08/24 [Rx] Empagliflozin [Jardiance] 25 mg PO DAILY 30 Days #30 tablet 05/08/24 [Rx] Valsartan [Diovan] 80 mg PO BID@0800,1999 30 Days #60 tab 05/08/24 [Rx] Follow up Appointment(s)/Referral(s): Alok Quinonez MD [STAFF PHYSICIAN] - 1 Week Jasiel Abdi MD [STAFF PHYSICIAN] - 05/10/24 2:00 pm Bennett Saxena DO [Primary Care Provider] - 05/14/24 1:20 am ([place] office.) Patient Instructions/Handouts: Syncope (DC) Activity/Diet/Wound Care/Special Instructions: Activity: As tolerated. Take breaks as needed. Remember to change positions slowly from lying to sitting and from sitting to standing. Isometric exercises involve geeta your muscles without actually moving your body. Isometrics squeeze the muscle and push the blood back toward the heart. They are simple to do and can be done lying in bed or seated in a comfortable chair. It's a good idea to do these in bed before getting up to prepare your body for sitting and standing. Transition slowly with your body. Go from lying to sitting on the edge of the bed. Stay there for several minutes, allowing the body to naturally adjust to the change in position. Once you are standing, pause and wait before walking to allow blood pressure to adjust again. If you feel lightheaded at any point, wait for a few minutes in that position to see if it resolves. If not, then return to the prior position as your body isn't adjusting properly. SLOWLY is the figueroa. Diet: Heart healthy and carb consistent diet. Avoid salts, or foods with hidden salts such as canned or boxed foods and frozen dinners. Extra salt makes your heart wo rk harder and traps the fluid in your body for longer. Special Instructions: Take all of your medications as directed and remember to keep all of your doctor's appointments and follow-up as needed. As discussed with you by staffing consultant, it is recommended that you follow-up in their office at [address] [place] [address] on Friday to have event monitor placed. Wishing you a truly wonderful holiday season and a Happy Healthy New Year!!!!! Thank you for allowing us to participate in your care, it was truly a pleasure having you for our patient!!! . Discharge Disposition: HOME SELF-CARE Plan of Treatment: 7-day heart monitor from Dr. Quinonez's office on Friday
[2024-05-09] MEDS ORDERED: VALSARTAN 80 MG TAB PO SCH (08:00)
== END 2024-05-08 13:59 | disposition home or self-care (01) ==
LOC: EC 12:26 → 6NMEDSUR 14:41
PROVIDERS: ADMIT Student in an Organized Health Care Education/Training Program; ATTEND Student in an Organized Health Care Education/Training Program
DX: I95.1 Orthostatic hypotension (principal); S01.81XA Laceration without foreign body of other part of head, initial encounter; S02.2XXA Fracture of nasal bones, initial encounter for closed fracture; W19.XXXA Unspecified fall, initial encounter; D72.829 Elevated white blood cell count, unspecified; E11.65 Type 2 diabetes mellitus with hyperglycemia; E03.9 Hypothyroidism, unspecified; E78.5 Hyperlipidemia, unspecified; F32.A Depression, unspecified; F41.9 Anxiety disorder, unspecified; I11.0 Hypertensive heart disease with heart failure; I50.22 Chronic systolic (congestive) heart failure; I45.10 Unspecified right bundle-branch block; J44.9 Chronic obstructive pulmonary disease, unspecified; J96.11 Chronic respiratory failure with hypoxia; K21.9 Gastro-esophageal reflux disease without esophagitis; Z23 Encounter for immunization; Z79.84 Long term (current) use of oral hypoglycemic drugs; Z79.890 Hormone replacement therapy; Z79.899 Other long term (current) drug therapy; Z88.8 Allergy status to other drugs, medicaments and biological substances; Z91.040 Latex allergy status
CPT/HCPCS: 96366 ×2; 96372 ×2; 12014; 90471; 96365; 99285; 36415; 93005; 85379; 80164; 80053; 80048; 84443; 84484; 85025 ×2; 85610; 85730; 81001; 71046; 93880; 72125; 70486; 70450; 90715; G0378 ×3; C8929; J2003; J1650 ×2; Q9957; J0295 ×3; 93306